=== PATIENT | male | born 1940 | race African-American/Black ===

== ENCOUNTER 2016-10-31 06:40 | Inpatient (IN) | payer BC, MEDICARE ==
[2016-10-31] VITALS (11 sets, daily range): BP systolic 106–141; BP diastolic 32–97
[~2016-10-31] VITALS: Ht 180.3 cm; Wt 78.9 kg
[~2016-10-31 06:40] MED LIST: ALEN70TA3 PO; ALEN70TA5 PO; ASPI81TA2 PO; BACL10TA PO; BACL20TA PO; BICA50TA4 PO; CEFE2PIG IV; CEFP200T PO; DICL100G7 TP; DOCU-27 PO; Enoxaparin Sodium SQ; FLUT16SP2 NS; GABA-586 PO; GABA600T2 PO; GLIM2TAB PO; GOSE10.8 SQ; GUAI600T38 PO; HYDR-2680 PO; LEVO1CAP3 PO; LEVO75TA5 PO; LISI10TA2 PO; LORA10TA68 PO; LUBI24CA5 PO; METF10002 PO; MOME17SP NS; MULT1TAB6 PO; NACL 0.225% NEB; OXYC1TAB9 PO; PANT40TA5 PO; POLY17PO5 PO; POTA10CA PO; POTA99TA PO; Polyethylene Glycol 3350 PO; SILD50TA PO; SILV20CR4 TP; TIZA4TAB PO; TIZA6CAP3 PO; TOBRAMYCIN NEB
--- NOTE | 2016-10-31 06:55 | PHYS DOC ---
Past Medical History Past Medical History: Cancer, Diabetes-Type II, Hypertension, Other Additional Past Medical Histor: SPINAL STENOSIS,MUSCLE SPASAMS,COLON OBST, PROSTATE CA, chronic hip pain Past Surgical History: Other Additional Past Surgical Histo: HERNIA, SPINE Alcohol Use: Rarely Drug Use: None Adult General Chief Complaint Chief Complaint: MECHANICAL FALL HPI HPI Patient is a 75 year old male brought from home by EMS with the complaint of left hip pain. Patient states yesterday morning he was walking out of his bedroom like he always does and just fell, he doesn't know what caused him to fall. He did bump his head with no loss of consciousness. He is not able to get up from the fall so family called 911, firemen came and helped him get up and put him in a chair. He is not able to get up out of the chair or bear any weight without assistance. Later in the day, his and another family member helped him get from the chair to the bed where he has been ever since. He has not been able to get out of bed due to pain. He cannot bear weight. He does have a history of a left fibula fracture in the past. Patient lives at home with his . He is usually ambulatory without difficulty. He has a life alert. PCP Dr. Tran Review of Systems Review of Systems Constitutional: Denies fever or chills [] Eyes: Denies change in visual acuity, redness, or eye pain [] HENT: Denies nasal congestion or sore throat [] Respiratory: Denies cough or shortness of breath [] Cardiovascular: Denies chest pain GI: Denies abdominal pain, nausea, vomiting, bloody stools or diarrhea [] : Denies dysuria or hematuria [] Musculoskeletal: As in history of present illness for left groin, hip, and leg pain Integument: Denies rash or skin lesions [] Neurologic: Denies headache, focal weakness or sensory changes [] Current Medications Current Medications Current Medications Medications (Trade) Dose Ordered Sig/Karina Start Time Stop Time Status Last Admin Dose Admin Fentanyl Citrate 25 mcg 25 mcg PRN Q15MIN PRN 10/31/16 07:00 11/01/16 06:59 10/31/16 08:26 25 MCG Sodium Chloride (Iv Sodium Chloride 0.9% 1000ml Bag) 1,000 ml @ 100 mls/hr 1X ONCE 10/31/16 08:30 10/31/16 18:29 10/31/16 08:26 100 MLS/HR Allergies Allergies Allergies Coded Allergies Type Severity Reaction Last Updated Verified piperacillin Allergy Severe Itching, unresponsive,hypotension 02/18/16 Yes tazobactam Allergy Severe Itching, unresponsive,hypotension 02/18/16 Yes levofloxacin Allergy Intermediate Itching 02/18/16 Yes Physical Exam Physical Exam Constitutional: Well developed, well nourished, no acute distress, non-toxic appearance. Alert, mentating normally. HENT: Normocephalic, atraumatic, no tenderness or hematoma palpable on the scalp , bilateral external ears normal, mouth and lips very dry, nose normal. [] Eyes: conjunctiva normal, no discharge. [] Neck: Normal range of motion, no tenderness, supple, no stridor. [] Cardiovascular:Heart rate regular rhythm, no murmur [] Lungs & Thorax: Bilateral breath sounds clear to auscultation [] Abdomen: Bowel sounds normal, soft, no tenderness, no masses, no pulsatile masses. Large ventral hernia noted which is soft. Skin: Warm, dry, no erythema, no rash. [] Back: No tenderness, no CVA tenderness. [] Extremities: Left hip tender to palpation. Left proximal femur tender to palpation. Left knee without swelling or tenderness. Left lower leg without swelling, tenderness, or deformity, foot is warm with good pulses. Other 3 extremities unremarkable without tenderness or deformity. Neurologic: Alert and oriented X 3, normal motor function, normal sensory function, no focal deficits noted. [] Current Patient Data Vital Signs Vital Signs Date Time Temp Pulse Resp B/P Pulse Ox O2 Delivery O2 Flow Rate FiO2 10/31/16 08:26 14 93 Room Air 10/31/16 07:55 79 106/69 10/31/16 06:45 98.8 98.8 Lab Values Laboratory Tests Test 10/31/16 07:05 White Blood Count 9.6x10^3/uL (4.0-11.0) Red Blood Count 3.11x10^6/uL (4.30-5.70) L Hemoglobin 9.6g/dL (13.0-17.5) L Hematocrit 29.2% (39.0-53.0) L Mean Corpuscular Volume 94fL (79-100) Mean Corpuscular Hemoglobin 31pg (25-35) Mean Corpuscular Hemoglobin Concent 33g/dL (31-37) Red Cell Distribution Width 12.1% (11.5-14.5) Platelet Count 194x10^3/uL (140-400) Neutrophils (%) (Auto) 77% (31-73) H Lymphocytes (%) (Auto) 11% (24-48) L Monocytes (%) (Auto) 4% (0-9) Eosinophils (%) (Auto) 8% (0-3) H Basophils (%) (Auto) 1% (0-3) Neutrophils # (Auto) 7.4x10^3uL (1.8-7.7) Lymphocytes # (Auto) 1.0x10^3/uL (1.0-4.8) Monocytes # (Auto) 0.4x10^3/uL (0.0-1.1) Eosinophils # (Auto) 0.8x10^3/uL (0.0-0.7) H Basophils # (Auto) 0.0x10^3/uL (0.0-0.2) Sodium Level 129mmol/L (136-145) L Potassium Level 4.8mmol/L (3.5-5.1) Chloride Level 95mmol/L (98-107) L Carbon Dioxide Level 25mmol/L (21-32) Anion Gap 9 (6-14) Blood Urea Nitrogen 14mg/dL (8-26) Creatinine 1.1mg/dL (0.7-1.3) Estimated GFR (Cockcroft-Gault) 79.0 BUN/Creatinine Ratio 13 (6-20) Glucose Level 141mg/dL (70-99) H Calcium Level 9.8mg/dL (8.5-10.1) Total Bilirubin 0.7mg/dL (0.2-1.0) Aspartate Amino Transferase (AST) 49U/L (15-37) H Alanine Aminotransferase (ALT) 58U/L (16-63) Alkaline Phosphatase 39U/L (46-116) L Total Protein 7.5g/dL (6.4-8.2) Albumin 3.2g/dL (3.4-5.0) L Albumin/Globulin Ratio 0.7 (1.0-1.7) L Laboratory Tests 10/31/16 07:05 Laboratory Tests 10/31/16 07:05 EKG EKG [] Radiology/Procedures Radiology/Procedures X-rays of the left hip read by me. Left femoral neck fracture. X-ray of the left femur read by me. No acute abnormality other than the femoral neck. One view portable chest x-ray read by me. Compared to previous chest x-ray from 2016. There may be a hiatal hernia in the left lower chest. No acute abnormality noted. [] Course & Med Decision Making Course & Med Decision Making Pertinent Labs and Imaging studies reviewed. (See chart for details) 75-year-old man who fell yesterday and has not been able to ambulate or even bear weight since the fall, complaining of pain in the left hip and going down the left thigh towards the knee but without knee pain.. I discussed with the patient that we will get some x-rays. He also looks extremely dry, his mouth and lips are dry, we will check some labs as well. He is agreeable to that. Patient was given some IV pain meds. X-rays reveal left hip fracture. I discussed with Dr. Tran who will admit the patient. I wrote bridge orders. I discussed with Dr. Hill, orthopedics, who will see the patient today. He asked that the patient continue to be nothing by mouth. [] Dragon Disclaimer Dragon Disclaimer This electronic medical record was generated, in whole or in part, using a voice recognition dictation system. Departure Departure Impression: Primary Impression: Hip fracture, left Disposition: ADMITTED INPATIENT Admitting Physician: Spring Tran Condition: STABLE Referrals: SPRING TRAN MD (PCP) MELLY SEGURA MD Oct 31, 2016 06:55
[2016-10-31] MEDS ORDERED: FENTANYL PF 100 MCG/2 ML VIAL. IV PRN ×3 (07:00→10:30)
[2016-10-31 07:20] LABS: BASO % 1 % (0-3); EOS % 8 % (0-3); HEMATOCRIT 29.2 % (39.0-53.0); HEMOGLOBIN 9.6 g/dL (13.0-17.5); LYMPH % 11 % (24-48); MEAN CORPUSCULAR HEMOGLOBIN 31 pg (25-35); MEAN CORPUSCULAR HGB CONC 33 g/dL (31-37); MEAN CORPUSCULAR VOLUME 94 fL (79-100); MONO % 4 % (0-9); NEUT % 77 % (31-73); PLATELET COUNT 194 x10^3/uL (140-400); RED BLOOD COUNT 3.11 x10^6/uL (4.30-5.70); RED CELL DISTRIBUTION WIDTH 12.1 % (11.5-14.5); WHITE BLOOD COUNT 9.6 x10^3/uL (4.0-11.0)
[2016-10-31 07:45] LABS: CALCIUM 9.8 mg/dL (8.5-10.1); CREATININE 1.1 mg/dL (0.7-1.3); POTASSIUM 4.8 mmol/L (3.5-5.1)
[2016-10-31 07:51] LABS: ALBUMIN 3.2 g/dL (3.4-5.0); ALBUMIN/GLOBULIN RATIO 0.7 (1.0-1.7); TOTAL BILIRUBIN 0.7 mg/dL (0.2-1.0); TOTAL PROTEIN 7.5 g/dL (6.4-8.2)
--- NOTE | 2016-10-31 07:56 | RAD ---
Pelvis with left hip, 3 views, 10/31/2016: History: Fall There is a subcapital fracture of the left femoral neck. There is impaction and mild anterior displacement of the distal fracture fragment at the fracture site. There is moderate spurring at the hip joint. No other fracture or dislocation is evident. IMPRESSION: Acute subcapital fracture of the left femoral neck. Left femur, 2 views, 10/31/2016: Views of the distal femur demonstrate no additional fracture. There is degenerative change at the knee. The upper end of a internal fixation device is noted in the proximal tibia. IMPRESSION: No additional fracture is delineated.
--- NOTE | 2016-10-31 07:59 | RAD ---
Portable chest, 10/31/2016: History: Preop evaluation, hip fracture Comparison is made to a study from 02/17/2016. The heart size and pulmonary vascularity are normal. There is mild chronic elevation of the left hemidiaphragm. Mild streaky left basilar opacities have been present on previous studies and are compatible with chronic atelectasis or scarring. No new pulmonary abnormality is seen. There is no evidence of pleural fluid or pneumothorax. A surgical plate and screws is evident in the lower cervical spine. IMPRESSION: 1. Mild chronic elevation of the left hemidiaphragm with underlying linear scarring and/or atelectasis. 2. No acute abnormality is detected.
[2016-10-31] MEDS ORDERED: IV NORMAL SALINE 1000ML BAG 1,000 ML IV ONE (08:30)
[2016-10-31] MEDS ORDERED: CLINDAMYCIN 900MG PREMIX 50 ML IV ONE (09:00)
[2016-10-31] MEDS ORDERED: DEXTROSE 50% 25 GM / 50ML DISP.SYRIN. IV PRN ×2 (09:30→13:15)
[2016-10-31] MEDS ORDERED: PROPOFOL 20 ML IV ONE (09:57)
[2016-10-31] MEDS ORDERED: ROCURONIUM 50 MG/5 ML VIAL. ONE (09:57)
[2016-10-31] MEDS ORDERED: FENTANYL PF 100 MCG/2 ML VIAL. ONE (09:57)
[2016-10-31] MEDS ORDERED: LIDOCAINE 2% 100 MG/5 ML SYRINGE. ONE (09:57)
[2016-10-31] MEDS ORDERED: SUCCINYLCHOLINE 200 MG/10 ML VIAL. ONE (09:57)
--- NOTE | 2016-10-31 10:22 | PDOC ---
Provider Note Provider Note Pt seen.H&P dictated. #[id number] SPRING BURGESS MD Oct 31, 2016 10:22
[2016-10-31 10:27] LABS: INR 1.1 (0.8-1.1); PROTHROMBIN TIME PATIENT 13.4 SEC (11.7-14.0)
[2016-10-31] MEDS ORDERED: IV RINGERS,LACTATED 1000ML 1,000 ML IV SCH (10:29)
[2016-10-31] MEDS ORDERED: NON FORMULARY ITEM (Alendronate Sodium (Fosamax) 70 MG) PO SCH (10:30)
[2016-10-31] MEDS ORDERED: LIDOCAINE 1% 1 ML SYRINGE. ID PRN (10:30)
[2016-10-31] MEDS ORDERED: MORPHINE SULFATE 2 MG/ML DISP.SYRIN. IV PRN (10:30)
[2016-10-31] MEDS ORDERED: HYDROmorphone 2 MG/ML VIAL IV PRN (10:30)
[2016-10-31] MEDS ORDERED: PROCHLORPERAZINE 10 MG/2 ML VIAL. IV PRN (10:30)
[2016-10-31] MEDS ORDERED: ONDANSETRON PF 4 MG/2 ML VIAL. IV PRN (10:30)
--- NOTE | 2016-10-31 10:37 | PDOC ---
BRIEF OPERATIVE NOTE Date: Oct 31, 2016 Pre-Op Diagnosis L femoral neck fracture, displaced Post-Op Diagnosis same Procedure Performed L hip fernando Surgeon Sergio Bead Forming Machine Set Up Operator Clarisa Anesthesiologist Woo Anesthesia Type: General Blood Loss 100mL Complications none LASHAE DOWNS II, MD Oct 31, 2016 10:37
[2016-10-31] MEDS ORDERED: SENNOSIDES/DOCUSATE 8.6/50MG TABLET. PO PRN (10:45)
[2016-10-31] MEDS ORDERED: MORPHINE SULFATE 5 MG, KETOROLAC TROMETHAMINE 30 MG, ROPIVacaine 0.5% PF 60 ML, EPINEPH... INT ART ONE ×5 (11:00)
[2016-10-31] MEDS ORDERED: MORPHINE SULFATE 10 MG/ML VIAL. ONE (11:00)
[2016-10-31] MEDS ORDERED: DEXAMETHASONE SOD PHOS 20 MG/5 ML VIAL. ONE (11:20)
[2016-10-31] MEDS ORDERED: DESFLURANE 31 TO 60 MINUTES IH ONE (11:20)
[2016-10-31] MEDS ORDERED: GLYCOPYRROLATE 1 MG/5 ML VIAL. ONE (11:33)
[2016-10-31] MEDS ORDERED: ONDANSETRON PF 4 MG/2 ML VIAL. ONE (11:33)
[2016-10-31] MEDS ORDERED: NEOSTIGMINE METHYLSULFATE 5 MG/5 ML SYRINGE. ONE (11:33)
[2016-10-31] MEDS ORDERED: PHENYLEPHRINE in 0.9% NACL PF 1 MG/10 ML DISP.SYRIN. IV ONE (11:56)
[2016-10-31] MEDS: METFORMIN 1,000 MG TABLET PO SCH ×2 (12:00→18:40)
[2016-10-31] MEDS: CETIRIZINE HCL 10 MG TABLET. PO SCH (12:00)
[2016-10-31] MEDS: POTASSIUM CHLORIDE 8 MEQ TABLET.ER. PO SCH (12:00)
[2016-10-31] MEDS: BACLOFEN 10 MG TABLET. PO SCH ×3 (12:00→21:06)
[2016-10-31] MEDS: ASPIRIN CHEWABLE 81 MG TABLET. PO SCH (12:00)
[2016-10-31] MEDS: PANTOPRAZOLE 40 MG TABLET.DR. PO SCH (12:00)
[2016-10-31] MEDS: POLYETHYLENE GLYCOL 3350 17 GM PACKET. PO SCH ×2 (12:00→21:12)
[2016-10-31] MEDS: LISINOPRIL 10 MG TABLET PO SCH (12:00)
[2016-10-31] MEDS: FENTANYL PF 100 MCG/2 ML VIAL. IV PRN ×2 (13:02→13:35)
--- NOTE | 2016-10-31 13:57 | RAD ---
AP pelvis, 10/31/2016: History: Postop evaluation The fractured left femoral head and neck have been surgically resected with a bipolar left hip prosthesis placed. It is in satisfactory position. Surgical skin clips overlie the operative site laterally. There is no evidence of a retained surgical instrument, needle or radiopaque sponge on this single view.
[2016-10-31] MEDS: GABAPENTIN 300 MG CAPSULE. PO SCH ×2 (14:00→21:06)
[2016-10-31] MEDS: DICLOFENAC SODIUM 1% TOPICAL GEL 100GM TUBE. TP SCH ×2 (14:00→21:06)
[2016-10-31] MEDS ORDERED: WARFARIN 5 MG TABLET. PO ONE (16:00)
[2016-10-31] MEDS: INSULIN ASPART 300 UNITS/3 ML INSULN.PEN SQ SCH (16:29)
--- NOTE | 2016-10-31 18:12 | OP ---
DATE OF SURGERY: 10/31/2016 SURGEON: Henry Downs M.D. PATROL CONDUCTOR: Ngoc Mckenna. PREOPERATIVE DIAGNOSIS: Displaced left femoral neck fracture. POSTOPERATIVE DIAGNOSIS: Displaced left femoral neck fracture. PROCEDURE PERFORMED: Left hip hemiarthroplasty. ESTIMATED BLOOD LOSS: 100 mL. COMPONENTS INSERTED: 1. Olivas and Nephew cemented, Synergy stem size 10. 2. Distal postcentralizer. 3. 52 mm cobalt chrome +0 head. COMPLICATIONS: None. REASON FOR PROCEDURE: Can is a very pleasant 75-year-old gentleman who had a fall yesterday and he was unable to bear weight. He presents to the Emergency Department. For details, please see my full consult note. We had a discussion of risks, benefits, alternatives of above surgery and he elected to proceed. DESCRIPTION OF PROCEDURE: The patient was greeted in the preoperative holding area where the correct extremity was marked and verified. He was taken back to the operative suite and antibiotics were started en route. Once in the OR, he was transferred gently supine to the OR table and had successful induction of general anesthesia. We laid him in lateral decubitus position with her left side up. Axillary roll was then placed. He was secured to the bed. Hip positioning devices were secured in place as well. Left lower extremity was prepped and draped in a usual sterile fashion. We then proceeded to conduct a standard preoperative timeout. I then palpated, marked surface anatomy and made my standard posterolateral skin incision, dissected subcutaneous tissue with electrocautery and cauterized bleeders as they were encountered. I identified the fascia and removed some of the adherent subcutaneous tissue with a Hernandez for later identification and repair of the fascia. I incised fascial and skin incision, bluntly split the gluteus mariana, and excised some bursal tissue. I identified his quadratus and took this down with electrocautery. The piriformis had been ruptured. I identified his capsule, which had been partially split and I incised this with electrocautery and a Z-plasty type incision. I then palpated for his lesser trochanter and then made my neck cut and delivered this bone remnant from the operative field. I then delivered the femoral head from the operative field with the assistance of a corkscrew device and hip skid. I inspected the acetabulum and there was some mild wear. No debris was encountered. I then irrigated out the operative field to make sure I removed all of the bony fragments after this. I then measured his femoral head and trialed the 52, which fit very well. I then removed this and directed my attention to the proximal femur, which was delivered in the operative field with manipulation of leg in assistance of proximal femoral retractor. I then began with my germanie cutting osteotome laterally followed by a canal finding reamer. I then began broaching starting at an 8-9 and 10, which gave a good fit and fill. I then trialed the head and neck sizes and one with the above combination. We then thoroughly irrigated out the canal and I placed a distal restrictor. The cement was then mixed on the back table and then injected in the canal. I then introduced the stem gently impacted into position. I removed excess cement and held in place cement polymerized. I then trialed again my above combination, which I felt gave good range of motion and leg length. I then washed and dried the [place] taper region, gently impacted into place, and reduced the hip after irrigating out the acetabulum again. After this, I closed capsule with simple interrupted #2 Ethibond. I then injected my periarticular mixture in the bere-incisional area. We then closed the fascia with running #2 Quill suture followed by inverted interrupted 2-0 in a multilayer fashion for subcutaneous tissue and gloria for skin. The patient tolerated surgery well. Prior to completion of wound closure, all counts were reported correct x 2. No complications. At the conclusion of surgery, he was awakened and transferred gently supine to the hospital bed and taken to PACU in stable and extubated condition. Postop plan is for him to weightbear as tolerated. Coumadin and antibiotic prophylaxis will be initiated. PT and OT will see the patient. HENRY DOWNS MD DR: SHRUTHI/julien JOB#: [id number] / [id number] EARLENE
[2016-10-31] MEDS: OXYCODONE/APAP 10/325 TABLET. PO PRN ×2 (18:40→22:47)
[2016-10-31] MEDS: CLINDAMYCIN 900MG PREMIX 50 ML IV SCH (18:41)
[2016-10-31] MEDS ORDERED: ALGAL OIL PO SCH (21:00)
[2016-10-31] MEDS ORDERED: B6 PO SCH (21:00)
[2016-10-31] MEDS ORDERED: B12 PO SCH (21:00)
[2016-10-31] MEDS ORDERED: ENOXAPARIN 30 MG/0.3 ML SYRINGE. SQ SCH (21:00)
[2016-10-31] MEDS ORDERED: LEVOMEFOLATE PO SCH (21:00)
[2016-10-31] MEDS: DOCUSATE SODIUM 100 MG CAPSULE. PO SCH (21:05)
--- NOTE | 2016-11-01 00:46 | CONS ---
DATE OF CONSULTATION: 10/31/2016 REFERRING PROVIDER: Dione Lau MD. CONSULTING PROVIDER: Henry Hill MD. REASON FOR CONSULTATION: Left hip fracture. CHIEF COMPLAINT: Left hip pain. HISTORY OF PRESENT ILLNESS: The patient is a very pleasant 75-year-old gentleman who lives at home with his and had a fall yesterday. Due to inability to bear weight on it, this morning he called EMS who brought him in. He was found to have a left femoral neck fracture. He tells me that his hip just gave out. He did not trip or fall on anything. No preceding symptoms. He did not hit his head. He tells me he feels the pain all around his hip. It does radiate down his thigh. It is worse with any attempted weightbearing or movement of his left hip. ALLERGIES: LEVOFLOXACIN, PIPERACILLIN, TAZOBACTAM. MEDICATIONS: Reviewed. Please see MRAD. REVIEW OF SYSTEMS: Twelve-point review of systems negative except as per HPI. PAST MEDICAL HISTORY: Significant for cancer, type 2 diabetes, hypertension, spinal stenosis, history of colon obstruction, prostate cancer, lumbar decompression and herniorrhaphy. SOCIAL HISTORY: Lives with his . He uses alcohol very infrequently. No tobacco. FAMILY HISTORY: Noncontributory. PHYSICAL EXAMINATION: GENERAL: The patient is alert and oriented. Speech is clear. Mood and affect are appropriate. He answers and asks questions appropriately. HEENT: Head normocephalic, atraumatic. Extraocular muscles are intact. CARDIOVASCULAR: Regular rate and rhythm. No edema in his lower extremities. Dorsalis pedis 1+ and symmetric bilaterally. LUNGS: Respirations are unlabored with symmetric chest rise. ABDOMEN: Soft, nondistended. EXTREMITIES: Examination of bilateral lower extremities reveals left lower extremity shortened and externally rotated. He is tender globally around his left hip. No tenderness around knee or ankle. He can wiggle his toes. Normal sensation bilaterally. IMAGING: X-rays are reviewed. Hip and pelvis x-rays were interpreted by myself. Report was also reviewed. Displaced left femoral neck fracture. Chest x-ray report was reviewed, mild left-sided atelectasis. LABORATORY DATA: Reviewed. CBC shows hemoglobin 9.6. Chemistry shows sodium 129. IMPRESSION: Closed left femoral neck fracture, displaced. PLAN: I discussed risks, benefits, alternatives of proceeding with left hip hemiarthroplasty with the patient and he elected to proceed. He has been n.p.o. since last night. We will plan on doing this later this afternoon. HENRY HILL MD DR: SHRUTHI/julien JOB#: [id number] / [id number] EARLENE
--- NOTE | 2016-11-01 01:40 | HP ---
ADMIT DATE: 10/31/2016 THE PATIENT'S LOCATION: 434. REASON FOR ADMISSION TO THE HOSPITAL: Mechanical fall, left hip fracture. HISTORY OF PRESENT ILLNESS: The patient is a 75-year-old male with history of arthritis; uses a walker and he fell yesterday;called ambulance was put him back in the chair. He was doing well, fine, but had more pain and was brought to the hospital. X-ray shows a left hip fracture. The patient was seen by orthopedic and scheduled to have a hip replacement today. PAST MEDICAL HISTORY: He has a history of diabetes, hypertension, prostate cancer, spinal stenosis, COPD, colon spasm and chronic pain. PAST SURGICAL HISTORY: He had a hernia repair. ALLERGIES: LEVOFLOXACIN, PIPERACILLIN AND TAZOBACTAM. MEDICATIONS AT HOME: Zoladex 10.8 mg every three months injection, multivitamin daily, Zanaflex 6 mg capsules at bedtime; 12 mg, Fosamax 70 mg once a week, aspirin 81 mg daily, baclofen 15 mg three times daily, baclofen 20 mg at bedtime, Voltaren gel daily, Colace 100 mg daily, gabapentin 300 mg capsule 600 mg three times daily, Metanx capsule twice a day, lisinopril 10 mg daily, loratadine 10 mg daily, metformin 1000 mg twice a day, oxycodone 1 q. 6, 10 mg, Protonix 40 mg daily, potassium 10 mEq daily, and MiraLax 17 grams daily. PERSONAL HISTORY: History of smoking in the past, has not smoked for a long time. He denies alcohol or drug abuse. SOCIAL HISTORY: Lives at home. The patient uses a walker and a wheelchair at home. FAMILY HISTORY: Positive for diabetes, hypertension, and heart disease. REVIEW OF SYSTEMS: Fourteen-system review: CARDIAC: No chest pain. LUNGS: No cough or sputum. GASTROINTESTINAL: No nausea or vomiting. NEUROLOGICAL: No focal deficits. Moving upper extremities. PHYSICAL EXAMINATION: GENERAL: The patient is seen in the preop holding. VITAL SIGNS: Temperature 98, pulse 89, respirations 18, blood pressure 106/65 and 98% room air. HEENT: Head is atraumatic. Pupils equal. Oral cavity: Dentures. NECK: Supple. Thyroid not enlarged. JVD not elevated. CHEST: Symmetrical. CARDIOVASCULAR: S1, S2. LUNGS: Clear to auscultation. ABDOMEN: Soft. No mass palpable. EXTERNAL GENITALIA: No Laureano. RECTAL: Deferred. EXTREMITIES: The patient has wasting of the muscles in the hands from spinal stenosis and also pain in the left hip did not examine the range of movement. No swelling and no calf tenderness. NEUROLOGIC: As mentioned above. On examination, no focal deficits. LABORATORY DATA: Shows a white count of 9, hemoglobin 9.6, and platelets 194. INR is 1.1. Electrolytes show sodium 129, potassium 4.8, chloride 95, bicarbonate 25, BUN 14, creatinine 1.1, glucose 141. LFTs were normal. DIAGNOSTIC DATA: Chest x-ray: Mild chronic elevation of the left hemidiaphragm. X-ray of the femur shows acute subcapital fracture of the left femoral neck. FINAL IMPRESSION: 1. Left hip fracture secondary to mechanical fall. 2. Diabetes. 3. Chronic obstructive pulmonary disease. 4. Prostate cancer. 5. Spinal stenosis. 6. Elevation of the diaphragm. 7. Chronic problems with the colon. 8. Mild hyponatremia. PLAN: At this time, was admitted to hospital, was seen by orthopedic, scheduled for surgery, seen in the ER. At this time, has add normal saline, IV fluids and monitor electrolytes and also check blood sugars four times daily sliding scale. DVT prophylaxis with Coumadin and Lovenox. SPRING BURGESS MD DR: CECE/julien JOB#: [id number] / [id number] EARLENE
[2016-11-01] MEDS: CLINDAMYCIN 900MG PREMIX 50 ML IV SCH ×2 (01:55→09:46)
[2016-11-01] MEDS: diphenhydrAMINE HCL 25 MG CAPSULE PO PRN ×3 (02:11→23:37)
[2016-11-01] MEDS: OXYCODONE/APAP 10/325 TABLET. PO PRN ×4 (02:11→23:34)
[2016-11-01 03:00] VITALS: BP 114/72
[2016-11-01 04:53] LABS: BASO % 0 % (0-3); EOS % 3 % (0-3); HEMATOCRIT 24.6 % (39.0-53.0); HEMOGLOBIN 8.2 g/dL (13.0-17.5); LYMPH # 1.1 x10^3/uL (1.0-4.8); LYMPH % 11 % (24-48); MEAN CORPUSCULAR HEMOGLOBIN 32 pg (25-35); MEAN CORPUSCULAR HGB CONC 33 g/dL (31-37); MEAN CORPUSCULAR VOLUME 95 fL (79-100); MONO % 5 % (0-9); NEUT % 81 % (31-73); PLATELET COUNT 148 x10^3/uL (140-400); RED CELL DISTRIBUTION WIDTH 12.6 % (11.5-14.5); WHITE BLOOD COUNT 10.5 x10^3/uL (4.0-11.0)
[2016-11-01 05:33] LABS: CALCIUM 9.1 mg/dL (8.5-10.1); CREATININE 1.1 mg/dL (0.7-1.3)
[2016-11-01 05:42] LABS: POTASSIUM 5.3 mmol/L (3.5-5.1)
[2016-11-01 07:00] VITALS: BP 136/72
[2016-11-01] MEDS: POTASSIUM CHLORIDE 8 MEQ TABLET.ER. PO SCH (08:00)
[2016-11-01] MEDS: INSULIN ASPART 300 UNITS/3 ML INSULN.PEN SQ SCH ×3 (08:00→17:00)
--- NOTE | 2016-11-01 08:10 | PDOC ---
ORTHO PROGRESS NOTES Subjective L hip feels much better today. No CP, abd complaints Vitals Vital Signs Date Time Temp Pulse Resp B/P Pulse Ox O2 Delivery O2 Flow Rate FiO2 11/01/16 03:15 20 97 Nasal Cannula 2.0 11/01/16 03:00 97.5 91 114/72 97.5 Labs Laboratory Tests Test 10/31/16 07:05 10/31/16 13:26 10/31/16 15:30 10/31/16 16:14 White Blood Count 9.6x10^3/uL (4.0-11.0) Red Blood Count 3.11x10^6/uL (4.30-5.70) Hemoglobin 9.6g/dL (13.0-17.5) Hematocrit 29.2% (39.0-53.0) Mean Corpuscular Volume 94fL (79-100) Mean Corpuscular Hemoglobin 31pg (25-35) Mean Corpuscular Hemoglobin Concent 33g/dL (31-37) Red Cell Distribution Width 12.1% (11.5-14.5) Platelet Count 194x10^3/uL (140-400) Neutrophils (%) (Auto) 77% (31-73) Lymphocytes (%) (Auto) 11% (24-48) Monocytes (%) (Auto) 4% (0-9) Eosinophils (%) (Auto) 8% (0-3) Basophils (%) (Auto) 1% (0-3) Neutrophils # (Auto) 7.4x10^3uL (1.8-7.7) Lymphocytes # (Auto) 1.0x10^3/uL (1.0-4.8) Monocytes # (Auto) 0.4x10^3/uL (0.0-1.1) Eosinophils # (Auto) 0.8x10^3/uL (0.0-0.7) Basophils # (Auto) 0.0x10^3/uL (0.0-0.2) Prothrombin Time 13.4SEC (11.7-14.0) Prothromb Time International Ratio 1.1 (0.8-1.1) Sodium Level 129mmol/L (136-145) Potassium Level 4.8mmol/L (3.5-5.1) Chloride Level 95mmol/L (98-107) Carbon Dioxide Level 25mmol/L (21-32) Anion Gap 9 (6-14) Blood Urea Nitrogen 14mg/dL (8-26) Creatinine 1.1mg/dL (0.7-1.3) Estimated GFR (Cockcroft-Gault) 79.0 BUN/Creatinine Ratio 13 (6-20) Glucose Level 141mg/dL (70-99) Calcium Level 9.8mg/dL (8.5-10.1) Total Bilirubin 0.7mg/dL (0.2-1.0) Aspartate Amino Transf (AST/SGOT) 49U/L (15-37) Alanine Aminotransferase (ALT/SGPT) 58U/L (16-63) Alkaline Phosphatase 39U/L (46-116) Total Protein 7.5g/dL (6.4-8.2) Albumin 3.2g/dL (3.4-5.0) Albumin/Globulin Ratio 0.7 (1.0-1.7) Glucose (Fingerstick) 163mg/dL (70-99) 137mg/dL (70-99) Nasal Screen MRSA (PCR) Negative (Negative) Test 10/31/16 20:40 11/01/16 04:28 11/01/16 07:42 Glucose (Fingerstick) 141mg/dL (70-99) 88mg/dL (70-99) White Blood Count 10.5x10^3/uL (4.0-11.0) Red Blood Count 2.60x10^6/uL (4.30-5.70) Hemoglobin 8.2g/dL (13.0-17.5) Hematocrit 24.6% (39.0-53.0) Mean Corpuscular Volume 95fL (79-100) Mean Corpuscular Hemoglobin 32pg (25-35) Mean Corpuscular Hemoglobin Concent 33g/dL (31-37) Red Cell Distribution Width 12.6% (11.5-14.5) Platelet Count 148x10^3/uL (140-400) Neutrophils (%) (Auto) 81% (31-73) Lymphocytes (%) (Auto) 11% (24-48) Monocytes (%) (Auto) 5% (0-9) Eosinophils (%) (Auto) 3% (0-3) Basophils (%) (Auto) 0% (0-3) Neutrophils # (Auto) 8.6x10^3uL (1.8-7.7) Lymphocytes # (Auto) 1.1x10^3/uL (1.0-4.8) Monocytes # (Auto) 0.5x10^3/uL (0.0-1.1) Eosinophils # (Auto) 0.3x10^3/uL (0.0-0.7) Basophils # (Auto) 0.0x10^3/uL (0.0-0.2) Sodium Level 130mmol/L (136-145) Potassium Level 5.3mmol/L (3.5-5.1) Chloride Level 98mmol/L (98-107) Carbon Dioxide Level 25mmol/L (21-32) Anion Gap 7 (6-14) Blood Urea Nitrogen 18mg/dL (8-26) Creatinine 1.1mg/dL (0.7-1.3) Estimated GFR (Cockcroft-Gault) 79.0 Glucose Level 89mg/dL (70-99) Calcium Level 9.1mg/dL (8.5-10.1) Laboratory Tests Test 10/31/16 13:26 10/31/16 15:30 10/31/16 16:14 10/31/16 20:40 Glucose (Fingerstick) 163mg/dL (70-99) 137mg/dL (70-99) 141mg/dL (70-99) Nasal Screen MRSA (PCR) Negative (Negative) Test 11/01/16 04:28 11/01/16 07:42 White Blood Count 10.5x10^3/uL (4.0-11.0) Red Blood Count 2.60x10^6/uL (4.30-5.70) Hemoglobin 8.2g/dL (13.0-17.5) Hematocrit 24.6% (39.0-53.0) Mean Corpuscular Volume 95fL (79-100) Mean Corpuscular Hemoglobin 32pg (25-35) Mean Corpuscular Hemoglobin Concent 33g/dL (31-37) Red Cell Distribution Width 12.6% (11.5-14.5) Platelet Count 148x10^3/uL (140-400) Neutrophils (%) (Auto) 81% (31-73) Lymphocytes (%) (Auto) 11% (24-48) Monocytes (%) (Auto) 5% (0-9) Eosinophils (%) (Auto) 3% (0-3) Basophils (%) (Auto) 0% (0-3) Neutrophils # (Auto) 8.6x10^3uL (1.8-7.7) Lymphocytes # (Auto) 1.1x10^3/uL (1.0-4.8) Monocytes # (Auto) 0.5x10^3/uL (0.0-1.1) Eosinophils # (Auto) 0.3x10^3/uL (0.0-0.7) Basophils # (Auto) 0.0x10^3/uL (0.0-0.2) Sodium Level 130mmol/L (136-145) Potassium Level 5.3mmol/L (3.5-5.1) Chloride Level 98mmol/L (98-107) Carbon Dioxide Level 25mmol/L (21-32) Anion Gap 7 (6-14) Blood Urea Nitrogen 18mg/dL (8-26) Creatinine 1.1mg/dL (0.7-1.3) Estimated GFR (Cockcroft-Gault) 79.0 Glucose Level 89mg/dL (70-99) Calcium Level 9.1mg/dL (8.5-10.1) Glucose (Fingerstick) 88mg/dL (70-99) Notes Sitting in bed, A and A dressing intact LLE: wiggles toes, no change in sensation compared to pre-op toes warm Assessment and Plan PT/OT LASHAE Rodriguez II, MD Nov 01, 2016 08:10
--- NOTE | 2016-11-01 09:31 | EKG ---
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
[2016-11-01] MEDS: METFORMIN 1,000 MG TABLET PO SCH ×2 (09:46→18:00)
[2016-11-01] MEDS: GABAPENTIN 300 MG CAPSULE. PO SCH ×3 (09:46→20:40)
[2016-11-01] MEDS: PANTOPRAZOLE 40 MG TABLET.DR. PO SCH (09:46)
[2016-11-01] MEDS: CETIRIZINE HCL 10 MG TABLET. PO SCH (09:46)
[2016-11-01] MEDS: ASPIRIN CHEWABLE 81 MG TABLET. PO SCH (09:46)
[2016-11-01] MEDS: POLYETHYLENE GLYCOL 3350 17 GM PACKET. PO SCH ×2 (09:47→20:40)
[2016-11-01] MEDS: BACLOFEN 10 MG TABLET. PO SCH ×4 (09:47→20:40)
[2016-11-01] MEDS: LISINOPRIL 10 MG TABLET PO SCH (09:51)
[2016-11-01] MEDS: DICLOFENAC SODIUM 1% TOPICAL GEL 100GM TUBE. TP SCH ×3 (09:51→20:42)
--- NOTE | 2016-11-01 10:03 | PDOC ---
PROGRESS NOTES Subjective Subjective less pain today Objective Objective Vital Signs Date Time Temp Pulse Resp B/P Pulse Ox O2 Delivery O2 Flow Rate FiO2 11/01/16 09:51 86 136/72 11/01/16 09:46 18 Nasal Cannula 2.0 11/01/16 07:00 98.1 96 98.1 Intake and Output 11/01/16 07:00 Intake Total 2683.2 ml Output Total 1650 ml Balance 1033.2 ml Intake Oral 565 ml IV Total 2118.2 ml Output Urine Total 1650 ml Physical Exam Abdomen: Normal bowel sounds, Soft Heart: Regular rate, Normal S1, Normal S2 Extremities: No clubbing General: Alert HEENT: Atraumatic Lungs: Clear to auscultation MUSCULOSKELETAL: No swelling, Osteoarthritic changes both hands Neck: Supple Neuro: Normal speech Psych/Mental Status: Mental status NL Skin: No breakdown Diagnosis Problem List Problems Medical Problems: (1) Hip fracture, left Status: Acute Assessment Assessment Problems Medical Problems: (1) Hip fracture, left Status: Acute FINAL IMPRESSION: 1. Left hip fracture secondary to mechanical fall. 2. Diabetes. 3. Chronic obstructive pulmonary disease. 4. Prostate cancer. 5. Spinal stenosis. 6. Elevation of the diaphragm. 7. Chronic problems with the colon. 8. Mild hyponatremia. PLAN: Total lt hip hemiarthroplasty . POD #1. rehab consult. Na 130 today. At this time, has add normal saline, IV fluids and monitor electrolytes and also check blood sugars four times daily sliding scale. DVT prophylaxis with Coumadin and Lovenox. Problems: Plan Plan of Care Problems Medical Problems: (1) Hip fracture, left Status: Acute Comment Review of Relevant I have reviewed the following items aleksandar (where applicable) has been applied. Labs Laboratory Tests Test 10/31/16 13:26 10/31/16 15:30 10/31/16 16:14 10/31/16 20:40 Glucose (Fingerstick) 163mg/dL (70-99) 137mg/dL (70-99) 141mg/dL (70-99) Nasal Screen MRSA (PCR) Negative (Negative) Test 11/01/16 04:28 11/01/16 07:42 White Blood Count 10.5x10^3/uL (4.0-11.0) Red Blood Count 2.60x10^6/uL (4.30-5.70) Hemoglobin 8.2g/dL (13.0-17.5) Hematocrit 24.6% (39.0-53.0) Mean Corpuscular Volume 95fL (79-100) Mean Corpuscular Hemoglobin 32pg (25-35) Mean Corpuscular Hemoglobin Concent 33g/dL (31-37) Red Cell Distribution Width 12.6% (11.5-14.5) Platelet Count 148x10^3/uL (140-400) Neutrophils (%) (Auto) 81% (31-73) Lymphocytes (%) (Auto) 11% (24-48) Monocytes (%) (Auto) 5% (0-9) Eosinophils (%) (Auto) 3% (0-3) Basophils (%) (Auto) 0% (0-3) Neutrophils # (Auto) 8.6x10^3uL (1.8-7.7) Lymphocytes # (Auto) 1.1x10^3/uL (1.0-4.8) Monocytes # (Auto) 0.5x10^3/uL (0.0-1.1) Eosinophils # (Auto) 0.3x10^3/uL (0.0-0.7) Basophils # (Auto) 0.0x10^3/uL (0.0-0.2) Sodium Level 130mmol/L (136-145) Potassium Level 5.3mmol/L (3.5-5.1) Chloride Level 98mmol/L (98-107) Carbon Dioxide Level 25mmol/L (21-32) Anion Gap 7 (6-14) Blood Urea Nitrogen 18mg/dL (8-26) Creatinine 1.1mg/dL (0.7-1.3) Estimated GFR (Cockcroft-Gault) 79.0 Glucose Level 89mg/dL (70-99) Calcium Level 9.1mg/dL (8.5-10.1) Glucose (Fingerstick) 88mg/dL (70-99) Medications Current Medications Aspirin (Children'S Aspirin) 81 mg DAILY PO Last administered on 11/01/16 09: 46; Start 10/31/16 at 12:00 Baclofen (Lioresal) 15 mg TIDWMEALS PO Last administered on 11/01/16 09:47; Start 10/31/16 at 12:00 Baclofen (Lioresal) 20 mg QHS PO Last administered on 10/31/16 21:06; Start at 21:00 Cetirizine HCl (Zyrtec) 10 mg DAILY PO Last administered on 11/01/16 09:46; Start 10/31/16 at 12:00 Clindamycin Phosphate 50 ml @ 100 mls/hr Q8H IV Last administered on 09:46; Start 10/31/16 at 18:00; Stop 11/01/16 at 10:29 Desflurane (Suprane) 30 ml STK-MED ONCE IH ; Start 10/31/16 at 11:20; Stop 10/31 at 11:21; Status DC Dexamethasone Sodium Phosphate (Decadron) 20 mg STK-MED ONCE .ROUTE ; Start at 11:20; Stop 10/31/16 at 11:21; Status DC Dextrose (Dextrose 50%-Water Syringe) 12.5 gm PRN Q15MIN PRN IV SEE COMMENTS; Start 10/31/16 at 13:15 Diclofenac Sodium (Voltaren) 1 kiet TID TP Last administered on 11/01/16 09:51 ; Start 10/31/16 at 14:00 Diphenhydramine HCl (Benadryl) 25 mg PRN Q6HRS PRN PO ITCHING Last administered on 11/01/16 02:11; Start 10/31/16 at 19:45 Docusate Sodium (Colace) 100 mg QHS PO Last administered on 10/31/16 21:05; Start 10/31/16 at 21:00 Enoxaparin Sodium (Lovenox 30mg Syringe) 30 mg Q12H SQ ; Start 10/31/16 at 21:00 ; Status Cancel Fentanyl Citrate (Fentanyl 2ml Vial) 25 mcg PRN Q5MIN PRN IV MILD PAIN; Start 10/31/16 at 10:30; Stop 10/31/16 at 23:00; Status DC Fentanyl Citrate (Fentanyl 2ml Vial) 50 mcg PRN Q5MIN PRN IV MODERATE PAIN Last administered on 10/31/16 13:35; Start 10/31/16 at 10:30; Stop 10/31/16 at 23:00; Status DC Gabapentin (Neurontin) 600 mg TID PO Last administered on 11/01/16 09:46; Start 10/31/16 at 14:00 Glycopyrrolate (Robinul) 1 mg STK-MED ONCE .ROUTE ; Start 10/31/16 at 11:33; Stop 10/31/16 at 11:34; Status DC Hydromorphone HCl (Dilaudid) 0.5 mg PRN Q10MIN PRN IV SEV PAIN, Second choice; Start 10/31/16 at 10:30; Stop 10/31/16 at 23:00; Status DC Insulin Aspart (Novolog) 0-7 UNITS TIDWMEALS SQ ; Start 10/31/16 at 17:00 Lactated Ringer's (Iv Lactated Ringers) 1,000 ml @ 0 mls/hr Q0M IV ; Start at 10:29; Stop 10/31/16 at 22:28; Status DC Lidocaine HCl 2 ml PRN 1X PRN ID PRIOR TO IV START; Start 10/31/16 at 10:30; Stop 10/31/16 at 23:00; Status DC Lisinopril (Prinivil) 10 mg DAILY PO Last administered on 11/01/16 09:51; Start 10/31/16 at 12:00 Metformin HCl (Glucophage) 1,000 mg BIDWMEALS PO Last administered on 09:46; Start 10/31/16 at 12:00 Morphine Sulfate 10 mg STK-MED ONCE .ROUTE ; Start 10/31/16 at 11:00; Stop 11/01 at 07:59; Status DC Morphine Sulfate 1 mg 1 mg PRN Q10MIN PRN IV SEVERE PAIN; Start 10/31/16 at 10: 30; Stop 10/31/16 at 23:00; Status DC Morphine Sulfate/ Ketorolac Tromethamine/ Ropivacaine/ Epinephrine HCl/ Sodium Chloride (Morphine 5mg Syringe/Toradol/ Naropin 0.5%/ Adrenalin/Iv Sodium Chloride 0.9% 100ml) 100.5 ml @ 100.5 mls/ hr 1X PERIOP ONCE INT ART Last administered on 10/31/16 11:30; Start 10/31/16 at 11:00; Stop 10/31/16 at 11:59 ; Status DC Neostigmine Methylsulfate 5 mg STK-MED ONCE .ROUTE ; Start 10/31/16 at 11:33; Stop 10/31/16 at 11:34; Status DC Non-Formulary Medication 1 each BID PO ; Start 10/31/16 at 21:00; Stop 10/31/16 at 21:00; Status DC Non-Formulary Medication 70 mg weekly on saturday PO ; Start 10/31/16 at 10:30; Stop 10/31/16 at 10:41; Status DC Ondansetron HCl (Zofran) 4 mg PRN Q6HRS PRN IV NAUSEA/VOMITING; Start 10/31/16 at 10:30; Stop 10/31/16 at 23:00; Status DC Ondansetron HCl (Zofran) 4 mg STK-MED ONCE .ROUTE ; Start 10/31/16 at 11:33; Stop 10/31/16 at 11:34; Status DC Oxycodone/ Acetaminophen (Percocet 10/325) 1 tab PRN Q4HRS PRN PO severe pain Last administered on 11/01/16 09:46; Start 10/31/16 at 10:30 Pantoprazole Sodium (Protonix) 40 mg DAILYAC PO Last administered on 11/01/16 09:46; Start 10/31/16 at 12:00 Phenylephrine HCl 1 mg STK-MED ONCE IV ; Start 10/31/16 at 11:56; Stop 10/31/16 at 11:57; Status DC Polyethylene Glycol (miraLAX PACKET) 17 gm BID PO Last administered on 09:47; Start 10/31/16 at 12:00 Potassium Chloride (Klor-Con 8) 8 meq DAILYWBKFT PO ; Start 10/31/16 at 12:00 Prochlorperazine Edisylate (Compazine) 5 mg PACU PRN PRN IV NAUSEA, MRX1; Start 10/31/16 at 10:30; Stop 10/31/16 at 23:00; Status DC Senna/Docusate Sodium 1 tab 1 tab PRN BID PRN PO CONSTIPATION; Start 10/31/16 at 10:45 Warfarin Sodium (Coumadin Per Pharmacy) 1 each PRN DAILY PRN MC SEE COMMENTS; Start 10/31/16 at 10:45 Warfarin Sodium (Coumadin) 5 mg 1X ONCE PO Last administered on 10/31/16t 18: 40; Start 10/31/16 at 16:00; Stop 10/31/16 at 16:01; Status DC Vitals/I & O Vital Sign - Last 24 Hours 10/31/16 10/31/16 10/31/16 10/31/16 10:34 12:43 12:58 13:02 Temp 97.6 99.3 97.6 99.3 Pulse 82 115 112 Resp 12 18 20 B/P 132/70 140/74 128/74 Pulse Ox 98 98 93 98 O2 Delivery Nasal Cannula Simple Mask Room Air Simple Mask O2 Flow Rate 2 10 10.0 10/31/16 10/31/16 10/31/16 10/31/16 13:11 13:13 13:28 13:35 Pulse 109 107 Resp 14 16 B/P 145/75 138/72 Pulse Ox 97 93 93 O2 Delivery Nasal Cannula Nasal Cannula Nasal Cannula Nasal Cannula O2 Flow Rate 2 2 4 3.0 10/31/16 10/31/16 10/31/16 10/31/16 13:43 13:58 14:13 14:40 Temp 98.1 98.1 Pulse 95 93 90 97 Resp 18 B/P 132/69 126/70 123/69 130/68 Pulse Ox 94 95 96 96 O2 Delivery Nasal Cannula Nasal Cannula Room Air Room Air O2 Flow Rate 4 2 10/31/16 10/31/16 10/31/16 10/31/16 15:00 15:15 15:30 15:45 Pulse 91 91 91 89 B/P 123/71 115/65 106/70 120/80 Pulse Ox 96 96 98 96 O2 Delivery Room Air Room Air Room Air Room Air 10/31/16 10/31/16 10/31/16 10/31/16 16:00 16:30 17:00 18:00 Pulse 86 88 85 102 B/P 128/75 136/78 129/74 133/84 Pulse Ox 98 96 100 98 O2 Delivery Room Air Room Air Room Air Room Air 10/31/16 10/31/16 10/31/16 10/31/16 18:40 19:20 22:17 22:47 Temp 98.4 98.4 Pulse 58 Resp 16 18 20 B/P 141/32 Pulse Ox 99 99 O2 Delivery Nasal Cannula Nasal Cannula Room Air Nasal Cannula O2 Flow Rate 2.0 2.0 2.0 10/31/16 11/01/16 11/01/16 11/01/16 23:09 02:11 03:00 03:15 Temp 97.5 97.5 97.5 97.5 Pulse 86 91 Resp 18 20 B/P 138/97 114/72 Pulse Ox 97 97 95 97 O2 Delivery Room Air Room Air Room Air Nasal Cannula O2 Flow Rate 2.0 11/01/16 11/01/16 11/01/16 11/01/16 07:00 07:40 09:46 09:51 Temp 98.1 98.1 Pulse 86 86 Resp 18 B/P 136/72 136/72 Pulse Ox 96 O2 Delivery Room Air Nasal Cannula Nasal Cannula O2 Flow Rate 2.0 2.0 Intake and Output 10/31/16 10/31/16 11/01/16 15:00 23:00 07:00 Intake Total 1200 ml 120 ml 1363.2 ml Output Total 1250 ml 0 ml 400 ml Balance -50 ml 120 ml 963.2 ml SPRING BURGESS MD Nov 01, 2016 10:03
[2016-11-01 11:00] VITALS: BP 118/68
[2016-11-01 12:27] LABS: INR 1.1 (0.8-1.1); PROTHROMBIN TIME PATIENT 13.5 SEC (11.7-14.0)
[2016-11-01 14:58] VITALS: BP 100/63
[2016-11-01] MEDS ORDERED: WARFARIN 5 MG TABLET. PO ONE (16:00)
[2016-11-01 19:05] VITALS: BP 132/77
--- NOTE | 2016-11-01 19:24 | ACF ---
Admission Forms Criteria MUSCULOSKELETAL DISEASE GRG Clinical Indications for Admission to Inpatient Care (Place 'X' for any and all applicable criteria): Hospital admission is needed for appropriate care of the patient because of 1 or more of the following: [X]I. Fracture, dislocation, or other musculoskeletal injury requiring inpatient care(medical) as indicated by 1 or more of the following(4)(5)(6)(7) [ ]a) Vertebral fracture requiring observation for instability or neurologic compromise (8) [ ]b) Compartment syndrome (proven or cannot be ruled out during observation level of care) (9) [ ]c) Limb-threatening injury [ ]d) Major injury requiring inpatient stabilization such as traction initiation or external fixation before internal fixation or closure of complex or open fracture [X]e) Major injury requiring inpatient treatment after emergency or observation level care (as appropriate) [ ]f) Severe pain requiring acute inpatient management [ ]g) Injury with suspicion of abuse or neglect (eg., child, dependent elderly) [ ]II. Newly diagnosed or suspected bone, joint, or orthopedic device infection (e.g., osteomyelitis, septic arthritis) needing 1 or more of the following(1)(2)(3) [ ]a) IV antibiotics that cannot be initiated in other than inpatient setting (e.g., patient too unstable or home infusion not available) [ ]b) Device removal or replacement [ ]c) Bone or soft tissue debridement [ ]d) Joint drainage (drain placement or repetitive aspirations) [ ]III. Severe rheumatologic disease (e.g., systemic lupus erythematosus, rheumatoid arthritis) with complications or comorbidities (Also use Optimal Recovery Care Criteria or General Recovery Criteria as appropriate on the basis of predominant condition), including 1 or more of the following( 10)(11)(12)(13) [ ]a) Severe infection (e.g., PRINTING PRESS MACHINIST infection, sepsis) (14) [ ]b) Respiratory complications, including 1 or more of the following : [ ]i) Pleural effusion with respiratory compromise [ ]ii) Pulmonary hypertension with congestive failure [ ]iii) Respiratory failure [ ]iv) Pulmonary hemorrhage (15) [ ]c) Hematologic disease, including 1 or more of the following: [ ]i) Coagulopathy with bleeding [ ]ii) Thrombosis with hypercoagulable state [ ]iii) Thrombotic thrombocytopenic purpura [ ]d) Cerebritis with seizures, psychosis, or other severe abnormalities [ ]e) Vertebral destruction with monitoring needed for cervical myelopathy& possible respiratory compromise [ ]f) Exacerbation that requires inpatient treatment (e.g., intravenous immunosuppression) (16) [ ]g) Acute renal failure [ ]h) Cerebritis with seizures, psychosis, Altered mental status, or other neurologic abnormalities [ ]i) Pericardial effusion with tamponade [ ]j) Vertebral destruction, with monitoring needed for cervical myelopathy and possible respiratory compromise [ ]IV. Severe vasculitis with complications or comorbidities (Also use Optimal Recovery Care Criteria General Recovery Criteria as appropriate on the basis of predominant condition), including 1 or more of the following(11)(12)(17)(18)(19)(20) [ ]a) Exacerbation that requires inpatient treatment (e.g., intravenous immunosuppression) (19)(21) [ ]b) Pulmonary hemorrhage (15) [ ]c) PRINTING PRESS MACHINIST vasculitis with seizures, psychosis, Altered mental status that is severe or persistent, or other severe abnormalities (22) [ ]d) Cerebral infarction [ ]e) Gastrointestinal ischemia [ ]f) Gangrene or threatened amputation [ ]g) Renal failure (16) [ ]h) Other significant complications of vasculitis ( eg., tissue or organ ischemia, organ dysfunction ) [ ]V. Severe myopathy as indicated by 1 or more of the following (28)(29) [ ]a) New onset of airway compromise or inability to swallow [ ]b) Respiratory deterioration with observation needed for impending respiratory failure [ ]c) Exacerbation that requires inpatient treatment (e.g., intravenous immunosuppression) [ ]. Severe crystal gout (arthropathy) indicated by 1 or more of the following (23)(24) [ ]a) Severe pain requiring acute inpatient management [ ]b) Exacerbation that requires inpatient treatment (e.g., intravenous treatment) [ ]VII.Rhabdomyolysis and 1 or more of the following (25)(26)(27) [ ]a) Acute renal failure [ ]b) Need for intravenous hydration after emergency or observation level care (as appropriate) [ ]c) Inability to maintain oral hydration [ ]d) Change in mental status [ ]e) Electrolyte abnormality that remains after emergency or observation level care (as appropriate) [ ]VIII Post amputation complication, as indicated by ANY ONE of the following [ ]a) Infection [ ]b) Dehiscence [ ]c) Myodesis failure [ ]IX. Severe pain requiring acute inpatient management due to musculoskeletal condition [ ]X. Musculoskeletal Disease and ALL of the following: [ ]a) Symptom or finding for which emergency and observation care have failed or are not considered appropriate (Use General Criteria: Observation Care as appropriate) [ ]b) Presence of ANY ONE of the following [ ]i) A General Admission Criteria [ ]ii) A Pediatric General Admission Criteria The original [facility] [employer] content created by [employer] [facility] has been revised. The portions of the content which have been revised are identified through the use of italic text or in bold, and [facility] has neither reviewed nor approved the modified material. All other unmodified content is copyright [facility]. Please see references footnoted in the original [facility] edition 2016 Admission Criteria Met?: Yes DARIEN MADRIGAL Nov 01, 2016 19:24
[2016-11-01] MEDS: DOCUSATE SODIUM 100 MG CAPSULE. PO SCH (20:40)
[2016-11-01 23:04] VITALS: BP 126/72
[2016-11-02 03:04] VITALS: BP 164/91
--- NOTE | 2016-11-02 03:31 | CONS ---
DATE OF CONSULTATION: 11/01/2016 ATTENDING PHYSICIAN: Dr. Tran. The patient was seen at the request of Dr. Tran for rehab evaluation. HISTORY OF PRESENT ILLNESS: This is a 75-year-old male with residual ataxia from cervical spinal stenosis, status post decompression laminectomy. The patient usually walks using a roller walker. He fell on 10/30/2016, during transfers. He was found with fracture neck left femur and he had a bipolar arthroplasty of left hip done on 10/31/2016. 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 ALLERGIES: KNOWN ALLERGIC TO LEVOFLOXACIN, PIPERACILLIN/TAZOBACTAM. SOCIAL HISTORY: The patient lives with his who works, no steps to manage. PHYSICAL EXAMINATION: Today revealed an elderly male. He is alert, oriented to time, place, person and circumstance and follows commands appropriately, moves all 4 extremities voluntarily where he had overall 4/5-4+/5 grade muscle strength with relatively increased weakness in left hip abductors secondary to pain and also over posterior shoulder girdle muscles. He has some stiffness of both shoulders. The patient had decreased deep tendon reflexes overall. He had equal perception of touch and pinprick sensation bilaterally. He requires help with bed mobility and transfers. I saw him trying to make a few steps at bedside with physical therapy and occupational therapy using a roller walker. He is having some discomfort weightbearing on his left foot. He had dressing to his left hip. Other than that, his skin is intact. 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 RECOMMENDATIONS: Agree with the plan for physical therapy and occupational therapy and transfer him to custodial care unit when medically stable. Dr. Tran, I appreciate asking me to participate in the care of this interesting patient. I will be glad to follow him with you as needed for his rehabilitation. DAVE VU MD DR: DAMION/julien JOB#: [id number] / [id number]
[2016-11-02] MEDS: OXYCODONE/APAP 10/325 TABLET. PO PRN ×3 (03:35→18:19)
[2016-11-02 05:19] LABS: INR 1.2 (0.8-1.1); PROTHROMBIN TIME PATIENT 14.1 SEC (11.7-14.0)
[2016-11-02 07:00] VITALS: BP 129/77
[2016-11-02] MEDS: INSULIN ASPART 300 UNITS/3 ML INSULN.PEN SQ SCH ×3 (08:00→17:00)
[2016-11-02] MEDS: POTASSIUM CHLORIDE 8 MEQ TABLET.ER. PO SCH (08:00)
[2016-11-02] MEDS: PANTOPRAZOLE 40 MG TABLET.DR. PO SCH (08:29)
[2016-11-02] MEDS: METFORMIN 1,000 MG TABLET PO SCH ×2 (08:29→17:11)
[2016-11-02] MEDS: BACLOFEN 10 MG TABLET. PO SCH ×4 (08:30→21:37)
[2016-11-02] MEDS: CETIRIZINE HCL 10 MG TABLET. PO SCH (08:30)
[2016-11-02] MEDS: GABAPENTIN 300 MG CAPSULE. PO SCH ×3 (08:30→21:38)
[2016-11-02] MEDS: LISINOPRIL 10 MG TABLET PO SCH (08:31)
[2016-11-02] MEDS: POLYETHYLENE GLYCOL 3350 17 GM PACKET. PO SCH ×2 (08:31→19:22)
[2016-11-02] MEDS: ASPIRIN CHEWABLE 81 MG TABLET. PO SCH (08:31)
[2016-11-02] MEDS: DICLOFENAC SODIUM 1% TOPICAL GEL 100GM TUBE. TP SCH ×3 (08:32→21:00)
--- NOTE | 2016-11-02 08:52 | PDOC ---
PROGRESS NOTES Subjective Subjective No new complaints. Objective Objective Vital Signs Date Time Temp Pulse Resp B/P Pulse Ox O2 Delivery O2 Flow Rate FiO2 11/02/16 08:31 94 129/77 11/02/16 07:10 Nasal Cannula 2.0 11/02/16 07:00 98.5 20 91 98.5 Intake and Output 11/02/16 07:00 Intake Total 1900 ml Output Total 4200 ml Balance -2300 ml Intake Oral 1900 ml Output Urine Total 4200 ml # Bowel Movements 1 Physical Exam Physical Exam He is alert and supine in bed and had indwelling Laureano catheter in place.He still requires physical assistance for transfers and having pain while weight bearing on left foot. Assessment Assessment Problems Medical Problems: (1) Hip fracture, left Status: Acute Plan Plan of Care To SNF when medically stable. Comment Review of Relevant I have reviewed the following items aleksandar (where applicable) has been applied. Labs Laboratory Tests Test 10/31/16 13:26 10/31/16 15:30 10/31/16 16:14 10/31/16 20:40 Glucose (Fingerstick) 163mg/dL (70-99) 137mg/dL (70-99) 141mg/dL (70-99) Nasal Screen MRSA (PCR) Negative (Negative) Test 11/01/16 04:28 11/01/16 07:42 11/01/16 12:05 11/01/16 20:46 White Blood Count 10.5x10^3/uL (4.0-11.0) Red Blood Count 2.60x10^6/uL (4.30-5.70) Hemoglobin 8.2g/dL (13.0-17.5) Hematocrit 24.6% (39.0-53.0) Mean Corpuscular Volume 95fL (79-100) Mean Corpuscular Hemoglobin 32pg (25-35) Mean Corpuscular Hemoglobin Concent 33g/dL (31-37) Red Cell Distribution Width 12.6% (11.5-14.5) Platelet Count 148x10^3/uL (140-400) Neutrophils (%) (Auto) 81% (31-73) Lymphocytes (%) (Auto) 11% (24-48) Monocytes (%) (Auto) 5% (0-9) Eosinophils (%) (Auto) 3% (0-3) Basophils (%) (Auto) 0% (0-3) Neutrophils # (Auto) 8.6x10^3uL (1.8-7.7) Lymphocytes # (Auto) 1.1x10^3/uL (1.0-4.8) Monocytes # (Auto) 0.5x10^3/uL (0.0-1.1) Eosinophils # (Auto) 0.3x10^3/uL (0.0-0.7) Basophils # (Auto) 0.0x10^3/uL (0.0-0.2) Sodium Level 130mmol/L (136-145) Potassium Level 5.3mmol/L (3.5-5.1) Chloride Level 98mmol/L (98-107) Carbon Dioxide Level 25mmol/L (21-32) Anion Gap 7 (6-14) Blood Urea Nitrogen 18mg/dL (8-26) Creatinine 1.1mg/dL (0.7-1.3) Estimated GFR (Cockcroft-Gault) 79.0 Glucose Level 89mg/dL (70-99) Calcium Level 9.1mg/dL (8.5-10.1) Glucose (Fingerstick) 88mg/dL (70-99) 109mg/dL (70-99) Prothrombin Time 13.5SEC (11.7-14.0) Prothromb Time International Ratio 1.1 (0.8-1.1) Test 11/02/16 04:25 11/02/16 07:42 Prothrombin Time 14.1SEC (11.7-14.0) Prothromb Time International Ratio 1.2 (0.8-1.1) Glucose (Fingerstick) 89mg/dL (70-99) Laboratory Tests Test 11/01/16 12:05 11/01/16 20:46 11/02/16 04:25 11/02/16 07:42 Prothrombin Time 13.5SEC (11.7-14.0) 14.1SEC (11.7-14.0) Prothromb Time International Ratio 1.1 (0.8-1.1) 1.2 (0.8-1.1) Glucose (Fingerstick) 109mg/dL (70-99) 89mg/dL (70-99) Medications Current Medications Fentanyl Citrate 25 mcg 25 mcg PRN Q15MIN PRN IV PAIN GREATER THAN 3/10 Last administered on 10/31/16 08:26; Start 10/31/16 at 07:00; Stop 11/01/16 at 06:59 ; Status DC Sodium Chloride (Iv Sodium Chloride 0.9% 1000ml Bag) 1,000 ml @ 100 mls/hr 1X ONCE IV Last administered on 10/31/16 08:26; Start 10/31/16 at 08:30; Stop at 18:29; Status DC Fentanyl Citrate 50 mcg 50 mcg PRN Q2HR PRN IV PAIN Last administered on 09:38; Start 10/31/16 at 08:30; Stop 11/01/16 at 08:29; Status DC Clindamycin Phosphate (Cleocin 900mg Premix) 50 ml @ 100 mls/hr 1X ONCE IV Last administered on 10/31/16 11:18; Start 10/31/16 at 09:00; Stop 10/31/16 at 09:29; Status DC Dextrose 12.5 gm 12.5 gm PRN Q15MIN PRN IV SEE COMMENTS; Start 10/31/16 at 09: 30; Stop 11/01/16 at 12:43; Status DC Propofol (Diprivan) 20 ml @ As Directed STK-MED ONCE IV ; Start 10/31/16 at 09: 57; Stop 10/31/16 at 09:58; Status DC Lidocaine HCl (Lidocaine HCl 2% Abboject) 100 mg STK-MED ONCE .ROUTE ; Start at 09:57; Stop 10/31/16 at 09:58; Status DC Fentanyl Citrate (Fentanyl 2ml Vial) 100 mcg STK-MED ONCE .ROUTE ; Start at 09:57; Stop 10/31/16 at 09:58; Status DC Rocuronium Manlius (Zemuron) 50 mg STK-MED ONCE .ROUTE ; Start 10/31/16 at 09:57 ; Stop 10/31/16 at 09:58; Status DC Succinylcholine Chloride (Anectine) 200 mg STK-MED ONCE .ROUTE ; Start 10/31/16 at 09:57; Stop 10/31/16 at 09:58; Status DC Aspirin (Children'S Aspirin) 81 mg DAILY PO Last administered on 11/02/16 08: 31; Start 10/31/16 at 12:00 Baclofen (Lioresal) 15 mg TIDWMEALS PO Last administered on 11/02/16 08:30; Start 10/31/16 at 12:00 Diclofenac Sodium (Voltaren) 1 kiet TID TP Last administered on 11/02/16 08:32 ; Start 10/31/16 at 14:00 Docusate Sodium (Colace) 100 mg QHS PO Last administered on 11/01/16 20:40; Start 10/31/16 at 21:00 Lisinopril (Prinivil) 10 mg DAILY PO Last administered on 11/02/16 08:31; Start 10/31/16 at 12:00 Metformin HCl (Glucophage) 1,000 mg BIDWMEALS PO Last administered on 08:29; Start 10/31/16 at 12:00 Oxycodone/ Acetaminophen (Percocet 10/325) 1 tab PRN Q4HRS PRN PO severe pain Last administered on 11/02/16 03:35; Start 10/31/16 at 10:30 Pantoprazole Sodium (Protonix) 40 mg DAILYAC PO Last administered on 11/02/16 08:29; Start 10/31/16 at 12:00 Non-Formulary Medication 70 mg weekly on saturday PO ; Start 10/31/16 at 10:30; Stop 10/31/16 at 10:41; Status DC Baclofen (Lioresal) 20 mg QHS PO Last administered on 11/01/16 20:40; Start at 21:00 Gabapentin (Neurontin) 600 mg TID PO Last administered on 11/02/16 08:30; Start 10/31/16 at 14:00 Non-Formulary Medication 1 each BID PO ; Start 10/31/16 at 21:00; Stop 10/31/16 at 21:00; Status DC Cetirizine HCl (Zyrtec) 10 mg DAILY PO Last administered on 11/02/16 08:30; Start 10/31/16 at 12:00 Potassium Chloride (Klor-Con 8) 8 meq DAILYWBKFT PO ; Start 10/31/16 at 12:00 Polyethylene Glycol (miraLAX PACKET) 17 gm BID PO Last administered on 20:40; Start 10/31/16 at 12:00 Ondansetron HCl (Zofran) 4 mg PRN Q6HRS PRN IV NAUSEA/VOMITING; Start 10/31/16 at 10:30; Stop 10/31/16 at 23:00; Status DC Fentanyl Citrate (Fentanyl 2ml Vial) 25 mcg PRN Q5MIN PRN IV MILD PAIN; Start 10/31/16 at 10:30; Stop 10/31/16 at 23:00; Status DC Fentanyl Citrate (Fentanyl 2ml Vial) 50 mcg PRN Q5MIN PRN IV MODERATE PAIN Last administered on 10/31/16 13:35; Start 10/31/16 at 10:30; Stop 10/31/16 at 23:00; Status DC Morphine Sulfate 1 mg 1 mg PRN Q10MIN PRN IV SEVERE PAIN; Start 10/31/16 at 10: 30; Stop 10/31/16 at 23:00; Status DC Lactated Ringer's (Iv Lactated Ringers) 1,000 ml @ 0 mls/hr Q0M IV ; Start at 10:29; Stop 10/31/16 at 22:28; Status DC Lidocaine HCl 2 ml PRN 1X PRN ID PRIOR TO IV START; Start 10/31/16 at 10:30; Stop 10/31/16 at 23:00; Status DC Hydromorphone HCl (Dilaudid) 0.5 mg PRN Q10MIN PRN IV SEV PAIN, Second choice; Start 10/31/16 at 10:30; Stop 10/31/16 at 23:00; Status DC Prochlorperazine Edisylate (Compazine) 5 mg PACU PRN PRN IV NAUSEA, MRX1; Start 10/31/16 at 10:30; Stop 10/31/16 at 23:00; Status DC Warfarin Sodium (Coumadin) 5 mg 1X ONCE PO Last administered on 10/31/16 18: 40; Start 10/31/16 at 16:00; Stop 10/31/16 at 16:01; Status DC Warfarin Sodium (Coumadin Per Pharmacy) 1 each PRN DAILY PRN MC SEE COMMENTS; Start 10/31/16 at 10:45 Senna/Docusate Sodium 1 tab 1 tab PRN BID PRN PO CONSTIPATION; Start 10/31/16 at 10:45 Clindamycin Phosphate 50 ml @ 100 mls/hr Q8H IV Last administered on 09:46; Start 10/31/16 at 18:00; Stop 11/01/16 at 10:29; Status DC Morphine Sulfate/ Ketorolac Tromethamine/ Ropivacaine/ Epinephrine HCl/ Sodium Chloride (Morphine 5mg Syringe/Toradol/ Naropin 0.5%/ Adrenalin/Iv Sodium Chloride 0.9% 100ml) 100.5 ml @ 100.5 mls/ hr 1X PERIOP ONCE INT ART Last administered on 10/31/16 11:30; Start 10/31/16 at 11:00; Stop 10/31/16 at 11:59 ; Status DC Dexamethasone Sodium Phosphate (Decadron) 20 mg STK-MED ONCE .ROUTE ; Start at 11:20; Stop 10/31/16 at 11:21; Status DC Desflurane (Suprane) 30 ml STK-MED ONCE IH ; Start 10/31/16 at 11:20; Stop 10/31 at 11:21; Status DC Ondansetron HCl (Zofran) 4 mg STK-MED ONCE .ROUTE ; Start 10/31/16 at 11:33; Stop 10/31/16 at 11:34; Status DC Glycopyrrolate (Robinul) 1 mg STK-MED ONCE .ROUTE ; Start 10/31/16 at 11:33; Stop 10/31/16 at 11:34; Status DC Neostigmine Methylsulfate 5 mg STK-MED ONCE .ROUTE ; Start 10/31/16 at 11:33; Stop 10/31/16 at 11:34; Status DC Phenylephrine HCl 1 mg STK-MED ONCE IV ; Start 10/31/16 at 11:56; Stop 10/31/16 at 11:57; Status DC Insulin Aspart (Novolog) 0-7 UNITS TIDWMEALS SQ ; Start 10/31/16 at 17:00 Dextrose (Dextrose 50%-Water Syringe) 12.5 gm PRN Q15MIN PRN IV SEE COMMENTS; Start 10/31/16 at 13:15 Enoxaparin Sodium (Lovenox 30mg Syringe) 30 mg Q12H SQ ; Start 10/31/16 at 21:00 ; Status Cancel Diphenhydramine HCl (Benadryl) 25 mg PRN Q6HRS PRN PO ITCHING Last administered on 11/01/16 23:37; Start 10/31/16 at 19:45 Morphine Sulfate 10 mg STK-MED ONCE .ROUTE ; Start 10/31/16 at 11:00; Stop 11/01 at 07:59; Status DC Warfarin Sodium (Coumadin) 5 mg 1X WARF ONCE PO Last administered on 18:01; Start 11/01/16 at 16:00; Stop 11/01/16 at 16:01; Status DC Active Scripts Active Colace (Docusate Sodium) 100 Mg Capsule 100 Mg PO QHS [Polyethylene Glycol 3350] 17 GM Packet 17 Gm PO BID Neurontin (Gabapentin) 300 Mg Capsule 600 Mg PO TID Aspirin 81 Mg Tab.chew 81 Mg PO DAILY Reported Centrum Complete Multivit Tab (Multivitamin/Iron/Folic Acid) 1 Each Tablet 1 Each PO Metanx Capsule (Levomefolate/B6/B12/Algal Oil) 1 Each Capsule 1 Each PO BID Zoladex (Goserelin Acetate) 10.8 Mg Implant 10.8 Mg SQ Q 3 MONTHS Potassium Chloride 10 Meq Capsule.er 8 Meq PO DAILY Pantoprazole Sodium 40 Mg Tablet.dr 1 Tab PO DAILY Voltaren (Diclofenac Sodium) 100 Gm Gel..gram. 1 Gm TP TID Baclofen 10 Mg Tablet 15 Mg PO TID Zanaflex (Tizanidine Hcl) 6 Mg Capsule 12 Mg PO HS PRN Fosamax (Alendronate Sodium) 70 Mg Tablet 70 Mg PO WEEKLY ON SATURDAY Oxycodone-Acetaminophen 10-325 (Oxycodone Hcl/Acetaminophen) 1 Each Tablet 1 Each PO PRN Q4HRS PRN Claritin (Loratadine) 10 Mg Tablet 10 Mg PO DAILY Baclofen 20 Mg Tablet 20 Mg PO HS Lisinopril 10 Mg Tablet 10 Mg PO DAILY Metformin Hcl 1,000 Mg Tablet 1,000 Mg PO BID Vitals/I & O Vital Sign - Last 24 Hours 11/01/16 11/01/16 11/01/16 11/01/16 09:46 09:51 11:00 14:58 Temp 97.9 98.8 97.9 98.8 Pulse 86 93 98 Resp B/P 136/72 118/68 100/63 Pulse Ox 95 94 O2 Delivery Nasal Cannula Room Air Room Air O2 Flow Rate 2.0 11/01/16 11/01/16 11/01/16 11/01/16 19:05 20:00 23:04 23:34 Temp 98.1 99.1 98.1 99.1 Pulse 96 87 Resp B/P 132/77 126/72 Pulse Ox 97 95 O2 Delivery Nasal Cannula Nasal Cannula Nasal Cannula Nasal Cannula O2 Flow Rate 2.0 2.0 2.0 2.0 11/02/16 11/02/16 11/02/16 11/02/16 00:51 03:04 03:35 07:00 Temp 98.5 98.5 98.5 98.5 Pulse 94 94 Resp B/P 164/91 129/77 Pulse Ox 96 91 O2 Delivery Nasal Cannula Nasal Cannula Nasal Cannula Nasal Cannula O2 Flow Rate 2.0 2.0 2.0 2.0 11/02/16 11/02/16 07:10 08:31 Pulse 94 B/P 129/77 O2 Delivery Nasal Cannula O2 Flow Rate 2.0 Intake and Output 11/01/16 11/01/16 11/02/16 15:00 23:00 07:00 Intake Total 300 ml 1600 ml Output Total 4200 ml Balance 300 ml -2600 ml DAVE VU MD Nov 02, 2016 08:52
--- NOTE | 2016-11-02 09:07 | PDOC ---
ORTHO PROGRESS NOTES Subjective Can tells me that he had some left hip pain that did radiate down his knee with therapy yesterday. He is doing better at rest. No new complaints Vitals Vital Signs Date Time Temp Pulse Resp B/P Pulse Ox O2 Delivery O2 Flow Rate FiO2 11/02/16 08:31 94 129/77 11/02/16 07:10 Nasal Cannula 2.0 11/02/16 07:00 98.5 20 91 98.5 Labs Laboratory Tests Test 10/31/16 13:26 10/31/16 15:30 10/31/16 16:14 10/31/16 20:40 Glucose (Fingerstick) 163mg/dL (70-99) 137mg/dL (70-99) 141mg/dL (70-99) Nasal Screen MRSA (PCR) Negative (Negative) Test 11/01/16 04:28 11/01/16 07:42 11/01/16 12:05 11/01/16 20:46 White Blood Count 10.5x10^3/uL (4.0-11.0) Red Blood Count 2.60x10^6/uL (4.30-5.70) Hemoglobin 8.2g/dL (13.0-17.5) Hematocrit 24.6% (39.0-53.0) Mean Corpuscular Volume 95fL (79-100) Mean Corpuscular Hemoglobin 32pg (25-35) Mean Corpuscular Hemoglobin Concent 33g/dL (31-37) Red Cell Distribution Width 12.6% (11.5-14.5) Platelet Count 148x10^3/uL (140-400) Neutrophils (%) (Auto) 81% (31-73) Lymphocytes (%) (Auto) 11% (24-48) Monocytes (%) (Auto) 5% (0-9) Eosinophils (%) (Auto) 3% (0-3) Basophils (%) (Auto) 0% (0-3) Neutrophils # (Auto) 8.6x10^3uL (1.8-7.7) Lymphocytes # (Auto) 1.1x10^3/uL (1.0-4.8) Monocytes # (Auto) 0.5x10^3/uL (0.0-1.1) Eosinophils # (Auto) 0.3x10^3/uL (0.0-0.7) Basophils # (Auto) 0.0x10^3/uL (0.0-0.2) Sodium Level 130mmol/L (136-145) Potassium Level 5.3mmol/L (3.5-5.1) Chloride Level 98mmol/L (98-107) Carbon Dioxide Level 25mmol/L (21-32) Anion Gap 7 (6-14) Blood Urea Nitrogen 18mg/dL (8-26) Creatinine 1.1mg/dL (0.7-1.3) Estimated GFR (Cockcroft-Gault) 79.0 Glucose Level 89mg/dL (70-99) Calcium Level 9.1mg/dL (8.5-10.1) Glucose (Fingerstick) 88mg/dL (70-99) 109mg/dL (70-99) Prothrombin Time 13.5SEC (11.7-14.0) Prothromb Time International Ratio 1.1 (0.8-1.1) Test 11/02/16 04:25 11/02/16 07:42 Prothrombin Time 14.1SEC (11.7-14.0) Prothromb Time International Ratio 1.2 (0.8-1.1) Glucose (Fingerstick) 89mg/dL (70-99) Laboratory Tests Test 11/01/16 12:05 11/01/16 20:46 11/02/16 04:25 11/02/16 07:42 Prothrombin Time 13.5SEC (11.7-14.0) 14.1SEC (11.7-14.0) Prothromb Time International Ratio 1.1 (0.8-1.1) 1.2 (0.8-1.1) Glucose (Fingerstick) 109mg/dL (70-99) 89mg/dL (70-99) Notes He is awake and alert and sitting in bed eating breakfast. Speech is clear. Dressings are intact. Motor and sensation are unchanged. Assessment and Plan PT and OT as tolerated. Okay to weight-bear as tolerated. Coumadin for coagulation. From my standpoint he can be discharged are transferred whenever medically stable LASHAE DOWNS II, MD Nov 02, 2016 09:07
[2016-11-02] MEDS: IRON POLYSACCHARIDE COMPLEX 150 MG CAPSULE PO SCH (09:18)
--- NOTE | 2016-11-02 10:09 | PDOC ---
PROGRESS NOTES Subjective Subjective feels ok, no pain Objective Objective Vital Signs Date Time Temp Pulse Resp B/P Pulse Ox O2 Delivery O2 Flow Rate FiO2 11/02/16 08:31 94 129/77 11/02/16 07:10 Nasal Cannula 2.0 11/02/16 07:00 98.5 20 91 98.5 Intake and Output 11/02/16 06:59 Intake Total 1900 ml Output Total 4200 ml Balance -2300 ml Intake Oral 1900 ml Output Urine Total 4200 ml # Bowel Movements 1 Physical Exam Abdomen: Normal bowel sounds, Soft Heart: Regular rate, Normal S1, Normal S2 Extremities: No clubbing General: Alert HEENT: Atraumatic Lungs: Clear to auscultation MUSCULOSKELETAL: No swelling, Osteoarthritic changes both hands Neck: Supple Neuro: Normal speech Psych/Mental Status: Mental status NL Skin: No breakdown Diagnosis Problem List Problems Medical Problems: (1) Hip fracture, left Status: Acute Assessment Assessment Problems Medical Problems: (1) Hip fracture, left Status: Acute FINAL IMPRESSION: 1. Left hip fracture secondary to mechanical fall. 2. Diabetes. 3. Chronic obstructive pulmonary disease. 4. Prostate cancer. 5. Spinal stenosis. 6. Elevation of the diaphragm. 7. Chronic problems with the colon. 8. Mild hyponatremia. PLAN: d/c dyre. snu screen Total lt hip hemiarthroplasty . POD #2. rehab consult. spoke with social service. Problems: Plan Plan of Care Problems Medical Problems: (1) Hip fracture, left Status: Acute Comment Review of Relevant I have reviewed the following items aleksandar (where applicable) has been applied. Labs Laboratory Tests Test 11/01/16 12:05 11/01/16 20:46 11/02/16 04:25 11/02/16 07:42 Prothrombin Time 13.5SEC (11.7-14.0) 14.1SEC (11.7-14.0) Prothromb Time International Ratio 1.1 (0.8-1.1) 1.2 (0.8-1.1) Glucose (Fingerstick) 109mg/dL (70-99) 89mg/dL (70-99) Medications Current Medications Polysaccharide Iron Complex (Niferex 150) 150 mg DAILY PO Last administered on 11/02/16t 09:18; Start 11/02/16 at 09:00 Warfarin Sodium (Coumadin) 5 mg 1X WARF ONCE PO Last administered on t 18:01; Start 11/01/16 at 16:00; Stop 11/01/16 at 16:01; Status DC Vitals/I & O Vital Sign - Last 24 Hours 11/01/16 11/01/16 11/01/16 11/01/16 11:00 14:58 19:05 20:00 Temp 97.9 98.8 98.1 97.9 98.8 98.1 Pulse 93 98 96 Resp B/P 118/68 100/63 132/77 Pulse Ox 95 94 97 O2 Delivery Room Air Room Air Nasal Cannula Nasal Cannula O2 Flow Rate 2.0 2.0 11/01/16 11/01/16 11/02/16 11/02/16 23:04 23:34 00:51 03:04 Temp 99.1 98.5 99.1 98.5 Pulse 87 94 Resp B/P 126/72 164/91 Pulse Ox 95 96 O2 Delivery Nasal Cannula Nasal Cannula Nasal Cannula Nasal Cannula O2 Flow Rate 2.0 2.0 2.0 2.0 11/02/16 11/02/16 11/02/16 11/02/16 03:35 07:00 07:10 08:31 Temp 98.5 98.5 Pulse 94 94 Resp B/P 129/77 129/77 Pulse Ox 91 O2 Delivery Nasal Cannula Nasal Cannula Nasal Cannula O2 Flow Rate 2.0 2.0 2.0 Intake and Output 11/01/16 11/01/16 11/02/16 14:59 22:59 06:59 Intake Total 300 ml 1600 ml Output Total 4200 ml Balance 300 ml -2600 ml SPRING BURGESS MD Nov 02, 2016 10:09
[2016-11-02 11:00] VITALS: BP 117/66
[2016-11-02 15:00] VITALS: BP 124/71
--- NOTE | 2016-11-02 15:12 | PDOC ---
Provider Note Provider Note Discharge summary dictated. #[id number] SPRING BURGESS MD Nov 02, 2016 15:12
[2016-11-02] MEDS ORDERED: WARFARIN 7.5 MG TABLET. PO ONE (16:00)
--- NOTE | 2016-11-02 17:56 | PATHOLOGY ---
PATHOLOGY REPORT * * * * * * * * FINAL DIAGNOSIS: Femoral head and separate segments of bone, left hip hemiarthroplasty: - Focal fragmentation of bony trabeculae and recent intertrabecular hemorrhage, consistent with a fracture. COMMENT: There is no evidence of malignancy. (JPM:; d/t: 11/02/16) REPORT ELECTRONICALLY SIGNED BY: Casey Carvalho M.D. DATE/TIME: 11/02/2016 17:55 * * * * * * * * GROSS PATHOLOGY: Received in formalin labeled "Can Ortiz, left hip bone and tissue," is a femoral head measuring 5.1 x 5.1 x 3.9 cm in greatest dimensions and separately submitted fractured segments of femoral neck measuring 4.8 x 3.5 x 2.3 cm in aggregate dimensions. The articular surface is light christianson and smooth in appearance. Sectioning reveals a yellow-christianson marrow space, with the distal most aspect hemorrhagic in appearance, consistent with a fracture site. Carpenters tissue from the fracture site is submitted in cassette A1, following decalcification. (CAA; 11/01/2016) INITIAL CPT CODE(S): A; 49475, 43528 Professional services performed by [facility] at [address] [address] Technical services performed by [facility] at [address] [place] [address], [facility] [address] [address]. SPECIMEN(S) RECEIVED: A.Left hip bone and tissue CLINICAL HISTORY: Left hip fracture PATIENT: CAN ORTIZ /AGE: 5 1940 (Age: 75) PATIENT #: [id number] ALT CASE #: SPECIMEN COLLECTION DATE: 10/31/2016 SPECIMEN RECEIVED DATE: 10/31/2016 [facility] - [address] [place] [address] - PHONE: [phone] * * * END OF REPORT * * *
[2016-11-02] MEDS: diphenhydrAMINE HCL 25 MG CAPSULE PO PRN (18:19)
[2016-11-02 19:00] VITALS: BP 141/64
[2016-11-02] MEDS: DOCUSATE SODIUM 100 MG CAPSULE. PO SCH (19:21)
[2016-11-02] MEDS: TAMSULOSIN 0.4 MG CAP.ER.24H. PO SCH (21:00)
[2016-11-02] MEDS: tiZANidine 4 MG TABLET. PO PRN (21:40)
[2016-11-02 23:00] VITALS: BP 126/71
--- NOTE | 2016-11-02 23:05 | DS ---
DATE OF DISCHARGE: 11/05/2016 PATIENT LOCATION: [id number] REASON FOR ADMISSION TO THE HOSPITAL: Mechanical fall, left hip fracture. CONSULTATIONS: Dr. Hill, Dr. Dumont. PROCEDURES DONE: Left hip hemiarthroplasty. COMPLICATIONS NOTED: None. HOSPITAL COURSE: The patient is a 75-year-old male with history of COPD, spinal stenosis, he walks with a walker as well as wheelchair he uses at home. He was going to the restroom, fell and paramedics was called, initially they put him back in the wheelchair, did not have any pain, but over the next 24 hours, he has more pain and was brought to the hospital and this time, x-ray shows fracture of the left hip. The patient was taken to surgery by orthopedic, underwent a left hip hemiarthroplasty for displaced left humeral neck fracture. The patient did well and the patient was [facility]. The patient is on Coumadin for anticoagulation for DVT prevention, seen by physical therapy, Dr. Dumont. FINAL DIAGNOSES: 1. Displaced left femoral neck fracture. The patient underwent left hemiarthroplasty. 2. History of prostate cancer. 3. Hypertension. 4. Chronic obstructive pulmonary disease. 5. Diabetes. 6. Spinal stenosis with weakness in all extremities. DISPOSITION: To rehab. DISCHARGE MEDICATIONS: See MRAD for discharge medications. Coumadin for anticoagulation. SPRING BURGESS MD DR: CECE/julien JOB#: [id number] / [id number] EARLENE
[2016-11-03 03:00] VITALS: BP 104/56
[2016-11-03] MEDS: OXYCODONE/APAP 10/325 TABLET. PO PRN ×4 (05:44→20:52)
[2016-11-03 06:23] LABS: CALCIUM 9.2 mg/dL (8.5-10.1); GFR 88.1
[2016-11-03 06:29] LABS: INR 1.2 (0.8-1.1); PROTHROMBIN TIME PATIENT 14.7 SEC (11.7-14.0)
[2016-11-03 07:00] VITALS: BP 102/59
[2016-11-03] MEDS: INSULIN ASPART 300 UNITS/3 ML INSULN.PEN SQ SCH ×3 (08:00→17:00)
[2016-11-03] MEDS: POTASSIUM CHLORIDE 8 MEQ TABLET.ER. PO SCH ×2 (08:00→09:15)
--- NOTE | 2016-11-03 08:04 | PDOC ---
ORTHO PROGRESS NOTES Subjective working with therapy, some pain with PT, otherwise doing ok Vitals Vital Signs Date Time Temp Pulse Resp B/P Pulse Ox O2 Delivery O2 Flow Rate FiO2 11/03/16 07:19 18 11/03/16 03:00 97.4 67 104/56 98 Room Air 97.4 11/02/16 20:00 2.0 Labs Laboratory Tests Test 11/01/16 12:05 11/01/16 16:22 11/01/16 20:46 11/02/16 04:25 Prothrombin Time 13.5SEC (11.7-14.0) 14.1SEC (11.7-14.0) Prothromb Time International Ratio 1.1 (0.8-1.1) 1.2 (0.8-1.1) Glucose (Fingerstick) 99mg/dL (70-99) 82mg/dL (70-99) 109mg/dL (70-99) Test 11/02/16 07:42 11/02/16 12:01 11/02/16 16:55 11/02/16 20:55 Glucose (Fingerstick) 89mg/dL (70-99) 77mg/dL (70-99) 66mg/dL (70-99) 93mg/dL (70-99) Test 11/03/16 05:35 Prothrombin Time 14.7SEC (11.7-14.0) Prothromb Time International Ratio 1.2 (0.8-1.1) Sodium Level 134mmol/L (136-145) Potassium Level 5.0mmol/L (3.5-5.1) Chloride Level 99mmol/L (98-107) Carbon Dioxide Level 28mmol/L (21-32) Anion Gap 7 (6-14) Blood Urea Nitrogen 16mg/dL (8-26) Creatinine 1.0mg/dL (0.7-1.3) Estimated GFR (Cockcroft-Gault) 88.1 Glucose Level 125mg/dL (70-99) Calcium Level 9.2mg/dL (8.5-10.1) Laboratory Tests Test 11/02/16 12:01 11/02/16 16:55 11/02/16 20:55 11/03/16 05:35 Glucose (Fingerstick) 77mg/dL (70-99) 66mg/dL (70-99) 93mg/dL (70-99) Prothrombin Time 14.7SEC (11.7-14.0) Prothromb Time International Ratio 1.2 (0.8-1.1) Sodium Level 134mmol/L (136-145) Potassium Level 5.0mmol/L (3.5-5.1) Chloride Level 99mmol/L (98-107) Carbon Dioxide Level 28mmol/L (21-32) Anion Gap 7 (6-14) Blood Urea Nitrogen 16mg/dL (8-26) Creatinine 1.0mg/dL (0.7-1.3) Estimated GFR (Cockcroft-Gault) 88.1 Glucose Level 125mg/dL (70-99) Calcium Level 9.2mg/dL (8.5-10.1) Notes A and A sitting in bed LLE: dressings intact NV status unchanged Assessment and Plan L hip fernando cont PT/OT ok to transfer once medically stable LASHAE DOWNS II, MD Nov 03, 2016 08:04
[2016-11-03] MEDS: CETIRIZINE HCL 10 MG TABLET. PO SCH (09:00)
[2016-11-03] MEDS: POLYETHYLENE GLYCOL 3350 17 GM PACKET. PO SCH ×2 (09:00→20:48)
[2016-11-03] MEDS: GABAPENTIN 300 MG CAPSULE. PO SCH ×3 (09:12→20:51)
[2016-11-03] MEDS: LISINOPRIL 10 MG TABLET PO SCH (09:13)
[2016-11-03] MEDS: IRON POLYSACCHARIDE COMPLEX 150 MG CAPSULE PO SCH (09:13)
[2016-11-03] MEDS: ASPIRIN CHEWABLE 81 MG TABLET. PO SCH (09:13)
[2016-11-03] MEDS: BACLOFEN 10 MG TABLET. PO SCH ×4 (09:14→20:52)
[2016-11-03] MEDS: METFORMIN 1,000 MG TABLET PO SCH ×2 (09:14→16:35)
[2016-11-03] MEDS: PANTOPRAZOLE 40 MG TABLET.DR. PO SCH (09:14)
[2016-11-03] MEDS: tiZANidine 4 MG TABLET. PO PRN ×2 (09:15→21:59)
[2016-11-03] MEDS: DICLOFENAC SODIUM 1% TOPICAL GEL 100GM TUBE. TP SCH ×3 (09:16→20:50)
--- NOTE | 2016-11-03 09:53 | PDOC ---
PROGRESS NOTES Subjective Subjective No new complaints. Objective Objective Vital Signs Date Time Temp Pulse Resp B/P Pulse Ox O2 Delivery O2 Flow Rate FiO2 11/03/16 09:13 64 102/59 11/03/16 07:19 18 11/03/16 07:00 97.8 100 Room Air 97.8 11/02/16 20:00 2.0 Intake and Output 11/03/16 07:00 Intake Total 570 ml Output Total 4475 ml Balance -3905 ml Intake Oral 570 ml Output Urine Total 4475 ml # Voids 1 # Bowel Movements 1 Physical Exam Physical Exam He is sitting in bed and dressing in place to left hip and he continues to require 2 person assistance for transfers.He did walk for 15' with [employer] walker yesterday with physical therapy. Assessment Assessment Problems Medical Problems: (1) Hip fracture, left Status: Acute Plan Plan of Care To SNF when medically stable. Comment Review of Relevant I have reviewed the following items aleksandar (where applicable) has been applied. Labs Laboratory Tests Test 11/01/16 12:05 11/01/16 16:22 11/01/16 20:46 11/02/16 04:25 Prothrombin Time 13.5SEC (11.7-14.0) 14.1SEC (11.7-14.0) Prothromb Time International Ratio 1.1 (0.8-1.1) 1.2 (0.8-1.1) Glucose (Fingerstick) 99mg/dL (70-99) 82mg/dL (70-99) 109mg/dL (70-99) Test 11/02/16 07:42 11/02/16 12:01 11/02/16 16:55 11/02/16 20:55 Glucose (Fingerstick) 89mg/dL (70-99) 77mg/dL (70-99) 66mg/dL (70-99) 93mg/dL (70-99) Test 11/03/16 05:35 11/03/16 08:05 Prothrombin Time 14.7SEC (11.7-14.0) Prothromb Time International Ratio 1.2 (0.8-1.1) Sodium Level 134mmol/L (136-145) Potassium Level 5.0mmol/L (3.5-5.1) Chloride Level 99mmol/L (98-107) Carbon Dioxide Level 28mmol/L (21-32) Anion Gap 7 (6-14) Blood Urea Nitrogen 16mg/dL (8-26) Creatinine 1.0mg/dL (0.7-1.3) Estimated GFR (Cockcroft-Gault) 88.1 Glucose Level 125mg/dL (70-99) Calcium Level 9.2mg/dL (8.5-10.1) Glucose (Fingerstick) 106mg/dL (70-99) Laboratory Tests Test 11/02/16 12:01 11/02/16 16:55 11/02/16 20:55 11/03/16 05:35 Glucose (Fingerstick) 77mg/dL (70-99) 66mg/dL (70-99) 93mg/dL (70-99) Prothrombin Time 14.7SEC (11.7-14.0) Prothromb Time International Ratio 1.2 (0.8-1.1) Sodium Level 134mmol/L (136-145) Potassium Level 5.0mmol/L (3.5-5.1) Chloride Level 99mmol/L (98-107) Carbon Dioxide Level 28mmol/L (21-32) Anion Gap 7 (6-14) Blood Urea Nitrogen 16mg/dL (8-26) Creatinine 1.0mg/dL (0.7-1.3) Estimated GFR (Cockcroft-Gault) 88.1 Glucose Level 125mg/dL (70-99) Calcium Level 9.2mg/dL (8.5-10.1) Test 11/03/16 08:05 Glucose (Fingerstick) 106mg/dL (70-99) Medications Current Medications Fentanyl Citrate 25 mcg 25 mcg PRN Q15MIN PRN IV PAIN GREATER THAN 3/10 Last administered on 10/31/16 08:26; Start 10/31/16 at 07:00; Stop 11/01/16 at 06:59 ; Status DC Sodium Chloride (Iv Sodium Chloride 0.9% 1000ml Bag) 1,000 ml @ 100 mls/hr 1X ONCE IV Last administered on 10/31/16 08:26; Start 10/31/16 at 08:30; Stop at 18:29; Status DC Fentanyl Citrate 50 mcg 50 mcg PRN Q2HR PRN IV PAIN Last administered on 09:38; Start 10/31/16 at 08:30; Stop 11/01/16 at 08:29; Status DC Clindamycin Phosphate (Cleocin 900mg Premix) 50 ml @ 100 mls/hr 1X ONCE IV Last administered on 10/31/16 11:18; Start 10/31/16 at 09:00; Stop 10/31/16 at 09:29; Status DC Dextrose 12.5 gm 12.5 gm PRN Q15MIN PRN IV SEE COMMENTS; Start 10/31/16 at 09: 30; Stop 11/01/16 at 12:43; Status DC Propofol (Diprivan) 20 ml @ As Directed STK-MED ONCE IV ; Start 10/31/16 at 09: 57; Stop 10/31/16 at 09:58; Status DC Lidocaine HCl (Lidocaine HCl 2% Abboject) 100 mg STK-MED ONCE .ROUTE ; Start at 09:57; Stop 10/31/16 at 09:58; Status DC Fentanyl Citrate (Fentanyl 2ml Vial) 100 mcg STK-MED ONCE .ROUTE ; Start at 09:57; Stop 10/31/16 at 09:58; Status DC Rocuronium Eucha (Zemuron) 50 mg STK-MED ONCE .ROUTE ; Start 10/31/16 at 09:57 ; Stop 10/31/16 at 09:58; Status DC Succinylcholine Chloride (Anectine) 200 mg STK-MED ONCE .ROUTE ; Start 10/31/16 at 09:57; Stop 10/31/16 at 09:58; Status DC Aspirin (Children'S Aspirin) 81 mg DAILY PO Last administered on 11/03/16 09: 13; Start 10/31/16 at 12:00 Baclofen (Lioresal) 15 mg TIDWMEALS PO Last administered on 11/03/16 09:14; Start 10/31/16 at 12:00 Diclofenac Sodium (Voltaren) 1 kiet TID TP Last administered on 11/03/16 09:16 ; Start 10/31/16 at 14:00 Docusate Sodium (Colace) 100 mg QHS PO Last administered on 11/01/16 20:40; Start 10/31/16 at 21:00 Lisinopril (Prinivil) 10 mg DAILY PO Last administered on 11/03/16 09:13; Start 10/31/16 at 12:00 Metformin HCl (Glucophage) 1,000 mg BIDWMEALS PO Last administered on 09:14; Start 10/31/16 at 12:00 Oxycodone/ Acetaminophen (Percocet 10/325) 1 tab PRN Q4HRS PRN PO severe pain Last administered on 11/03/16 05:44; Start 10/31/16 at 10:30 Pantoprazole Sodium (Protonix) 40 mg DAILYAC PO Last administered on 11/03/16 09:14; Start 10/31/16 at 12:00 Non-Formulary Medication 70 mg weekly on saturday PO ; Start 10/31/16 at 10:30; Stop 10/31/16 at 10:41; Status DC Baclofen (Lioresal) 20 mg QHS PO Last administered on 11/02/16 21:37; Start at 21:00 Gabapentin (Neurontin) 600 mg TID PO Last administered on 11/03/16 09:12; Start 10/31/16 at 14:00 Non-Formulary Medication 1 each BID PO ; Start 10/31/16 at 21:00; Stop 10/31/16 at 21:00; Status DC Cetirizine HCl (Zyrtec) 10 mg DAILY PO Last administered on 11/02/16 08:30; Start 10/31/16 at 12:00 Potassium Chloride (Klor-Con 8) 8 meq DAILYWBKFT PO ; Start 10/31/16 at 12:00 Polyethylene Glycol (miraLAX PACKET) 17 gm BID PO Last administered on 20:40; Start 10/31/16 at 12:00 Ondansetron HCl (Zofran) 4 mg PRN Q6HRS PRN IV NAUSEA/VOMITING; Start 10/31/16 at 10:30; Stop 10/31/16 at 23:00; Status DC Fentanyl Citrate (Fentanyl 2ml Vial) 25 mcg PRN Q5MIN PRN IV MILD PAIN; Start 10/31/16 at 10:30; Stop 10/31/16 at 23:00; Status DC Fentanyl Citrate (Fentanyl 2ml Vial) 50 mcg PRN Q5MIN PRN IV MODERATE PAIN Last administered on 10/31/16 13:35; Start 10/31/16 at 10:30; Stop 10/31/16 at 23:00; Status DC Morphine Sulfate 1 mg 1 mg PRN Q10MIN PRN IV SEVERE PAIN; Start 10/31/16 at 10: 30; Stop 10/31/16 at 23:00; Status DC Lactated Ringer's (Iv Lactated Ringers) 1,000 ml @ 0 mls/hr Q0M IV ; Start at 10:29; Stop 10/31/16 at 22:28; Status DC Lidocaine HCl 2 ml PRN 1X PRN ID PRIOR TO IV START; Start 10/31/16 at 10:30; Stop 10/31/16 at 23:00; Status DC Hydromorphone HCl (Dilaudid) 0.5 mg PRN Q10MIN PRN IV SEV PAIN, Second choice; Start 10/31/16 at 10:30; Stop 10/31/16 at 23:00; Status DC Prochlorperazine Edisylate (Compazine) 5 mg PACU PRN PRN IV NAUSEA, MRX1; Start 10/31/16 at 10:30; Stop 10/31/16 at 23:00; Status DC Warfarin Sodium (Coumadin) 5 mg 1X ONCE PO Last administered on 10/31/16 18: 40; Start 10/31/16 at 16:00; Stop 10/31/16 at 16:01; Status DC Warfarin Sodium (Coumadin Per Pharmacy) 1 each PRN DAILY PRN MC SEE COMMENTS Last administered on 11/02/16 11:06; Start 10/31/16 at 10:45 Senna/Docusate Sodium 1 tab 1 tab PRN BID PRN PO CONSTIPATION; Start 10/31/16 at 10:45 Clindamycin Phosphate 50 ml @ 100 mls/hr Q8H IV Last administered on 09:46; Start 10/31/16 at 18:00; Stop 11/01/16 at 10:29; Status DC Morphine Sulfate/ Ketorolac Tromethamine/ Ropivacaine/ Epinephrine HCl/ Sodium Chloride (Morphine 5mg Syringe/Toradol/ Naropin 0.5%/ Adrenalin/Iv Sodium Chloride 0.9% 100ml) 100.5 ml @ 100.5 mls/ hr 1X PERIOP ONCE INT ART Last administered on 10/31/16t 11:30; Start 10/31/16 at 11:00; Stop 10/31/16 at 11:59 ; Status DC Dexamethasone Sodium Phosphate (Decadron) 20 mg STK-MED ONCE .ROUTE ; Start at 11:20; Stop 10/31/16 at 11:21; Status DC Desflurane (Suprane) 30 ml STK-MED ONCE IH ; Start 10/31/16 at 11:20; Stop 10/31 at 11:21; Status DC Ondansetron HCl (Zofran) 4 mg STK-MED ONCE .ROUTE ; Start 10/31/16 at 11:33; Stop 10/31/16 at 11:34; Status DC Glycopyrrolate (Robinul) 1 mg STK-MED ONCE .ROUTE ; Start 10/31/16 at 11:33; Stop 10/31/16 at 11:34; Status DC Neostigmine Methylsulfate 5 mg STK-MED ONCE .ROUTE ; Start 10/31/16 at 11:33; Stop 10/31/16 at 11:34; Status DC Phenylephrine HCl 1 mg STK-MED ONCE IV ; Start 10/31/16 at 11:56; Stop 10/31/16 at 11:57; Status DC Insulin Aspart (Novolog) 0-7 UNITS TIDWMEALS SQ ; Start 10/31/16 at 17:00 Dextrose (Dextrose 50%-Water Syringe) 12.5 gm PRN Q15MIN PRN IV SEE COMMENTS; Start 10/31/16 at 13:15 Enoxaparin Sodium (Lovenox 30mg Syringe) 30 mg Q12H SQ ; Start 10/31/16 at 21:00 ; Status Cancel Diphenhydramine HCl (Benadryl) 25 mg PRN Q6HRS PRN PO ITCHING Last administered on 11/02/16t 18:19; Start 10/31/16 at 19:45 Morphine Sulfate 10 mg STK-MED ONCE .ROUTE ; Start 10/31/16 at 11:00; Stop 11/01 at 07:59; Status DC Warfarin Sodium (Coumadin) 5 mg 1X WARF ONCE PO Last administered on 18:01; Start 11/01/16 at 16:00; Stop 11/01/16 at 16:01; Status DC Polysaccharide Iron Complex (Niferex 150) 150 mg DAILY PO Last administered on 11/03/16 09:13; Start 11/02/16 at 09:00 Tizanidine HCl (Zanaflex) 12 mg PRN QHS PRN PO MUSCLE SPASMS Last administered on 11/02/16 21:40; Start 11/02/16 at 10:15 Tamsulosin HCl (Flomax) 0.4 mg QHS PO ; Start 11/02/16 at 21:00 Warfarin Sodium (Coumadin) 7.5 mg 1X WARF ONCE PO Last administered on 17:11; Start 11/02/16 at 16:00; Stop 11/02/16 at 16:01; Status DC Active Scripts Active Colace (Docusate Sodium) 100 Mg Capsule 100 Mg PO QHS [Polyethylene Glycol 3350] 17 GM Packet 17 Gm PO BID Neurontin (Gabapentin) 300 Mg Capsule 600 Mg PO TID Aspirin 81 Mg Tab.chew 81 Mg PO DAILY Reported Centrum Complete Multivit Tab (Multivitamin/Iron/Folic Acid) 1 Each Tablet 1 Each PO Metanx Capsule (Levomefolate/B6/B12/Algal Oil) 1 Each Capsule 1 Each PO BID Zoladex (Goserelin Acetate) 10.8 Mg Implant 10.8 Mg SQ Q 3 MONTHS Potassium Chloride 10 Meq Capsule.er 8 Meq PO DAILY Pantoprazole Sodium 40 Mg Tablet.dr 1 Tab PO DAILY Voltaren (Diclofenac Sodium) 100 Gm Gel..gram. 1 Gm TP TID Baclofen 10 Mg Tablet 15 Mg PO TID Zanaflex (Tizanidine Hcl) 6 Mg Capsule 12 Mg PO HS PRN Fosamax (Alendronate Sodium) 70 Mg Tablet 70 Mg PO WEEKLY ON SATURDAY Oxycodone-Acetaminophen 10-325 (Oxycodone Hcl/Acetaminophen) 1 Each Tablet 1 Each PO PRN Q4HRS PRN Claritin (Loratadine) 10 Mg Tablet 10 Mg PO DAILY Baclofen 20 Mg Tablet 20 Mg PO HS Lisinopril 10 Mg Tablet 10 Mg PO DAILY Metformin Hcl 1,000 Mg Tablet 1,000 Mg PO BID Vitals/I & O Vital Sign - Last 24 Hours 11/02/16 11/02/16 11/02/16 11/02/16 11:00 11:09 12:54 15:00 Temp 98.9 99.0 98.9 99.0 Pulse 88 90 Resp 20 20 B/P 117/66 124/71 Pulse Ox 96 94 O2 Delivery Nasal Cannula Room Air Room Air Nasal Cannula O2 Flow Rate 2.0 2.0 11/02/16 11/02/16 11/02/16 11/02/16 18:19 19:00 20:00 23:00 Temp 99.8 98.6 99.8 98.6 Pulse 91 84 Resp 18 B/P 141/64 126/71 Pulse Ox 93 97 O2 Delivery Room Air Room Air Nasal Cannula Room Air O2 Flow Rate 2.0 11/03/16 11/03/16 11/03/16 11/03/16 03:00 05:44 07:00 07:19 Temp 97.4 97.8 97.4 97.8 Pulse 67 64 Resp 18 18 B/P 104/56 102/59 Pulse Ox 98 100 O2 Delivery Room Air Room Air 11/03/16 09:13 Pulse 64 B/P 102/59 Intake and Output 11/02/16 11/02/16 11/03/16 15:00 23:00 07:00 Intake Total 570 ml 0 ml Output Total 3175 ml 1300 ml Balance -3175 ml -730 ml 0 ml DAVE VU MD Nov 03, 2016 09:53
[2016-11-03 11:00] VITALS: BP 95/87
[2016-11-03 15:00] VITALS: BP 135/55
--- NOTE | 2016-11-03 15:15 | PDOC ---
PROGRESS NOTES Subjective Subjective feeling better today Objective Objective Vital Signs Date Time Temp Pulse Resp B/P Pulse Ox O2 Delivery O2 Flow Rate FiO2 11/03/16 13:05 Room Air 11/03/16 11:00 97.8 65 20 95/87 99 97.8 11/02/16 20:00 2.0 Intake and Output 11/03/16 07:00 Intake Total 570 ml Output Total 4475 ml Balance -3905 ml Intake Oral 570 ml Output Urine Total 4475 ml # Voids 1 # Bowel Movements 1 Physical Exam Abdomen: Normal bowel sounds, Soft Heart: Regular rate, Normal S1, Normal S2 Extremities: No clubbing General: Alert HEENT: Atraumatic Lungs: Clear to auscultation MUSCULOSKELETAL: No swelling, Osteoarthritic changes both hands Neck: Supple Neuro: Normal speech Psych/Mental Status: Mental status NL Skin: No breakdown Diagnosis Problem List Problems Medical Problems: (1) Hip fracture, left Status: Acute Assessment Assessment Problems Medical Problems: (1) Hip fracture, left Status: Acute FINAL IMPRESSION: 1. Left hip fracture secondary to mechanical fall. 2. Diabetes. 3. Chronic obstructive pulmonary disease. 4. Prostate cancer. 5. Spinal stenosis. 6. Elevation of the diaphragm. 7. Chronic problems with the colon. 8. Mild hyponatremia. PLAN: d/cd dyer yesterday,urinating well. snu screen transfer saturday Total lt hip hemiarthroplasty . POD #3.Na 134 improved rehab consult appreciated. spoke with social service. Problems: Plan Plan of Care Problems Medical Problems: (1) Hip fracture, left Status: Acute Comment Review of Relevant I have reviewed the following items aleksandar (where applicable) has been applied. Labs Laboratory Tests Test 11/02/16 16:55 11/02/16 20:55 11/03/16 05:35 11/03/16 08:05 Glucose (Fingerstick) 66mg/dL (70-99) 93mg/dL (70-99) 106mg/dL (70-99) Prothrombin Time 14.7SEC (11.7-14.0) Prothromb Time International Ratio 1.2 (0.8-1.1) Sodium Level 134mmol/L (136-145) Potassium Level 5.0mmol/L (3.5-5.1) Chloride Level 99mmol/L (98-107) Carbon Dioxide Level 28mmol/L (21-32) Anion Gap 7 (6-14) Blood Urea Nitrogen 16mg/dL (8-26) Creatinine 1.0mg/dL (0.7-1.3) Estimated GFR (Cockcroft-Gault) 88.1 Glucose Level 125mg/dL (70-99) Calcium Level 9.2mg/dL (8.5-10.1) Test 11/03/16 12:03 Glucose (Fingerstick) 63mg/dL (70-99) Medications Current Medications Tamsulosin HCl (Flomax) 0.4 mg QHS PO ; Start 11/02/16 at 21:00 Warfarin Sodium (Coumadin) 7.5 mg 1X WARF ONCE PO Last administered on t 17:11; Start 11/02/16 at 16:00; Stop 11/02/16 at 16:01; Status DC Warfarin Sodium (Coumadin) 7.5 mg 1X WARF ONCE PO ; Start 11/03/16 at 16:00; Stop 11/03/16 at 16:01 Vitals/I & O Vital Sign - Last 24 Hours 11/02/16 11/02/16 11/02/16 11/02/16 18:19 19:00 20:00 23:00 Temp 99.8 98.6 99.8 98.6 Pulse 91 84 Resp 18 18 B/P 141/64 126/71 Pulse Ox 93 97 O2 Delivery Room Air Room Air Nasal Cannula Room Air O2 Flow Rate 2.0 11/03/16 11/03/16 11/03/16 11/03/16 03:00 05:44 07:00 07:19 Temp 97.4 97.8 97.4 97.8 Pulse 67 64 Resp 18 18 20 18 B/P 104/56 102/59 Pulse Ox 98 100 O2 Delivery Room Air Room Air 11/03/16 11/03/16 11/03/16 11/03/16 07:50 09:13 11:00 11:57 Temp 97.8 97.8 Pulse 64 65 Resp 20 B/P 102/59 95/87 Pulse Ox 99 O2 Delivery Room Air Room Air Room Air 11/03/16 13:05 O2 Delivery Room Air Intake and Output 11/02/16 11/02/16 11/03/16 15:00 23:00 07:00 Intake Total 570 ml 0 ml Output Total 3175 ml 1300 ml Balance -3175 ml -730 ml 0 ml SPRING BURGESS MD Nov 03, 2016 15:15
[2016-11-03] MEDS ORDERED: WARFARIN 7.5 MG TABLET. PO ONE (16:00)
[2016-11-03] MEDS: OXYBUTYNIN CHLORIDE 5 MG TABLET PO SCH ×2 (16:37→20:52)
[2016-11-03] MEDS: diphenhydrAMINE HCL 25 MG CAPSULE PO PRN (18:33)
[2016-11-03 19:15] VITALS: BP 137/78
[2016-11-03] MEDS: DOCUSATE SODIUM 100 MG CAPSULE. PO SCH (20:48)
[2016-11-03] MEDS: TAMSULOSIN 0.4 MG CAP.ER.24H. PO SCH (20:51)
[2016-11-03 23:06] VITALS: BP 112/64
[2016-11-04 03:12] VITALS: BP 96/55
[2016-11-04] MEDS: diphenhydrAMINE HCL 25 MG CAPSULE PO PRN ×4 (03:26→21:41)
[2016-11-04 05:33] LABS: INR 1.4 (0.8-1.1); PROTHROMBIN TIME PATIENT 16.7 SEC (11.7-14.0)
[2016-11-04 07:00] VITALS: BP 123/73
[2016-11-04] MEDS: INSULIN ASPART 300 UNITS/3 ML INSULN.PEN SQ SCH ×3 (08:00→17:00)
[2016-11-04] MEDS: POTASSIUM CHLORIDE 8 MEQ TABLET.ER. PO SCH (08:00)
[2016-11-04] MEDS: IRON POLYSACCHARIDE COMPLEX 150 MG CAPSULE PO SCH (08:43)
[2016-11-04] MEDS: OXYCODONE/APAP 10/325 TABLET. PO PRN ×4 (08:43→21:42)
[2016-11-04] MEDS: GABAPENTIN 300 MG CAPSULE. PO SCH ×3 (08:43→21:42)
[2016-11-04] MEDS: ASPIRIN CHEWABLE 81 MG TABLET. PO SCH (08:43)
[2016-11-04] MEDS: DICLOFENAC SODIUM 1% TOPICAL GEL 100GM TUBE. TP SCH ×3 (08:44→21:00)
[2016-11-04] MEDS: CETIRIZINE HCL 10 MG TABLET. PO SCH (08:44)
[2016-11-04] MEDS: LISINOPRIL 10 MG TABLET PO SCH (08:44)
[2016-11-04] MEDS: BACLOFEN 10 MG TABLET. PO SCH ×4 (08:44→21:41)
[2016-11-04] MEDS: METFORMIN 1,000 MG TABLET PO SCH ×2 (08:44→17:14)
[2016-11-04] MEDS: OXYBUTYNIN CHLORIDE 5 MG TABLET PO SCH ×3 (08:44→21:42)
[2016-11-04] MEDS: PANTOPRAZOLE 40 MG TABLET.DR. PO SCH (08:44)
[2016-11-04] MEDS: POLYETHYLENE GLYCOL 3350 17 GM PACKET. PO SCH ×2 (08:47→21:00)
[2016-11-04 11:00] VITALS: BP 106/56
--- NOTE | 2016-11-04 11:18 | PDOC ---
PROGRESS NOTES Subjective Subjective feels ok, no new problems Objective Objective Vital Signs Date Time Temp Pulse Resp B/P Pulse Ox O2 Delivery O2 Flow Rate FiO2 11/04/16 11:00 98.4 63 20 106/56 95 Room Air 98.4 11/03/16 17:55 2.0 Intake and Output 11/04/16 07:00 Intake Total 2400 ml Output Total 1350 ml Balance 1050 ml Intake Oral 2400 ml Output Urine Total 1350 ml # Voids 43 Physical Exam Abdomen: Normal bowel sounds, Soft Heart: Regular rate, Normal S1, Normal S2 Extremities: No clubbing General: Alert HEENT: Atraumatic Lungs: Clear to auscultation MUSCULOSKELETAL: No swelling, Osteoarthritic changes both hands Neck: Supple Neuro: Normal speech Psych/Mental Status: Mental status NL Skin: No breakdown Diagnosis Problem List Problems Medical Problems: (1) Hip fracture, left Status: Acute Assessment Assessment Problems Medical Problems: (1) Hip fracture, left Status: Acute FINAL IMPRESSION: 1. Left hip fracture secondary to mechanical fall. 2. Diabetes. 3. Chronic obstructive pulmonary disease. 4. Prostate cancer. 5. Spinal stenosis. 6. Elevation of the diaphragm. 7. Chronic problems with the colon. 8. Mild hyponatremia. PLAN:continue pain meds d/mario alberto dyer ,urinating well.bladder scan q shift snu screen transfer saturday Total lt hip hemiarthroplasty . POD #4.Na 134 improved rehab consult appreciated. spoke with social service. Problems: Plan Plan of Care Problems Medical Problems: (1) Hip fracture, left Status: Acute Comment Review of Relevant I have reviewed the following items aleksandar (where applicable) has been applied. Labs Laboratory Tests Test 11/03/16 12:03 11/03/16 17:12 11/03/16 20:53 11/04/16 04:45 Glucose (Fingerstick) 63mg/dL (70-99) 93mg/dL (70-99) 84mg/dL (70-99) Prothrombin Time 16.7SEC (11.7-14.0) Prothromb Time International Ratio 1.4 (0.8-1.1) Test 11/04/16 07:21 Glucose (Fingerstick) 86mg/dL (70-99) Medications Current Medications Oxybutynin Chloride (Ditropan) 5 mg [id number] PO Last administered on 11/04/16 08 :44; Start 11/03/16 at 17:00 Warfarin Sodium (Coumadin) 7.5 mg 1X WARF ONCE PO Last administered on 16:35; Start 11/03/16 at 16:00; Stop 11/03/16 at 16:01; Status DC Vitals/I & O Vital Sign - Last 24 Hours 11/03/16 11/03/16 11/03/16 11/03/16 11:57 15:00 16:50 17:55 Temp 97.8 97.8 Pulse 69 Resp 20 B/P 135/55 Pulse Ox 94 94 O2 Delivery Room Air Room Air Room Air O2 Flow Rate 2.0 11/03/16 11/03/16 11/03/16 11/03/16 19:15 20:10 20:52 23:06 Temp 97.7 98.3 97.7 98.3 Pulse 72 63 Resp 18 18 B/P 137/78 112/64 Pulse Ox 98 95 O2 Delivery Room Air Room Air Room Air Room Air 11/04/16 11/04/16 11/04/16 11/04/16 03:12 07:00 08:43 08:44 Temp 97.5 98.0 97.5 98.0 Pulse 63 67 67 Resp 18 20 B/P 96/55 123/73 123/73 Pulse Ox 98 99 O2 Delivery Room Air Room Air Room Air 11/04/16 11/04/16 09:50 11:00 Temp 98.4 98.4 Pulse 63 Resp 20 B/P 106/56 Pulse Ox 95 O2 Delivery Room Air Room Air Intake and Output 11/03/16 11/03/16 11/04/16 15:00 23:00 07:00 Intake Total 2400 ml Output Total 250 ml 1100 ml Balance -250 ml 1300 ml SPRING BURGESS MD Nov 04, 2016 11:18
[2016-11-04 15:00] VITALS: BP 134/72
--- NOTE | 2016-11-04 15:11 | PDOC ---
ORTHO PROGRESS NOTES Subjective Pain doing ok, no new complaints Vitals Vital Signs Date Time Temp Pulse Resp B/P Pulse Ox O2 Delivery O2 Flow Rate FiO2 11/04/16 15:00 97.4 63 20 134/72 95 Room Air 97.4 11/03/16 17:55 2.0 Labs Laboratory Tests Test 11/02/16 16:55 11/02/16 20:55 11/03/16 05:35 11/03/16 08:05 Glucose (Fingerstick) 66mg/dL (70-99) 93mg/dL (70-99) 106mg/dL (70-99) Prothrombin Time 14.7SEC (11.7-14.0) Prothromb Time International Ratio 1.2 (0.8-1.1) Sodium Level 134mmol/L (136-145) Potassium Level 5.0mmol/L (3.5-5.1) Chloride Level 99mmol/L (98-107) Carbon Dioxide Level 28mmol/L (21-32) Anion Gap 7 (6-14) Blood Urea Nitrogen 16mg/dL (8-26) Creatinine 1.0mg/dL (0.7-1.3) Estimated GFR (Cockcroft-Gault) 88.1 Glucose Level 125mg/dL (70-99) Calcium Level 9.2mg/dL (8.5-10.1) Test 11/03/16 12:03 11/03/16 17:12 11/03/16 20:53 11/04/16 04:45 Glucose (Fingerstick) 63mg/dL (70-99) 93mg/dL (70-99) 84mg/dL (70-99) Prothrombin Time 16.7SEC (11.7-14.0) Prothromb Time International Ratio 1.4 (0.8-1.1) Test 11/04/16 07:21 11/04/16 12:07 Glucose (Fingerstick) 86mg/dL (70-99) 86mg/dL (70-99) Laboratory Tests Test 11/03/16 17:12 11/03/16 20:53 11/04/16 04:45 11/04/16 07:21 Glucose (Fingerstick) 93mg/dL (70-99) 84mg/dL (70-99) 86mg/dL (70-99) Prothrombin Time 16.7SEC (11.7-14.0) Prothromb Time International Ratio 1.4 (0.8-1.1) Test 11/04/16 12:07 Glucose (Fingerstick) 86mg/dL (70-99) Notes A and A in bed dressing intact remains NVI LLE Assessment and Plan cont anticoag x 4 wks PT/OT as LASHAE Freeman II, MD Nov 04, 2016 15:11
[2016-11-04] MEDS ORDERED: WARFARIN 7.5 MG TABLET. PO ONE (16:00)
[2016-11-04 19:30] VITALS: BP 117/69
[2016-11-04] MEDS: DOCUSATE SODIUM 100 MG CAPSULE. PO SCH (21:41)
[2016-11-04] MEDS: TAMSULOSIN 0.4 MG CAP.ER.24H. PO SCH (21:42)
[2016-11-04] MEDS: tiZANidine 4 MG TABLET. PO PRN (21:49)
[2016-11-04 23:10] VITALS: BP 119/64
[2016-11-05 02:45] VITALS: BP 118/65
[2016-11-05 06:53] LABS: INR 1.8 (0.8-1.1); PROTHROMBIN TIME PATIENT 19.4 SEC (11.7-14.0)
[2016-11-05 07:00] VITALS: BP 120/66
[2016-11-05] MEDS: POTASSIUM CHLORIDE 8 MEQ TABLET.ER. PO SCH (08:00)
[2016-11-05] MEDS: INSULIN ASPART 300 UNITS/3 ML INSULN.PEN SQ SCH ×2 (08:00→12:00)
[2016-11-05] MEDS: DICLOFENAC SODIUM 1% TOPICAL GEL 100GM TUBE. TP SCH ×2 (08:19→14:57)
[2016-11-05] MEDS: IRON POLYSACCHARIDE COMPLEX 150 MG CAPSULE PO SCH (08:21)
[2016-11-05] MEDS: BACLOFEN 10 MG TABLET. PO SCH ×2 (08:21→12:59)
[2016-11-05] MEDS: OXYBUTYNIN CHLORIDE 5 MG TABLET PO SCH ×2 (08:21→14:56)
[2016-11-05] MEDS: OXYCODONE/APAP 10/325 TABLET. PO PRN ×2 (08:21→12:59)
[2016-11-05] MEDS: ASPIRIN CHEWABLE 81 MG TABLET. PO SCH (08:22)
[2016-11-05] MEDS: LISINOPRIL 10 MG TABLET PO SCH (08:22)
[2016-11-05] MEDS: GABAPENTIN 300 MG CAPSULE. PO SCH ×2 (08:22→14:56)
[2016-11-05] MEDS: METFORMIN 1,000 MG TABLET PO SCH (08:22)
[2016-11-05] MEDS: PANTOPRAZOLE 40 MG TABLET.DR. PO SCH (08:22)
[2016-11-05] MEDS: POLYETHYLENE GLYCOL 3350 17 GM PACKET. PO SCH (08:23)
[2016-11-05] MEDS: CETIRIZINE HCL 10 MG TABLET. PO SCH (08:23)
--- NOTE | 2016-11-05 09:26 | PDOC ---
PROGRESS NOTES Subjective Subjective No new complaints. Objective Objective Vital Signs Date Time Temp Pulse Resp B/P Pulse Ox O2 Delivery O2 Flow Rate FiO2 11/05/16 08:22 67 120/66 11/05/16 08:21 Room Air 11/05/16 07:00 98.0 14 96 98.0 11/03/16 17:55 2.0 Intake and Output 11/05/16 06:59 Intake Total 2250 ml Output Total 3125 ml Balance -875 ml Intake Oral 2250 ml Output Urine Total 3125 ml # Voids 5 # Bowel Movements 1 Physical Exam Physical Exam She is comfortable supine in bed and is alert but still requires help with mobility and self care. Assessment Assessment Problems Medical Problems: (1) Hip fracture, left Status: Acute Plan Plan of Care To SNF when medically stable. Comment Review of Relevant I have reviewed the following items aleksandar (where applicable) has been applied. Labs Laboratory Tests Test 11/03/16 12:03 11/03/16 17:12 11/03/16 20:53 11/04/16 04:45 Glucose (Fingerstick) 63mg/dL (70-99) 93mg/dL (70-99) 84mg/dL (70-99) Prothrombin Time 16.7SEC (11.7-14.0) Prothromb Time International Ratio 1.4 (0.8-1.1) Test 11/04/16 07:21 11/04/16 12:07 11/04/16 16:58 11/04/16 21:01 Glucose (Fingerstick) 86mg/dL (70-99) 86mg/dL (70-99) 82mg/dL (70-99) 101mg/dL (70-99) Test 11/05/16 06:25 11/05/16 07:42 Prothrombin Time 19.4SEC (11.7-14.0) Prothromb Time International Ratio 1.8 (0.8-1.1) Glucose (Fingerstick) 88mg/dL (70-99) Laboratory Tests Test 11/04/16 12:07 11/04/16 16:58 11/04/16 21:01 11/05/16 06:25 Glucose (Fingerstick) 86mg/dL (70-99) 82mg/dL (70-99) 101mg/dL (70-99) Prothrombin Time 19.4SEC (11.7-14.0) Prothromb Time International Ratio 1.8 (0.8-1.1) Test 11/05/16 07:42 Glucose (Fingerstick) 88mg/dL (70-99) Medications Current Medications Fentanyl Citrate 25 mcg 25 mcg PRN Q15MIN PRN IV PAIN GREATER THAN 3/10 Last administered on 10/31/16 08:26; Start 10/31/16 at 07:00; Stop 11/01/16 at 06:59 ; Status DC Sodium Chloride (Iv Sodium Chloride 0.9% 1000ml Bag) 1,000 ml @ 100 mls/hr 1X ONCE IV Last administered on 10/31/16 08:26; Start 10/31/16 at 08:30; Stop at 18:29; Status DC Fentanyl Citrate 50 mcg 50 mcg PRN Q2HR PRN IV PAIN Last administered on 09:38; Start 10/31/16 at 08:30; Stop 11/01/16 at 08:29; Status DC Clindamycin Phosphate (Cleocin 900mg Premix) 50 ml @ 100 mls/hr 1X ONCE IV Last administered on 10/31/16 11:18; Start 10/31/16 at 09:00; Stop 10/31/16 at 09:29; Status DC Dextrose 12.5 gm 12.5 gm PRN Q15MIN PRN IV SEE COMMENTS; Start 10/31/16 at 09: 30; Stop 11/01/16 at 12:43; Status DC Propofol (Diprivan) 20 ml @ As Directed STK-MED ONCE IV ; Start 10/31/16 at 09: 57; Stop 10/31/16 at 09:58; Status DC Lidocaine HCl (Lidocaine HCl 2% Abboject) 100 mg STK-MED ONCE .ROUTE ; Start at 09:57; Stop 10/31/16 at 09:58; Status DC Fentanyl Citrate (Fentanyl 2ml Vial) 100 mcg STK-MED ONCE .ROUTE ; Start at 09:57; Stop 10/31/16 at 09:58; Status DC Rocuronium Glynn (Zemuron) 50 mg STK-MED ONCE .ROUTE ; Start 10/31/16 at 09:57 ; Stop 10/31/16 at 09:58; Status DC Succinylcholine Chloride (Anectine) 200 mg STK-MED ONCE .ROUTE ; Start 10/31/16 at 09:57; Stop 10/31/16 at 09:58; Status DC Aspirin (Children'S Aspirin) 81 mg DAILY PO Last administered on 11/05/16 08: 22; Start 10/31/16 at 12:00 Baclofen (Lioresal) 15 mg TIDWMEALS PO Last administered on 11/05/16 08:21; Start 10/31/16 at 12:00 Diclofenac Sodium (Voltaren) 1 kiet TID TP Last administered on 11/05/16 08:19 ; Start 10/31/16 at 14:00 Docusate Sodium (Colace) 100 mg QHS PO Last administered on 11/04/16 21:41; Start 10/31/16 at 21:00 Lisinopril (Prinivil) 10 mg DAILY PO Last administered on 11/05/16 08:22; Start 10/31/16 at 12:00 Metformin HCl (Glucophage) 1,000 mg BIDWMEALS PO Last administered on 08:22; Start 10/31/16 at 12:00 Oxycodone/ Acetaminophen (Percocet 10/325) 1 tab PRN Q4HRS PRN PO severe pain Last administered on 11/05/16 08:21; Start 10/31/16 at 10:30 Pantoprazole Sodium (Protonix) 40 mg DAILYAC PO Last administered on 11/05/16 08:22; Start 10/31/16 at 12:00 Non-Formulary Medication 70 mg weekly on saturday PO ; Start 10/31/16 at 10:30; Stop 10/31/16 at 10:41; Status DC Baclofen (Lioresal) 20 mg QHS PO Last administered on 11/04/16 21:41; Start at 21:00 Gabapentin (Neurontin) 600 mg TID PO Last administered on 11/05/16 08:22; Start 10/31/16 at 14:00 Non-Formulary Medication 1 each BID PO ; Start 10/31/16 at 21:00; Stop 10/31/16 at 21:00; Status DC Cetirizine HCl (Zyrtec) 10 mg DAILY PO Last administered on 11/02/16 08:30; Start 10/31/16 at 12:00 Potassium Chloride (Klor-Con 8) 8 meq DAILYWBKFT PO ; Start 10/31/16 at 12:00 Polyethylene Glycol (miraLAX PACKET) 17 gm BID PO Last administered on 08:47; Start 10/31/16 at 12:00 Ondansetron HCl (Zofran) 4 mg PRN Q6HRS PRN IV NAUSEA/VOMITING; Start 10/31/16 at 10:30; Stop 10/31/16 at 23:00; Status DC Fentanyl Citrate (Fentanyl 2ml Vial) 25 mcg PRN Q5MIN PRN IV MILD PAIN; Start 10/31/16 at 10:30; Stop 10/31/16 at 23:00; Status DC Fentanyl Citrate (Fentanyl 2ml Vial) 50 mcg PRN Q5MIN PRN IV MODERATE PAIN Last administered on 10/31/16 13:35; Start 10/31/16 at 10:30; Stop 10/31/16 at 23:00; Status DC Morphine Sulfate 1 mg 1 mg PRN Q10MIN PRN IV SEVERE PAIN; Start 10/31/16 at 10: 30; Stop 10/31/16 at 23:00; Status DC Lactated Ringer's (Iv Lactated Ringers) 1,000 ml @ 0 mls/hr Q0M IV ; Start at 10:29; Stop 10/31/16 at 22:28; Status DC Lidocaine HCl 2 ml PRN 1X PRN ID PRIOR TO IV START; Start 10/31/16 at 10:30; Stop 10/31/16 at 23:00; Status DC Hydromorphone HCl (Dilaudid) 0.5 mg PRN Q10MIN PRN IV SEV PAIN, Second choice; Start 10/31/16 at 10:30; Stop 10/31/16 at 23:00; Status DC Prochlorperazine Edisylate (Compazine) 5 mg PACU PRN PRN IV NAUSEA, MRX1; Start 10/31/16 at 10:30; Stop 10/31/16 at 23:00; Status DC Warfarin Sodium (Coumadin) 5 mg 1X ONCE PO Last administered on 10/31/16 18: 40; Start 10/31/16 at 16:00; Stop 10/31/16 at 16:01; Status DC Warfarin Sodium (Coumadin Per Pharmacy) 1 each PRN DAILY PRN MC SEE COMMENTS Last administered on 11/04/16 13:20; Start 10/31/16 at 10:45 Senna/Docusate Sodium 1 tab 1 tab PRN BID PRN PO CONSTIPATION; Start 10/31/16 at 10:45 Clindamycin Phosphate 50 ml @ 100 mls/hr Q8H IV Last administered on 09:46; Start 10/31/16 at 18:00; Stop 11/01/16 at 10:29; Status DC Morphine Sulfate/ Ketorolac Tromethamine/ Ropivacaine/ Epinephrine HCl/ Sodium Chloride (Morphine 5mg Syringe/Toradol/ Naropin 0.5%/ Adrenalin/Iv Sodium Chloride 0.9% 100ml) 100.5 ml @ 100.5 mls/ hr 1X PERIOP ONCE INT ART Last administered on 10/31/16 11:30; Start 10/31/16 at 11:00; Stop 10/31/16 at 11:59 ; Status DC Dexamethasone Sodium Phosphate (Decadron) 20 mg STK-MED ONCE .ROUTE ; Start at 11:20; Stop 10/31/16 at 11:21; Status DC Desflurane (Suprane) 30 ml STK-MED ONCE IH ; Start 10/31/16 at 11:20; Stop 10/31 at 11:21; Status DC Ondansetron HCl (Zofran) 4 mg STK-MED ONCE .ROUTE ; Start 10/31/16 at 11:33; Stop 10/31/16 at 11:34; Status DC Glycopyrrolate (Robinul) 1 mg STK-MED ONCE .ROUTE ; Start 10/31/16 at 11:33; Stop 10/31/16 at 11:34; Status DC Neostigmine Methylsulfate 5 mg STK-MED ONCE .ROUTE ; Start 10/31/16 at 11:33; Stop 10/31/16 at 11:34; Status DC Phenylephrine HCl 1 mg STK-MED ONCE IV ; Start 10/31/16 at 11:56; Stop 10/31/16 at 11:57; Status DC Insulin Aspart (Novolog) 0-7 UNITS TIDWMEALS SQ ; Start 10/31/16 at 17:00 Dextrose (Dextrose 50%-Water Syringe) 12.5 gm PRN Q15MIN PRN IV SEE COMMENTS; Start 10/31/16 at 13:15 Enoxaparin Sodium (Lovenox 30mg Syringe) 30 mg Q12H SQ ; Start 10/31/16 at 21:00 ; Status Cancel Diphenhydramine HCl (Benadryl) 25 mg PRN Q6HRS PRN PO ITCHING Last administered on 11/04/16 21:41; Start 10/31/16 at 19:45 Morphine Sulfate 10 mg STK-MED ONCE .ROUTE ; Start 10/31/16 at 11:00; Stop 11/01 at 07:59; Status DC Warfarin Sodium (Coumadin) 5 mg 1X WARF ONCE PO Last administered on 18:01; Start 11/01/16 at 16:00; Stop 11/01/16 at 16:01; Status DC Polysaccharide Iron Complex (Niferex 150) 150 mg DAILY PO Last administered on 11/05/16 08:21; Start 11/02/16 at 09:00 Tizanidine HCl (Zanaflex) 12 mg PRN QHS PRN PO MUSCLE SPASMS Last administered on 11/04/16 21:49; Start 11/02/16 at 10:15 Tamsulosin HCl (Flomax) 0.4 mg QHS PO Last administered on 11/04/16 21:42; Start 11/02/16 at 21:00 Warfarin Sodium (Coumadin) 7.5 mg 1X WARF ONCE PO Last administered on 17:11; Start 11/02/16 at 16:00; Stop 11/02/16 at 16:01; Status DC Warfarin Sodium (Coumadin) 7.5 mg 1X WARF ONCE PO Last administered on 16:35; Start 11/03/16 at 16:00; Stop 11/03/16 at 16:01; Status DC Oxybutynin Chloride (Ditropan) 5 mg [id number] PO Last administered on 11/05/16 08 :21; Start 11/03/16 at 17:00 Warfarin Sodium (Coumadin) 7.5 mg 1X WARF ONCE PO Last administered on t 16:35; Start 11/04/16 at 16:00; Stop 11/04/16 at 16:01; Status DC Active Scripts Active Colace (Docusate Sodium) 100 Mg Capsule 100 Mg PO QHS [Polyethylene Glycol 3350] 17 GM Packet 17 Gm PO BID Neurontin (Gabapentin) 300 Mg Capsule 600 Mg PO TID Aspirin 81 Mg Tab.chew 81 Mg PO DAILY Reported Centrum Complete Multivit Tab (Multivitamin/Iron/Folic Acid) 1 Each Tablet 1 Each PO Metanx Capsule (Levomefolate/B6/B12/Algal Oil) 1 Each Capsule 1 Each PO BID Zoladex (Goserelin Acetate) 10.8 Mg Implant 10.8 Mg SQ Q 3 MONTHS Potassium Chloride 10 Meq Capsule.er 8 Meq PO DAILY Pantoprazole Sodium 40 Mg Tablet.dr 1 Tab PO DAILY Voltaren (Diclofenac Sodium) 100 Gm Gel..gram. 1 Gm TP TID Baclofen 10 Mg Tablet 15 Mg PO TID Zanaflex (Tizanidine Hcl) 6 Mg Capsule 12 Mg PO HS PRN Fosamax (Alendronate Sodium) 70 Mg Tablet 70 Mg PO WEEKLY ON SATURDAY Oxycodone-Acetaminophen 10-325 (Oxycodone Hcl/Acetaminophen) 1 Each Tablet 1 Each PO PRN Q4HRS PRN Claritin (Loratadine) 10 Mg Tablet 10 Mg PO DAILY Baclofen 20 Mg Tablet 20 Mg PO HS Lisinopril 10 Mg Tablet 10 Mg PO DAILY Metformin Hcl 1,000 Mg Tablet 1,000 Mg PO BID Vitals/I & O Vital Sign - Last 24 Hours 11/04/16 11/04/16 11/04/16 11/04/16 11:00 13:05 15:00 17:14 Temp 98.4 97.4 98.4 97.4 Pulse 63 63 Resp 20 20 B/P 106/56 134/72 Pulse Ox 95 95 O2 Delivery Room Air Room Air Room Air Room Air 11/04/16 11/04/16 11/04/16 11/04/16 19:30 20:00 21:42 22:42 Temp 98.3 98.3 Pulse 71 Resp 16 20 20 B/P 117/69 Pulse Ox 98 98 O2 Delivery Room Air Room Air Room Air Room Air 11/04/16 11/05/16 11/05/16 11/05/16 23:10 02:45 07:00 08:21 Temp 98.0 97.7 98.0 98.0 97.7 98.0 Pulse 66 63 67 Resp 16 16 14 B/P 119/64 118/65 120/66 Pulse Ox 98 96 96 O2 Delivery Room Air Room Air Room Air Room Air 11/05/16 08:22 Pulse 67 B/P 120/66 Intake and Output 11/04/16 11/04/16 11/05/16 14:59 22:59 06:59 Intake Total 1750 ml 500 ml Output Total 950 ml 2175 ml Balance 800 ml -1675 ml DAVE VU MD Nov 05, 2016 09:26
--- NOTE | 2016-11-05 10:09 | PDOC ---
PROGRESS NOTES Subjective Subjective feels better today Objective Objective Vital Signs Date Time Temp Pulse Resp B/P Pulse Ox O2 Delivery O2 Flow Rate FiO2 11/05/16 09:47 Room Air 11/05/16 08:22 67 120/66 11/05/16 07:00 98.0 14 96 98.0 Intake and Output 11/05/16 07:00 Intake Total 2250 ml Output Total 3125 ml Balance -875 ml Intake Oral 2250 ml Output Urine Total 3125 ml # Voids 5 # Bowel Movements 1 Physical Exam Abdomen: Normal bowel sounds, Soft Heart: Regular rate, Normal S1, Normal S2 Extremities: No clubbing General: Alert HEENT: Atraumatic Lungs: Clear to auscultation MUSCULOSKELETAL: No swelling, Osteoarthritic changes both hands Neck: Supple Neuro: Normal speech Psych/Mental Status: Mental status NL Skin: No breakdown Diagnosis Problem List Problems Medical Problems: (1) Hip fracture, left Status: Acute Assessment Assessment Problems Medical Problems: (1) Hip fracture, left Status: Acute FINAL IMPRESSION: 1. Left hip fracture secondary to mechanical fall. 2. Diabetes. 3. Chronic obstructive pulmonary disease. 4. Prostate cancer. 5. Spinal stenosis. 6. Elevation of the diaphragm. 7. Chronic problems with the colon. 8. Mild hyponatremia. PLAN: SNU today. continue pain meds d/mario alberto dyer ,urinating well.bladder scan q shift snu screen transfer saturday Total lt hip hemiarthroplasty . POD #5.Inr 1.8 on coumadin rehab consult appreciated. spoke with social service. Problems: Plan Plan of Care Problems Medical Problems: (1) Hip fracture, left Status: Acute Comment Review of Relevant I have reviewed the following items aleksandar (where applicable) has been applied. Labs Laboratory Tests Test 11/04/16 12:07 11/04/16 16:58 11/04/16 21:01 11/05/16 06:25 Glucose (Fingerstick) 86mg/dL (70-99) 82mg/dL (70-99) 101mg/dL (70-99) Prothrombin Time 19.4SEC (11.7-14.0) Prothromb Time International Ratio 1.8 (0.8-1.1) Test 11/05/16 07:42 Glucose (Fingerstick) 88mg/dL (70-99) Medications Current Medications Warfarin Sodium (Coumadin) 7.5 mg 1X WARF ONCE PO Last administered on t 16:35; Start 11/04/16 at 16:00; Stop 11/04/16 at 16:01; Status DC Vitals/I & O Vital Sign - Last 24 Hours 11/04/16 11/04/16 11/04/16 11/04/16 11:00 13:05 15:00 17:14 Temp 98.4 97.4 98.4 97.4 Pulse 63 63 Resp 20 20 B/P 106/56 134/72 Pulse Ox 95 95 O2 Delivery Room Air Room Air Room Air Room Air 11/04/16 11/04/16 11/04/16 11/04/16 19:30 20:00 21:42 22:42 Temp 98.3 98.3 Pulse 71 Resp 16 20 20 B/P 117/69 Pulse Ox 98 98 O2 Delivery Room Air Room Air Room Air 11/04/16 11/05/16 11/05/16 11/05/16 23:10 02:45 07:00 08:21 Temp 98.0 97.7 98.0 98.0 97.7 98.0 Pulse 66 63 67 Resp 16 16 14 B/P 119/64 118/65 120/66 Pulse Ox 98 96 96 O2 Delivery Room Air Room Air Room Air Room Air 11/05/16 11/05/16 08:22 09:47 Pulse 67 B/P 120/66 O2 Delivery Room Air Intake and Output 11/04/16 11/04/16 11/05/16 15:00 23:00 07:00 Intake Total 1750 ml 500 ml Output Total 950 ml 2175 ml Balance 800 ml -1675 ml SPRING BURGESS MD Nov 05, 2016 10:08
[2016-11-05] MEDS: diphenhydrAMINE HCL 25 MG CAPSULE PO PRN (10:28)
--- NOTE | 2016-11-05 10:38 | PDOC ---
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 Pain controlled. Anticipates going to rehabilitation before going home. Post-op Day: 5 (Left hip fernando) Vitals Vital Signs Date Time Temp Pulse Resp B/P Pulse Ox O2 Delivery O2 Flow Rate FiO2 11/05/16 09:47 Room Air 11/05/16 08:22 67 120/66 11/05/16 07:00 98.0 14 96 98.0 Labs Laboratory Tests Test 11/03/16 12:03 11/03/16 17:12 11/03/16 20:53 11/04/16 04:45 Glucose (Fingerstick) 63mg/dL (70-99) 93mg/dL (70-99) 84mg/dL (70-99) Prothrombin Time 16.7SEC (11.7-14.0) Prothromb Time International Ratio 1.4 (0.8-1.1) Test 11/04/16 07:21 11/04/16 12:07 11/04/16 16:58 11/04/16 21:01 Glucose (Fingerstick) 86mg/dL (70-99) 86mg/dL (70-99) 82mg/dL (70-99) 101mg/dL (70-99) Test 11/05/16 06:25 11/05/16 07:42 Prothrombin Time 19.4SEC (11.7-14.0) Prothromb Time International Ratio 1.8 (0.8-1.1) Glucose (Fingerstick) 88mg/dL (70-99) Laboratory Tests Test 11/04/16 12:07 11/04/16 16:58 11/04/16 21:01 11/05/16 06:25 Glucose (Fingerstick) 86mg/dL (70-99) 82mg/dL (70-99) 101mg/dL (70-99) Prothrombin Time 19.4SEC (11.7-14.0) Prothromb Time International Ratio 1.8 (0.8-1.1) Test 11/05/16 07:42 Glucose (Fingerstick) 88mg/dL (70-99) Notes Patient is awake and alert sitting up in bed. Breathing unlabored, no acute distress. Falls commands and moves all extremities. Incision covered with dressing, mild shadow drainage noted. No tenderness or erythema. Mild edema left hip. Neurovascular intact left lower extremity. Problems: (1) Hip fracture, left Assessment and Plan Okay to be weightbearing as tolerated Okay to discharge from orthopedic standpoint when medically stable Follow-up with Dr. Downs or myself 2 weeks post surgery in [phone] LASHAE DOWNS II, MD 11/05/16 1247: Problem Qualifiers (1) Hip fracture, left: Encounter type: subsequent encounter Fracture type: closed Fracture healing : with routine healing Qualified Code: S72.002D - Fracture of unspecified part of neck of left femur, subsequent encounter for closed fracture with routine healing AMADA ARTIS APRN Nov 05, 2016 10:38 LASHAE DOWNS II, MD Nov 05, 2016 12:47
[2016-11-05 11:00] VITALS: BP 123/63
[2016-11-05 15:00] VITALS: BP 144/72
[2016-11-05] MEDS ORDERED: WARFARIN 7.5 MG TABLET. PO ONE (16:00)
== END 2016-11-05 16:40 | DRG 470 ==
LOC: ER 06:40 → 4 NORTH 08:30
PROVIDERS: ADMIT Internal Medicine; ATTEND Internal Medicine
PROC: 0SRS0J9 Replacement of Left Hip Joint, Femoral Surface with Synthetic Substitute, Cemented, Open Approach (ICD-10-PCS; principal; 2016-10-31 10:45)
DX: S72.002A Fracture of unspecified part of neck of left femur, initial encounter for closed fracture (principal); E87.1 Hypo-osmolality and hyponatremia; E11.42 Type 2 diabetes mellitus with diabetic polyneuropathy; I10 Essential (primary) hypertension; J44.9 Chronic obstructive pulmonary disease, unspecified; K58.9 Irritable bowel syndrome, unspecified; M48.02 Spinal stenosis, cervical region; C61 Malignant neoplasm of prostate; W19.XXXA Unspecified fall, initial encounter; G89.29 Other chronic pain; M19.90 Unspecified osteoarthritis, unspecified site; M47.816 Spondylosis without myelopathy or radiculopathy, lumbar region; M70.60 Trochanteric bursitis, unspecified hip; M54.5 Low back pain; R27.0 Ataxia, unspecified; S16.1XXA Strain of muscle, fascia and tendon at neck level, initial encounter; M51.36 Other intervertebral disc degeneration, lumbar region; Z83.3 Family history of diabetes mellitus; Z85.46 Personal history of malignant neoplasm of prostate; Z82.49 Family history of ischemic heart disease and other diseases of the circulatory system; Y93.89 Activity, other specified; Y92.89 Other specified places as the place of occurrence of the external cause; Y99.8 Other external cause status; Z79.01 Long term (current) use of anticoagulants; Z79.82 Long term (current) use of aspirin; Z79.2 Long term (current) use of antibiotics; Z88.1 Allergy status to other antibiotic agents; Z88.8 Allergy status to other drugs, medicaments and biological substances
CPT/HCPCS: 36415; 51702; 71010; 72170; 73502; 73552; 80048; 80053; 82947; 85027; 85610; 87086; 87186; 87641; 88305; 88311; 93005; 96361; 96374; 96376; J0171; J0330; J1100; J1815; J1885; J2270; J2370; J2405; J2704; J2710; J2795; J3010; J3490; J7030; Q0163; 97110; 97116; 97530; 97535; 99285-25

== ENCOUNTER 2017-03-25 10:15 | Inpatient (IN) | payer BC ==
[~2017-03-25] VITALS: Ht 177.8 cm; Wt 86.2 kg
[~2017-03-25 10:15] MED LIST changes: +AMOX1TAB58 PO; +ASPI-630 PO; -ASPI81TA2 PO; +DICL100G18 TP; -DICL100G7 TP; +DOCU-109 PO; -DOCU-27 PO; -GUAI600T38 PO; +GUAI600T47 PO; -LUBI24CA5 PO; +LUBI24CA7 PO; +METF-620 PO; -METF10002 PO; +POLY17PO29 PO; -POLY17PO5 PO; -POTA10CA PO; +POTASSIUM CHLO10 MEQ PO; +SILV20CR14 TP; -SILV20CR4 TP; +TAMS0.4C97 PO
--- NOTE | 2017-03-25 10:41 | PHYS DOC ---
Past Medical History Past Medical History: Cancer, Diabetes-Type II, Hypertension, Other Additional Past Medical Histor: SPINAL STENOSIS,MUSCLE SPASAMS,COLON OBST, PROSTATE CA, chronic hip pain Past Surgical History: Hip Replacement, Other Additional Past Surgical Histo: HERNIA, SPINE Alcohol Use: Rarely Drug Use: None Adult General Chief Complaint Chief Complaint: foot blisters HPI HPI Patient is a 76 year old male who presents with bilateral foot blisters/ breakdown of skin for 1 week. Denies known fevers or known injury. Pt has h/o DMII and taking medications. Denies h/o PVD. Seen by homehealth nurse today and Dr. Tran directed pt to come to ED. Denies that symptoms are painful. Review of Systems Review of Systems Constitutional: Denies fever or chills [] Eyes: Denies change in visual acuity, redness, or eye pain [] HENT: Denies nasal congestion or sore throat [] Respiratory: Denies cough or shortness of breath [] Cardiovascular: Denies chest pain GI: Denies abdominal pain, nausea, vomiting, bloody stools or diarrhea [] : Denies dysuria or hematuria [] Musculoskeletal: Denies back pain or joint pain [] Integument: Denies rash Neurologic: Denies headache, focal weakness or sensory changes [] Allergies Allergies Allergies Coded Allergies Type Severity Reaction Last Updated Verified piperacillin Allergy Severe Itching, unresponsive,hypotension 01/10/17 Yes tazobactam Allergy Severe Itching, unresponsive,hypotension 01/10/17 Yes levofloxacin Allergy Intermediate Itching 01/10/17 Yes Physical Exam Physical Exam Constitutional: Well developed, well nourished, no acute distress, non-toxic appearance. [] HENT: Normocephalic, atraumatic, bilateral external ears normal, oropharynx moist, no oral exudates, nose normal. [] Eyes: PERRLA, EOMI, conjunctiva normal, no discharge. [] Neck: Normal range of motion, no tenderness, supple, no stridor. [] Cardiovascular:Heart rate regular rhythm, no murmur [] Lungs & Thorax: Bilateral breath sounds clear to auscultation [] Abdomen: Bowel sounds normal, soft, no tenderness, no masses, no pulsatile masses. [] Skin: Warm, dry, no erythema, no rash. [] Extremities: bilateral feet trace edema with fluid filled blisters and some that have opened, foul odor, no focal tenderness, weaping of the feet. no focal ulcerations appreciated, bilateral dp pulses intact 2+. No calf ttp, wiggles toes, reports normal sensory Neurologic: Alert and oriented X 3, normal motor function, normal sensory function, no focal deficits noted. [] Psychologic: Affect normal, judgement normal, mood normal. [] Current Patient Data Vital Signs Vital Signs Date Time Temp Pulse Resp B/P (MAP) Pulse Ox O2 Delivery O2 Flow Rate FiO2 03/25/17 12:32 72 18 156/78 (104) 97 Room Air 03/25/17 10:20 97.9 97.9 Lab Values Laboratory Tests Test 03/25/17 11:00 03/25/17 11:40 White Blood Count 10.4 x10^3/uL (4.0-11.0) Red Blood Count 3.60 x10^6/uL (4.30-5.70) L Hemoglobin 11.5 g/dL (13.0-17.5) L Hematocrit 33.6 % (39.0-53.0) L Mean Corpuscular Volume 93 fL (79-100) Mean Corpuscular Hemoglobin 32 pg (25-35) Mean Corpuscular Hemoglobin Concent 34 g/dL (31-37) Red Cell Distribution Width 12.5 % (11.5-14.5) Platelet Count 267 x10^3/uL (140-400) Neutrophils (%) (Auto) 52 % (31-73) Lymphocytes (%) (Auto) 8 % (24-48) L Monocytes (%) (Auto) 5 % (0-9) Eosinophils (%) (Auto) 35 % (0-3) H Basophils (%) (Auto) 0 % (0-3) Neutrophils # (Auto) 5.5 x10^3uL (1.8-7.7) Lymphocytes # (Auto) 0.8 x10^3/uL (1.0-4.8) L Monocytes # (Auto) 0.5 x10^3/uL (0.0-1.1) Eosinophils # (Auto) 3.6 x10^3/uL (0.0-0.7) H Basophils # (Auto) 0.0 x10^3/uL (0.0-0.2) Segmented Neutrophils % 56 % (35-66) Lymphocytes % 11 % (24-48) L Monocytes % 4 % (0-10) Eosinophils % 29 % (0-5) H Platelet Estimate Adequate (ADEQUATE) Sodium Level 131 mmol/L (136-145) L Potassium Level 4.4 mmol/L (3.5-5.1) Chloride Level 93 mmol/L (98-107) L Carbon Dioxide Level 28 mmol/L (21-32) Anion Gap 10 (6-14) Blood Urea Nitrogen 14 mg/dL (8-26) Creatinine 1.0 mg/dL (0.7-1.3) Estimated GFR (Cockcroft-Gault) 87.9 BUN/Creatinine Ratio 14 (6-20) Glucose Level 129 mg/dL (70-99) H Calcium Level 11.0 mg/dL (8.5-10.1) H Total Bilirubin 0.3 mg/dL (0.2-1.0) Aspartate Amino Transferase (AST) 49 U/L (15-37) H Alanine Aminotransferase (ALT) 58 U/L (16-63) Alkaline Phosphatase 65 U/L (46-116) C-Reactive Protein, Quantitative 2.3 mg/L (0-3.3) Total Protein 9.5 g/dL (6.4-8.2) H Albumin 4.1 g/dL (3.4-5.0) Albumin/Globulin Ratio 0.8 (1.0-1.7) L Urine Collection Type Unknown Urine Color Yellow Urine Clarity Clear Urine pH 7.0 Urine Specific [place] 1.010 Urine Protein 30 mg/dL (NEG-TRACE) Urine Glucose (UA) Negative mg/dL (NEG) Urine Ketones (Stick) Negative mg/dL (NEG) Urine Blood Trace (NEG) Urine Nitrite Positive (NEG) Urine Bilirubin Negative (NEG) Urine Urobilinogen Dipstick 0.2 mg/dL (0.2 mg/dL) Urine Leukocyte Esterase Trace (NEG) Urine RBC 0 /HPF (0-2) Urine WBC 0 /HPF (0-4) Urine Bacteria Many /HPF (0-FEW) Laboratory Tests 03/25/17 11:00 Laboratory Tests 03/25/17 11:00 EKG EKG [] Radiology/Procedures Radiology/Procedures bilateral foot XRay:IMPRESSION: 1. Demineralization. 2. Degenerative change. 3. No acute bony abnormality is detected. Course & Med Decision Making Course & Med Decision Making Pertinent Labs and Imaging studies reviewed. (See chart for details) Discussed with Dr. Tran and he explained pt difficulty with f/u with vascular and signs of vascular disease. With worsening symptoms, recommends admission and vascular surgery consult. Dragon Disclaimer Dragon Disclaimer This electronic medical record was generated, in whole or in part, using a voice recognition dictation system. Departure Departure Impression: Primary Impression: Vascular disease Disposition: ADMITTED INPATIENT Admitting Physician: Spring Tran Condition: STABLE Referrals: SPRING TRAN MD (PCP) ZHEN GONCALVES MD Mar 25, 2017 10:41
[2017-03-25 11:21] LABS: BASO % 0 % (0-3); EOS % 35 % (0-3); HEMATOCRIT 33.6 % (39.0-53.0); HEMOGLOBIN 11.5 g/dL (13.0-17.5); LYMPH # 0.8 x10^3/uL (1.0-4.8); LYMPH % 8 % (24-48); MEAN CORPUSCULAR HEMOGLOBIN 32 pg (25-35); MEAN CORPUSCULAR HGB CONC 34 g/dL (31-37); MEAN CORPUSCULAR VOLUME 93 fL (79-100); MONO % 5 % (0-9); NEUT % 52 % (31-73); PLATELET COUNT 267 x10^3/uL (140-400); RED CELL DISTRIBUTION WIDTH 12.5 % (11.5-14.5); WHITE BLOOD COUNT 10.4 x10^3/uL (4.0-11.0)
[2017-03-25 11:32] LABS: GFR 87.9; POTASSIUM 4.4 mmol/L (3.5-5.1)
[2017-03-25 11:37] LABS: ALBUMIN 4.1 g/dL (3.4-5.0); ALBUMIN/GLOBULIN RATIO 0.8 (1.0-1.7); C-REACTIVE PROTEIN 2.3 mg/L (0-3.3); TOTAL BILIRUBIN 0.3 mg/dL (0.2-1.0); TOTAL PROTEIN 9.5 g/dL (6.4-8.2)
[2017-03-25 12:00] LABS: BILIRUBIN,URINE NEGATIVE (NEG); GLUCOSE,URINE NEGATIVE (NEG); NITRITE,URINE POSITIVE (NEG); PROTEIN,URINE 30 mg/dL (NEG-TRACE); UROBILINOGEN,URINE 0.2 mg/dL (0.2 mg/dL)
[2017-03-25 12:07] LABS: BACTERIA,URINE MANY /HPF (0-FEW); RBC,URINE 0 /HPF (0-2); WBC,URINE 0 /HPF (0-4)
--- NOTE | 2017-03-25 12:23 | RAD ---
Left foot, 3 views, 03/25/2017: History: Diabetes, foot infection There is severe bilateral bony demineralization. There are moderate scattered degenerative change. A small defect in the cortex at the base of the left fifth metatarsal has sclerotic margins and appears old. No acute fracture or destructive bone lesion is seen. The inferior aspects of internal fixation devices are evident related to the distal tibia and fibula. There is bilateral subcutaneous edema. IMPRESSION: 1. Demineralization. 2. Degenerative change. 3. No acute bony abnormality is detected.
[2017-03-25 12:49] LABS: % EOS 29 % (0-5); PLT ESTIMATE ADEQUATE (ADEQUATE)
[2017-03-25 15:44] VITALS: BP 150/80
--- NOTE | 2017-03-25 16:15 | PDOC2 ---
CONSULT Date of Consult Date of Consult DATE: 03/25/17 TIME: 16:04 Reason for Consult Reason for Consult: Right foot blistering History of Present Illness Reason for Visit: This is a pleasant 76-year-old diabetic male who states that over the last week he is developed some blisters on his right foot. He was advised to come to the emergency room to be evaluated and now subsequently has been admitted. He denies any lower extremity claudication symptoms, but really does not ambulate far enough to claudicate. He typically ambulates with the assistance of a walker. He denies any lower extremity blood vessel surgery or procedures in the past. He states that his diabetes has been under relatively good control with oral diabetic medication and he follows regularly with his doctors. He denies any history of stroke, TIA, or amaurosis. Past Medical History Cardiovascular: HTN Pulmonary: Pneumonia CENTRAL NERVOUS SYSTEM: Periperal neuropathy GI: GERD Psych: No pertinent hx Musculoskeletal: low back pain, Osteoarthritis Infectious disease: Other Renal/: Benign prostatic enlarg., Prostate Ca., Other Endocrine: Diabetes, Hypothyroidism Past Surgical History Past Surgical History: Total hip replacement, Other (several abdominal surgeries related to his bowel that he does not know the details of) Family History Family History: Diabetes, Hypertension Current Medications Current Medications Active Scripts Active Flomax (Tamsulosin Hcl) 0.4 Mg Cap.er.24h 1 Cap PO BID Augmentin 500-125 Tablet (Amoxicillin/Potassium Clav) 1 Each Tablet 1 Tab PO BID Colace (Docusate Sodium) 100 Mg Capsule 100 Mg PO QHS [Polyethylene Glycol 3350] 17 GM Packet 17 Gm PO BID Neurontin (Gabapentin) 300 Mg Capsule 600 Mg PO TID Aspirin 81 Mg Tab.chew 81 Mg PO DAILY Reported Metanx Capsule (Levomefolate/B6/B12/Algal Oil) 1 Each Capsule 1 Each PO BID Pantoprazole Sodium 40 Mg Tablet.dr 1 Tab PO DAILY Voltaren (Diclofenac Sodium) 100 Gm Gel..gram. 1 Gm TP TID Baclofen 10 Mg Tablet 15 Mg PO TID Zanaflex (Tizanidine Hcl) 6 Mg Capsule 12 Mg PO HS PRN Fosamax (Alendronate Sodium) 70 Mg Tablet 70 Mg PO WEEKLY ON SATURDAY Oxycodone-Acetaminophen 10-325 (Oxycodone Hcl/Acetaminophen) 1 Each Tablet 1 Each PO PRN Q4HRS PRN Baclofen 20 Mg Tablet 20 Mg PO HS Lisinopril 10 Mg Tablet 10 Mg PO DAILY Metformin Hcl 1,000 Mg Tablet 1,000 Mg PO BID Allergies Allergies: Coded Allergies: piperacillin (Verified Allergy, Severe, Itching, unresponsive,hypotension , 01/10/17) pt with rapid response 0345 for becoming unresponsive and hypotension. tazobactam (Verified Allergy, Severe, Itching, unresponsive,hypotension, ) pt with rapid response 0345 for becoming unresponsive and hypotension. levofloxacin (Verified Allergy, Intermediate, Itching, 01/10/17) ROS Skin: Yes Dry Skin, Yes Eczema, Yes Hair Changes, Yes Lumps, Yes Mole Changes, Yes Mottling, Yes Nail Changes, Yes Pruritus, Yes Rash, Yes Skin Lesion Changes , Yes Other (blistering of the right foot), Yes Acne Physical Exam General: Alert, Oriented X3, Cooperative, No acute distress, Other ( present at the bedside) HEENT: Atraumatic, PERRLA, EOMI Lungs: Clear to auscultation, Normal air movement Heart: Regular rate, Normal S1, Normal S2, No murmurs, Rubs Abdomen: Normal bowel sounds, Soft, No tenderness, No masses, Other (well- healed midline, paramedian, and right subcostal incisions) Extremities: No clubbing, No cyanosis, Normal pulses Skin: Other (blistering noted at medial malleolus, anterior surface of first toe, and lateral surface of fifth metatarsal, no evidence of purulent drainage, no evidence of tracking cellulitis, no open ulceration, no malodor) Neuro: Normal speech, Strength at 5/5 X4 ext, Sensation intact Psych/Mental Status: Mental status NL MUSCULOSKELETAL: No deformity, No swelling Vitals VITALS Vital Signs Date Time Temp Pulse Resp B/P (MAP) Pulse Ox O2 Delivery O2 Flow Rate FiO2 03/25/17 15:44 97.8 75 20 150/80 (103) 96 Room Air 97.8 Labs Labs Laboratory Tests Test 03/25/17 11:00 03/25/17 11:40 White Blood Count 10.4 x10^3/uL (4.0-11.0) Red Blood Count 3.60 x10^6/uL (4.30-5.70) Hemoglobin 11.5 g/dL (13.0-17.5) Hematocrit 33.6 % (39.0-53.0) Mean Corpuscular Volume 93 fL (79-100) Mean Corpuscular Hemoglobin 32 pg (25-35) Mean Corpuscular Hemoglobin Concent 34 g/dL (31-37) Red Cell Distribution Width 12.5 % (11.5-14.5) Platelet Count 267 x10^3/uL (140-400) Neutrophils (%) (Auto) 52 % (31-73) Lymphocytes (%) (Auto) 8 % (24-48) Monocytes (%) (Auto) 5 % (0-9) Eosinophils (%) (Auto) 35 % (0-3) Basophils (%) (Auto) 0 % (0-3) Neutrophils # (Auto) 5.5 x10^3uL (1.8-7.7) Lymphocytes # (Auto) 0.8 x10^3/uL (1.0-4.8) Monocytes # (Auto) 0.5 x10^3/uL (0.0-1.1) Eosinophils # (Auto) 3.6 x10^3/uL (0.0-0.7) Basophils # (Auto) 0.0 x10^3/uL (0.0-0.2) Segmented Neutrophils % 56 % (35-66) Lymphocytes % 11 % (24-48) Monocytes % 4 % (0-10) Eosinophils % 29 % (0-5) Platelet Estimate Adequate (ADEQUATE) Sodium Level 131 mmol/L (136-145) Potassium Level 4.4 mmol/L (3.5-5.1) Chloride Level 93 mmol/L (98-107) Carbon Dioxide Level 28 mmol/L (21-32) Anion Gap 10 (6-14) Blood Urea Nitrogen 14 mg/dL (8-26) Creatinine 1.0 mg/dL (0.7-1.3) Estimated GFR (Cockcroft-Gault) 87.9 BUN/Creatinine Ratio 14 (6-20) Glucose Level 129 mg/dL (70-99) Calcium Level 11.0 mg/dL (8.5-10.1) Total Bilirubin 0.3 mg/dL (0.2-1.0) Aspartate Amino Transf (AST/SGOT) 49 U/L (15-37) Alanine Aminotransferase (ALT/SGPT) 58 U/L (16-63) Alkaline Phosphatase 65 U/L (46-116) C-Reactive Protein, Quantitative 2.3 mg/L (0-3.3) Total Protein 9.5 g/dL (6.4-8.2) Albumin 4.1 g/dL (3.4-5.0) Albumin/Globulin Ratio 0.8 (1.0-1.7) Urine Collection Type Unknown Urine Color Yellow Urine Clarity Clear Urine pH 7.0 Urine Specific Calvert 1.010 Urine Protein 30 mg/dL (NEG-TRACE) Urine Glucose (UA) Negative mg/dL (NEG) Urine Ketones (Stick) Negative mg/dL (NEG) Urine Blood Trace (NEG) Urine Nitrite Positive (NEG) Urine Bilirubin Negative (NEG) Urine Urobilinogen Dipstick 0.2 mg/dL (0.2 mg/dL) Urine Leukocyte Esterase Trace (NEG) Urine RBC 0 /HPF (0-2) Urine WBC 0 /HPF (0-4) Urine Bacteria Many /HPF (0-FEW) Laboratory Tests Test 03/25/17 11:00 03/25/17 11:40 White Blood Count 10.4 x10^3/uL (4.0-11.0) Red Blood Count 3.60 x10^6/uL (4.30-5.70) Hemoglobin 11.5 g/dL (13.0-17.5) Hematocrit 33.6 % (39.0-53.0) Mean Corpuscular Volume 93 fL (79-100) Mean Corpuscular Hemoglobin 32 pg (25-35) Mean Corpuscular Hemoglobin Concent 34 g/dL (31-37) Red Cell Distribution Width 12.5 % (11.5-14.5) Platelet Count 267 x10^3/uL (140-400) Neutrophils (%) (Auto) 52 % (31-73) Lymphocytes (%) (Auto) 8 % (24-48) Monocytes (%) (Auto) 5 % (0-9) Eosinophils (%) (Auto) 35 % (0-3) Basophils (%) (Auto) 0 % (0-3) Neutrophils # (Auto) 5.5 x10^3uL (1.8-7.7) Lymphocytes # (Auto) 0.8 x10^3/uL (1.0-4.8) Monocytes # (Auto) 0.5 x10^3/uL (0.0-1.1) Eosinophils # (Auto) 3.6 x10^3/uL (0.0-0.7) Basophils # (Auto) 0.0 x10^3/uL (0.0-0.2) Segmented Neutrophils % 56 % (35-66) Lymphocytes % 11 % (24-48) Monocytes % 4 % (0-10) Eosinophils % 29 % (0-5) Platelet Estimate Adequate (ADEQUATE) Sodium Level 131 mmol/L (136-145) Potassium Level 4.4 mmol/L (3.5-5.1) Chloride Level 93 mmol/L (98-107) Carbon Dioxide Level 28 mmol/L (21-32) Anion Gap 10 (6-14) Blood Urea Nitrogen 14 mg/dL (8-26) Creatinine 1.0 mg/dL (0.7-1.3) Estimated GFR (Cockcroft-Gault) 87.9 BUN/Creatinine Ratio 14 (6-20) Glucose Level 129 mg/dL (70-99) Calcium Level 11.0 mg/dL (8.5-10.1) Total Bilirubin 0.3 mg/dL (0.2-1.0) Aspartate Amino Transf (AST/SGOT) 49 U/L (15-37) Alanine Aminotransferase (ALT/SGPT) 58 U/L (16-63) Alkaline Phosphatase 65 U/L (46-116) C-Reactive Protein, Quantitative 2.3 mg/L (0-3.3) Total Protein 9.5 g/dL (6.4-8.2) Albumin 4.1 g/dL (3.4-5.0) Albumin/Globulin Ratio 0.8 (1.0-1.7) Urine Collection Type Unknown Urine Color Yellow Urine Clarity Clear Urine pH 7.0 Urine Specific Calvert 1.010 Urine Protein 30 mg/dL (NEG-TRACE) Urine Glucose (UA) Negative mg/dL (NEG) Urine Ketones (Stick) Negative mg/dL (NEG) Urine Blood Trace (NEG) Urine Nitrite Positive (NEG) Urine Bilirubin Negative (NEG) Urine Urobilinogen Dipstick 0.2 mg/dL (0.2 mg/dL) Urine Leukocyte Esterase Trace (NEG) Urine RBC 0 /HPF (0-2) Urine WBC 0 /HPF (0-4) Urine Bacteria Many /HPF (0-FEW) Assessment/Plan Assessment/Plan Right foot blistering--the patient appears to have a low level infection of the right foot with bullae formation. This does not seem to be associated with a marked cellulitis and there is no evidence of a ascending infection. The patient 's arterial blood flow is intact with normal palpable pulses bilaterally including the pedal pulses. I agree with broad-spectrum antibiotics to cover MRSA since the patient has a history of this in the past. I recommended dry dressing changes with 4 x 4's between the toes, ABDs to protect the area of blistering, and Kerlix rolls to be changed daily. No further vascular intervention or testing is recommended given the intact blood supply. Vascular surgery will otherwise sign off. If there are any questions or concerns regarding the patient's management, is not hesitate to contact our service. Julian Szymanski DO, FACS, RPVI Profile Shaper Operator of Vascular Surgery [facility] JULIAN SZYMANSKI Mar 25, 2017 16:15
[2017-03-25] MEDS ORDERED: DIPH25CA58 PO (17:29)
[2017-03-25] MEDS ORDERED: NON FORMULARY ITEM (Alendronate Sodium (Fosamax) 70 MG) PO SCH (17:45)
[2017-03-25] MEDS: BACLOFEN 10 MG TABLET. PO SCH ×2 (17:59→21:28)
[2017-03-25 19:00] VITALS: BP 159/82
[2017-03-25] MEDS: POLYETHYLENE GLYCOL 3350 17 GM PACKET. PO SCH (20:17)
[2017-03-25] MEDS: tiZANidine 4 MG TABLET. PO PRN (21:28)
[2017-03-25] MEDS: DICLOFENAC SODIUM 1% TOPICAL GEL 100GM TUBE. TP SCH (21:28)
[2017-03-25] MEDS: VITAMIN B12,B9,B6 COMPLEX 1 TABLET. PO SCH (21:29)
[2017-03-25] MEDS: GABAPENTIN 300 MG CAPSULE. PO SCH (21:29)
[2017-03-25] MEDS: TAMSULOSIN 0.4 MG CAP.ER.24H. PO SCH (21:29)
[2017-03-25 23:00] VITALS: BP 134/76
[2017-03-26 03:00] VITALS: BP 120/69
[2017-03-26] MEDS: diphenhydrAMINE HCL 25 MG CAPSULE PO PRN ×2 (05:45→09:33)
[2017-03-26] MEDS: oxyCODONE/APAP 10/325 1 TAB TABLET PO PRN ×3 (05:45→20:09)
[2017-03-26 07:00] VITALS: BP_SYST 118; BP_SYST 149; BP_DIAS 58; BP_DIAS 70
[2017-03-26] MEDS: POLYETHYLENE GLYCOL 3350 17 GM PACKET. PO SCH ×2 (09:00→20:09)
[2017-03-26] MEDS: VITAMIN B12,B9,B6 COMPLEX 1 TABLET. PO SCH ×2 (09:55→20:09)
[2017-03-26] MEDS: TAMSULOSIN 0.4 MG CAP.ER.24H. PO SCH ×2 (09:56→20:09)
[2017-03-26] MEDS: BACLOFEN 10 MG TABLET. PO SCH ×4 (09:57→20:09)
[2017-03-26] MEDS: ASPIRIN CHEWABLE 81 MG TABLET. PO SCH (09:58)
[2017-03-26] MEDS: LISINOPRIL 10 MG TABLET PO SCH (10:00)
[2017-03-26] MEDS: PANTOPRAZOLE 40 MG TABLET.DR. PO SCH (10:00)
[2017-03-26] MEDS: GABAPENTIN 300 MG CAPSULE. PO SCH ×3 (10:01→20:09)
[2017-03-26] MEDS: DICLOFENAC SODIUM 1% TOPICAL GEL 100GM TUBE. TP SCH ×3 (10:05→20:10)
[2017-03-26] MEDS ORDERED: DEXTROSE 50% 25 GM / 50ML DISP.SYRIN. IV PRN (10:30)
--- NOTE | 2017-03-26 10:31 | PDOC ---
Provider Note Provider Note Pt seen.H&P dictated. #[id number] SPRING BURGESS MD Mar 26, 2017 10:31
[2017-03-26 11:02] VITALS: BP 151/77
--- NOTE | 2017-03-26 11:25 | HP ---
ADMIT DATE: 03/25/2017 PATIENT LOCATION: 526. REASON FOR ADMISSION TO THE HOSPITAL: Blisters, bilateral foot, with fluid-filled blisters within the last one week. HISTORY OF PRESENT ILLNESS: The patient is a 76-year-old male who had seen me in the office a week ago. He had some few skin ulcers on the tip of the toes and the patient was put on Neosporin, recommended to see a vascular consult. In the meantime, the patient developed new lesions on the ankle and foot blisters which are bullous, which are close to 1-2 cm, fluid filled, developed in one week and came to the Emergency Room. Has a vascular consult and does not think there is a vascular problem, has good pulsations. Dermatology was consulted. ID was consulted. PAST MEDICAL HISTORY: He has history of diabetes, hypertension, COPD, spinal stenosis, prostate cancer, colon obstruction, chronic pain, has spasms in the upper extremities, lower extremities with secondary spinal stenosis and has history of MRSA and abscess in the upper arm in the past. PAST SURGICAL HISTORY: As mentioned above, had a hip replacement, had a hardware for the tibial fracture, hernia surgery, spine surgery and abdominal surgeries. ALLERGIES: ALLERGY TO LEVOFLOXACIN, PIPERACILLIN AND TAZOBACTAM. PERSONAL HISTORY: He used to smoke in the past, has not smoked for a long time. Denies alcohol or drug abuse. SOCIAL HISTORY: Lives at home with his , uses a walker and wheelchair for mobility. FAMILY HISTORY: Positive for diabetes, hypertension. MEDICATIONS AT HOME: The patient is on Augmentin recently, Colace 100 mg daily, Fosamax 70 mg once a week, aspirin 81 mg daily, baclofen 15 mg 3 times daily, baclofen 20 mg at bedtime, Voltaren gel daily, Benadryl 25 mg daily, gabapentin 600 mg 3 times daily, Minadex capsule twice a day, lisinopril 10 mg daily, metformin 1000 mg twice a day, oxycodone 10 mg q.6h., Protonix 40 mg daily, Flomax 0.4 daily, Zanaflex 6 mg capsules, takes 12 mg at bedtime and MiraLax 17 grams daily. REVIEW OF SYMPTOMS: CARDIAC MARTINEZ: No chest pain. GASTROINTESTINAL: No nausea or vomiting. NEUROLOGICAL: No weakness. CONSTITUTIONAL: No fever. Rest of the 14 systems was reviewed and negative. PHYSICAL EXAMINATION: GENERAL: The patient is chronically ill. VITAL SIGNS: Temperature 97, pulse 65, respirations 18, blood pressure 120/69 and 98% on room air. HEENT: Head is atraumatic. Pupils equal. Oral cavity, dentures. NECK: Supple. Thyroid not enlarged. JVD not elevated. CHEST: Symmetrical, COPD pattern. CARDIOVASCULAR: S1, S2. LUNGS: Clear to auscultation. ABDOMEN: Soft. Scars of previous abdominal surgeries. GENITOURINARY: External genitalia, no Laureano. Some slight incontinence. RECTAL EXAMINATION: Deferred. EXTREMITIES: The patient has upper arm contractures with wasting of the muscles secondary to spinal stenosis. The patient has a previous surgery on the tibia, left. The patient has small ulcers at the tip of the big toe, but has blisters, 2 cm on the back of the heel, medial aspect of the ankle and lateral aspect of the foot on both sides. Has good dorsal and posterior pulsations and no edema. Some skin excoriation between the toenails. FINAL IMPRESSION: 1. Blisters on both feet, rule out bullous pemphigoid as a working diagnosis. 2. Diabetes. 3. History of spinal stenosis. 4. History of prostate cancer. 5. Chronic muscle spasms. 6. General debility and decline. PLAN: At this time, he was admitted to the hospital, seen by Vascular, who does not think it is a vascular problem. We will have Dermatology consult and also we will have Infectious Disease and wound care consult. Rooke boot to keep the foot warm and see how the patient's condition improves. SPRING BURGESS MD DR: CECE/julien JOB#: [id number] / [id number] EARLENE
[2017-03-26] MEDS: INSULIN ASPART 300 UNITS/3 ML INSULN.PEN SQ SCH ×2 (12:00→17:00)
--- NOTE | 2017-03-26 13:27 | PDOC ---
Infectious Disease Note ROS ROS Vital Sign Vital Signs Vital Signs Date Time Temp Pulse Resp B/P (MAP) Pulse Ox O2 Delivery O2 Flow Rate FiO2 03/26/17 11:02 97.6 96 14 151/77 (101) 91 Room Air 97.6 Objective Assessment Blisters feet bilat, recent new shoes Tinea Diabetes with neuropathy Allergy to Levaquin causing itching and Zosyn w/ questionable anaphylactic type reaction h/o MRSA & PSA Hypercalcemia Plan Plan of Care Dose fluconazole Monitor response Await derm eval F?u Hypercalcemia D/w Thank you [id number] Attending Co-Sign Attending Co-Sign The patient was seen and interviewed as well as examined at the bedside. The chart was reviewed. The case was discussed. Agree with the plan of care. CAROL NOLASCO APRN Mar 26, 2017 13:27 AMANDA SHARP MD Mar 26, 2017 13:30
[2017-03-26] MEDS: FLUCONAZOLE 100 MG TABLET. PO SCH (13:52)
[2017-03-26 14:42] VITALS: BP 134/65
[2017-03-26] MEDS: ENOXAPARIN 40 MG/0.4 ML SYRINGE. SQ SCH (17:13)
[2017-03-26 19:00] VITALS: BP 136/78
--- NOTE | 2017-03-26 21:39 | CONS ---
DATE OF CONSULTATION: 03/26/2017 REFERRING PHYSICIAN: Dr. Tran. REASON FOR CONSULTATION: Infected blisters on feet. HISTORY OF PRESENT ILLNESS: This patient is a pleasant 76-year-old male with past medical history of diabetes mellitus with peripheral neuropathy who developed blisters on his feet about a week ago. He has been applying lotion and a topical antibiotic without improvement. He got a new pair of shoes about a month ago. He denies a prior history of similar occurrence. Denies trauma/injury. He has not been on any recent antibiotics. 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 MRSA. Diabetes mellitus. Peripheral neuropathy. Hypertension, chronic obstructive pulmonary disease, spinal stenosis, prostate cancer, colon obstruction, chronic pain, spasms in upper extremities, left upper extremity abscess, status post I and D with negative cultures. PAST SURGICAL HISTORY: Left hip ____ on 10/31/2016. Hernia surgery. Spinal surgery. Abdominal surgery. SOCIAL HISTORY: The patient is . He lives at home. ALLERGIES: LEVOFLOXACIN CAUSING ITCHING AND ZOSYN CAUSING A QUESTIONABLE ANAPHYLACTIC TYPE REACTION. MEDICATIONS: Reviewed on SEP. Currently, not on any antibiotics. REVIEW OF SYSTEMS: The patient denies pain. He has chronic pruritus for which he wears gloves to prevent skin breakdown. Denies fevers, chills, sweats or bodyaches. Denies headache, nasal/sinus congestion, sore throat. Denies cough, shortness of air or wheezing. Denies chest pain, palpitations or swelling. He was constipated earlier, but has since had a bowel movement. Denies nausea or vomiting. Denies dysuria, frequency or urgency. PHYSICAL EXAMINATION: GENERAL: An male, propped up in bed, in no apparent distress. VITAL SIGNS: Temperature is 97.6, blood pressure 151/77, heart rate 96, respiratory rate 14, pulse oximetry is 91% on room air. Weight is 190 pounds. BMI 27.3. HEENT: Pupils are equally round. Normal conjunctivae. Oral mucosa is pink and moist. NECK: Supple, no adenopathy present. LUNGS: Clear. HEART: Normal S1, S2. ABDOMEN: Round, bowel sounds present, soft, nontender. EXTREMITIES: No gross edema or cyanosis. SKIN: Without rash. He has clear fluid-filled blisters on the left heel and along the medial and lateral aspects of the right foot. Distal pulses palpable. He has maceration and yeast between toes. NEUROLOGIC: Alert and oriented x 3. Moves all extremities. LABORATORY DATA: Recent WBC 10.4; hemoglobin 11.5; platelet count 267,000. Sodium 131, potassium 4.4, creatinine 1.0, BUN 14, glucose 129, calcium 11.0. Total bilirubin 0.3, AST 49, ALT 58, albumin 4.1. Urinalysis unremarkable for infection. Foot x-ray shows demineralization, degenerative change without acute bony abnormality detected. IMPRESSION: 1. Blisters on feet bilaterally. 2. Tinea pedis. 3. Diabetes with neuropathy. 4. ALLERGY TO LEVOFLOXACIN CAUSING ITCHING AND ZOSYN WITH QUESTIONABLE ANAPHYLACTIC TYPE REACTION. 5. History of methicillin-resistant Staphylococcus aureus and Pseudomonas. 6. Hypercalcemia. PLAN: Dose fluconazole and monitor response. Await Dermatology evaluation. Discussed with the patient's . Thank you, Dr. Tran, for asking us to participate in this patient's care. Should you have further questions or concerns, please call. The patient is seen and examined and plan of care implemented by Dr. Jeremias Chaudhary. JEREMIAS CHAUDHARY MD DR: DEVONTE/julien JOB#: [id number] / [id number]
[2017-03-26 23:10] VITALS: BP 140/66
[2017-03-27 03:00] VITALS: BP 146/79
[2017-03-27] MEDS: diphenhydrAMINE HCL 25 MG CAPSULE PO PRN ×2 (06:04→22:48)
[2017-03-27 06:10] LABS: CALCIUM 10.1 mg/dL (8.5-10.1); CREATININE 0.8 mg/dL (0.7-1.3); GFR 113.7; MAGNESIUM 1.4 mg/dL (1.8-2.4); PHOSPHORUS 3.9 mg/dL (2.6-4.7); POTASSIUM 4.1 mmol/L (3.5-5.1)
[2017-03-27 07:00] VITALS: BP 177/78
[2017-03-27] MEDS: PANTOPRAZOLE 40 MG TABLET.DR. PO SCH (07:29)
[2017-03-27] MEDS: VITAMIN B12,B9,B6 COMPLEX 1 TABLET. PO SCH ×2 (07:30→20:10)
[2017-03-27] MEDS: GABAPENTIN 300 MG CAPSULE. PO SCH ×3 (07:30→20:11)
[2017-03-27] MEDS: BACLOFEN 10 MG TABLET. PO SCH ×4 (07:30→20:11)
[2017-03-27] MEDS: LISINOPRIL 10 MG TABLET PO SCH (07:30)
[2017-03-27] MEDS: FLUCONAZOLE 100 MG TABLET. PO SCH (07:30)
[2017-03-27] MEDS: POLYETHYLENE GLYCOL 3350 17 GM PACKET. PO SCH ×2 (07:31→20:11)
[2017-03-27] MEDS: DICLOFENAC SODIUM 1% TOPICAL GEL 100GM TUBE. TP SCH ×3 (07:31→20:11)
[2017-03-27] MEDS: oxyCODONE/APAP 10/325 1 TAB TABLET PO PRN ×2 (07:31→20:11)
[2017-03-27] MEDS: TAMSULOSIN 0.4 MG CAP.ER.24H. PO SCH ×2 (07:31→20:11)
[2017-03-27] MEDS: ASPIRIN CHEWABLE 81 MG TABLET. PO SCH (07:31)
[2017-03-27] MEDS: INSULIN ASPART 300 UNITS/3 ML INSULN.PEN SQ SCH ×3 (07:32→16:03)
[2017-03-27 09:33] LABS: BASO % 0 % (0-3); EOS % 51 % (0-3); HEMATOCRIT 30.2 % (39.0-53.0); HEMOGLOBIN 10.2 g/dL (13.0-17.5); LYMPH # 1.9 x10^3/uL (1.0-4.8); LYMPH % 21 % (24-48); MEAN CORPUSCULAR HEMOGLOBIN 32 pg (25-35); MEAN CORPUSCULAR HGB CONC 34 g/dL (31-37); MEAN CORPUSCULAR VOLUME 94 fL (79-100); MONO % 5 % (0-9); NEUT % 23 % (31-73); PLATELET COUNT 221 x10^3/uL (140-400); RED BLOOD COUNT 3.23 x10^6/uL (4.30-5.70); RED CELL DISTRIBUTION WIDTH 12.4 % (11.5-14.5)
--- NOTE | 2017-03-27 09:58 | PDOC ---
Infectious Disease Note Subjective Subjective Doing ok. Feet ok. has a little chronic hip pain Eating well ROS ROS GEN: Denies fevers, chills, sweats HEENT: Denies blurred vision, sore throat CV: Denies chest pain RESP: Denies shortness of air, cough GI: Denies n/v/d NEURO: Denies confusion, dizziness MSK: Denies weakness, joint pain/swelling Vital Sign Vital Signs Vital Signs Date Time Temp Pulse Resp B/P (MAP) Pulse Ox O2 Delivery O2 Flow Rate FiO2 03/27/17 08:34 96 Room Air 03/27/17 07:30 61 146/79 03/27/17 07:00 97.9 14 97.9 Physical Exam PHYSICAL EXAM GENERAL: NAD, Alert HEENT: PERRL, OC/OP -clear NECK: Supple, no JVD, no LN LUNGS: Clear HEART: S1S2, no gallop, no murmur ABD: Soft, NT, no organomegaly, no rebound EXT: Gloves on hands. Feet stable with dry skin/tinea. Wounds are clean. Bullae intact and clean. Good pulses. no cyanosis ELECTRO PLATER: Alert, oriented x 3, no focal neurologic deficit SKIN: No rash IV: ok Labs Lab Laboratory Tests Test 03/26/17 17:12 03/26/17 20:48 03/27/17 05:20 Glucose (Fingerstick) 86 mg/dL (70-99) 117 mg/dL (70-99) White Blood Count 9.0 x10^3/uL (4.0-11.0) Red Blood Count 3.23 x10^6/uL (4.30-5.70) Hemoglobin 10.2 g/dL (13.0-17.5) Hematocrit 30.2 % (39.0-53.0) Mean Corpuscular Volume 94 fL (79-100) Mean Corpuscular Hemoglobin 32 pg (25-35) Mean Corpuscular Hemoglobin Concent 34 g/dL (31-37) Red Cell Distribution Width 12.4 % (11.5-14.5) Platelet Count 221 x10^3/uL (140-400) Neutrophils (%) (Auto) 23 % (31-73) Lymphocytes (%) (Auto) 21 % (24-48) Monocytes (%) (Auto) 5 % (0-9) Eosinophils (%) (Auto) 51 % (0-3) Basophils (%) (Auto) 0 % (0-3) Neutrophils # (Auto) 2.1 x10^3uL (1.8-7.7) Lymphocytes # (Auto) 1.9 x10^3/uL (1.0-4.8) Monocytes # (Auto) 0.5 x10^3/uL (0.0-1.1) Eosinophils # (Auto) 4.5 x10^3/uL (0.0-0.7) Basophils # (Auto) 0.0 x10^3/uL (0.0-0.2) Sodium Level 130 mmol/L (136-145) Potassium Level 4.1 mmol/L (3.5-5.1) Chloride Level 95 mmol/L (98-107) Carbon Dioxide Level 28 mmol/L (21-32) Anion Gap 7 (6-14) Blood Urea Nitrogen 11 mg/dL (8-26) Creatinine 0.8 mg/dL (0.7-1.3) Estimated GFR (Cockcroft-Gault) 113.7 Glucose Level 90 mg/dL (70-99) Calcium Level 10.1 mg/dL (8.5-10.1) Phosphorus Level 3.9 mg/dL (2.6-4.7) Magnesium Level 1.4 mg/dL (1.8-2.4) Micro 03/25 Urine Pseudomonas aeruginosa Greater than 100,000 colony forming units per mL URINE CULTURE RES 2 Preliminary Comment Pseudomonas aeruginosa Greater than 100,000 colony forming units per mL ANTIMICROBIAL SUSCEPTIBILITY Preliminary Comment S = Susceptible; I = Intermediate; R = Resistant P = Positive; N = Negative MICS are expressed in micrograms per mL Antibiotic RSLT#1 RSLT#2 RSLT#3 RSLT#4 Amikacin S Cefepime S Ceftazidime S Ciprofloxacin S Gentamicin S Imipenem S Levofloxacin I Meropenem S Piperacillin S Ticarcillin S Tobramycin S Objective Assessment Eosinophilia - ? allergic reaction vs heme Blisters feet bilat, recent new shoes. Clean without signs of infection. ? manifestation of eosinophilia Tinea Asymptomatic bacteruria - PSA Diabetes with neuropathy Allergy to Levaquin causing itching and Zosyn w/ questionable anaphylactic type reaction h/o MRSA & PSA Hypercalcemia - better Plan Plan of Care Check IgE level Consult Dr. Taylor May need biopsy - Gen surgery as derm not available unless bone marrow indicated Evaluate ? new meds prior to admit as cause of Increased Eos Hold treatment for PSA in urine as clinically he is well and UA essentially neg Cont fluconazole Monitor response labs in am F/u Hypercalcemia better but mag - low AMANDA SHARP MD Mar 27, 2017 09:58
--- NOTE | 2017-03-27 10:16 | PDOC ---
PROGRESS NOTES Subjective Subjective blisters both feet Objective Objective Vital Signs Date Time Temp Pulse Resp B/P (MAP) Pulse Ox O2 Delivery O2 Flow Rate FiO2 03/27/17 08:34 96 Room Air 03/27/17 07:30 61 146/79 03/27/17 07:00 97.9 14 97.9 Intake and Output 03/28/17 07:00 Intake Total 280 ml Balance 280 ml Intake Oral 280 ml Physical Exam Abdomen: Normal bowel sounds, Soft, No tenderness, No masses, Other (well- healed midline, paramedian, and right subcostal incisions) Heart: Regular rate, Normal S1, Normal S2, No murmurs, Rubs Extremities: No clubbing, No cyanosis, Normal pulses General: Alert, Oriented X3, Cooperative, No acute distress, Other ( present at the bedside) HEENT: Atraumatic, PERRLA, EOMI Lungs: Clear to auscultation, Normal air movement MUSCULOSKELETAL: No deformity, No swelling Neuro: Normal speech, Strength at 5/5 X4 ext, Sensation intact Psych/Mental Status: Mental status NL Skin: Other (blistering noted at medial malleolus, anterior surface of first toe, and lateral surface of fifth metatarsal, no evidence of purulent drainage, no evidence of tracking cellulitis, no open ulceration, no malodor) COMMENT blisters both feet Assessment Assessment FINAL IMPRESSION: 1. Blisters on both feet, rule out bullous pemphigoid as a working diagnosis. 2. Diabetes. 3. History of spinal stenosis. 4. History of prostate cancer. 5. Chronic muscle spasms. 6. General debility and decline. PLAN: derm consult pending. ID consult appreciated. pseudomonas uti started on vantin. pt want to see ortho for f/u hip surgery At this time, he was admitted to the hospital, seen by Vascular, who does not think it is a vascular problem. We will have Dermatology consult and also we will have Infectious Disease and wound care consult. Rooke boot to keep the foot warm and see how the patient's condition improves. Problems: Comment Review of Relevant I have reviewed the following items aleksandar (where applicable) has been applied. Labs Laboratory Tests Test 03/26/17 17:12 03/26/17 20:48 03/27/17 05:20 Glucose (Fingerstick) 86 mg/dL (70-99) 117 mg/dL (70-99) White Blood Count 9.0 x10^3/uL (4.0-11.0) Red Blood Count 3.23 x10^6/uL (4.30-5.70) Hemoglobin 10.2 g/dL (13.0-17.5) Hematocrit 30.2 % (39.0-53.0) Mean Corpuscular Volume 94 fL (79-100) Mean Corpuscular Hemoglobin 32 pg (25-35) Mean Corpuscular Hemoglobin Concent 34 g/dL (31-37) Red Cell Distribution Width 12.4 % (11.5-14.5) Platelet Count 221 x10^3/uL (140-400) Neutrophils (%) (Auto) 23 % (31-73) Lymphocytes (%) (Auto) 21 % (24-48) Monocytes (%) (Auto) 5 % (0-9) Eosinophils (%) (Auto) 51 % (0-3) Basophils (%) (Auto) 0 % (0-3) Neutrophils # (Auto) 2.1 x10^3uL (1.8-7.7) Lymphocytes # (Auto) 1.9 x10^3/uL (1.0-4.8) Monocytes # (Auto) 0.5 x10^3/uL (0.0-1.1) Eosinophils # (Auto) 4.5 x10^3/uL (0.0-0.7) Basophils # (Auto) 0.0 x10^3/uL (0.0-0.2) Sodium Level 130 mmol/L (136-145) Potassium Level 4.1 mmol/L (3.5-5.1) Chloride Level 95 mmol/L (98-107) Carbon Dioxide Level 28 mmol/L (21-32) Anion Gap 7 (6-14) Blood Urea Nitrogen 11 mg/dL (8-26) Creatinine 0.8 mg/dL (0.7-1.3) Estimated GFR (Cockcroft-Gault) 113.7 Glucose Level 90 mg/dL (70-99) Calcium Level 10.1 mg/dL (8.5-10.1) Phosphorus Level 3.9 mg/dL (2.6-4.7) Magnesium Level 1.4 mg/dL (1.8-2.4) Microbiology 03/25/17 Urine Culture - Preliminary, Resulted 03/25/17 Urine Culture Result 1 (FLAVIO) - Preliminary, Resulted 03/25/17 Urine Culture Result 2 (FLAVIO) - Preliminary, Resulted 03/25/17 Antimicrobic Susceptibility - Preliminary, Resulted Medications Current Medications Dextrose (Dextrose 50%-Water Syringe) 12.5 gm PRN Q15MIN PRN IV SEE COMMENTS; Start 03/26/17 at 10:30 Enoxaparin Sodium (Lovenox 40mg Syringe) 40 mg DAILY16 SQ Last administered on 03/26/17 17:13; Start 03/26/17 at 16:00 Fluconazole (Diflucan) 100 mg DAILY PO Last administered on 03/27/17 07:30; Start 03/26/17 at 13:30 Insulin Aspart (NovoLOG) 0-7 UNITS TIDWMEALS SQ ; Start 03/26/17 at 12:00 Vitals/I & O Vital Sign - Last 24 Hours 03/26/17 03/26/17 03/26/17 03/26/17 10:38 11:02 14:42 19:00 Temp 97.6 97.9 98.6 97.6 97.9 98.6 Pulse 96 60 76 Resp 14 14 17 B/P (MAP) 151/77 (101) 134/65 (88) 136/78 (97) Pulse Ox 91 100 98 O2 Delivery Room Air Room Air Room Air Room Air 03/26/17 03/26/17 03/26/17 03/27/17 19:18 20:09 23:10 03:00 Temp 97.5 97.9 97.5 97.9 Pulse 57 61 Resp 17 18 B/P (MAP) 140/66 (90) 146/79 (101) Pulse Ox 98 98 96 O2 Delivery Room Air Room Air Room Air Room Air 03/27/17 03/27/17 03/27/17 03/27/17 07:00 07:30 07:31 08:00 Temp 97.9 97.9 Pulse 62 61 Resp 14 B/P (MAP) 177/78 (111) 146/79 Pulse Ox 99 96 O2 Delivery Room Air Room Air Room Air 03/27/17 08:34 Pulse Ox 96 O2 Delivery Room Air Intake and Output 03/27/17 03/27/17 03/28/17 15:00 23:00 07:00 Intake Total 280 ml Balance 280 ml SPRING BURGESS MD Mar 27, 2017 10:16
[2017-03-27 11:01] VITALS: BP 114/75
[2017-03-27] MEDS: CEFPODOXIME PROXETIL 100 MG TABLET. PO SCH ×2 (11:35→20:10)
--- NOTE | 2017-03-27 12:29 | CONS ---
DATE OF CONSULTATION: 03/27/2017 REFERRING PROVIDER: Dr. Cuellar and Dr. Tran. CONSULTING PROVIDER: Henry Hill MD REASON FOR CONSULTATION: Left hip fracture followup. CHIEF COMPLAINT: Wounds at right foot, left hip pain. HISTORY OF PRESENT ILLNESS: The patient is a very pleasant 76-year-old gentleman who I had performed hip fracture IM nail several months ago. He has been back in this facility. He was admitted for blisters that developed insidiously over his right foot. He has been seen and evaluated by infectious disease and vascular surgery with no need for further interventions from vascular surgery's anticipation. He tells me that his left hip does hurt, more laterally and only when he is turning to the left. The pain does radiate into his groin. It is better with rest. He does ambulate with a walker. No new trauma. Denies any other complaints or concerns. PAST MEDICAL HISTORY: Prostate cancer, type 2 diabetes, hypertension, spinal stenosis. PAST SURGICAL HISTORY: As per HPI, herniorrhaphy and lumbar surgery. SOCIAL HISTORY: Rare alcohol, no tobacco. FAMILY HISTORY: Noncontributory. REVIEW OF SYSTEMS: A 12-point review of systems negative except as per HPI. MEDICATIONS: Reviewed, please see MRAD. PHYSICAL EXAMINATION: GENERAL: The patient is alert and oriented, no acute distress. Mood and affect appropriate. He is sitting in a chair. HEENT: Head normocephalic, atraumatic. Extraocular muscles are intact. CARDIOVASCULAR: Regular rate and rhythm. Dorsalis pedis 2+ and symmetric. LUNGS: Respirations are unlabored with symmetric chest rise. ABDOMEN: Soft, nondistended. EXTREMITIES: Examination of left hip reveals incisions consistent with my prior surgery. These have healed well. He is tender over his greater trochanter and just proximal and distal to this. No pain with log rolling. He can wiggle his toes. He does have some decreased sensation in his forefoot. He is able to flex at his hip, but does have some pain laterally. IMPRESSION: History of left hip fracture. PLAN: We will obtain x-rays and I will follow up on these and discussed the findings with the patient tomorrow. HENRY HILL MD DR: SHRUTHI/julien JOB#: [id number] / [id number] AERLENE
--- NOTE | 2017-03-27 12:44 | CONS ---
DATE OF CONSULTATION: 03/27/2017 HEMATOLOGY-ONCOLOGY CONSULTATION DATE OF SERVICE: 03/27/2017 REQUESTING PHYSICIAN: Dr. Jeremias Chaudhary. REASON FOR CONSULTATION: Eosinophilia. HISTORY OF PRESENT ILLNESS: The patient is a 76-year-old -[place] gentleman with a history of diabetes mellitus and peripheral neuropathy who developed blisters on his feet in early 03/2017. He reports that he also has had blisters in the left leg in the upper aspect for several months. He also mentions that he has chronic itching and he applies lotion and topical antibiotics. He wears gloves to prevent complications from scratching constantly. He has history of pseudomonas infection and hence ID was consulted. His laboratory data from 03/27/2017 revealed a WBC of 9, hemoglobin 10.2, platelet count 221, but his absolute eosinophil count was up to 4.5 and hence I was consulted for further evaluation. Review of the old records indicates that he has had normal eosinophil count up until 03/2016. Labs from 10/31/2016 revealed eosinophilia with an absolute eosinophil count of 0.8. On 01/11/2017 it was up to 1.2. On 03/27/2017, it was even higher at 4.5. He denies any loss of weight or loss of appetite. No hematemesis, melena, hematochezia, no hemoptysis or hematuria. 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 PAST SURGICAL HISTORY: Hernia surgery, spinal surgery, abdominal surgery. SOCIAL HISTORY: He has . He lives at home. No smoking or alcohol abuse. REVIEW OF SYSTEMS: A 12-point review of system was performed. Pertinent positives are mentioned in the history of present illness. Rest of the system review is negative. PHYSICAL EXAMINATION: GENERAL APPEARANCE: The patient is a 76-year-old -[place] gentleman who is in no acute cardiorespiratory distress. VITAL SIGNS: Blood pressure 114/75, temperature 98.1. HEENT: Head atraumatic, normocephalic. Eyes: No icterus. NECK: Supple. CHEST: Bilaterally symmetrical. HEART: S1, S2 normal. ABDOMEN: Soft and nontender. CENTRAL NERVOUS SYSTEM: No focal deficits. LYMPHATICS: No lymphadenopathy. SKIN: He has evidence of blisters in the medial aspect of the upper part of his left leg and he also has blisters in the right foot region in the medial and lateral aspect. He has maceration and yeast between the toes. LABORATORY DATA: WBC 9, hemoglobin 10.2, platelet count 221, absolutely eosinophil count is 4.5. IMPRESSION AND PLAN: 1. Eosinophilia. 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 Review of the prior records indicates that he his eosinophilia was first noted on 10/31/2016 when it was 0.8. His eosinophil count prior to that have all been normal. I reviewed his records since 2013. Hence, this is suggestive of a reactive process other than a primary bone marrow disorder. In addition, his WBC count and platelet counts are normal. He has anemia, which is thought to be due to chronic disease. I discussed with Dr. Tran and Dr. Jeremias Chaudhary. I recommended Dermatology consultation for further evaluation. 2. Anemia due to chronic disease. Continue to monitor hemoglobin. His iron studies, B12 and folate that were checked last year did not reveal any deficiencies. 3. Skin lesions. I agree to consult Dermatology. CARY RHODES MD DR: SUSANNE/julien JOB#: [id number] / [id number] EARLENE
[2017-03-27 15:00] VITALS: BP 116/66
[2017-03-27] MEDS: ENOXAPARIN 40 MG/0.4 ML SYRINGE. SQ SCH (16:02)
[2017-03-27 19:00] VITALS: BP 159/75
[2017-03-27 23:00] VITALS: BP 150/72
[2017-03-28 02:36] VITALS: BP 151/72
[2017-03-28 07:00] VITALS: BP 117/64
[2017-03-28] MEDS: INSULIN ASPART 300 UNITS/3 ML INSULN.PEN SQ SCH ×3 (08:00→17:00)
[2017-03-28] MEDS: VITAMIN B12,B9,B6 COMPLEX 1 TABLET. PO SCH ×2 (08:26→20:38)
[2017-03-28] MEDS: PANTOPRAZOLE 40 MG TABLET.DR. PO SCH (08:26)
[2017-03-28] MEDS: POLYETHYLENE GLYCOL 3350 17 GM PACKET. PO SCH ×2 (08:27→20:39)
[2017-03-28] MEDS: GABAPENTIN 300 MG CAPSULE. PO SCH ×3 (08:27→20:38)
[2017-03-28] MEDS: TAMSULOSIN 0.4 MG CAP.ER.24H. PO SCH ×2 (08:27→20:38)
[2017-03-28] MEDS: FLUCONAZOLE 100 MG TABLET. PO SCH (08:27)
[2017-03-28] MEDS: BACLOFEN 10 MG TABLET. PO SCH ×4 (08:28→20:39)
--- NOTE | 2017-03-28 08:28 | PDOC ---
ORTHO PROGRESS NOTES Subjective lateral hip pain, no change Vitals Vital Signs Date Time Temp Pulse Resp B/P (MAP) Pulse Ox O2 Delivery O2 Flow Rate FiO2 03/28/17 02:36 97.9 77 18 151/72 (98) 95 Room Air 97.9 Labs Laboratory Tests Test 03/26/17 17:12 03/26/17 20:48 03/27/17 05:20 03/27/17 11:15 Glucose (Fingerstick) 86 mg/dL (70-99) 117 mg/dL (70-99) 129 mg/dL (70-99) White Blood Count 9.0 x10^3/uL (4.0-11.0) Red Blood Count 3.23 x10^6/uL (4.30-5.70) Hemoglobin 10.2 g/dL (13.0-17.5) Hematocrit 30.2 % (39.0-53.0) Mean Corpuscular Volume 94 fL (79-100) Mean Corpuscular Hemoglobin 32 pg (25-35) Mean Corpuscular Hemoglobin Concent 34 g/dL (31-37) Red Cell Distribution Width 12.4 % (11.5-14.5) Platelet Count 221 x10^3/uL (140-400) Neutrophils (%) (Auto) 23 % (31-73) Lymphocytes (%) (Auto) 21 % (24-48) Monocytes (%) (Auto) 5 % (0-9) Eosinophils (%) (Auto) 51 % (0-3) Basophils (%) (Auto) 0 % (0-3) Neutrophils # (Auto) 2.1 x10^3uL (1.8-7.7) Lymphocytes # (Auto) 1.9 x10^3/uL (1.0-4.8) Monocytes # (Auto) 0.5 x10^3/uL (0.0-1.1) Eosinophils # (Auto) 4.5 x10^3/uL (0.0-0.7) Basophils # (Auto) 0.0 x10^3/uL (0.0-0.2) Sodium Level 130 mmol/L (136-145) Potassium Level 4.1 mmol/L (3.5-5.1) Chloride Level 95 mmol/L (98-107) Carbon Dioxide Level 28 mmol/L (21-32) Anion Gap 7 (6-14) Blood Urea Nitrogen 11 mg/dL (8-26) Creatinine 0.8 mg/dL (0.7-1.3) Estimated GFR (Cockcroft-Gault) 113.7 Glucose Level 90 mg/dL (70-99) Calcium Level 10.1 mg/dL (8.5-10.1) Phosphorus Level 3.9 mg/dL (2.6-4.7) Magnesium Level 1.4 mg/dL (1.8-2.4) Immunoglobulin E 2258 IU/mL (0-100) Test 03/27/17 15:59 03/27/17 20:37 03/28/17 07:49 Glucose (Fingerstick) 112 mg/dL (70-99) 92 mg/dL (70-99) 101 mg/dL (70-99) Laboratory Tests Test 03/27/17 11:15 03/27/17 15:59 03/27/17 20:37 03/28/17 07:49 Glucose (Fingerstick) 129 mg/dL (70-99) 112 mg/dL (70-99) 92 mg/dL (70-99) 101 mg/dL (70-99) Notes A and A in bed TTP at lateral hip Assessment and Plan s/p hip fernando rec PT/OT call with questions LASHAE DOWNS II, MD Mar 28, 2017 08:28
[2017-03-28] MEDS: CEFPODOXIME PROXETIL 100 MG TABLET. PO SCH ×2 (08:29→20:38)
[2017-03-28] MEDS: DICLOFENAC SODIUM 1% TOPICAL GEL 100GM TUBE. TP SCH ×3 (08:30→20:39)
[2017-03-28] MEDS: ASPIRIN CHEWABLE 81 MG TABLET. PO SCH (08:31)
[2017-03-28 08:44] LABS: BASO # 0.1 x10^3/uL (0.0-0.2); BASO % 1 % (0-3); EOS % 46 % (0-3); HEMATOCRIT 30.3 % (39.0-53.0); HEMOGLOBIN 10.4 g/dL (13.0-17.5); LYMPH # 1.2 x10^3/uL (1.0-4.8); LYMPH % 13 % (24-48); MEAN CORPUSCULAR HEMOGLOBIN 32 pg (25-35); MEAN CORPUSCULAR HGB CONC 34 g/dL (31-37); MEAN CORPUSCULAR VOLUME 93 fL (79-100); MONO % 5 % (0-9); NEUT % 36 % (31-73); PLATELET COUNT 262 x10^3/uL (140-400); RED BLOOD COUNT 3.27 x10^6/uL (4.30-5.70); RED CELL DISTRIBUTION WIDTH 12.4 % (11.5-14.5); WHITE BLOOD COUNT 9.7 x10^3/uL (4.0-11.0)
[2017-03-28] MEDS: LISINOPRIL 10 MG TABLET PO SCH (09:00)
[2017-03-28 09:01] LABS: CREATININE 0.9 mg/dL (0.7-1.3)
[2017-03-28 09:02] LABS: GFR 99.3; POTASSIUM 4.2 mmol/L (3.5-5.1)
--- NOTE | 2017-03-28 09:14 | PDOC ---
PROGRESS NOTES Subjective Subjective c/c - f/u of Eosinophilia ROS - no fever Objective Objective Vital Signs Date Time Temp Pulse Resp B/P (MAP) Pulse Ox O2 Delivery O2 Flow Rate FiO2 03/28/17 07:00 97.9 80 18 117/64 (81) 98 Room Air 97.9 Physical Exam Heart: Normal S1, Normal S2 General: Alert, Oriented X3 Lungs: Clear to auscultation Neuro: Normal speech Psych/Mental Status: Mental status NL Assessment Assessment IMPRESSION AND PLAN: 1. Eosinophilia. 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 Review of the prior records indicates that he his eosinophilia was first noted on 10/31/2016 when it was 0.8. His eosinophil count prior to that have all been normal. I reviewed his records since 2013. Hence, this is suggestive of a reactive process other than a primary bone marrow disorder. In addition, his WBC count and platelet counts are normal. He has anemia, which is thought to be due to chronic disease. I discussed with Dr. Tran and Dr. Jeremias Chaudhary. I recommended Dermatology consultation for further evaluation.Monitor cbc. 2. Anemia due to chronic disease. Continue to monitor hemoglobin. His iron studies, B12 and folate that were checked last year did not reveal any deficiencies. I will recheck. 3. Skin lesions. I agree to consult Dermatology. I d/w Dr Tran and RN Comment Review of Relevant I have reviewed the following items aleksandar (where applicable) has been applied. Labs Laboratory Tests Test 03/26/17 17:12 03/26/17 20:48 03/27/17 05:20 03/27/17 11:15 Glucose (Fingerstick) 86 mg/dL (70-99) 117 mg/dL (70-99) 129 mg/dL (70-99) White Blood Count 9.0 x10^3/uL (4.0-11.0) Red Blood Count 3.23 x10^6/uL (4.30-5.70) Hemoglobin 10.2 g/dL (13.0-17.5) Hematocrit 30.2 % (39.0-53.0) Mean Corpuscular Volume 94 fL (79-100) Mean Corpuscular Hemoglobin 32 pg (25-35) Mean Corpuscular Hemoglobin Concent 34 g/dL (31-37) Red Cell Distribution Width 12.4 % (11.5-14.5) Platelet Count 221 x10^3/uL (140-400) Neutrophils (%) (Auto) 23 % (31-73) Lymphocytes (%) (Auto) 21 % (24-48) Monocytes (%) (Auto) 5 % (0-9) Eosinophils (%) (Auto) 51 % (0-3) Basophils (%) (Auto) 0 % (0-3) Neutrophils # (Auto) 2.1 x10^3uL (1.8-7.7) Lymphocytes # (Auto) 1.9 x10^3/uL (1.0-4.8) Monocytes # (Auto) 0.5 x10^3/uL (0.0-1.1) Eosinophils # (Auto) 4.5 x10^3/uL (0.0-0.7) Basophils # (Auto) 0.0 x10^3/uL (0.0-0.2) Sodium Level 130 mmol/L (136-145) Potassium Level 4.1 mmol/L (3.5-5.1) Chloride Level 95 mmol/L (98-107) Carbon Dioxide Level 28 mmol/L (21-32) Anion Gap 7 (6-14) Blood Urea Nitrogen 11 mg/dL (8-26) Creatinine 0.8 mg/dL (0.7-1.3) Estimated GFR (Cockcroft-Gault) 113.7 Glucose Level 90 mg/dL (70-99) Calcium Level 10.1 mg/dL (8.5-10.1) Phosphorus Level 3.9 mg/dL (2.6-4.7) Magnesium Level 1.4 mg/dL (1.8-2.4) Immunoglobulin E 2258 IU/mL (0-100) Test 03/27/17 15:59 03/27/17 20:37 03/28/17 07:49 03/28/17 08:19 Glucose (Fingerstick) 112 mg/dL (70-99) 92 mg/dL (70-99) 101 mg/dL (70-99) White Blood Count 9.7 x10^3/uL (4.0-11.0) Red Blood Count 3.27 x10^6/uL (4.30-5.70) Hemoglobin 10.4 g/dL (13.0-17.5) Hematocrit 30.3 % (39.0-53.0) Mean Corpuscular Volume 93 fL (79-100) Mean Corpuscular Hemoglobin 32 pg (25-35) Mean Corpuscular Hemoglobin Concent 34 g/dL (31-37) Red Cell Distribution Width 12.4 % (11.5-14.5) Platelet Count 262 x10^3/uL (140-400) Neutrophils (%) (Auto) 36 % (31-73) Lymphocytes (%) (Auto) 13 % (24-48) Monocytes (%) (Auto) 5 % (0-9) Eosinophils (%) (Auto) 46 % (0-3) Basophils (%) (Auto) 1 % (0-3) Neutrophils # (Auto) 3.5 x10^3uL (1.8-7.7) Lymphocytes # (Auto) 1.2 x10^3/uL (1.0-4.8) Monocytes # (Auto) 0.4 x10^3/uL (0.0-1.1) Eosinophils # (Auto) 4.5 x10^3/uL (0.0-0.7) Basophils # (Auto) 0.1 x10^3/uL (0.0-0.2) Sodium Level 133 mmol/L (136-145) Potassium Level 4.2 mmol/L (3.5-5.1) Chloride Level 98 mmol/L (98-107) Carbon Dioxide Level 29 mmol/L (21-32) Anion Gap 6 (6-14) Blood Urea Nitrogen 12 mg/dL (8-26) Creatinine 0.9 mg/dL (0.7-1.3) Estimated GFR (Cockcroft-Gault) 99.3 Glucose Level 95 mg/dL (70-99) Calcium Level 10.0 mg/dL (8.5-10.1) Laboratory Tests Test 03/27/17 11:15 03/27/17 15:59 03/27/17 20:37 03/28/17 07:49 Glucose (Fingerstick) 129 mg/dL (70-99) 112 mg/dL (70-99) 92 mg/dL (70-99) 101 mg/dL (70-99) Test 03/28/17 08:19 White Blood Count 9.7 x10^3/uL (4.0-11.0) Red Blood Count 3.27 x10^6/uL (4.30-5.70) Hemoglobin 10.4 g/dL (13.0-17.5) Hematocrit 30.3 % (39.0-53.0) Mean Corpuscular Volume 93 fL (79-100) Mean Corpuscular Hemoglobin 32 pg (25-35) Mean Corpuscular Hemoglobin Concent 34 g/dL (31-37) Red Cell Distribution Width 12.4 % (11.5-14.5) Platelet Count 262 x10^3/uL (140-400) Neutrophils (%) (Auto) 36 % (31-73) Lymphocytes (%) (Auto) 13 % (24-48) Monocytes (%) (Auto) 5 % (0-9) Eosinophils (%) (Auto) 46 % (0-3) Basophils (%) (Auto) 1 % (0-3) Neutrophils # (Auto) 3.5 x10^3uL (1.8-7.7) Lymphocytes # (Auto) 1.2 x10^3/uL (1.0-4.8) Monocytes # (Auto) 0.4 x10^3/uL (0.0-1.1) Eosinophils # (Auto) 4.5 x10^3/uL (0.0-0.7) Basophils # (Auto) 0.1 x10^3/uL (0.0-0.2) Sodium Level 133 mmol/L (136-145) Potassium Level 4.2 mmol/L (3.5-5.1) Chloride Level 98 mmol/L (98-107) Carbon Dioxide Level 29 mmol/L (21-32) Anion Gap 6 (6-14) Blood Urea Nitrogen 12 mg/dL (8-26) Creatinine 0.9 mg/dL (0.7-1.3) Estimated GFR (Cockcroft-Gault) 99.3 Glucose Level 95 mg/dL (70-99) Calcium Level 10.0 mg/dL (8.5-10.1) Microbiology 03/25/17 Urine Culture - Preliminary, Resulted 03/25/17 Urine Culture Result 1 (FLAVIO) - Preliminary, Resulted 03/25/17 Urine Culture Result 2 (FLAVIO) - Preliminary, Resulted 03/25/17 Antimicrobic Susceptibility - Preliminary, Resulted Medications Current Medications Aspirin (Children'S Aspirin) 81 mg DAILY PO Last administered on 03/28/17 08: 31; Start 03/26/17 at 09:00 Baclofen (Lioresal) 15 mg TID@0800,1200,1700 PO Last administered on 03/28/17 08:28; Start 03/25/17 at 18:00 Diclofenac Sodium (Voltaren) 1 kiet TID TP Last administered on 03/28/17 08:30 ; Start 03/25/17 at 21:00 Diphenhydramine HCl (Benadryl) 25 mg PRN TID PRN PO ITCHING Last administered on 03/27/17 22:48; Start 03/25/17 at 17:45 Lisinopril (Prinivil) 10 mg DAILY PO Last administered on 03/27/17 07:30; Start 03/26/17 at 09:00 Metformin HCl (Glucophage) 1,000 mg BIDWMEALS PO Last administered on 08:26; Start 03/25/17 at 18:00 Oxycodone/ Acetaminophen (Percocet 10/325) 1 tab PRN Q4HRS PRN PO severe pain Last administered on 03/27/17 20:11; Start 03/25/17 at 17:45 Pantoprazole Sodium (Protonix) 40 mg DAILYAC PO Last administered on 03/28/17 08:26; Start 03/26/17 at 07:30 Tamsulosin HCl (Flomax) 0.4 mg BID PO Last administered on 03/28/17 08:27; Start 03/25/17 at 21:00 Non-Formulary Medication 70 mg weekly on saturday PO ; Start 03/25/17 at 17:45; Stop 03/25/17 at 17:47; Status DC Baclofen (Lioresal) 20 mg QHS PO Last administered on 03/27/17 20:11; Start at 21:00 Gabapentin (Neurontin) 600 mg TID PO Last administered on 03/28/17 08:27; Start 03/25/17 at 21:00 Vitamin B Complex (Folbic Tablet) 1 tab BID PO Last administered on 03/28/17 08:26; Start 03/25/17 at 21:00 Tizanidine HCl (Zanaflex) 12 mg PRN QHS PRN PO MUSCLE SPASMS Last administered on 03/25/17 21:28; Start 03/25/17 at 18:00 Polyethylene Glycol (miraLAX PACKET) 17 gm BID PO Last administered on 08:27; Start 03/25/17 at 21:00 Insulin Aspart (NovoLOG) 0-7 UNITS TIDWMEALS SQ ; Start 03/26/17 at 12:00 Dextrose (Dextrose 50%-Water Syringe) 12.5 gm PRN Q15MIN PRN IV SEE COMMENTS; Start 03/26/17 at 10:30 Enoxaparin Sodium (Lovenox 40mg Syringe) 40 mg DAILY16 SQ Last administered on 03/27/17 16:02; Start 03/26/17 at 16:00 Fluconazole (Diflucan) 100 mg DAILY PO Last administered on 03/28/17 08:27; Start 03/26/17 at 13:30 Cefpodoxime Proxetil (Vantin) 200 mg BID PO Last administered on 03/28/17 08: 29; Start 03/27/17 at 11:00 Active Scripts Active Flomax (Tamsulosin Hcl) 0.4 Mg Cap.er.24h 1 Cap PO BID Augmentin 500-125 Tablet (Amoxicillin/Potassium Clav) 1 Each Tablet 1 Tab PO BID Colace (Docusate Sodium) 100 Mg Capsule 100 Mg PO QHS [Polyethylene Glycol 3350] 17 GM Packet 17 Gm PO BID Neurontin (Gabapentin) 300 Mg Capsule 600 Mg PO TID Aspirin 81 Mg Tab.chew 81 Mg PO DAILY Reported Benadryl (Diphenhydramine Hcl) 25 Mg Capsule 1 Cap PO PRN PRN Metanx Capsule (Levomefolate/B6/B12/Algal Oil) 1 Each Capsule 1 Each PO BID Pantoprazole Sodium 40 Mg Tablet.dr 1 Tab PO DAILY Voltaren (Diclofenac Sodium) 100 Gm Gel..gram. 1 Gm TP TID Baclofen 10 Mg Tablet 15 Mg PO TID Zanaflex (Tizanidine Hcl) 6 Mg Capsule 12 Mg PO HS PRN Fosamax (Alendronate Sodium) 70 Mg Tablet 70 Mg PO WEEKLY ON SATURDAY Oxycodone-Acetaminophen 10-325 (Oxycodone Hcl/Acetaminophen) 1 Each Tablet 1 Each PO PRN Q4HRS PRN Baclofen 20 Mg Tablet 20 Mg PO HS Lisinopril 10 Mg Tablet 10 Mg PO DAILY Metformin Hcl 1,000 Mg Tablet 1,000 Mg PO BID Vitals/I & O Vital Sign - Last 24 Hours 03/27/17 03/27/17 03/27/17 03/27/17 11:01 15:00 19:00 20:00 Temp 98.1 98.1 98.1 98.1 98.1 98.1 Pulse 87 69 57 Resp 16 16 18 B/P (MAP) 114/75 (88) 116/66 (83) 159/75 (103) Pulse Ox 96 97 98 O2 Delivery Room Air Room Air Room Air Room Air 03/27/17 03/27/17 03/27/17 03/28/17 20:11 21:11 23:00 02:36 Temp 97.9 97.9 97.9 97.9 Pulse 69 77 Resp 18 18 B/P (MAP) 150/72 (98) 151/72 (98) Pulse Ox 97 97 95 95 O2 Delivery Room Air Room Air Room Air Room Air 03/28/17 07:00 Temp 97.9 97.9 Pulse 80 Resp 18 B/P (MAP) 117/64 (81) Pulse Ox 98 O2 Delivery Room Air CARY RHODES MD Mar 28, 2017 09:14
--- NOTE | 2017-03-28 10:10 | PDOC ---
Infectious Disease Note Subjective Subjective Doing ok. Feet ok. has a little chronic hip pain Eating well ROS ROS GEN: Denies fevers, chills, sweats HEENT: Denies blurred vision, sore throat CV: Denies chest pain RESP: Denies shortness of air, cough GI: Denies n/v/d NEURO: Denies confusion, dizziness MSK: Denies weakness, joint pain/swelling Vital Sign Vital Signs Vital Signs Date Time Temp Pulse Resp B/P (MAP) Pulse Ox O2 Delivery O2 Flow Rate FiO2 03/28/17 07:00 97.9 80 18 117/64 (81) 98 Room Air 97.9 Physical Exam PHYSICAL EXAM GENERAL: NAD, Alert HEENT: PERRL, OC/OP -clear NECK: Supple, no JVD, no LN LUNGS: Clear HEART: S1S2, no gallop, no murmur ABD: Soft, NT, no organomegaly, no rebound EXT: min peel of hands. Feet stable with dry skin/tinea. Wounds are clean. Bullae intact and clean. Good pulses. 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 SKIN: No rash IV: ok Labs Lab Laboratory Tests Test 03/27/17 11:15 03/27/17 15:59 03/27/17 20:37 03/28/17 07:49 Glucose (Fingerstick) 129 mg/dL (70-99) 112 mg/dL (70-99) 92 mg/dL (70-99) 101 mg/dL (70-99) Test 03/28/17 08:19 White Blood Count 9.7 x10^3/uL (4.0-11.0) Red Blood Count 3.27 x10^6/uL (4.30-5.70) Hemoglobin 10.4 g/dL (13.0-17.5) Hematocrit 30.3 % (39.0-53.0) Mean Corpuscular Volume 93 fL (79-100) Mean Corpuscular Hemoglobin 32 pg (25-35) Mean Corpuscular Hemoglobin Concent 34 g/dL (31-37) Red Cell Distribution Width 12.4 % (11.5-14.5) Platelet Count 262 x10^3/uL (140-400) Neutrophils (%) (Auto) 36 % (31-73) Lymphocytes (%) (Auto) 13 % (24-48) Monocytes (%) (Auto) 5 % (0-9) Eosinophils (%) (Auto) 46 % (0-3) Basophils (%) (Auto) 1 % (0-3) Neutrophils # (Auto) 3.5 x10^3uL (1.8-7.7) Lymphocytes # (Auto) 1.2 x10^3/uL (1.0-4.8) Monocytes # (Auto) 0.4 x10^3/uL (0.0-1.1) Eosinophils # (Auto) 4.5 x10^3/uL (0.0-0.7) Basophils # (Auto) 0.1 x10^3/uL (0.0-0.2) Sodium Level 133 mmol/L (136-145) Potassium Level 4.2 mmol/L (3.5-5.1) Chloride Level 98 mmol/L (98-107) Carbon Dioxide Level 29 mmol/L (21-32) Anion Gap 6 (6-14) Blood Urea Nitrogen 12 mg/dL (8-26) Creatinine 0.9 mg/dL (0.7-1.3) Estimated GFR (Cockcroft-Gault) 99.3 Glucose Level 95 mg/dL (70-99) Calcium Level 10.0 mg/dL (8.5-10.1) Micro 03/25 Urine Pseudomonas aeruginosa Greater than 100,000 colony forming units per mL URINE CULTURE RES 2 Preliminary Comment Pseudomonas aeruginosa Greater than 100,000 colony forming units per mL ANTIMICROBIAL SUSCEPTIBILITY Preliminary Comment S = Susceptible; I = Intermediate; R = Resistant P = Positive; N = Negative MICS are expressed in micrograms per mL Antibiotic RSLT#1 RSLT#2 RSLT#3 RSLT#4 Amikacin S Cefepime S Ceftazidime S Ciprofloxacin S Gentamicin S Imipenem S Levofloxacin I Meropenem S Piperacillin S Ticarcillin S Tobramycin S Objective Assessment Eosinophilia - with elevated IgE ? bullous pemphigoid vs others Blisters feet bilat, recent new shoes. Clean without signs of infection. ? manifestation of eosinophilia Tinea Asymptomatic bacteruria - PSA Diabetes with neuropathy Allergy to Levaquin causing itching and Zosyn w/ questionable anaphylactic type reaction h/o MRSA & PSA Hypercalcemia - better Plan Plan of Care Appreciate Dr. Taylor input Consult Dr. Barksdale for biopsy [place] steroids after biopsy Evaluate ? new meds prior to admit as cause of Increased Eos Hold treatment for PSA in urine as clinically he is well and UA essentially neg Cont fluconazole Monitor response labs in am D/w AMANDA Little MD Mar 28, 2017 10:10
--- NOTE | 2017-03-28 10:14 | RAD ---
AP pelvis, single view left hip 03/28/2017 Indication: Postoperative Comparison study: Pelvic radiograph October 31, 2016. Discussion: Grossly similar postsurgical changes following left hip hemiarthroplasty. Hardware is unchanged in appearance. Surgical gloria are no longer visualized. No fracture or dislocation is seen. Mild degenerative changes right hip noted. No acute soft tissue abnormalities are appreciated. Impression: Stable post changes following left hip hemiarthroplasty.
--- NOTE | 2017-03-28 10:24 | PDOC ---
PROGRESS NOTES Subjective Subjective hand numbness Objective Objective Vital Signs Date Time Temp Pulse Resp B/P (MAP) Pulse Ox O2 Delivery O2 Flow Rate FiO2 03/28/17 07:00 97.9 80 18 117/64 (81) 98 Room Air 97.9 Physical Exam Abdomen: Normal bowel sounds, Soft, No tenderness, No masses, Other (well- healed midline, paramedian, and right subcostal incisions) Heart: Normal S1, Normal S2 Extremities: No clubbing, No cyanosis, Normal pulses General: Alert, Oriented X3 HEENT: Atraumatic, PERRLA, EOMI Lungs: Clear to auscultation MUSCULOSKELETAL: No deformity, No swelling Neuro: Normal speech Psych/Mental Status: Mental status NL Skin: Other (blistering noted at medial malleolus, anterior surface of first toe, and lateral surface of fifth metatarsal, no evidence of purulent drainage, no evidence of tracking cellulitis, no open ulceration, no malodor) COMMENT blisters both feet Assessment Assessment FINAL IMPRESSION: 1. Blisters on both feet, rule out bullous pemphigoid as a working diagnosis. 2. Diabetes. 3. History of spinal stenosis. 4. History of prostate cancer. 5. Chronic muscle spasms. 6. General debility and decline. PLAN:surgical consult to get skin biopsy. spoke with ID. derm consult not able to see x ray hip prosthesis in place pseudomonas uti started on vantin. pt want to see ortho for f/u hip surgery. snu screen, social service consult At this time, he was admitted to the hospital, seen by Vascular, who does not think it is a vascular problem. We will have Dermatology consult and also we will have Infectious Disease and wound care consult. Rooke boot to keep the foot warm and see how the patient's condition improves. Problems: Comment Review of Relevant I have reviewed the following items aleksandar (where applicable) has been applied. Labs Laboratory Tests Test 03/27/17 11:15 03/27/17 15:59 03/27/17 20:37 03/28/17 07:49 Glucose (Fingerstick) 129 mg/dL (70-99) 112 mg/dL (70-99) 92 mg/dL (70-99) 101 mg/dL (70-99) Test 03/28/17 08:19 White Blood Count 9.7 x10^3/uL (4.0-11.0) Red Blood Count 3.27 x10^6/uL (4.30-5.70) Hemoglobin 10.4 g/dL (13.0-17.5) Hematocrit 30.3 % (39.0-53.0) Mean Corpuscular Volume 93 fL (79-100) Mean Corpuscular Hemoglobin 32 pg (25-35) Mean Corpuscular Hemoglobin Concent 34 g/dL (31-37) Red Cell Distribution Width 12.4 % (11.5-14.5) Platelet Count 262 x10^3/uL (140-400) Neutrophils (%) (Auto) 36 % (31-73) Lymphocytes (%) (Auto) 13 % (24-48) Monocytes (%) (Auto) 5 % (0-9) Eosinophils (%) (Auto) 46 % (0-3) Basophils (%) (Auto) 1 % (0-3) Neutrophils # (Auto) 3.5 x10^3uL (1.8-7.7) Lymphocytes # (Auto) 1.2 x10^3/uL (1.0-4.8) Monocytes # (Auto) 0.4 x10^3/uL (0.0-1.1) Eosinophils # (Auto) 4.5 x10^3/uL (0.0-0.7) Basophils # (Auto) 0.1 x10^3/uL (0.0-0.2) Sodium Level 133 mmol/L (136-145) Potassium Level 4.2 mmol/L (3.5-5.1) Chloride Level 98 mmol/L (98-107) Carbon Dioxide Level 29 mmol/L (21-32) Anion Gap 6 (6-14) Blood Urea Nitrogen 12 mg/dL (8-26) Creatinine 0.9 mg/dL (0.7-1.3) Estimated GFR (Cockcroft-Gault) 99.3 Glucose Level 95 mg/dL (70-99) Calcium Level 10.0 mg/dL (8.5-10.1) Microbiology 03/25/17 Urine Culture - Preliminary, Resulted 03/25/17 Urine Culture Result 1 (FLAVIO) - Preliminary, Resulted 03/25/17 Urine Culture Result 2 (FLAVIO) - Preliminary, Resulted 03/25/17 Antimicrobic Susceptibility - Preliminary, Resulted Medications Current Medications Cefpodoxime Proxetil (Vantin) 200 mg BID PO Last administered on 03/28/17t 08: 29; Start 03/27/17 at 11:00 Vitals/I & O Vital Sign - Last 24 Hours 03/27/17 03/27/17 03/27/17 03/27/17 11:01 15:00 19:00 20:00 Temp 98.1 98.1 98.1 98.1 98.1 98.1 Pulse 87 69 57 Resp 16 16 18 B/P (MAP) 114/75 (88) 116/66 (83) 159/75 (103) Pulse Ox 96 97 98 O2 Delivery Room Air Room Air Room Air Room Air 03/27/17 03/27/17 03/27/17 03/28/17 20:11 21:11 23:00 02:36 Temp 97.9 97.9 97.9 97.9 Pulse 69 77 Resp 18 18 B/P (MAP) 150/72 (98) 151/72 (98) Pulse Ox 97 97 95 95 O2 Delivery Room Air Room Air Room Air Room Air 03/28/17 07:00 Temp 97.9 97.9 Pulse 80 Resp 18 B/P (MAP) 117/64 (81) Pulse Ox 98 O2 Delivery Room Air SPRING BURGESS MD Mar 28, 2017 10:24
[2017-03-28] MEDS ORDERED: LIDOCAINE 2% TOPICAL JELLY 30GM TUBE. TP ONE (10:30)
[2017-03-28 10:41] LABS: % SAT IRON 33 % (15-34); IRON,SERUM 73 ug/dL (65-175)
[2017-03-28 10:44] LABS: FOLATE > 24.00 ng/ml (3.2-20.0); VITAMIN-B12 > 2000 pg/mL (247-911)
[2017-03-28] MEDS ORDERED: LIDOCAINE 2% TOPICAL JELLY 5GM TUBE. TP ONE (10:45)
[2017-03-28 11:00] VITALS: BP 120/65
--- NOTE | 2017-03-28 11:06 | PDOC2 ---
KARLA IZAGUIRRE API PRODUCT MANAGER 03/28/17 1106: CONSULT Date of Consult Date of Consult DATE: 03/28/17 TIME: 10:55 Reason for Consult Reason for Consult: skin biopsy Referring Physician Referring Physician: Dr Tran Identification/Chief Complaint Chief Complaint feet blisters Problems: Source Source: Chart review, Patient History of Present Illness Reason for Visit: Blisters to feet for last week or so. Was not improved with wound care at home , had drainage. Denies any previous similar episodes. Admitted, followed by infectious disease. They would like skin biopy Past Medical History Cardiovascular: HTN Pulmonary: Pneumonia CENTRAL NERVOUS SYSTEM: Periperal neuropathy GI: GERD Psych: No pertinent hx Musculoskeletal: low back pain, Osteoarthritis Infectious disease: Other Renal/: Benign prostatic enlarg., Prostate Ca., Other Endocrine: Diabetes, Hypothyroidism Past Surgical History Past Surgical History: Total hip replacement, Other (several abdominal surgeries related to his bowel that he does not know the details of) Family History Family History: Diabetes, Hypertension Social History No ALCOHOL: rare Drugs: None Lives: Alone Current Medications Current Medications Current Medications Aspirin (Children'S Aspirin) 81 mg DAILY PO Last administered on 03/28/17 08: 31; Start 03/26/17 at 09:00 Baclofen (Lioresal) 15 mg TID@0800,1200,1700 PO Last administered on 03/28/17 08:28; Start 03/25/17 at 18:00 Diclofenac Sodium (Voltaren) 1 kiet TID TP Last administered on 03/28/17 08:30 ; Start 03/25/17 at 21:00 Diphenhydramine HCl (Benadryl) 25 mg PRN TID PRN PO ITCHING Last administered on 03/27/17 22:48; Start 03/25/17 at 17:45 Lisinopril (Prinivil) 10 mg DAILY PO Last administered on 03/27/17 07:30; Start 03/26/17 at 09:00 Metformin HCl (Glucophage) 1,000 mg BIDWMEALS PO Last administered on 08:26; Start 03/25/17 at 18:00 Oxycodone/ Acetaminophen (Percocet 10/325) 1 tab PRN Q4HRS PRN PO severe pain Last administered on 03/27/17 20:11; Start 03/25/17 at 17:45 Pantoprazole Sodium (Protonix) 40 mg DAILYAC PO Last administered on 03/28/17 08:26; Start 03/26/17 at 07:30 Tamsulosin HCl (Flomax) 0.4 mg BID PO Last administered on 03/28/17 08:27; Start 03/25/17 at 21:00 Non-Formulary Medication 70 mg weekly on saturday PO ; Start 03/25/17 at 17:45; Stop 03/25/17 at 17:47; Status DC Baclofen (Lioresal) 20 mg QHS PO Last administered on 03/27/17 20:11; Start at 21:00 Gabapentin (Neurontin) 600 mg TID PO Last administered on 03/28/17 08:27; Start 03/25/17 at 21:00 Vitamin B Complex (Folbic Tablet) 1 tab BID PO Last administered on 03/28/17 08:26; Start 03/25/17 at 21:00 Tizanidine HCl (Zanaflex) 12 mg PRN QHS PRN PO MUSCLE SPASMS Last administered on 03/25/17 21:28; Start 03/25/17 at 18:00 Polyethylene Glycol (miraLAX PACKET) 17 gm BID PO Last administered on 08:27; Start 03/25/17 at 21:00 Insulin Aspart (NovoLOG) 0-7 UNITS TIDWMEALS SQ ; Start 03/26/17 at 12:00 Dextrose (Dextrose 50%-Water Syringe) 12.5 gm PRN Q15MIN PRN IV SEE COMMENTS; Start 03/26/17 at 10:30 Enoxaparin Sodium (Lovenox 40mg Syringe) 40 mg DAILY16 SQ Last administered on 03/27/17 16:02; Start 03/26/17 at 16:00 Fluconazole (Diflucan) 100 mg DAILY PO Last administered on 03/28/17 08:27; Start 03/26/17 at 13:30 Cefpodoxime Proxetil (Vantin) 200 mg BID PO Last administered on 03/28/17 08: 29; Start 03/27/17 at 11:00 Lidocaine HCl (Xylocaine 2% Topical 30gm Tube) 1 kiet 1X ONCE TP ; Start 9/14/ 17 at 10:30; Stop 03/28/17 at 10:31; Status DC Lidocaine HCl (Xylocaine 2% Topical 5gm Tube) 1 kiet 1X ONCE TP ; Start at 10:45; Stop 03/28/17 at 10:46; Status DC Active Scripts Active Flomax (Tamsulosin Hcl) 0.4 Mg Cap.er.24h 1 Cap PO BID Augmentin 500-125 Tablet (Amoxicillin/Potassium Clav) 1 Each Tablet 1 Tab PO BID Colace (Docusate Sodium) 100 Mg Capsule 100 Mg PO QHS [Polyethylene Glycol 3350] 17 GM Packet 17 Gm PO BID Neurontin (Gabapentin) 300 Mg Capsule 600 Mg PO TID Aspirin 81 Mg Tab.chew 81 Mg PO DAILY Reported Benadryl (Diphenhydramine Hcl) 25 Mg Capsule 1 Cap PO PRN PRN Metanx Capsule (Levomefolate/B6/B12/Algal Oil) 1 Each Capsule 1 Each PO BID Pantoprazole Sodium 40 Mg Tablet.dr 1 Tab PO DAILY Voltaren (Diclofenac Sodium) 100 Gm Gel..gram. 1 Gm TP TID Baclofen 10 Mg Tablet 15 Mg PO TID Zanaflex (Tizanidine Hcl) 6 Mg Capsule 12 Mg PO HS PRN Fosamax (Alendronate Sodium) 70 Mg Tablet 70 Mg PO WEEKLY ON SATURDAY Oxycodone-Acetaminophen 10-325 (Oxycodone Hcl/Acetaminophen) 1 Each Tablet 1 Each PO PRN Q4HRS PRN Baclofen 20 Mg Tablet 20 Mg PO HS Lisinopril 10 Mg Tablet 10 Mg PO DAILY Metformin Hcl 1,000 Mg Tablet 1,000 Mg PO BID Allergies Allergies: Coded Allergies: piperacillin (Verified Allergy, Severe, Itching, unresponsive,hypotension , 01/10/17) pt with rapid response 0345 for becoming unresponsive and hypotension. tazobactam (Verified Allergy, Severe, Itching, unresponsive,hypotension, ) pt with rapid response 0345 for becoming unresponsive and hypotension. levofloxacin (Verified Allergy, Intermediate, Itching, 01/10/17) ROS General: No: Chills, Other (fevers) PSYCHOLOGICAL ROS: No: Anxiety, Depression Eyes: No Blurry vision, No Double vision HEENT: No: Heacaches, Sore Throat Hematological and Lymphatic: No: Bleeding Problems, Blood Clots Respiratory: YES: SOB with excertion, No: Cough Cardiovascular: No Chest Pain, No Palpitations Gastrointestinal: No Nausea, No Vomiting Genitourinary: No Dysuria, No Hematuria Musculoskeletal: Yes Other (see hpi) Neurological: Yes Numbness/Tingling, No Headaches Skin: Yes Pruritus Physical Exam General: Alert, Oriented X3, Cooperative, No acute distress HEENT: PERRLA, Mucous membr. moist/pink Lungs: Clear to auscultation, Normal air movement Heart: Regular rate, Normal S1, Normal S2, No murmurs Abdomen: Soft, No tenderness Extremities: No clubbing, Other (large fluid blisters to right foot, some dried drainage) Neuro: Normal speech, Sensation intact Psych/Mental Status: Mental status NL, Mood NL MUSCULOSKELETAL: No deformity, No swelling Vitals VITALS Vital Signs Date Time Temp Pulse Resp B/P (MAP) Pulse Ox O2 Delivery O2 Flow Rate FiO2 03/28/17 07:00 97.9 80 18 117/64 (81) 98 Room Air 97.9 Labs Labs Laboratory Tests Test 03/26/17 17:12 03/26/17 20:48 03/27/17 05:20 03/27/17 11:15 Glucose (Fingerstick) 86 mg/dL (70-99) 117 mg/dL (70-99) 129 mg/dL (70-99) White Blood Count 9.0 x10^3/uL (4.0-11.0) Red Blood Count 3.23 x10^6/uL (4.30-5.70) Hemoglobin 10.2 g/dL (13.0-17.5) Hematocrit 30.2 % (39.0-53.0) Mean Corpuscular Volume 94 fL (79-100) Mean Corpuscular Hemoglobin 32 pg (25-35) Mean Corpuscular Hemoglobin Concent 34 g/dL (31-37) Red Cell Distribution Width 12.4 % (11.5-14.5) Platelet Count 221 x10^3/uL (140-400) Neutrophils (%) (Auto) 23 % (31-73) Lymphocytes (%) (Auto) 21 % (24-48) Monocytes (%) (Auto) 5 % (0-9) Eosinophils (%) (Auto) 51 % (0-3) Basophils (%) (Auto) 0 % (0-3) Neutrophils # (Auto) 2.1 x10^3uL (1.8-7.7) Lymphocytes # (Auto) 1.9 x10^3/uL (1.0-4.8) Monocytes # (Auto) 0.5 x10^3/uL (0.0-1.1) Eosinophils # (Auto) 4.5 x10^3/uL (0.0-0.7) Basophils # (Auto) 0.0 x10^3/uL (0.0-0.2) Sodium Level 130 mmol/L (136-145) Potassium Level 4.1 mmol/L (3.5-5.1) Chloride Level 95 mmol/L (98-107) Carbon Dioxide Level 28 mmol/L (21-32) Anion Gap 7 (6-14) Blood Urea Nitrogen 11 mg/dL (8-26) Creatinine 0.8 mg/dL (0.7-1.3) Estimated GFR (Cockcroft-Gault) 113.7 Glucose Level 90 mg/dL (70-99) Calcium Level 10.1 mg/dL (8.5-10.1) Phosphorus Level 3.9 mg/dL (2.6-4.7) Magnesium Level 1.4 mg/dL (1.8-2.4) Immunoglobulin E 2258 IU/mL (0-100) Test 03/27/17 15:59 03/27/17 20:37 03/28/17 07:49 03/28/17 08:19 Glucose (Fingerstick) 112 mg/dL (70-99) 92 mg/dL (70-99) 101 mg/dL (70-99) White Blood Count 9.7 x10^3/uL (4.0-11.0) Red Blood Count 3.27 x10^6/uL (4.30-5.70) Hemoglobin 10.4 g/dL (13.0-17.5) Hematocrit 30.3 % (39.0-53.0) Mean Corpuscular Volume 93 fL (79-100) Mean Corpuscular Hemoglobin 32 pg (25-35) Mean Corpuscular Hemoglobin Concent 34 g/dL (31-37) Red Cell Distribution Width 12.4 % (11.5-14.5) Platelet Count 262 x10^3/uL (140-400) Neutrophils (%) (Auto) 36 % (31-73) Lymphocytes (%) (Auto) 13 % (24-48) Monocytes (%) (Auto) 5 % (0-9) Eosinophils (%) (Auto) 46 % (0-3) Basophils (%) (Auto) 1 % (0-3) Neutrophils # (Auto) 3.5 x10^3uL (1.8-7.7) Lymphocytes # (Auto) 1.2 x10^3/uL (1.0-4.8) Monocytes # (Auto) 0.4 x10^3/uL (0.0-1.1) Eosinophils # (Auto) 4.5 x10^3/uL (0.0-0.7) Basophils # (Auto) 0.1 x10^3/uL (0.0-0.2) Sodium Level 133 mmol/L (136-145) Potassium Level 4.2 mmol/L (3.5-5.1) Chloride Level 98 mmol/L (98-107) Carbon Dioxide Level 29 mmol/L (21-32) Anion Gap 6 (6-14) Blood Urea Nitrogen 12 mg/dL (8-26) Creatinine 0.9 mg/dL (0.7-1.3) Estimated GFR (Cockcroft-Gault) 99.3 Glucose Level 95 mg/dL (70-99) Calcium Level 10.0 mg/dL (8.5-10.1) Iron Level 73 ug/dL (65-175) Total Iron Binding Capacity 222 ug/dL (250-450) Iron Saturation 33 % (15-34) Vitamin B12 Level > 2000 pg/mL (247-911) Serum Folate > 24.00 ng/ml (3.2-20.0) Laboratory Tests Test 03/27/17 11:15 03/27/17 15:59 03/27/17 20:37 03/28/17 07:49 Glucose (Fingerstick) 129 mg/dL (70-99) 112 mg/dL (70-99) 92 mg/dL (70-99) 101 mg/dL (70-99) Test 03/28/17 08:19 White Blood Count 9.7 x10^3/uL (4.0-11.0) Red Blood Count 3.27 x10^6/uL (4.30-5.70) Hemoglobin 10.4 g/dL (13.0-17.5) Hematocrit 30.3 % (39.0-53.0) Mean Corpuscular Volume 93 fL (79-100) Mean Corpuscular Hemoglobin 32 pg (25-35) Mean Corpuscular Hemoglobin Concent 34 g/dL (31-37) Red Cell Distribution Width 12.4 % (11.5-14.5) Platelet Count 262 x10^3/uL (140-400) Neutrophils (%) (Auto) 36 % (31-73) Lymphocytes (%) (Auto) 13 % (24-48) Monocytes (%) (Auto) 5 % (0-9) Eosinophils (%) (Auto) 46 % (0-3) Basophils (%) (Auto) 1 % (0-3) Neutrophils # (Auto) 3.5 x10^3uL (1.8-7.7) Lymphocytes # (Auto) 1.2 x10^3/uL (1.0-4.8) Monocytes # (Auto) 0.4 x10^3/uL (0.0-1.1) Eosinophils # (Auto) 4.5 x10^3/uL (0.0-0.7) Basophils # (Auto) 0.1 x10^3/uL (0.0-0.2) Sodium Level 133 mmol/L (136-145) Potassium Level 4.2 mmol/L (3.5-5.1) Chloride Level 98 mmol/L (98-107) Carbon Dioxide Level 29 mmol/L (21-32) Anion Gap 6 (6-14) Blood Urea Nitrogen 12 mg/dL (8-26) Creatinine 0.9 mg/dL (0.7-1.3) Estimated GFR (Cockcroft-Gault) 99.3 Glucose Level 95 mg/dL (70-99) Calcium Level 10.0 mg/dL (8.5-10.1) Iron Level 73 ug/dL (65-175) Total Iron Binding Capacity 222 ug/dL (250-450) Iron Saturation 33 % (15-34) Vitamin B12 Level > 2000 pg/mL (247-911) Serum Folate > 24.00 ng/ml (3.2-20.0) Assessment/Plan Assessment/Plan fluid blisters needing skin biopsy, will review with CARMELLA Alcala MD 03/28/17 1423: CONSULT Allergies Allergies: Coded Allergies: piperacillin (Verified Allergy, Severe, Itching, unresponsive,hypotension , 01/10/17) pt with rapid response 0345 for becoming unresponsive and hypotension. tazobactam (Verified Allergy, Severe, Itching, unresponsive,hypotension, ) pt with rapid response 0345 for becoming unresponsive and hypotension. levofloxacin (Verified Allergy, Intermediate, Itching, 01/10/17) Assessment/Plan Assessment/Plan Pt seen and examined. Agree with Ms. Izaguirre's note Pt with c/o bilateral feet blisters right worse then left will plan bx in the OR tomorrow R/B/A d/w pt Thanks for consult! KARLA IZAGUIRRE APRN Mar 28, 2017 11:06 CARMELLA PAREDES MD Mar 28, 2017 14:23
[2017-03-28 15:00] VITALS: BP 129/71
[2017-03-28] MEDS: ENOXAPARIN 40 MG/0.4 ML SYRINGE. SQ SCH (16:00)
[2017-03-28 19:00] VITALS: BP 129/63
[2017-03-28] MEDS: oxyCODONE/APAP 10/325 1 TAB TABLET PO PRN (20:39)
[2017-03-28 22:59] VITALS: BP 118/62
[2017-03-29] VITALS (8 sets, daily range): BP systolic 135–158; BP diastolic 60–115
[2017-03-29 04:46] LABS: BASO # 0.1 x10^3/uL (0.0-0.2); BASO % 1 % (0-3); EOS % 47 % (0-3); HEMATOCRIT 28.9 % (39.0-53.0); HEMOGLOBIN 9.6 g/dL (13.0-17.5); LYMPH # 1.7 x10^3/uL (1.0-4.8); LYMPH % 15 % (24-48); MEAN CORPUSCULAR HEMOGLOBIN 32 pg (25-35); MEAN CORPUSCULAR HGB CONC 33 g/dL (31-37); MEAN CORPUSCULAR VOLUME 95 fL (79-100); MONO % 5 % (0-9); NEUT % 32 % (31-73); PLATELET COUNT 238 x10^3/uL (140-400); RED BLOOD COUNT 3.04 x10^6/uL (4.30-5.70); RED CELL DISTRIBUTION WIDTH 12.5 % (11.5-14.5); WHITE BLOOD COUNT 11.5 x10^3/uL (4.0-11.0)
[2017-03-29] MEDS ORDERED: HYDROmorphone 2 MG/ML VIAL IV PRN (07:00)
[2017-03-29] MEDS ORDERED: PROCHLORPERAZINE 10 MG/2 ML VIAL. IV PRN (07:00)
[2017-03-29] MEDS ORDERED: LIDOCAINE 1% 1 ML SYRINGE. ID PRN (07:00)
[2017-03-29] MEDS ORDERED: IV RINGERS,LACTATED 1000ML 1,000 ML IV SCH (07:00)
[2017-03-29] MEDS ORDERED: MORPHINE SULFATE 2 MG/ML DISP.SYRIN. IV PRN (07:00)
[2017-03-29] MEDS: BACLOFEN 10 MG TABLET. PO SCH ×4 (08:00→21:00)
[2017-03-29] MEDS: INSULIN ASPART 300 UNITS/3 ML INSULN.PEN SQ SCH ×3 (08:00→17:00)
[2017-03-29] MEDS: DICLOFENAC SODIUM 1% TOPICAL GEL 100GM TUBE. TP SCH ×3 (09:00→21:10)
[2017-03-29] MEDS: GABAPENTIN 300 MG CAPSULE. PO SCH ×3 (09:00→21:00)
--- NOTE | 2017-03-29 10:42 | PDOC ---
Infectious Disease Note Subjective Subjective Doing ok. Feet ok. has a little chronic hip pain Constipated Eating well ROS ROS GEN: Denies fevers, chills, sweats HEENT: Denies blurred vision, sore throat CV: Denies chest pain RESP: Denies shortness of air, cough GI: Denies n/v/d NEURO: Denies confusion, dizziness MSK: Denies weakness, joint pain/swelling Vital Sign Vital Signs Vital Signs Date Time Temp Pulse Resp B/P (MAP) Pulse Ox O2 Delivery O2 Flow Rate FiO2 03/29/17 08:00 Room Air 03/29/17 07:00 99.7 71 16 139/60 (86) 96 99.7 Physical Exam PHYSICAL EXAM GENERAL: NAD, Alert HEENT: PERRL, OC/OP -clear NECK: Supple, no JVD, no LN LUNGS: Clear HEART: S1S2, no gallop, no murmur ABD: Soft, NT, no organomegaly, no rebound EXT: Gloves on hands. Feet stable with dry skin/tinea. Wounds are clean. Bullae intact and clean. Good pulses. no cyanosis. Rooke boots in place CHHA: Alert, oriented x 3, no focal neurologic deficit SKIN: No rash IV: ok Labs Lab Laboratory Tests Test 03/28/17 11:42 03/28/17 16:37 03/28/17 20:59 03/29/17 04:18 Glucose (Fingerstick) 116 mg/dL (70-99) 97 mg/dL (70-99) 96 mg/dL (70-99) White Blood Count 11.5 x10^3/uL (4.0-11.0) Red Blood Count 3.04 x10^6/uL (4.30-5.70) Hemoglobin 9.6 g/dL (13.0-17.5) Hematocrit 28.9 % (39.0-53.0) Mean Corpuscular Volume 95 fL (79-100) Mean Corpuscular Hemoglobin 32 pg (25-35) Mean Corpuscular Hemoglobin Concent 33 g/dL (31-37) Red Cell Distribution Width 12.5 % (11.5-14.5) Platelet Count 238 x10^3/uL (140-400) Neutrophils (%) (Auto) 32 % (31-73) Lymphocytes (%) (Auto) 15 % (24-48) Monocytes (%) (Auto) 5 % (0-9) Eosinophils (%) (Auto) 47 % (0-3) Basophils (%) (Auto) 1 % (0-3) Neutrophils # (Auto) 3.7 x10^3uL (1.8-7.7) Lymphocytes # (Auto) 1.7 x10^3/uL (1.0-4.8) Monocytes # (Auto) 0.6 x10^3/uL (0.0-1.1) Eosinophils # (Auto) 5.4 x10^3/uL (0.0-0.7) Basophils # (Auto) 0.1 x10^3/uL (0.0-0.2) Test 03/29/17 07:34 Glucose (Fingerstick) 93 mg/dL (70-99) Micro 03/25 Urine Pseudomonas aeruginosa Greater than 100,000 colony forming units per mL URINE CULTURE RES 2 Preliminary Comment Pseudomonas aeruginosa Greater than 100,000 colony forming units per mL ANTIMICROBIAL SUSCEPTIBILITY Preliminary Comment S = Susceptible; I = Intermediate; R = Resistant P = Positive; N = Negative MICS are expressed in micrograms per mL Antibiotic RSLT#1 RSLT#2 RSLT#3 RSLT#4 Amikacin S Cefepime S Ceftazidime S Ciprofloxacin S Gentamicin S Imipenem S Levofloxacin I Meropenem S Piperacillin S Ticarcillin S Tobramycin S Objective Assessment Eosinophilia - with elevated IgE ? bullous pemphigoid vs others Blisters feet bilat, recent new shoes. Clean without signs of infection. ? manifestation of eosinophilia Tinea Asymptomatic bacteruria - PSA Diabetes with neuropathy Allergy to Levaquin causing itching and Zosyn w/ questionable anaphylactic type reaction h/o MRSA & PSA Hypercalcemia - better Plan Plan of Care D/w Dr. Barksdale. Today for biopsy [place] steroids after biopsy Evaluate ? new meds prior to admit as cause of Increased Eos Hold treatment for PSA in urine as clinically he is well and UA essentially neg Cont fluconazole Ceftin per Dr. Tran Monitor response labs in am D/w Dr. Tran Attending Co-Sign Attending Co-Sign The patient was seen and interviewed as well as examined at the bedside. The chart was reviewed. The case was discussed. Agree with the plan of care. AMANDA SHARP MD Mar 29, 2017 10:42
--- NOTE | 2017-03-29 10:53 | PDOC ---
PROGRESS NOTES Subjective Subjective going f or surgical excision and biopsy of skin lesions Objective Objective Vital Signs Date Time Temp Pulse Resp B/P (MAP) Pulse Ox O2 Delivery O2 Flow Rate FiO2 03/29/17 08:00 Room Air 03/29/17 07:00 99.7 71 16 139/60 (86) 96 99.7 Physical Exam Abdomen: Soft, No tenderness Heart: Regular rate, Normal S1, Normal S2, No murmurs Extremities: No clubbing, Other (large fluid blisters to right foot, some dried drainage) General: Alert, Oriented X3, Cooperative, No acute distress HEENT: PERRLA, Mucous membr. moist/pink Lungs: Clear to auscultation, Normal air movement MUSCULOSKELETAL: No deformity, No swelling Neuro: Normal speech, Sensation intact Psych/Mental Status: Mental status NL, Mood NL Skin: Other (blistering noted at medial malleolus, anterior surface of first toe, and lateral surface of fifth metatarsal, no evidence of purulent drainage, no evidence of tracking cellulitis, no open ulceration, no malodor) COMMENT blisters both feet Assessment Assessment FINAL IMPRESSION: 1. Blisters on both feet, rule out bullous pemphigoid as a working diagnosis. 2. Diabetes. 3. History of spinal stenosis. 4. History of prostate cancer. 5. Chronic muscle spasms. 6. General debility and decline. PLAN:surgical consult to get skin biopsy today. spoke with ID. star on steroids after biopsy, suspect pemphigoid derm consult , but not able to see due to insurance ,not a provider x ray hip prosthesis in place pseudomonas uti started on vantin. pt want to see ortho for f/u hip surgery. snu screen, social service consult At this time, he was admitted to the hospital, seen by Vascular, who does not think it is a vascular problem. We will have Dermatology consult and also we will have Infectious Disease and wound care consult. Rooke boot to keep the foot warm and see how the patient's condition improves. Problems: Comment Review of Relevant I have reviewed the following items aleksandar (where applicable) has been applied. Labs Laboratory Tests Test 03/28/17 11:42 03/28/17 16:37 03/28/17 20:59 03/29/17 04:18 Glucose (Fingerstick) 116 mg/dL (70-99) 97 mg/dL (70-99) 96 mg/dL (70-99) White Blood Count 11.5 x10^3/uL (4.0-11.0) Red Blood Count 3.04 x10^6/uL (4.30-5.70) Hemoglobin 9.6 g/dL (13.0-17.5) Hematocrit 28.9 % (39.0-53.0) Mean Corpuscular Volume 95 fL (79-100) Mean Corpuscular Hemoglobin 32 pg (25-35) Mean Corpuscular Hemoglobin Concent 33 g/dL (31-37) Red Cell Distribution Width 12.5 % (11.5-14.5) Platelet Count 238 x10^3/uL (140-400) Neutrophils (%) (Auto) 32 % (31-73) Lymphocytes (%) (Auto) 15 % (24-48) Monocytes (%) (Auto) 5 % (0-9) Eosinophils (%) (Auto) 47 % (0-3) Basophils (%) (Auto) 1 % (0-3) Neutrophils # (Auto) 3.7 x10^3uL (1.8-7.7) Lymphocytes # (Auto) 1.7 x10^3/uL (1.0-4.8) Monocytes # (Auto) 0.6 x10^3/uL (0.0-1.1) Eosinophils # (Auto) 5.4 x10^3/uL (0.0-0.7) Basophils # (Auto) 0.1 x10^3/uL (0.0-0.2) Test 03/29/17 07:34 Glucose (Fingerstick) 93 mg/dL (70-99) Microbiology 03/25/17 Urine Culture - Final, Complete 03/25/17 Urine Culture Result 1 (FLAVIO) - Final, Complete 03/25/17 Urine Culture Result 2 (FLAVIO) - Final, Complete 03/25/17 Antimicrobic Susceptibility - Final, Complete Medications Current Medications Hydromorphone HCl (Dilaudid) 0.5 mg PRN Q10MIN PRN IV SEV PAIN, Second choice; Start 03/29/17 at 07:00; Stop 03/30/17 at 06:59 Lidocaine HCl 2 ml PRN 1X PRN ID PRIOR TO IV START; Start 03/29/17 at 07:00; Stop 03/30/17 at 06:59 Morphine Sulfate 1 mg PRN Q10MIN PRN IV SEVERE PAIN; Start 03/29/17 at 07:00; Stop 03/30/17 at 06:59 Prochlorperazine Edisylate (Compazine) 5 mg PACU PRN PRN IV NAUSEA, MRX1; Start 03/29/17 at 07:00; Stop 03/30/17 at 06:59 Ringer's Solution 1,000 ml @ 30 mls/hr Q24H IV ; Start 03/29/17 at 07:00; Stop 03/29/17 at 18:59 Vitals/I & O Vital Sign - Last 24 Hours 03/28/17 03/28/17 03/28/17 03/28/17 11:00 15:00 19:00 19:53 Temp 97.5 97.5 98.1 97.5 97.5 98.1 Pulse 79 77 72 Resp 18 18 18 B/P (MAP) 120/65 (83) 129/71 (90) 129/63 (85) Pulse Ox 97 98 98 O2 Delivery Room Air Room Air Room Air Room Air 03/28/17 03/28/17 03/28/17 03/29/17 20:39 21:39 22:59 03:00 Temp 96.6 98.2 96.6 98.2 Pulse 80 78 Resp 18 18 B/P (MAP) 118/62 (80) 137/63 (87) Pulse Ox 98 98 95 93 O2 Delivery Room Air Room Air Room Air Room Air 03/29/17 03/29/17 07:00 08:00 Temp 99.7 99.7 Pulse 71 Resp 16 B/P (MAP) 139/60 (86) Pulse Ox 96 O2 Delivery Room Air Room Air SPRING BURGESS MD Mar 29, 2017 10:53
--- NOTE | 2017-03-29 11:08 | PDOC ---
PROGRESS NOTES Subjective Subjective c/c -f/u of Eosinophilia ROS - no fever Objective Objective Vital Signs Date Time Temp Pulse Resp B/P (MAP) Pulse Ox O2 Delivery O2 Flow Rate FiO2 03/29/17 08:00 Room Air 03/29/17 07:00 99.7 71 16 139/60 (86) 96 99.7 Physical Exam Heart: Normal S1, Normal S2 General: Alert, Oriented X3 Lungs: Clear to auscultation Neuro: Normal speech Psych/Mental Status: Mental status NL Assessment Assessment IMPRESSION AND PLAN: 1. Eosinophilia. 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 Review of the prior records indicates that he his eosinophilia was first noted on 10/31/2016 when it was 0.8. His eosinophil count prior to that have all been normal. I reviewed his records since 2013. Hence, this is suggestive of a reactive process other than a primary bone marrow disorder. In addition, his WBC count and platelet counts are normal. He has anemia, which is thought to be due to chronic disease. I discussed with Dr. Tran and Dr. Jeremias Chaudhary. I recommended Dermatology consultation for further evaluation.Monitor cbc. Agree with skin bx 03.29.17. If non-diagnostic, then may need bone marrow bx. Eosinophila worse at 5.4 on 03/29/17, monitor. 2. Anemia due to chronic disease. Continue to monitor hemoglobin. His iron studies are suggestive of anemia of chronic disease. B12 and folate are elevated. 3. Skin lesions. Comment Review of Relevant I have reviewed the following items aleksandar (where applicable) has been applied. Labs Laboratory Tests Test 03/27/17 11:15 03/27/17 15:59 03/27/17 20:37 03/28/17 07:49 Glucose (Fingerstick) 129 mg/dL (70-99) 112 mg/dL (70-99) 92 mg/dL (70-99) 101 mg/dL (70-99) Test 03/28/17 08:19 03/28/17 11:42 03/28/17 16:37 03/28/17 20:59 White Blood Count 9.7 x10^3/uL (4.0-11.0) Red Blood Count 3.27 x10^6/uL (4.30-5.70) Hemoglobin 10.4 g/dL (13.0-17.5) Hematocrit 30.3 % (39.0-53.0) Mean Corpuscular Volume 93 fL (79-100) Mean Corpuscular Hemoglobin 32 pg (25-35) Mean Corpuscular Hemoglobin Concent 34 g/dL (31-37) Red Cell Distribution Width 12.4 % (11.5-14.5) Platelet Count 262 x10^3/uL (140-400) Neutrophils (%) (Auto) 36 % (31-73) Lymphocytes (%) (Auto) 13 % (24-48) Monocytes (%) (Auto) 5 % (0-9) Eosinophils (%) (Auto) 46 % (0-3) Basophils (%) (Auto) 1 % (0-3) Neutrophils # (Auto) 3.5 x10^3uL (1.8-7.7) Lymphocytes # (Auto) 1.2 x10^3/uL (1.0-4.8) Monocytes # (Auto) 0.4 x10^3/uL (0.0-1.1) Eosinophils # (Auto) 4.5 x10^3/uL (0.0-0.7) Basophils # (Auto) 0.1 x10^3/uL (0.0-0.2) Sodium Level 133 mmol/L (136-145) Potassium Level 4.2 mmol/L (3.5-5.1) Chloride Level 98 mmol/L (98-107) Carbon Dioxide Level 29 mmol/L (21-32) Anion Gap 6 (6-14) Blood Urea Nitrogen 12 mg/dL (8-26) Creatinine 0.9 mg/dL (0.7-1.3) Estimated GFR (Cockcroft-Gault) 99.3 Glucose Level 95 mg/dL (70-99) Calcium Level 10.0 mg/dL (8.5-10.1) Iron Level 73 ug/dL (65-175) Total Iron Binding Capacity 222 ug/dL (250-450) Iron Saturation 33 % (15-34) Ferritin 134 ng/mL (26-388) Vitamin B12 Level > 2000 pg/mL (247-911) Serum Folate > 24.00 ng/ml (3.2-20.0) Glucose (Fingerstick) 116 mg/dL (70-99) 97 mg/dL (70-99) 96 mg/dL (70-99) Test 03/29/17 04:18 03/29/17 07:34 White Blood Count 11.5 x10^3/uL (4.0-11.0) Red Blood Count 3.04 x10^6/uL (4.30-5.70) Hemoglobin 9.6 g/dL (13.0-17.5) Hematocrit 28.9 % (39.0-53.0) Mean Corpuscular Volume 95 fL (79-100) Mean Corpuscular Hemoglobin 32 pg (25-35) Mean Corpuscular Hemoglobin Concent 33 g/dL (31-37) Red Cell Distribution Width 12.5 % (11.5-14.5) Platelet Count 238 x10^3/uL (140-400) Neutrophils (%) (Auto) 32 % (31-73) Lymphocytes (%) (Auto) 15 % (24-48) Monocytes (%) (Auto) 5 % (0-9) Eosinophils (%) (Auto) 47 % (0-3) Basophils (%) (Auto) 1 % (0-3) Neutrophils # (Auto) 3.7 x10^3uL (1.8-7.7) Lymphocytes # (Auto) 1.7 x10^3/uL (1.0-4.8) Monocytes # (Auto) 0.6 x10^3/uL (0.0-1.1) Eosinophils # (Auto) 5.4 x10^3/uL (0.0-0.7) Basophils # (Auto) 0.1 x10^3/uL (0.0-0.2) Glucose (Fingerstick) 93 mg/dL (70-99) Laboratory Tests Test 03/28/17 11:42 03/28/17 16:37 03/28/17 20:59 03/29/17 04:18 Glucose (Fingerstick) 116 mg/dL (70-99) 97 mg/dL (70-99) 96 mg/dL (70-99) White Blood Count 11.5 x10^3/uL (4.0-11.0) Red Blood Count 3.04 x10^6/uL (4.30-5.70) Hemoglobin 9.6 g/dL (13.0-17.5) Hematocrit 28.9 % (39.0-53.0) Mean Corpuscular Volume 95 fL (79-100) Mean Corpuscular Hemoglobin 32 pg (25-35) Mean Corpuscular Hemoglobin Concent 33 g/dL (31-37) Red Cell Distribution Width 12.5 % (11.5-14.5) Platelet Count 238 x10^3/uL (140-400) Neutrophils (%) (Auto) 32 % (31-73) Lymphocytes (%) (Auto) 15 % (24-48) Monocytes (%) (Auto) 5 % (0-9) Eosinophils (%) (Auto) 47 % (0-3) Basophils (%) (Auto) 1 % (0-3) Neutrophils # (Auto) 3.7 x10^3uL (1.8-7.7) Lymphocytes # (Auto) 1.7 x10^3/uL (1.0-4.8) Monocytes # (Auto) 0.6 x10^3/uL (0.0-1.1) Eosinophils # (Auto) 5.4 x10^3/uL (0.0-0.7) Basophils # (Auto) 0.1 x10^3/uL (0.0-0.2) Test 03/29/17 07:34 Glucose (Fingerstick) 93 mg/dL (70-99) Microbiology 03/25/17 Urine Culture - Final, Complete 03/25/17 Urine Culture Result 1 (FLAVIO) - Final, Complete 03/25/17 Urine Culture Result 2 (FLAVIO) - Final, Complete 03/25/17 Antimicrobic Susceptibility - Final, Complete Medications Current Medications Aspirin (Children'S Aspirin) 81 mg DAILY PO Last administered on 03/28/17 08: 31; Start 03/26/17 at 09:00 Baclofen (Lioresal) 15 mg TID@0800,1200,1700 PO Last administered on 03/28/17 18:17; Start 03/25/17 at 18:00 Diclofenac Sodium (Voltaren) 1 kiet TID TP Last administered on 03/28/17 20:39 ; Start 03/25/17 at 21:00 Diphenhydramine HCl (Benadryl) 25 mg PRN TID PRN PO ITCHING Last administered on 03/27/17 22:48; Start 03/25/17 at 17:45 Lisinopril (Prinivil) 10 mg DAILY PO Last administered on 03/27/17 07:30; Start 03/26/17 at 09:00 Metformin HCl (Glucophage) 1,000 mg BIDWMEALS PO Last administered on 18:12; Start 03/25/17 at 18:00 Oxycodone/ Acetaminophen (Percocet 10/325) 1 tab PRN Q4HRS PRN PO severe pain Last administered on 03/28/17 20:39; Start 03/25/17 at 17:45 Pantoprazole Sodium (Protonix) 40 mg DAILYAC PO Last administered on 03/28/17 08:26; Start 03/26/17 at 07:30 Tamsulosin HCl (Flomax) 0.4 mg BID PO Last administered on 03/28/17 20:38; Start 03/25/17 at 21:00 Non-Formulary Medication 70 mg weekly on saturday PO ; Start 03/25/17 at 17:45; Stop 03/25/17 at 17:47; Status DC Baclofen (Lioresal) 20 mg QHS PO Last administered on 03/28/17 20:39; Start at 21:00 Gabapentin (Neurontin) 600 mg TID PO Last administered on 03/28/17 20:38; Start 03/25/17 at 21:00 Vitamin B Complex (Folbic Tablet) 1 tab BID PO Last administered on 03/28/17 20:38; Start 03/25/17 at 21:00 Tizanidine HCl (Zanaflex) 12 mg PRN QHS PRN PO MUSCLE SPASMS Last administered on 03/25/17 21:28; Start 03/25/17 at 18:00 Polyethylene Glycol (miraLAX PACKET) 17 gm BID PO Last administered on 20:39; Start 03/25/17 at 21:00 Insulin Aspart (NovoLOG) 0-7 UNITS TIDWMEALS SQ ; Start 03/26/17 at 12:00 Dextrose (Dextrose 50%-Water Syringe) 12.5 gm PRN Q15MIN PRN IV SEE COMMENTS; Start 03/26/17 at 10:30 Enoxaparin Sodium (Lovenox 40mg Syringe) 40 mg DAILY16 SQ Last administered on 03/27/17 16:02; Start 03/26/17 at 16:00 Fluconazole (Diflucan) 100 mg DAILY PO Last administered on 03/28/17 08:27; Start 03/26/17 at 13:30 Cefpodoxime Proxetil (Vantin) 200 mg BID PO Last administered on 03/28/17 20: 38; Start 03/27/17 at 11:00 Lidocaine HCl (Xylocaine 2% Topical 30gm Tube) 1 kiet 1X ONCE TP ; Start at 10:30; Stop 03/28/17 at 10:31; Status DC Lidocaine HCl (Xylocaine 2% Topical 5gm Tube) 1 kiet 1X ONCE TP Last administered on 03/28/17 14:13; Start 03/28/17 at 10:45; Stop 03/28/17 at 10:46 ; Status DC Morphine Sulfate 1 mg PRN Q10MIN PRN IV SEVERE PAIN; Start 03/29/17 at 07:00; Stop 03/30/17 at 06:59 Ringer's Solution 1,000 ml @ 30 mls/hr Q24H IV ; Start 03/29/17 at 07:00; Stop 03/29/17 at 18:59 Lidocaine HCl 2 ml PRN 1X PRN ID PRIOR TO IV START; Start 03/29/17 at 07:00; Stop 03/30/17 at 06:59 Hydromorphone HCl (Dilaudid) 0.5 mg PRN Q10MIN PRN IV SEV PAIN, Second choice; Start 03/29/17 at 07:00; Stop 03/30/17 at 06:59 Prochlorperazine Edisylate (Compazine) 5 mg PACU PRN PRN IV NAUSEA, MRX1; Start 03/29/17 at 07:00; Stop 03/30/17 at 06:59 Methylprednisolone Sodium Succinate (SOLU-Medrol 125MG VIAL) 60 mg Q8HRS IV ; Start 03/29/17 at 14:00; Status UNV Active Scripts Active Flomax (Tamsulosin Hcl) 0.4 Mg Cap.er.24h 1 Cap PO BID Augmentin 500-125 Tablet (Amoxicillin/Potassium Clav) 1 Each Tablet 1 Tab PO BID Colace (Docusate Sodium) 100 Mg Capsule 100 Mg PO QHS [Polyethylene Glycol 3350] 17 GM Packet 17 Gm PO BID Neurontin (Gabapentin) 300 Mg Capsule 600 Mg PO TID Aspirin 81 Mg Tab.chew 81 Mg PO DAILY Reported Benadryl (Diphenhydramine Hcl) 25 Mg Capsule 1 Cap PO PRN PRN Metanx Capsule (Levomefolate/B6/B12/Algal Oil) 1 Each Capsule 1 Each PO BID Pantoprazole Sodium 40 Mg Tablet.dr 1 Tab PO DAILY Voltaren (Diclofenac Sodium) 100 Gm Gel..gram. 1 Gm TP TID Baclofen 10 Mg Tablet 15 Mg PO TID Zanaflex (Tizanidine Hcl) 6 Mg Capsule 12 Mg PO HS PRN Fosamax (Alendronate Sodium) 70 Mg Tablet 70 Mg PO WEEKLY ON SATURDAY Oxycodone-Acetaminophen 10-325 (Oxycodone Hcl/Acetaminophen) 1 Each Tablet 1 Each PO PRN Q4HRS PRN Baclofen 20 Mg Tablet 20 Mg PO HS Lisinopril 10 Mg Tablet 10 Mg PO DAILY Metformin Hcl 1,000 Mg Tablet 1,000 Mg PO BID Vitals/I & O Vital Sign - Last 24 Hours 03/28/17 03/28/17 03/28/17 03/28/17 15:00 19:00 19:53 20:39 Temp 97.5 98.1 97.5 98.1 Pulse 77 72 Resp 18 18 B/P (MAP) 129/71 (90) 129/63 (85) Pulse Ox 98 98 98 O2 Delivery Room Air Room Air Room Air Room Air 03/28/17 03/28/17 03/29/17 03/29/17 21:39 22:59 03:00 07:00 Temp 96.6 98.2 99.7 96.6 98.2 99.7 Pulse 80 78 71 Resp 18 18 16 B/P (MAP) 118/62 (80) 137/63 (87) 139/60 (86) Pulse Ox 98 95 93 96 O2 Delivery Room Air Room Air Room Air Room Air 03/29/17 08:00 O2 Delivery Room Air CARY RHODES MD Mar 29, 2017 11:08
[2017-03-29] MEDS ORDERED: BUPIVAC MPF-EPI 0.5%-1:200000 10 ML VIAL. ONE (12:15)
[2017-03-29] MEDS ORDERED: PROPOFOL 20 ML IV ONE (13:26)
[2017-03-29] MEDS ORDERED: SEVOFLURANE 16 TO 30 MINUTES. IH ONE (13:26)
[2017-03-29] MEDS ORDERED: LIDOCAINE 2% PF Vial for OR 5 ML VIAL. ONE (13:26)
--- NOTE | 2017-03-29 13:33 | PDOC ---
SURGICAL PROGRESS NOTE Subjective Pre-Op Note 76 yo M with bilateral foot blisters TO OR for skin biopsy for diagnosis R/B/A d/w pt Vital Signs Vital Signs Date Time Temp Pulse Resp B/P (MAP) Pulse Ox O2 Delivery O2 Flow Rate FiO2 03/29/17 11:00 98.8 70 16 142/71 (94) 97 Room Air 98.8 I&O Intake and Output 03/30/17 07:00 Output Total 600 ml Balance -600 ml Output Urine Total 600 ml Labs Laboratory Tests Test 03/27/17 15:59 03/27/17 20:37 03/28/17 07:49 03/28/17 08:19 Glucose (Fingerstick) 112 mg/dL (70-99) 92 mg/dL (70-99) 101 mg/dL (70-99) White Blood Count 9.7 x10^3/uL (4.0-11.0) Red Blood Count 3.27 x10^6/uL (4.30-5.70) Hemoglobin 10.4 g/dL (13.0-17.5) Hematocrit 30.3 % (39.0-53.0) Mean Corpuscular Volume 93 fL (79-100) Mean Corpuscular Hemoglobin 32 pg (25-35) Mean Corpuscular Hemoglobin Concent 34 g/dL (31-37) Red Cell Distribution Width 12.4 % (11.5-14.5) Platelet Count 262 x10^3/uL (140-400) Neutrophils (%) (Auto) 36 % (31-73) Lymphocytes (%) (Auto) 13 % (24-48) Monocytes (%) (Auto) 5 % (0-9) Eosinophils (%) (Auto) 46 % (0-3) Basophils (%) (Auto) 1 % (0-3) Neutrophils # (Auto) 3.5 x10^3uL (1.8-7.7) Lymphocytes # (Auto) 1.2 x10^3/uL (1.0-4.8) Monocytes # (Auto) 0.4 x10^3/uL (0.0-1.1) Eosinophils # (Auto) 4.5 x10^3/uL (0.0-0.7) Basophils # (Auto) 0.1 x10^3/uL (0.0-0.2) Sodium Level 133 mmol/L (136-145) Potassium Level 4.2 mmol/L (3.5-5.1) Chloride Level 98 mmol/L (98-107) Carbon Dioxide Level 29 mmol/L (21-32) Anion Gap 6 (6-14) Blood Urea Nitrogen 12 mg/dL (8-26) Creatinine 0.9 mg/dL (0.7-1.3) Estimated GFR (Cockcroft-Gault) 99.3 Glucose Level 95 mg/dL (70-99) Calcium Level 10.0 mg/dL (8.5-10.1) Iron Level 73 ug/dL (65-175) Total Iron Binding Capacity 222 ug/dL (250-450) Iron Saturation 33 % (15-34) Ferritin 134 ng/mL (26-388) Vitamin B12 Level > 2000 pg/mL (247-911) Serum Folate > 24.00 ng/ml (3.2-20.0) Test 03/28/17 11:42 03/28/17 16:37 03/28/17 20:59 03/29/17 04:18 Glucose (Fingerstick) 116 mg/dL (70-99) 97 mg/dL (70-99) 96 mg/dL (70-99) White Blood Count 11.5 x10^3/uL (4.0-11.0) Red Blood Count 3.04 x10^6/uL (4.30-5.70) Hemoglobin 9.6 g/dL (13.0-17.5) Hematocrit 28.9 % (39.0-53.0) Mean Corpuscular Volume 95 fL (79-100) Mean Corpuscular Hemoglobin 32 pg (25-35) Mean Corpuscular Hemoglobin Concent 33 g/dL (31-37) Red Cell Distribution Width 12.5 % (11.5-14.5) Platelet Count 238 x10^3/uL (140-400) Neutrophils (%) (Auto) 32 % (31-73) Lymphocytes (%) (Auto) 15 % (24-48) Monocytes (%) (Auto) 5 % (0-9) Eosinophils (%) (Auto) 47 % (0-3) Basophils (%) (Auto) 1 % (0-3) Neutrophils # (Auto) 3.7 x10^3uL (1.8-7.7) Lymphocytes # (Auto) 1.7 x10^3/uL (1.0-4.8) Monocytes # (Auto) 0.6 x10^3/uL (0.0-1.1) Eosinophils # (Auto) 5.4 x10^3/uL (0.0-0.7) Basophils # (Auto) 0.1 x10^3/uL (0.0-0.2) Test 03/29/17 07:34 03/29/17 11:23 Glucose (Fingerstick) 93 mg/dL (70-99) 93 mg/dL (70-99) Laboratory Tests Test 03/28/17 16:37 03/28/17 20:59 03/29/17 04:18 03/29/17 07:34 Glucose (Fingerstick) 97 mg/dL (70-99) 96 mg/dL (70-99) 93 mg/dL (70-99) White Blood Count 11.5 x10^3/uL (4.0-11.0) Red Blood Count 3.04 x10^6/uL (4.30-5.70) Hemoglobin 9.6 g/dL (13.0-17.5) Hematocrit 28.9 % (39.0-53.0) Mean Corpuscular Volume 95 fL (79-100) Mean Corpuscular Hemoglobin 32 pg (25-35) Mean Corpuscular Hemoglobin Concent 33 g/dL (31-37) Red Cell Distribution Width 12.5 % (11.5-14.5) Platelet Count 238 x10^3/uL (140-400) Neutrophils (%) (Auto) 32 % (31-73) Lymphocytes (%) (Auto) 15 % (24-48) Monocytes (%) (Auto) 5 % (0-9) Eosinophils (%) (Auto) 47 % (0-3) Basophils (%) (Auto) 1 % (0-3) Neutrophils # (Auto) 3.7 x10^3uL (1.8-7.7) Lymphocytes # (Auto) 1.7 x10^3/uL (1.0-4.8) Monocytes # (Auto) 0.6 x10^3/uL (0.0-1.1) Eosinophils # (Auto) 5.4 x10^3/uL (0.0-0.7) Basophils # (Auto) 0.1 x10^3/uL (0.0-0.2) Test 03/29/17 11:23 Glucose (Fingerstick) 93 mg/dL (70-99) CARMELLA PAREDES MD Mar 29, 2017 13:33
[2017-03-29] MEDS ORDERED: ONDANSETRON PF 4 MG/2 ML VIAL. ONE (13:39)
[2017-03-29] MEDS ORDERED: 0.9 % SODIUM CHLORIDE 10 ML DISP.SYRIN. IV PRN (15:00)
--- NOTE | 2017-03-29 15:02 | PDOC4 ---
OPERATIVE NOTE Date: Date: Mar 29, 2017 Pre-Op Diagnosis: bilateral foot blisters Post-Op Diagnosis: same Procedure Performed: Excisional debridement of bilateral foot blisters of full thickness skin. Incisional biopsy of right medial foot Surgeon: Alfonso Paredes Anesthesia Type: GETA plus 0.5% marcaine Blood Loss: minimal Specimans Obtained: Foot blister debridement Findings: easy skin sloughing of multiple areas of right foot and left heel Complications: none Operative Note: After obtaining informed consent, patient was taken to the OR and induced under GETA. Patient was prepped in the usual fashion over bilateral feet. Multiple blisters noted on right foot and left heel. These were excised in excisional debridement of all blisters. In addition, a biopys was performed of left medial underlying skin using scapel, taken superficial dermis. Hemostasis was obtained using cautery. Clean dressings were placed over all wounds. Patient tolerated procedure well and sent to pathology in a stable condition. All counts were correct, there were no immediate complications. ALFONSO PAREDES MD Mar 29, 2017 15:02
[2017-03-29] MEDS: POLYETHYLENE GLYCOL 3350 17 GM PACKET. PO SCH ×2 (16:04→21:00)
[2017-03-29] MEDS: LISINOPRIL 10 MG TABLET PO SCH (16:05)
[2017-03-29] MEDS: CEFPODOXIME PROXETIL 100 MG TABLET. PO SCH ×2 (16:05→21:00)
[2017-03-29] MEDS: VITAMIN B12,B9,B6 COMPLEX 1 TABLET. PO SCH ×2 (16:05→21:00)
[2017-03-29] MEDS: TAMSULOSIN 0.4 MG CAP.ER.24H. PO SCH ×2 (16:06→21:00)
[2017-03-29] MEDS: FLUCONAZOLE 100 MG TABLET. PO SCH (16:06)
[2017-03-29] MEDS: ASPIRIN CHEWABLE 81 MG TABLET. PO SCH (16:06)
[2017-03-29] MEDS: PANTOPRAZOLE 40 MG TABLET.DR. PO SCH (16:06)
[2017-03-29] MEDS: methylPREDNISolone SOD SUCC PF 125 MG/2 ML VIAL. IV SCH ×2 (16:12→21:01)
[2017-03-29] MEDS: ENOXAPARIN 40 MG/0.4 ML SYRINGE. SQ SCH (17:38)
[2017-03-29] MEDS: tiZANidine 4 MG TABLET. PO PRN (21:04)
[2017-03-29] MEDS: oxyCODONE/APAP 10/325 1 TAB TABLET PO PRN (21:08)
[2017-03-29] MEDS: diphenhydrAMINE HCL 25 MG CAPSULE PO PRN (21:53)
[2017-03-30 03:00] VITALS: BP 113/64
[2017-03-30] MEDS: methylPREDNISolone SOD SUCC PF 125 MG/2 ML VIAL. IV SCH ×3 (05:55→20:38)
[2017-03-30 07:00] VITALS: BP 137/74
[2017-03-30] MEDS: INSULIN ASPART 300 UNITS/3 ML INSULN.PEN SQ SCH ×3 (07:59→17:00)
[2017-03-30] MEDS: diphenhydrAMINE HCL 25 MG CAPSULE PO PRN ×2 (08:05→17:17)
[2017-03-30] MEDS: GABAPENTIN 300 MG CAPSULE. PO SCH ×3 (08:06→20:39)
[2017-03-30] MEDS: CEFPODOXIME PROXETIL 100 MG TABLET. PO SCH ×2 (08:06→20:38)
[2017-03-30] MEDS: POLYETHYLENE GLYCOL 3350 17 GM PACKET. PO SCH ×2 (08:06→20:39)
[2017-03-30] MEDS: oxyCODONE/APAP 10/325 1 TAB TABLET PO PRN ×3 (08:06→20:39)
[2017-03-30] MEDS: ASPIRIN CHEWABLE 81 MG TABLET. PO SCH (08:07)
[2017-03-30] MEDS: PANTOPRAZOLE 40 MG TABLET.DR. PO SCH (08:07)
[2017-03-30] MEDS: FLUCONAZOLE 100 MG TABLET. PO SCH (08:07)
[2017-03-30] MEDS: LISINOPRIL 10 MG TABLET PO SCH (08:07)
[2017-03-30] MEDS: VITAMIN B12,B9,B6 COMPLEX 1 TABLET. PO SCH ×2 (08:07→20:38)
[2017-03-30] MEDS: BACLOFEN 10 MG TABLET. PO SCH ×4 (08:08→20:38)
[2017-03-30] MEDS: TAMSULOSIN 0.4 MG CAP.ER.24H. PO SCH ×2 (08:08→20:38)
[2017-03-30] MEDS: DICLOFENAC SODIUM 1% TOPICAL GEL 100GM TUBE. TP SCH ×3 (09:31→20:38)
[2017-03-30 11:00] VITALS: BP 119/64
--- NOTE | 2017-03-30 11:41 | PDOC ---
SURGICAL PROGRESS NOTE Subjective Pt without new c/o Vital Signs Vital Signs Date Time Temp Pulse Resp B/P (MAP) Pulse Ox O2 Delivery O2 Flow Rate FiO2 03/30/17 11:00 97.9 71 18 119/64 (82) 95 Room Air 97.9 03/30/17 09:30 10.0 General: Alert, Oriented X3, Cooperative, No acute distress Skin: Other (rook boots on) Labs Laboratory Tests Test 03/28/17 11:42 03/28/17 16:37 03/28/17 20:59 03/29/17 04:18 Glucose (Fingerstick) 116 mg/dL (70-99) 97 mg/dL (70-99) 96 mg/dL (70-99) White Blood Count 11.5 x10^3/uL (4.0-11.0) Red Blood Count 3.04 x10^6/uL (4.30-5.70) Hemoglobin 9.6 g/dL (13.0-17.5) Hematocrit 28.9 % (39.0-53.0) Mean Corpuscular Volume 95 fL (79-100) Mean Corpuscular Hemoglobin 32 pg (25-35) Mean Corpuscular Hemoglobin Concent 33 g/dL (31-37) Red Cell Distribution Width 12.5 % (11.5-14.5) Platelet Count 238 x10^3/uL (140-400) Neutrophils (%) (Auto) 32 % (31-73) Lymphocytes (%) (Auto) 15 % (24-48) Monocytes (%) (Auto) 5 % (0-9) Eosinophils (%) (Auto) 47 % (0-3) Basophils (%) (Auto) 1 % (0-3) Neutrophils # (Auto) 3.7 x10^3uL (1.8-7.7) Lymphocytes # (Auto) 1.7 x10^3/uL (1.0-4.8) Monocytes # (Auto) 0.6 x10^3/uL (0.0-1.1) Eosinophils # (Auto) 5.4 x10^3/uL (0.0-0.7) Basophils # (Auto) 0.1 x10^3/uL (0.0-0.2) Test 03/29/17 07:34 03/29/17 11:23 03/29/17 13:57 03/29/17 16:38 Glucose (Fingerstick) 93 mg/dL (70-99) 93 mg/dL (70-99) 98 mg/dL (70-99) 111 mg/dL (70-99) Test 03/29/17 20:43 03/30/17 07:37 03/30/17 11:33 Glucose (Fingerstick) 122 mg/dL (70-99) 150 mg/dL (70-99) 131 mg/dL (70-99) Laboratory Tests Test 03/29/17 13:57 03/29/17 16:38 03/29/17 20:43 03/30/17 07:37 Glucose (Fingerstick) 98 mg/dL (70-99) 111 mg/dL (70-99) 122 mg/dL (70-99) 150 mg/dL (70-99) Test 03/30/17 11:33 Glucose (Fingerstick) 131 mg/dL (70-99) Problem List s/p debridement await path results cont wound care Problems: CARMELLA PAREDES MD Mar 30, 2017 11:41
--- NOTE | 2017-03-30 12:17 | PDOC ---
Infectious Disease Note Subjective Subjective Still constipated, requesting warm prune juice. Eating well ROS ROS GEN: Denies fevers, chills, sweats CV: Denies chest pain RESP: Denies shortness of air, cough GI: Denies n/v Vital Sign Vital Signs Vital Signs Date Time Temp Pulse Resp B/P (MAP) Pulse Ox O2 Delivery O2 Flow Rate FiO2 03/30/17 11:00 97.9 71 18 119/64 (82) 95 Room Air 97.9 03/30/17 09:30 10.0 Physical Exam PHYSICAL EXAM GENERAL: in chiar, NAD LUNGS: Clear HEART: S1 and S2 ABD: Soft, NT EXT: No edema, no cyanosis. 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 bullous pemphigoid vs others Blisters feet bilat, recent new shoes. Clean without signs of infection. ? manifestation of eosinophilia. s/p excisional debridement of bilateral foot blisters of full thickness skin. Incisional biopsy of right medial foot biopsy, 03/29 Tinea Asymptomatic bacteruria - PSA Diabetes with neuropathy Allergy to Levaquin causing itching and Zosyn w/ questionable anaphylactic type reaction h/o MRSA & PSA Hypercalcemia - better Plan Plan of Care [place] steroids Evaluate ? new meds prior to admit as cause of Increased Eos Hold treatment for PSA in urine as clinically he is well and UA essentially neg Cont fluconazole Ceftin per Dr. Tran Monitor response l Attending Co-Sign The patient was seen and interviewed as well as examined at the bedside. The chart was reviewed. The case was discussed. Agree with the plan of care. CAROL NOLASCO APRN Mar 30, 2017 12:17 KAREN CHINO MD Mar 30, 2017 14:46
--- NOTE | 2017-03-30 13:40 | PDOC ---
PROGRESS NOTES Subjective Subjective feels better today Objective Objective Vital Signs Date Time Temp Pulse Resp B/P (MAP) Pulse Ox O2 Delivery O2 Flow Rate FiO2 03/30/17 11:00 97.9 71 18 119/64 (82) 95 Room Air 97.9 03/30/17 09:30 10.0 Physical Exam Abdomen: Soft, No tenderness Heart: Normal S1, Normal S2 Extremities: No clubbing, Other (large fluid blisters to right foot, some dried drainage) General: Alert, Oriented X3, Cooperative, No acute distress HEENT: PERRLA, Mucous membr. moist/pink Lungs: Clear to auscultation MUSCULOSKELETAL: No deformity, No swelling Neuro: Normal speech Psych/Mental Status: Mental status NL Skin: Other (rook boots on) COMMENT blisters both feet Assessment Assessment FINAL IMPRESSION: 1. Blisters on both feet, rule out bullous pemphigoid as a working diagnosis. 2. Diabetes. 3. History of spinal stenosis. 4. History of prostate cancer. 5. Chronic muscle spasms. 6. General debility and decline. PLAN:surgical consult to get skin biopsy 03/29/17 sadaf for pseudomonas uti. started on steroids after biopsy, suspect pemphigoid derm consult , but not able to see due to insurance ,not a provider x ray hip prosthesis in place pt want to see ortho for f/u hip surgery. snu screen, social service consult Problems: Comment Review of Relevant I have reviewed the following items aleksandar (where applicable) has been applied. Labs Laboratory Tests Test 03/29/17 13:57 03/29/17 16:38 03/29/17 20:43 03/30/17 07:37 Glucose (Fingerstick) 98 mg/dL (70-99) 111 mg/dL (70-99) 122 mg/dL (70-99) 150 mg/dL (70-99) Test 03/30/17 11:33 Glucose (Fingerstick) 131 mg/dL (70-99) Microbiology 03/25/17 Urine Culture - Final, Complete 03/25/17 Urine Culture Result 1 (FLAVIO) - Final, Complete 03/25/17 Urine Culture Result 2 (FLAVIO) - Final, Complete 03/25/17 Antimicrobic Susceptibility - Final, Complete Medications Current Medications Ondansetron HCl (Zofran) 4 mg STK-MED ONCE .ROUTE ; Start 03/29/17 at 13:39; Stop 03/29/17 at 13:40; Status DC Sodium Chloride (Normal Saline Flush) 3 ml QSHIFT PRN IV AFTER MEDS AND BLOOD DRAWS; Start 03/29/17 at 15:00 Vitals/I & O Vital Sign - Last 24 Hours 03/29/17 03/29/17 03/29/17 03/29/17 13:53 13:53 14:08 14:16 Temp 98.0 98.0 Pulse 61 64 67 Resp 18 18 B/P (MAP) 128/63 153/78 135/66 (89) Pulse Ox 100 100 98 O2 Delivery Simple Mask Mask Simple Mask Room Air O2 Flow Rate 10 10 10 03/29/17 03/29/17 03/29/17 03/29/17 14:23 14:26 14:31 14:38 Pulse 60 65 64 Resp 18 16 B/P (MAP) 149/65 145/65 (91) 150/76 Pulse Ox 96 98 96 O2 Delivery Room Air Room Air Room Air Room Air 03/29/17 03/29/17 03/29/17 03/29/17 14:46 16:05 19:00 20:21 Temp 98.2 98.2 Pulse 73 66 68 B/P (MAP) 158/115 (129) 149/84 142/79 (100) Pulse Ox 96 97 O2 Delivery Room Air Room Air Room Air 03/29/17 03/29/17 03/29/17 03/30/17 21:08 22:13 23:00 03:00 Temp 98.1 96.4 98.1 96.4 Pulse 61 67 Resp 16 18 B/P (MAP) 136/67 (90) 113/64 (80) Pulse Ox 98 99 O2 Delivery Room Air Room Air Room Air 03/30/17 03/30/17 03/30/17 03/30/17 07:00 07:30 08:06 08:07 Temp 96.4 96.4 Pulse 59 59 Resp 18 B/P (MAP) 137/74 (95) 137/74 Pulse Ox 98 O2 Delivery Room Air Room Air Room Air 03/30/17 03/30/17 09:30 11:00 Temp 97.9 97.9 Pulse 71 Resp 18 B/P (MAP) 119/64 (82) Pulse Ox 98 95 O2 Delivery Room Air Room Air O2 Flow Rate 10.0 SPRING BURGESS MD Mar 30, 2017 13:40
[2017-03-30 15:00] VITALS: BP 124/70
[2017-03-30] MEDS: ENOXAPARIN 40 MG/0.4 ML SYRINGE. SQ SCH (17:19)
--- NOTE | 2017-03-30 17:58 | PDOC ---
PROGRESS NOTES Subjective Subjective c/c - f/u of Eosinophilia. ROS - no fever Objective Objective Vital Signs Date Time Temp Pulse Resp B/P (MAP) Pulse Ox O2 Delivery O2 Flow Rate FiO2 03/30/17 16:07 Room Air 03/30/17 15:00 97.8 65 18 124/70 (88) 100 97.8 03/30/17 09:30 10.0 Intake and Output 03/31/17 07:00 Intake Total 350 ml Balance 350 ml Intake Oral 350 ml Physical Exam Heart: Normal S1, Normal S2 General: Alert, Oriented X3 Lungs: Clear to auscultation Assessment Assessment IMPRESSION AND PLAN: 1. Eosinophilia. 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 Review of the prior records indicates that he his eosinophilia was first noted on 10/31/2016 when it was 0.8. His eosinophil count prior to that have all been normal. I reviewed his records since 2013. Hence, this is suggestive of a reactive process other than a primary bone marrow disorder. In addition, his WBC count and platelet counts are normal. He has anemia, which is thought to be due to chronic disease. I discussed with Dr. Tran and Dr. Jeremias Chaudhary. I recommended Dermatology consultation for further evaluation.Monitor cbc. s/p skin bx 03.29.17. (Excisional debridement of bilateral foot blisters of full thickness skin. Incisional biopsy of right medial foot) If non-diagnostic, then may need bone marrow bx. Eosinophila worse at 5.4 on 03/29/17, monitor. 2. Anemia due to chronic disease. Continue to monitor hemoglobin. His iron studies are suggestive of anemia of chronic disease. B12 and folate are elevated. 3. Skin lesions. Comment Review of Relevant I have reviewed the following items aleksandar (where applicable) has been applied. Labs Laboratory Tests Test 03/28/17 20:59 03/29/17 04:18 03/29/17 07:34 03/29/17 11:23 Glucose (Fingerstick) 96 mg/dL (70-99) 93 mg/dL (70-99) 93 mg/dL (70-99) White Blood Count 11.5 x10^3/uL (4.0-11.0) Red Blood Count 3.04 x10^6/uL (4.30-5.70) Hemoglobin 9.6 g/dL (13.0-17.5) Hematocrit 28.9 % (39.0-53.0) Mean Corpuscular Volume 95 fL (79-100) Mean Corpuscular Hemoglobin 32 pg (25-35) Mean Corpuscular Hemoglobin Concent 33 g/dL (31-37) Red Cell Distribution Width 12.5 % (11.5-14.5) Platelet Count 238 x10^3/uL (140-400) Neutrophils (%) (Auto) 32 % (31-73) Lymphocytes (%) (Auto) 15 % (24-48) Monocytes (%) (Auto) 5 % (0-9) Eosinophils (%) (Auto) 47 % (0-3) Basophils (%) (Auto) 1 % (0-3) Neutrophils # (Auto) 3.7 x10^3uL (1.8-7.7) Lymphocytes # (Auto) 1.7 x10^3/uL (1.0-4.8) Monocytes # (Auto) 0.6 x10^3/uL (0.0-1.1) Eosinophils # (Auto) 5.4 x10^3/uL (0.0-0.7) Basophils # (Auto) 0.1 x10^3/uL (0.0-0.2) Test 03/29/17 13:57 03/29/17 16:38 03/29/17 20:43 03/30/17 07:37 Glucose (Fingerstick) 98 mg/dL (70-99) 111 mg/dL (70-99) 122 mg/dL (70-99) 150 mg/dL (70-99) Test 03/30/17 11:33 03/30/17 16:58 Glucose (Fingerstick) 131 mg/dL (70-99) 127 mg/dL (70-99) Laboratory Tests Test 03/29/17 20:43 03/30/17 07:37 03/30/17 11:33 03/30/17 16:58 Glucose (Fingerstick) 122 mg/dL (70-99) 150 mg/dL (70-99) 131 mg/dL (70-99) 127 mg/dL (70-99) Microbiology 03/25/17 Urine Culture - Final, Complete 03/25/17 Urine Culture Result 1 (FLAVIO) - Final, Complete 03/25/17 Urine Culture Result 2 (FLAVIO) - Final, Complete 03/25/17 Antimicrobic Susceptibility - Final, Complete Medications Current Medications Aspirin (Children'S Aspirin) 81 mg DAILY PO Last administered on 03/30/17 08: 07; Start 03/26/17 at 09:00 Baclofen (Lioresal) 15 mg TID@0800,1200,1700 PO Last administered on 03/30/17 17:14; Start 03/25/17 at 18:00 Diclofenac Sodium (Voltaren) 1 kiet TID TP Last administered on 03/30/17 13:54 ; Start 03/25/17 at 21:00 Diphenhydramine HCl (Benadryl) 25 mg PRN TID PRN PO ITCHING Last administered on 03/30/17 17:17; Start 03/25/17 at 17:45 Lisinopril (Prinivil) 10 mg DAILY PO Last administered on 03/30/17 08:07; Start 03/26/17 at 09:00 Metformin HCl (Glucophage) 1,000 mg BIDWMEALS PO Last administered on 17:15; Start 03/25/17 at 18:00 Oxycodone/ Acetaminophen (Percocet 10/325) 1 tab PRN Q4HRS PRN PO severe pain Last administered on 03/30/17 13:58; Start 03/25/17 at 17:45 Pantoprazole Sodium (Protonix) 40 mg DAILYAC PO Last administered on 03/30/17 08:07; Start 03/26/17 at 07:30 Tamsulosin HCl (Flomax) 0.4 mg BID PO Last administered on 03/30/17 08:08; Start 03/25/17 at 21:00 Non-Formulary Medication 70 mg weekly on saturday PO ; Start 03/25/17 at 17:45; Stop 03/25/17 at 17:47; Status DC Baclofen (Lioresal) 20 mg QHS PO Last administered on 03/29/17 21:00; Start at 21:00 Gabapentin (Neurontin) 600 mg TID PO Last administered on 03/30/17 13:54; Start 03/25/17 at 21:00 Vitamin B Complex (Folbic Tablet) 1 tab BID PO Last administered on 03/30/17 08:07; Start 03/25/17 at 21:00 Tizanidine HCl (Zanaflex) 12 mg PRN QHS PRN PO MUSCLE SPASMS Last administered on 03/29/17 21:04; Start 03/25/17 at 18:00 Polyethylene Glycol (miraLAX PACKET) 17 gm BID PO Last administered on 08:06; Start 03/25/17 at 21:00 Insulin Aspart (NovoLOG) 0-7 UNITS TIDWMEALS SQ ; Start 03/26/17 at 12:00 Dextrose (Dextrose 50%-Water Syringe) 12.5 gm PRN Q15MIN PRN IV SEE COMMENTS; Start 03/26/17 at 10:30 Enoxaparin Sodium (Lovenox 40mg Syringe) 40 mg DAILY16 SQ Last administered on 03/30/17 17:19; Start 03/26/17 at 16:00 Fluconazole (Diflucan) 100 mg DAILY PO Last administered on 03/30/17 08:07; Start 03/26/17 at 13:30 Cefpodoxime Proxetil (Vantin) 200 mg BID PO Last administered on 03/30/17 08: 06; Start 03/27/17 at 11:00 Lidocaine HCl (Xylocaine 2% Topical 30gm Tube) 1 kiet 1X ONCE TP ; Start at 10:30; Stop 03/28/17 at 10:31; Status DC Lidocaine HCl (Xylocaine 2% Topical 5gm Tube) 1 kiet 1X ONCE TP Last administered on 03/28/17 14:13; Start 03/28/17 at 10:45; Stop 03/28/17 at 10:46 ; Status DC Morphine Sulfate 1 mg PRN Q10MIN PRN IV SEVERE PAIN; Start 03/29/17 at 07:00; Stop 03/30/17 at 06:59; Status DC Ringer's Solution 1,000 ml @ 30 mls/hr Q24H IV Last administered on 03/29/17 12:35; Start 03/29/17 at 07:00; Stop 03/29/17 at 18:59; Status DC Lidocaine HCl 2 ml PRN 1X PRN ID PRIOR TO IV START; Start 03/29/17 at 07:00; Stop 03/30/17 at 06:59; Status DC Hydromorphone HCl (Dilaudid) 0.5 mg PRN Q10MIN PRN IV SEV PAIN, Second choice; Start 03/29/17 at 07:00; Stop 03/30/17 at 06:59; Status DC Prochlorperazine Edisylate (Compazine) 5 mg PACU PRN PRN IV NAUSEA, MRX1; Start 03/29/17 at 07:00; Stop 03/30/17 at 06:59; Status DC Methylprednisolone Sodium Succinate (SOLU-Medrol 125MG VIAL) 60 mg Q8HRS IV Last administered on 03/30/17t 13:53; Start 03/29/17 at 12:00 Bupivacaine HCl/ Epinephrine Bitart (Sensorcain-Mpf Epi 0.5%-1:827550) 10 ml STK -MED ONCE .ROUTE Last administered on 03/29/17 13:37; Start 03/29/17 at 12:15 ; Stop 03/29/17 at 12:16; Status DC Propofol 20 ml @ As Directed STK-MED ONCE IV ; Start 03/29/17 at 13:26; Stop at 13:27; Status DC Lidocaine HCl (Lidocaine Pf 2% Vial) 5 ml STK-MED ONCE .ROUTE ; Start 03/29/17 at 13:26; Stop 03/29/17 at 13:27; Status DC Sevoflurane (Ultane) 15 ml STK-MED ONCE IH ; Start 03/29/17 at 13:26; Stop 03/29 at 13:27; Status DC Ondansetron HCl (Zofran) 4 mg STK-MED ONCE .ROUTE ; Start 03/29/17 at 13:39; Stop 03/29/17 at 13:40; Status DC Sodium Chloride (Normal Saline Flush) 3 ml QSHIFT PRN IV AFTER MEDS AND BLOOD DRAWS; Start 03/29/17 at 15:00 Active Scripts Active Flomax (Tamsulosin Hcl) 0.4 Mg Cap.er.24h 1 Cap PO BID Augmentin 500-125 Tablet (Amoxicillin/Potassium Clav) 1 Each Tablet 1 Tab PO BID Colace (Docusate Sodium) 100 Mg Capsule 100 Mg PO QHS [Polyethylene Glycol 3350] 17 GM Packet 17 Gm PO BID Neurontin (Gabapentin) 300 Mg Capsule 600 Mg PO TID Aspirin 81 Mg Tab.chew 81 Mg PO DAILY Reported Benadryl (Diphenhydramine Hcl) 25 Mg Capsule 1 Cap PO PRN PRN Metanx Capsule (Levomefolate/B6/B12/Algal Oil) 1 Each Capsule 1 Each PO BID Pantoprazole Sodium 40 Mg Tablet.dr 1 Tab PO DAILY Voltaren (Diclofenac Sodium) 100 Gm Gel..gram. 1 Gm TP TID Baclofen 10 Mg Tablet 15 Mg PO TID Zanaflex (Tizanidine Hcl) 6 Mg Capsule 12 Mg PO HS PRN Fosamax (Alendronate Sodium) 70 Mg Tablet 70 Mg PO WEEKLY ON SATURDAY Oxycodone-Acetaminophen 10-325 (Oxycodone Hcl/Acetaminophen) 1 Each Tablet 1 Each PO PRN Q4HRS PRN Baclofen 20 Mg Tablet 20 Mg PO HS Lisinopril 10 Mg Tablet 10 Mg PO DAILY Metformin Hcl 1,000 Mg Tablet 1,000 Mg PO BID Vitals/I & O Vital Sign - Last 24 Hours 03/29/17 03/29/17 03/29/17 03/29/17 19:00 20:21 21:08 22:13 Temp 98.2 98.2 Pulse 68 Resp 16 18 B/P (MAP) 142/79 (100) Pulse Ox 97 O2 Delivery Room Air Room Air Room Air 03/29/17 03/30/17 03/30/17 03/30/17 23:00 03:00 07:00 07:30 Temp 98.1 96.4 96.4 98.1 96.4 96.4 Pulse 61 67 59 Resp 18 B/P (MAP) 136/67 (90) 113/64 (80) 137/74 (95) Pulse Ox 98 99 98 O2 Delivery Room Air Room Air Room Air Room Air 03/30/17 03/30/17 03/30/17 03/30/17 08:06 08:07 09:30 11:00 Temp 97.9 97.9 Pulse 59 71 Resp 18 B/P (MAP) 137/74 119/64 (82) Pulse Ox 98 95 O2 Delivery Room Air Room Air O2 Flow Rate 10.0 03/30/17 03/30/17 03/30/17 13:58 15:00 16:07 Temp 97.8 97.8 Pulse 65 Resp 18 B/P (MAP) 124/70 (88) Pulse Ox 100 O2 Delivery Room Air Room Air Room Air Intake and Output 03/30/17 03/30/17 03/31/17 15:00 23:00 07:00 Intake Total 350 ml Balance 350 ml CARY RHODES MD Mar 30, 2017 17:58
[2017-03-30 19:00] VITALS: BP 144/66
[2017-03-30] MEDS: tiZANidine 4 MG TABLET. PO PRN (20:38)
[2017-03-30 23:00] VITALS: BP 137/75
[2017-03-31 03:00] VITALS: BP 132/68
[2017-03-31] MEDS: methylPREDNISolone SOD SUCC PF 125 MG/2 ML VIAL. IV SCH ×3 (05:02→20:57)
[2017-03-31 07:00] VITALS: BP 147/70
[2017-03-31] MEDS: INSULIN ASPART 300 UNITS/3 ML INSULN.PEN SQ SCH ×3 (08:00→16:49)
[2017-03-31] MEDS: POLYETHYLENE GLYCOL 3350 17 GM PACKET. PO SCH ×2 (09:18→20:57)
[2017-03-31] MEDS: DICLOFENAC SODIUM 1% TOPICAL GEL 100GM TUBE. TP SCH ×3 (09:18→20:57)
[2017-03-31] MEDS: PANTOPRAZOLE 40 MG TABLET.DR. PO SCH (09:18)
[2017-03-31] MEDS: BACLOFEN 10 MG TABLET. PO SCH ×4 (09:19→20:58)
[2017-03-31] MEDS: CEFPODOXIME PROXETIL 100 MG TABLET. PO SCH ×2 (09:19→20:57)
[2017-03-31] MEDS: TAMSULOSIN 0.4 MG CAP.ER.24H. PO SCH ×2 (09:19→20:57)
[2017-03-31] MEDS: GABAPENTIN 300 MG CAPSULE. PO SCH ×3 (09:19→20:58)
[2017-03-31] MEDS: FLUCONAZOLE 100 MG TABLET. PO SCH (09:19)
[2017-03-31] MEDS: oxyCODONE/APAP 10/325 1 TAB TABLET PO PRN ×3 (09:19→20:58)
[2017-03-31] MEDS: ASPIRIN CHEWABLE 81 MG TABLET. PO SCH (09:19)
[2017-03-31] MEDS: VITAMIN B12,B9,B6 COMPLEX 1 TABLET. PO SCH ×2 (09:19→20:58)
[2017-03-31] MEDS: LISINOPRIL 10 MG TABLET PO SCH (09:20)
[2017-03-31 11:00] VITALS: BP 121/62
[2017-03-31] MEDS: diphenhydrAMINE HCL 25 MG CAPSULE PO PRN (11:34)
--- NOTE | 2017-03-31 11:57 | PDOC ---
SURGICAL PROGRESS NOTE Subjective Pt resting comfortably cont wound care Vital Signs Vital Signs Date Time Temp Pulse Resp B/P (MAP) Pulse Ox O2 Delivery O2 Flow Rate FiO2 03/31/17 11:15 96 Room Air 10.0 03/31/17 09:20 60 147/70 03/31/17 07:00 97.9 18 97.9 Labs Laboratory Tests Test 03/29/17 13:57 03/29/17 16:38 03/29/17 20:43 03/30/17 07:37 Glucose (Fingerstick) 98 mg/dL (70-99) 111 mg/dL (70-99) 122 mg/dL (70-99) 150 mg/dL (70-99) Test 03/30/17 11:33 03/30/17 16:58 03/30/17 20:46 03/31/17 07:24 Glucose (Fingerstick) 131 mg/dL (70-99) 127 mg/dL (70-99) 144 mg/dL (70-99) 149 mg/dL (70-99) Laboratory Tests Test 03/30/17 16:58 03/30/17 20:46 03/31/17 07:24 Glucose (Fingerstick) 127 mg/dL (70-99) 144 mg/dL (70-99) 149 mg/dL (70-99) CARMELLA PAREDES MD Mar 31, 2017 11:57
--- NOTE | 2017-03-31 12:45 | PDOC ---
PROGRESS NOTES Subjective Subjective c/c - f/u of Eosinophilia Objective Objective Vital Signs Date Time Temp Pulse Resp B/P (MAP) Pulse Ox O2 Delivery O2 Flow Rate FiO2 03/31/17 11:15 96 Room Air 10.0 03/31/17 11:00 97.5 64 18 121/62 (81) 97.5 Physical Exam Heart: Normal S1, Normal S2 General: Alert, Oriented X3 Lungs: Clear to auscultation Assessment Assessment IMPRESSION AND PLAN: 1. Eosinophilia. 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 Review of the prior records indicates that he his eosinophilia was first noted on 10/31/2016 when it was 0.8. His eosinophil count prior to that have all been normal. I reviewed his records since 2013. Hence, this is suggestive of a reactive process rather than a primary bone marrow disorder. s/p skin bx 03.29.17. (Excisional debridement of bilateral foot blisters of full thickness skin. Incisional biopsy of right medial foot) If non-diagnostic, then may need bone marrow bx. Eosinophilia worse at 5.4 on 03/29/17, monitor. 2. Anemia due to chronic disease. Continue to monitor hemoglobin. His iron studies are suggestive of anemia of chronic disease. B12 and folate are elevated. 3. Skin lesions. Await bx results. Comment Review of Relevant I have reviewed the following items aleksandar (where applicable) has been applied. Labs Laboratory Tests Test 03/29/17 13:57 03/29/17 16:38 03/29/17 20:43 03/30/17 07:37 Glucose (Fingerstick) 98 mg/dL (70-99) 111 mg/dL (70-99) 122 mg/dL (70-99) 150 mg/dL (70-99) Test 03/30/17 11:33 03/30/17 16:58 03/30/17 20:46 03/31/17 07:24 Glucose (Fingerstick) 131 mg/dL (70-99) 127 mg/dL (70-99) 144 mg/dL (70-99) 149 mg/dL (70-99) Test 03/31/17 12:12 Glucose (Fingerstick) 173 mg/dL (70-99) Laboratory Tests Test 03/30/17 16:58 03/30/17 20:46 03/31/17 07:24 03/31/17 12:12 Glucose (Fingerstick) 127 mg/dL (70-99) 144 mg/dL (70-99) 149 mg/dL (70-99) 173 mg/dL (70-99) Microbiology 03/25/17 Urine Culture - Final, Complete 03/25/17 Urine Culture Result 1 (FLAVIO) - Final, Complete 03/25/17 Urine Culture Result 2 (FLAVIO) - Final, Complete 03/25/17 Antimicrobic Susceptibility - Final, Complete Medications Current Medications Aspirin (Children'S Aspirin) 81 mg DAILY PO Last administered on 03/31/17 09: 19; Start 03/26/17 at 09:00 Baclofen (Lioresal) 15 mg TID@0800,1200,1700 PO Last administered on 03/31/17 11:34; Start 03/25/17 at 18:00 Diclofenac Sodium (Voltaren) 1 kiet TID TP Last administered on 03/31/17 09:18 ; Start 03/25/17 at 21:00 Diphenhydramine HCl (Benadryl) 25 mg PRN TID PRN PO ITCHING Last administered on 03/31/17 11:34; Start 03/25/17 at 17:45 Lisinopril (Prinivil) 10 mg DAILY PO Last administered on 03/31/17 09:20; Start 03/26/17 at 09:00 Metformin HCl (Glucophage) 1,000 mg BIDWMEALS PO Last administered on 09:20; Start 03/25/17 at 18:00 Oxycodone/ Acetaminophen (Percocet 10/325) 1 tab PRN Q4HRS PRN PO severe pain Last administered on 03/31/17 09:19; Start 03/25/17 at 17:45 Pantoprazole Sodium (Protonix) 40 mg DAILYAC PO Last administered on 03/31/17 09:18; Start 03/26/17 at 07:30 Tamsulosin HCl (Flomax) 0.4 mg BID PO Last administered on 03/31/17 09:19; Start 03/25/17 at 21:00 Non-Formulary Medication 70 mg weekly on saturday PO ; Start 03/25/17 at 17:45; Stop 03/25/17 at 17:47; Status DC Baclofen (Lioresal) 20 mg QHS PO Last administered on 03/30/17 20:38; Start at 21:00 Gabapentin (Neurontin) 600 mg TID PO Last administered on 03/31/17 09:19; Start 03/25/17 at 21:00 Vitamin B Complex (Folbic Tablet) 1 tab BID PO Last administered on 03/31/17 09:19; Start 03/25/17 at 21:00 Tizanidine HCl (Zanaflex) 12 mg PRN QHS PRN PO MUSCLE SPASMS Last administered on 03/30/17 20:38; Start 03/25/17 at 18:00 Polyethylene Glycol (miraLAX PACKET) 17 gm BID PO Last administered on 09:18; Start 03/25/17 at 21:00 Insulin Aspart (NovoLOG) 0-7 UNITS TIDWMEALS SQ Last administered on 03/31/17 12:28; Start 03/26/17 at 12:00 Dextrose (Dextrose 50%-Water Syringe) 12.5 gm PRN Q15MIN PRN IV SEE COMMENTS; Start 03/26/17 at 10:30 Enoxaparin Sodium (Lovenox 40mg Syringe) 40 mg DAILY16 SQ Last administered on 03/30/17 17:19; Start 03/26/17 at 16:00 Fluconazole (Diflucan) 100 mg DAILY PO Last administered on 03/31/17 09:19; Start 03/26/17 at 13:30 Cefpodoxime Proxetil (Vantin) 200 mg BID PO Last administered on 03/31/17 09: 19; Start 03/27/17 at 11:00 Lidocaine HCl (Xylocaine 2% Topical 30gm Tube) 1 kiet 1X ONCE TP ; Start at 10:30; Stop 03/28/17 at 10:31; Status DC Lidocaine HCl (Xylocaine 2% Topical 5gm Tube) 1 kiet 1X ONCE TP Last administered on 03/28/17 14:13; Start 03/28/17 at 10:45; Stop 03/28/17 at 10:46 ; Status DC Morphine Sulfate 1 mg PRN Q10MIN PRN IV SEVERE PAIN; Start 03/29/17 at 07:00; Stop 03/30/17 at 06:59; Status DC Ringer's Solution 1,000 ml @ 30 mls/hr Q24H IV Last administered on 03/29/17 12:35; Start 03/29/17 at 07:00; Stop 03/29/17 at 18:59; Status DC Lidocaine HCl 2 ml PRN 1X PRN ID PRIOR TO IV START; Start 03/29/17 at 07:00; Stop 03/30/17 at 06:59; Status DC Hydromorphone HCl (Dilaudid) 0.5 mg PRN Q10MIN PRN IV SEV PAIN, Second choice; Start 03/29/17 at 07:00; Stop 03/30/17 at 06:59; Status DC Prochlorperazine Edisylate (Compazine) 5 mg PACU PRN PRN IV NAUSEA, MRX1; Start 03/29/17 at 07:00; Stop 03/30/17 at 06:59; Status DC Methylprednisolone Sodium Succinate (SOLU-Medrol 125MG VIAL) 60 mg Q8HRS IV Last administered on 03/31/17 05:02; Start 03/29/17 at 12:00 Bupivacaine HCl/ Epinephrine Bitart (Sensorcain-Mpf Epi 0.5%-1:701878) 10 ml STK -MED ONCE .ROUTE Last administered on 03/29/17 13:37; Start 03/29/17 at 12:15 ; Stop 03/29/17 at 12:16; Status DC Propofol 20 ml @ As Directed STK-MED ONCE IV ; Start 03/29/17 at 13:26; Stop at 13:27; Status DC Lidocaine HCl (Lidocaine Pf 2% Vial) 5 ml STK-MED ONCE .ROUTE ; Start 03/29/17 at 13:26; Stop 03/29/17 at 13:27; Status DC Sevoflurane (Ultane) 15 ml STK-MED ONCE IH ; Start 03/29/17 at 13:26; Stop 03/29 at 13:27; Status DC Ondansetron HCl (Zofran) 4 mg STK-MED ONCE .ROUTE ; Start 03/29/17 at 13:39; Stop 03/29/17 at 13:40; Status DC Sodium Chloride (Normal Saline Flush) 3 ml QSHIFT PRN IV AFTER MEDS AND BLOOD DRAWS; Start 03/29/17 at 15:00 Active Scripts Active Flomax (Tamsulosin Hcl) 0.4 Mg Cap.er.24h 1 Cap PO BID Augmentin 500-125 Tablet (Amoxicillin/Potassium Clav) 1 Each Tablet 1 Tab PO BID Colace (Docusate Sodium) 100 Mg Capsule 100 Mg PO QHS [Polyethylene Glycol 3350] 17 GM Packet 17 Gm PO BID Neurontin (Gabapentin) 300 Mg Capsule 600 Mg PO TID Aspirin 81 Mg Tab.chew 81 Mg PO DAILY Reported Benadryl (Diphenhydramine Hcl) 25 Mg Capsule 1 Cap PO PRN PRN Metanx Capsule (Levomefolate/B6/B12/Algal Oil) 1 Each Capsule 1 Each PO BID Pantoprazole Sodium 40 Mg Tablet.dr 1 Tab PO DAILY Voltaren (Diclofenac Sodium) 100 Gm Gel..gram. 1 Gm TP TID Baclofen 10 Mg Tablet 15 Mg PO TID Zanaflex (Tizanidine Hcl) 6 Mg Capsule 12 Mg PO HS PRN Fosamax (Alendronate Sodium) 70 Mg Tablet 70 Mg PO WEEKLY ON SATURDAY Oxycodone-Acetaminophen 10-325 (Oxycodone Hcl/Acetaminophen) 1 Each Tablet 1 Each PO PRN Q4HRS PRN Baclofen 20 Mg Tablet 20 Mg PO HS Lisinopril 10 Mg Tablet 10 Mg PO DAILY Metformin Hcl 1,000 Mg Tablet 1,000 Mg PO BID Vitals/I & O Vital Sign - Last 24 Hours 03/30/17 03/30/17 03/30/17 03/30/17 13:58 15:00 19:00 19:00 Temp 97.8 99.3 97.8 99.3 Pulse 65 74 Resp 18 18 B/P (MAP) 124/70 (88) 144/66 (92) Pulse Ox 100 97 O2 Delivery Room Air Room Air Room Air Room Air 03/30/17 03/30/17 03/31/17 03/31/17 20:39 23:00 03:00 07:00 Temp 96.8 97.7 97.9 96.8 97.7 97.9 Pulse 65 71 60 Resp 20 18 18 18 B/P (MAP) 137/75 (95) 132/68 (89) 147/70 (95) Pulse Ox 97 96 97 96 O2 Delivery Room Air Room Air Room Air Room Air 03/31/17 03/31/17 03/31/17 03/31/17 08:00 09:19 09:20 11:00 Temp 97.5 97.5 Pulse 60 64 Resp 18 B/P (MAP) 147/70 121/62 (81) Pulse Ox 96 98 O2 Delivery Room Air Room Air Room Air O2 Flow Rate 10.0 10.0 03/31/17 11:15 Pulse Ox 96 O2 Delivery Room Air O2 Flow Rate 10.0 CARY RHODES MD Mar 31, 2017 12:45
--- NOTE | 2017-03-31 13:57 | PDOC ---
PROGRESS NOTES Subjective Subjective c/o itching and anxiety Objective Objective Vital Signs Date Time Temp Pulse Resp B/P (MAP) Pulse Ox O2 Delivery O2 Flow Rate FiO2 03/31/17 13:35 96 Room Air 10.0 03/31/17 11:00 97.5 64 18 121/62 (81) 97.5 Physical Exam Abdomen: Soft, No tenderness Heart: Normal S1, Normal S2 Extremities: No clubbing, Other (large fluid blisters to right foot, some dried drainage) General: Alert, Oriented X3 HEENT: PERRLA, Mucous membr. moist/pink Lungs: Clear to auscultation MUSCULOSKELETAL: No deformity, No swelling Neuro: Normal speech Psych/Mental Status: Mental status NL Skin: Other (rook boots on) COMMENT blisters both feet Assessment Assessment FINAL IMPRESSION: 1. Blisters on both feet, rule out bullous pemphigoid as a working diagnosis, skin biopsy done. 2. Diabetes. 3. History of spinal stenosis. 4. History of prostate cancer. 5. Chronic muscle spasms. 6. General debility and decline. 7. Eosinophilia 8. UTI PLAN:discharge plans for tomorrow. surgical consult to get skin biopsy 03/29/17 sadaf for pseudomonas uti. started on steroids after biopsy, suspect pemphigoid derm consult , but not able to see due to insurance ,not a provider x ray hip prosthesis in place pt want to see ortho for f/u hip surgery. ?snu screen, social service consult Problems: Comment Review of Relevant I have reviewed the following items aleksandar (where applicable) has been applied. Labs Laboratory Tests Test 03/30/17 16:58 03/30/17 20:46 03/31/17 07:24 03/31/17 12:12 Glucose (Fingerstick) 127 mg/dL (70-99) 144 mg/dL (70-99) 149 mg/dL (70-99) 173 mg/dL (70-99) Microbiology 03/25/17 Urine Culture - Final, Complete 03/25/17 Urine Culture Result 1 (FLAVIO) - Final, Complete 03/25/17 Urine Culture Result 2 (FLAVIO) - Final, Complete 03/25/17 Antimicrobic Susceptibility - Final, Complete Vitals/I & O Vital Sign - Last 24 Hours 03/30/17 03/30/17 03/30/17 03/30/17 13:58 15:00 19:00 19:00 Temp 97.8 99.3 97.8 99.3 Pulse 65 74 Resp 18 18 B/P (MAP) 124/70 (88) 144/66 (92) Pulse Ox 100 97 O2 Delivery Room Air Room Air Room Air Room Air 03/30/17 03/30/17 03/31/17 03/31/17 20:39 23:00 03:00 07:00 Temp 96.8 97.7 97.9 96.8 97.7 97.9 Pulse 65 71 60 Resp 20 18 18 18 B/P (MAP) 137/75 (95) 132/68 (89) 147/70 (95) Pulse Ox 97 96 97 96 O2 Delivery Room Air Room Air Room Air Room Air 03/31/17 03/31/17 03/31/17 03/31/17 08:00 09:19 09:20 11:00 Temp 97.5 97.5 Pulse 60 64 Resp 18 B/P (MAP) 147/70 121/62 (81) Pulse Ox 96 98 O2 Delivery Room Air Room Air Room Air O2 Flow Rate 10.0 10.0 03/31/17 03/31/17 11:15 13:35 Pulse Ox 96 96 O2 Delivery Room Air Room Air O2 Flow Rate 10.0 10.0 SPRING BURGESS MD Mar 31, 2017 13:57
[2017-03-31] MEDS ORDERED: TRIAMCINOLONE ACETONIDE 0.1% TOPICAL CREAM 15GM TUBE. TP SCH (14:00)
[2017-03-31 15:00] VITALS: BP 137/68
[2017-03-31] MEDS: TRIAMCINOLONE ACETONIDE 0.1% TOPICAL OINTMENT 15GM TUBE. TP SCH ×2 (15:12→20:57)
[2017-03-31] MEDS: ENOXAPARIN 40 MG/0.4 ML SYRINGE. SQ SCH (16:49)
[2017-03-31 19:00] VITALS: BP 164/77
[2017-03-31] MEDS: tiZANidine 4 MG TABLET. PO PRN (20:57)
[2017-03-31] MEDS: hydrOXYzine 10 MG TABLET PO PRN (20:57)
[2017-03-31 23:00] VITALS: BP 164/96
[2017-04-01 03:00] VITALS: BP 144/76
[2017-04-01 07:00] VITALS: BP 156/78
[2017-04-01] MEDS: INSULIN ASPART 300 UNITS/3 ML INSULN.PEN SQ SCH (08:00)
[2017-04-01] MEDS: TAMSULOSIN 0.4 MG CAP.ER.24H. PO SCH (08:40)
[2017-04-01] MEDS: CEFPODOXIME PROXETIL 100 MG TABLET. PO SCH (08:40)
[2017-04-01] MEDS: FLUCONAZOLE 100 MG TABLET. PO SCH (08:41)
[2017-04-01] MEDS: BACLOFEN 10 MG TABLET. PO SCH (08:41)
[2017-04-01] MEDS: GABAPENTIN 300 MG CAPSULE. PO SCH (08:41)
[2017-04-01] MEDS: PANTOPRAZOLE 40 MG TABLET.DR. PO SCH (08:43)
[2017-04-01] MEDS: oxyCODONE/APAP 10/325 1 TAB TABLET PO PRN (08:43)
[2017-04-01] MEDS: VITAMIN B12,B9,B6 COMPLEX 1 TABLET. PO SCH (08:43)
[2017-04-01] MEDS: ASPIRIN CHEWABLE 81 MG TABLET. PO SCH (08:43)
[2017-04-01 08:44] VITALS: BP 156/78
[2017-04-01] MEDS: LISINOPRIL 10 MG TABLET PO SCH (08:44)
[2017-04-01] MEDS: POLYETHYLENE GLYCOL 3350 17 GM PACKET. PO SCH (08:47)
[2017-04-01] MEDS: hydrOXYzine 10 MG TABLET PO PRN (08:48)
[2017-04-01] MEDS: TRIAMCINOLONE ACETONIDE 0.1% TOPICAL OINTMENT 15GM TUBE. TP SCH (08:49)
[2017-04-01] MEDS: DICLOFENAC SODIUM 1% TOPICAL GEL 100GM TUBE. TP SCH (08:50)
[2017-04-01] MEDS: methylPREDNISolone SOD SUCC PF 125 MG/2 ML VIAL. IV SCH (08:57)
--- NOTE | 2017-04-01 09:03 | PDOC ---
Infectious Disease Note Subjective Subjective feeling good, ready to go home says ROS ROS GEN: Denies fevers, chills, sweats HEENT: Denies blurred vision, sore throat CV: Denies chest pain RESP: Denies shortness of air, cough GI: Denies n/v/d NEURO: Denies confusion, dizziness MSK: Denies weakness, joint pain/swelling Vital Sign Vital Signs Vital Signs Date Time Temp Pulse Resp B/P (MAP) Pulse Ox O2 Delivery O2 Flow Rate FiO2 04/01/17 08:44 65 156/78 04/01/17 08:43 98 Room Air 04/01/17 07:00 97.4 18 97.4 03/31/17 15:12 10.0 Physical Exam PHYSICAL EXAM GENERAL: NAD, Alert HEENT: PERRL, OC/OP NECK: Supple, no JVD, no LN LUNGS: Clear HEART: S1S2, no gallop, no murmur ABD: Soft, NT, no organomegaly, no rebound EXT: No edema, no cyanosis 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 bullous pemphigoid vs others Blisters feet bilat, recent new shoes. Clean without signs of infection. ? manifestation of eosinophilia. s/p excisional debridement of bilateral foot blisters of full thickness skin. Incisional biopsy of right medial foot biopsy, 03/29 Tinea Asymptomatic bacteruria - PSA Diabetes with neuropathy Allergy to Levaquin causing itching and Zosyn w/ questionable anaphylactic type reaction h/o MRSA & PSA Hypercalcemia - better Plan Plan of Care [place] steroids Evaluate ? new meds prior to admit as cause of Increased Eos Hold treatment for PSA in urine as clinically he is well and UA essentially neg Cont fluconazole Ceftin per Dr. Tarn Monitor response d/c KAREN Clements MD Apr 01, 2017 09:03
--- NOTE | 2017-04-01 09:19 | PDOC ---
PROGRESS NOTES Subjective Subjective c/c -f/u of Eosinophilia ROS - no fever Objective Objective Vital Signs Date Time Temp Pulse Resp B/P (MAP) Pulse Ox O2 Delivery O2 Flow Rate FiO2 04/01/17 08:44 65 156/78 04/01/17 08:43 98 Room Air 04/01/17 07:00 97.4 18 97.4 03/31/17 15:12 10.0 Intake and Output 04/02/17 07:00 Intake Total 500 ml Output Total 500 ml Balance 0 ml Intake Oral 500 ml Output Urine Total 500 ml Physical Exam Heart: Normal S1, Normal S2 General: Alert, Oriented X3 Lungs: Clear to auscultation Assessment Assessment IMPRESSION AND PLAN: 1. Eosinophilia. 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 Review of the prior records indicates that he his eosinophilia was first noted on 10/31/2016 when it was 0.8. His eosinophil count prior to that have all been normal. I reviewed his records since 2013. Hence, this is suggestive of a reactive process rather than a primary bone marrow disorder. s/p skin bx .. (Excisional debridement of bilateral foot blisters of full thickness skin. Incisional biopsy of right medial foot) If non-diagnostic, then may need bone marrow bx. Eosinophilia worse at 5.4 on 03/29/17, monitor. 2. Anemia due to chronic disease. Continue to monitor hemoglobin. His iron studies are suggestive of anemia of chronic disease. B12 and folate are elevated. Hb 9.6 3. Skin lesions. Await bx results. I d/w RN Comment Review of Relevant I have reviewed the following items aleksandar (where applicable) has been applied. Labs Laboratory Tests Test 03/30/17 11:33 03/30/17 16:58 03/30/17 20:46 03/31/17 07:24 Glucose (Fingerstick) 131 mg/dL (70-99) 127 mg/dL (70-99) 144 mg/dL (70-99) 149 mg/dL (70-99) Test 03/31/17 12:12 03/31/17 16:16 03/31/17 20:35 04/01/17 08:01 Glucose (Fingerstick) 173 mg/dL (70-99) 82 mg/dL (70-99) 139 mg/dL (70-99) 123 mg/dL (70-99) Laboratory Tests Test 03/31/17 12:12 03/31/17 16:16 03/31/17 20:35 04/01/17 08:01 Glucose (Fingerstick) 173 mg/dL (70-99) 82 mg/dL (70-99) 139 mg/dL (70-99) 123 mg/dL (70-99) Microbiology 03/25/17 Urine Culture - Final, Complete 03/25/17 Urine Culture Result 1 (FLAVIO) - Final, Complete 03/25/17 Urine Culture Result 2 (FLAVIO) - Final, Complete 03/25/17 Antimicrobic Susceptibility - Final, Complete Medications Current Medications Aspirin (Children'S Aspirin) 81 mg DAILY PO Last administered on 04/01/17 08: 43; Start 03/26/17 at 09:00 Baclofen (Lioresal) 15 mg TID@0800,1200,1700 PO Last administered on 04/01/17 08:41; Start 03/25/17 at 18:00 Diclofenac Sodium (Voltaren) 1 kiet TID TP Last administered on 04/01/17 08:50 ; Start 03/25/17 at 21:00 Diphenhydramine HCl (Benadryl) 25 mg PRN TID PRN PO ITCHING Last administered on 03/31/17 11:34; Start 03/25/17 at 17:45 Lisinopril (Prinivil) 10 mg DAILY PO Last administered on 04/01/17 08:44; Start 03/26/17 at 09:00 Metformin HCl (Glucophage) 1,000 mg BIDWMEALS PO Last administered on 08:42; Start 03/25/17 at 18:00 Oxycodone/ Acetaminophen (Percocet 10/325) 1 tab PRN Q4HRS PRN PO severe pain Last administered on 04/01/17 08:43; Start 03/25/17 at 17:45 Pantoprazole Sodium (Protonix) 40 mg DAILYAC PO Last administered on 04/01/17 08:43; Start 03/26/17 at 07:30 Tamsulosin HCl (Flomax) 0.4 mg BID PO Last administered on 04/01/17 08:40; Start 03/25/17 at 21:00 Non-Formulary Medication 70 mg weekly on saturday PO ; Start 03/25/17 at 17:45; Stop 03/25/17 at 17:47; Status DC Baclofen (Lioresal) 20 mg QHS PO Last administered on 03/31/17 20:58; Start at 21:00 Gabapentin (Neurontin) 600 mg TID PO Last administered on 04/01/17 08:41; Start 03/25/17 at 21:00 Vitamin B Complex (Folbic Tablet) 1 tab BID PO Last administered on 04/01/17 08:43; Start 03/25/17 at 21:00 Tizanidine HCl (Zanaflex) 12 mg PRN QHS PRN PO MUSCLE SPASMS Last administered on 03/31/17 20:57; Start 03/25/17 at 18:00 Polyethylene Glycol (miraLAX PACKET) 17 gm BID PO Last administered on 08:47; Start 03/25/17 at 21:00 Insulin Aspart (NovoLOG) 0-7 UNITS TIDWMEALS SQ Last administered on 03/31/17 12:28; Start 03/26/17 at 12:00 Dextrose (Dextrose 50%-Water Syringe) 12.5 gm PRN Q15MIN PRN IV SEE COMMENTS; Start 03/26/17 at 10:30 Enoxaparin Sodium (Lovenox 40mg Syringe) 40 mg DAILY16 SQ Last administered on 03/31/17 16:49; Start 03/26/17 at 16:00 Fluconazole (Diflucan) 100 mg DAILY PO Last administered on 04/01/17 08:41; Start 03/26/17 at 13:30 Cefpodoxime Proxetil (Vantin) 200 mg BID PO Last administered on 04/01/17 08: 40; Start 03/27/17 at 11:00 Lidocaine HCl (Xylocaine 2% Topical 30gm Tube) 1 kiet 1X ONCE TP ; Start at 10:30; Stop 03/28/17 at 10:31; Status DC Lidocaine HCl (Xylocaine 2% Topical 5gm Tube) 1 kiet 1X ONCE TP Last administered on 03/28/17 14:13; Start 03/28/17 at 10:45; Stop 03/28/17 at 10:46 ; Status DC Morphine Sulfate 1 mg PRN Q10MIN PRN IV SEVERE PAIN; Start 03/29/17 at 07:00; Stop 03/30/17 at 06:59; Status DC Ringer's Solution 1,000 ml @ 30 mls/hr Q24H IV Last administered on 03/29/17 12:35; Start 03/29/17 at 07:00; Stop 03/29/17 at 18:59; Status DC Lidocaine HCl 2 ml PRN 1X PRN ID PRIOR TO IV START; Start 03/29/17 at 07:00; Stop 03/30/17 at 06:59; Status DC Hydromorphone HCl (Dilaudid) 0.5 mg PRN Q10MIN PRN IV SEV PAIN, Second choice; Start 03/29/17 at 07:00; Stop 03/30/17 at 06:59; Status DC Prochlorperazine Edisylate (Compazine) 5 mg PACU PRN PRN IV NAUSEA, MRX1; Start 03/29/17 at 07:00; Stop 03/30/17 at 06:59; Status DC Methylprednisolone Sodium Succinate (SOLU-Medrol 125MG VIAL) 60 mg Q8HRS IV Last administered on 03/31/17 13:36; Start 03/29/17 at 12:00; Stop 03/31/17 at 13:54; Status DC Bupivacaine HCl/ Epinephrine Bitart (Sensorcain-Mpf Epi 0.5%-1:306887) 10 ml STK -MED ONCE .ROUTE Last administered on 03/29/17 13:37; Start 03/29/17 at 12:15 ; Stop 03/29/17 at 12:16; Status DC Propofol 20 ml @ As Directed STK-MED ONCE IV ; Start 03/29/17 at 13:26; Stop at 13:27; Status DC Lidocaine HCl (Lidocaine Pf 2% Vial) 5 ml STK-MED ONCE .ROUTE ; Start 03/29/17 at 13:26; Stop 03/29/17 at 13:27; Status DC Sevoflurane (Ultane) 15 ml STK-MED ONCE IH ; Start 03/29/17 at 13:26; Stop 03/29 at 13:27; Status DC Ondansetron HCl (Zofran) 4 mg STK-MED ONCE .ROUTE ; Start 03/29/17 at 13:39; Stop 03/29/17 at 13:40; Status DC Sodium Chloride (Normal Saline Flush) 3 ml QSHIFT PRN IV AFTER MEDS AND BLOOD DRAWS; Start 03/29/17 at 15:00 Methylprednisolone Sodium Succinate (SOLU-Medrol 125MG VIAL) 60 mg BID IV Last administered on 04/01/17 08:57; Start 03/31/17 at 21:00 Hydroxyzine HCl (Atarax) 10 mg PRN Q6HRS PRN PO ITCHING Last administered on 08:48; Start 03/31/17 at 14:00 Triamcinolone Acetonide (Kenalog) 1 kiet BID TP ; Start 03/31/17 at 14:00; Status Cancel Triamcinolone Acetonide (Kenalog) 1 kiet BID TP Last administered on 04/01/17 08:49; Start 03/31/17 at 14:30 Active Scripts Active Flomax (Tamsulosin Hcl) 0.4 Mg Cap.er.24h 1 Cap PO BID Augmentin 500-125 Tablet (Amoxicillin/Potassium Clav) 1 Each Tablet 1 Tab PO BID Colace (Docusate Sodium) 100 Mg Capsule 100 Mg PO QHS [Polyethylene Glycol 3350] 17 GM Packet 17 Gm PO BID Neurontin (Gabapentin) 300 Mg Capsule 600 Mg PO TID Aspirin 81 Mg Tab.chew 81 Mg PO DAILY Reported Benadryl (Diphenhydramine Hcl) 25 Mg Capsule 1 Cap PO PRN PRN Metanx Capsule (Levomefolate/B6/B12/Algal Oil) 1 Each Capsule 1 Each PO BID Pantoprazole Sodium 40 Mg Tablet.dr 1 Tab PO DAILY Voltaren (Diclofenac Sodium) 100 Gm Gel..gram. 1 Gm TP TID Baclofen 10 Mg Tablet 15 Mg PO TID Zanaflex (Tizanidine Hcl) 6 Mg Capsule 12 Mg PO HS PRN Fosamax (Alendronate Sodium) 70 Mg Tablet 70 Mg PO WEEKLY ON SATURDAY Oxycodone-Acetaminophen 10-325 (Oxycodone Hcl/Acetaminophen) 1 Each Tablet 1 Each PO PRN Q4HRS PRN Baclofen 20 Mg Tablet 20 Mg PO HS Lisinopril 10 Mg Tablet 10 Mg PO DAILY Metformin Hcl 1,000 Mg Tablet 1,000 Mg PO BID Vitals/I & O Vital Sign - Last 24 Hours 03/31/17 03/31/17 03/31/17 03/31/17 09:19 09:20 11:00 13:35 Temp 97.5 97.5 Pulse 60 64 Resp 18 B/P (MAP) 147/70 121/62 (81) Pulse Ox 96 98 96 O2 Delivery Room Air Room Air Room Air O2 Flow Rate 10.0 10.0 03/31/17 03/31/17 03/31/17 03/31/17 15:00 15:12 19:00 19:05 Temp 97.5 97.7 97.5 97.7 Pulse 58 79 Resp 18 18 B/P (MAP) 137/68 (91) 164/77 (106) Pulse Ox 98 96 O2 Delivery Room Air Room Air Room Air O2 Flow Rate 10.0 03/31/17 03/31/17 03/31/17 04/01/17 20:58 21:55 23:00 03:00 Temp 96.8 98.0 96.8 98.0 Pulse 65 60 Resp 18 17 18 B/P (MAP) 164/96 (118) 144/76 (98) Pulse Ox 96 96 95 98 O2 Delivery Room Air Room Air Room Air Room Air 04/01/17 04/01/17 04/01/17 07:00 08:43 08:44 Temp 97.4 97.4 Pulse 55 65 Resp 18 B/P (MAP) 156/78 (104) 156/78 Pulse Ox 97 98 O2 Delivery Room Air Room Air Intake and Output 04/01/17 04/01/17 04/02/17 15:00 23:00 07:00 Intake Total 500 ml Output Total 500 ml Balance 0 ml CARY RHODES MD Apr 01, 2017 09:19
--- NOTE | 2017-04-01 09:43 | PDOC ---
SURGICAL PROGRESS NOTE Subjective reports he is going home today Vital Signs Vital Signs Date Time Temp Pulse Resp B/P (MAP) Pulse Ox O2 Delivery O2 Flow Rate FiO2 04/01/17 08:44 65 156/78 04/01/17 08:43 98 Room Air 04/01/17 07:00 97.4 18 97.4 03/31/17 15:12 10.0 I&O Intake and Output 04/02/17 07:00 Intake Total 500 ml Output Total 500 ml Balance 0 ml Intake Oral 500 ml Output Urine Total 500 ml General: Alert, Oriented X3, Cooperative, No acute distress Skin: Other (right foot blister sites clean, left foot wrapped ) Labs Laboratory Tests Test 03/30/17 11:33 03/30/17 16:58 03/30/17 20:46 03/31/17 07:24 Glucose (Fingerstick) 131 mg/dL (70-99) 127 mg/dL (70-99) 144 mg/dL (70-99) 149 mg/dL (70-99) Test 03/31/17 12:12 03/31/17 16:16 03/31/17 20:35 04/01/17 08:01 Glucose (Fingerstick) 173 mg/dL (70-99) 82 mg/dL (70-99) 139 mg/dL (70-99) 123 mg/dL (70-99) Laboratory Tests Test 03/31/17 12:12 03/31/17 16:16 03/31/17 20:35 04/01/17 08:01 Glucose (Fingerstick) 173 mg/dL (70-99) 82 mg/dL (70-99) 139 mg/dL (70-99) 123 mg/dL (70-99) Problem List s/p debridement continue wound care Problems: KARLA CONNORS APRN Apr 01, 2017 09:43
--- NOTE | 2017-04-01 10:34 | PDOC ---
PROGRESS NOTES Subjective Subjective feeling better ,wounds improving Objective Objective Vital Signs Date Time Temp Pulse Resp B/P (MAP) Pulse Ox O2 Delivery O2 Flow Rate FiO2 04/01/17 09:46 Room Air 04/01/17 08:44 65 156/78 04/01/17 08:43 98 04/01/17 07:00 97.4 18 97.4 03/31/17 15:12 10.0 Intake and Output 04/02/17 07:00 Intake Total 500 ml Output Total 500 ml Balance 0 ml Intake Oral 500 ml Output Urine Total 500 ml Physical Exam Abdomen: Soft, No tenderness Heart: Normal S1, Normal S2 Extremities: No clubbing, Other (large fluid blisters to right foot, some dried drainage) General: Alert, Oriented X3, Cooperative, No acute distress HEENT: PERRLA, Mucous membr. moist/pink Lungs: Clear to auscultation MUSCULOSKELETAL: No deformity, No swelling Neuro: Normal speech Psych/Mental Status: Mental status NL Skin: Other (right foot blister sites clean, left foot wrapped ) COMMENT blisters both feet, resolving Assessment Assessment FINAL IMPRESSION: 1. Blisters on both feet, rule out bullous pemphigoid as a working diagnosis, skin biopsy done. 2. Diabetes. 3. History of spinal stenosis. 4. History of prostate cancer. 5. Chronic muscle spasms. 6. General debility and decline. 7. Eosinophilia 8. UTI PLAN:discharge home with home health. tapering doses of prednisone 40 mg x1 week ,20 mg 2nd week home with home health for pt/ot/dressing wound care Problems: Comment Review of Relevant I have reviewed the following items aleksandar (where applicable) has been applied. Labs Laboratory Tests Test 03/31/17 12:12 03/31/17 16:16 03/31/17 20:35 04/01/17 08:01 Glucose (Fingerstick) 173 mg/dL (70-99) 82 mg/dL (70-99) 139 mg/dL (70-99) 123 mg/dL (70-99) Microbiology 03/25/17 Urine Culture - Final, Complete 03/25/17 Urine Culture Result 1 (FLAVIO) - Final, Complete 03/25/17 Urine Culture Result 2 (FLAVIO) - Final, Complete 03/25/17 Antimicrobic Susceptibility - Final, Complete Medications Current Medications Hydroxyzine HCl (Atarax) 10 mg PRN Q6HRS PRN PO ITCHING Last administered on 08:48; Start 03/31/17 at 14:00 Methylprednisolone Sodium Succinate (SOLU-Medrol 125MG VIAL) 60 mg BID IV Last administered on 04/01/17 08:57; Start 03/31/17 at 21:00 Triamcinolone Acetonide (Kenalog) 1 kiet BID TP ; Start 03/31/17 at 14:00; Status Cancel Triamcinolone Acetonide (Kenalog) 1 kiet BID TP Last administered on 04/01/17 08:49; Start 03/31/17 at 14:30 Vitals/I & O Vital Sign - Last 24 Hours 03/31/17 03/31/17 03/31/17 03/31/17 11:00 13:35 15:00 15:12 Temp 97.5 97.5 97.5 97.5 Pulse 64 58 Resp 18 18 B/P (MAP) 121/62 (81) 137/68 (91) Pulse Ox 98 96 98 O2 Delivery Room Air Room Air Room Air O2 Flow Rate 10.0 10.0 03/31/17 03/31/17 03/31/17 03/31/17 19:00 19:05 20:58 21:55 Temp 97.7 97.7 Pulse 79 Resp 18 18 18 B/P (MAP) 164/77 (106) Pulse Ox 96 96 96 O2 Delivery Room Air Room Air Room Air 03/31/17 04/01/17 04/01/17 04/01/17 23:00 03:00 07:00 08:00 Temp 96.8 98.0 97.4 96.8 98.0 97.4 Pulse 65 60 55 Resp 17 18 18 B/P (MAP) 164/96 (118) 144/76 (98) 156/78 (104) Pulse Ox 95 98 97 O2 Delivery Room Air Room Air Room Air Room Air 04/01/17 04/01/17 04/01/17 08:43 08:44 09:46 Pulse 65 B/P (MAP) 156/78 Pulse Ox 98 O2 Delivery Room Air Room Air Intake and Output 04/01/17 04/01/17 04/02/17 15:00 23:00 07:00 Intake Total 500 ml Output Total 500 ml Balance 0 ml SPRING BURGESS MD Apr 01, 2017 10:34
--- NOTE | 2017-04-02 12:48 | PATHOLOGY ---
PATHOLOGY REPORT * * * * * * * * FINAL DIAGNOSIS: Skin fragments, designated "bilateral feet": - Subepidermal vesicular dermatitis with numerous eosinophils, fragmented (see comment). COMMENT: The histologic differential diagnosis for this fragmented biopsy includes a subepidermal vesicular dermatitis such as bullous pemphigoid versus a bullous drug eruption versus a bullous arthropod bite site versus a bullous allergic contact dermatitis. If clinically indicated, a biopsy for direct immunofluorescence should be considered to rule out an immunobullous disease such as bullous pemphigoid. Only one fragment shows dermis which does not show vascular damage. Please correlate clinically. (SAS:mgr; 04/02/2017) Special Stain: PAS-DF for fungus: negative REPORT ELECTRONICALLY SIGNED BY: Tiara Jenkins M.D., Dermatopathologist DATE/TIME: 04/02/2017 12:48 * * * * * * * * MICROSCOPIC DESCRIPTION: Multiple levels of multiple fragments of skin show overlying hyperkeratosis compatible with the acral location of the biopsy. Many of the fragments show complete necrosis of the underlying epidermis with exocytosis of inflammatory cells. There is a subepidermal vesicle filled with fibrin, neutrophils and numerous eosinophils. Viable, non-necrotic, epidermis shows irregular acanthosis with exocytosis of benign lymphocytes and eosinophils. The dermis which is available for review shows a superficial perivascular lymphohistiocytic inflammatory cell infiltrate with numerous eosinophils. A PAS-D stain for fungus, performed with an appropriate positive control, is negative. GROSS PATHOLOGY: The specimen is received in formalin, labeled "Can Sepulveda and bilateral feet blisters", are multiple irregular fragments of alexandre-white skin and the soft tissue the aggregate measures 5 x 3.5 x 0.5 cm, some fragments are lined by wu-white exudate. Auction Clerk sections in A1. (SWS; 03/29/2017) INITIAL CPT CODE(S): A; 07503, 94806 Professional services performed by [employer], [facility] [address]. Technical services performed by [employer] at [address] [place] [id number]. SPECIMEN(S) RECEIVED: A.Bilateral feet blisters CLINICAL HISTORY: Vascular disease PATIENT: CAN SEPULVEDA /AGE: 5 1940 (Age: 76) PATIENT #: [id number] ALT CASE #: SPECIMEN COLLECTION DATE: 03/29/2017 SPECIMEN RECEIVED DATE: 03/29/2017 [facility] - [address] [place] [address] - PHONE: [phone] * * * END OF REPORT * * *
== END 2017-04-01 13:54 | disposition home health service (06) | DRG 570 ==
LOC: ER 10:15 → 5 NORTH 13:00 → OBSVTOIN 03-26 10:24
PROVIDERS: ADMIT Internal Medicine; ATTEND Internal Medicine
PROC: 0HBNXZZ Excision of Left Foot Skin, External Approach (ICD-10-PCS; principal; 2017-03-27)
PROC: 0HBMXZX Excision of Right Foot Skin, External Approach, Diagnostic (ICD-10-PCS; 2017-03-27)
DX: L12.0 Bullous pemphigoid (principal); S72.002A Fracture of unspecified part of neck of left femur, initial encounter for closed fracture; E11.42 Type 2 diabetes mellitus with diabetic polyneuropathy; D72.1 Eosinophilia; E83.52 Hypercalcemia; E87.1 Hypo-osmolality and hyponatremia; N39.0 Urinary tract infection, site not specified; S90.822A Blister (nonthermal), left foot, initial encounter; B35.3 Tinea pedis; S90.821A Blister (nonthermal), right foot, initial encounter; J44.9 Chronic obstructive pulmonary disease, unspecified; D63.8 Anemia in other chronic diseases classified elsewhere; E03.9 Hypothyroidism, unspecified; F41.9 Anxiety disorder, unspecified; G89.29 Other chronic pain; M25.559 Pain in unspecified hip; I10 Essential (primary) hypertension; K21.9 Gastro-esophageal reflux disease without esophagitis; B96.5 Pseudomonas (aeruginosa) (mallei) (pseudomallei) as the cause of diseases classified elsewhere; R82.71 Bacteriuria; M62.838 Other muscle spasm; M48.00 Spinal stenosis, site unspecified; Z96.649 Presence of unspecified artificial hip joint; K59.00 Constipation, unspecified; L98.9 Disorder of the skin and subcutaneous tissue, unspecified; Z82.49 Family history of ischemic heart disease and other diseases of the circulatory system; Z85.038 Personal history of other malignant neoplasm of large intestine; Z83.3 Family history of diabetes mellitus; Z85.46 Personal history of malignant neoplasm of prostate; Z86.14 Personal history of Methicillin resistant Staphylococcus aureus infection; Z88.1 Allergy status to other antibiotic agents; Z99.3 Dependence on wheelchair; Z87.01 Personal history of pneumonia (recurrent); Z88.8 Allergy status to other drugs, medicaments and biological substances; X58.XXXA Exposure to other specified factors, initial encounter; Y93.89 Activity, other specified; Y92.89 Other specified places as the place of occurrence of the external cause; Y99.8 Other external cause status
CPT/HCPCS: 36415; 73501; 73630; 80048; 80053; 81001; 82607; 82728; 82746; 82784; 82962; 83540; 83550; 83735; 84100; 85007; 85025; 86140; 87086; 87186; 88305; 88312; C1769; G0378; G0379; J1650; J1815; J2405; J2704; J2930; J3490; J7120; Q0163; 97110; 97116; 97530; 97535; 99285-25; J2001

== ENCOUNTER → 2017-05-24 | Outpatient (CLI) | payer BC ==
[2017-05-20 11:00] VITALS: BP 137/90
[~2017-05-24] MED LIST changes: +DIPH25CA58 PO
[2017-05-24 15:47] LABS: INR 2.2 (0.8-1.1); PROTHROMBIN TIME PATIENT 23.2 SEC (11.7-14.0)
== END | disposition home or self-care (01) ==
LOC: SPEC 15:27
PROVIDERS: ATTEND Internal Medicine
DX: I10 Essential (primary) hypertension (principal); E03.9 Hypothyroidism, unspecified; E11.44 Type 2 diabetes mellitus with diabetic amyotrophy
CPT/HCPCS: 36415; 85610

== ENCOUNTER 2018-05-14 10:12 | Emergency (ER) | payer BC ==
[~2018-05-14] VITALS: Ht 179.1 cm; Wt 79.4 kg
[~2018-05-14 10:12] MED LIST changes: -BICA50TA4 PO; +BICA50TA47 PO; -METF-620 PO; +METF10007 PO; +OXYC-411 PO; -OXYC1TAB9 PO; +POLY119P4 PO; +POTA10TA12 PO; -POTASSIUM CHLO10 MEQ PO
[2018-05-14] MEDS ORDERED: IV NORMAL SALINE 1000ML BAG 1,000 ML IV SCH (10:47)
--- NOTE | 2018-05-14 11:06 | EKG ---
[facility] [address] [place] [address] Test Date: 2018-05-14 Test Time: 10:58:06 Pat Name: GREG ORTIZ Department: Room: Gender: M Greens Picker: : [phone] Requested By: BRANDI MCPHERSON Order Number: [id number] Reading MD: Dwayne Saenz Measurements Intervals [place] Rate: 94 P: 47 MD: 118 QRS: 39 QRSD: 72 T: 59 QT: 348 QTc: 441 Interpretive Statements SINUS RHYTHM NORMAL ECG Electronically Signed On 05-16-2018 10:33:39 CDT by Dwayne Saenz
[2018-05-14 11:29] LABS: BASO # 0.1 x10^3/uL (0.0-0.2); BASO % 1 % (0-3); EOS # 0.3 x10^3/uL (0.0-0.7); EOS % 3 % (0-3); HEMOGLOBIN 9.7 g/dL (13.0-17.5); LYMPH # 1.1 x10^3/uL (1.0-4.8); LYMPH % 10 % (24-48); MEAN CORPUSCULAR HEMOGLOBIN 31 pg (25-35); MEAN CORPUSCULAR HGB CONC 34 g/dL (31-37); MEAN CORPUSCULAR VOLUME 93 fL (79-100); MONO % 9 % (0-9); NEUT # 8.2 x10^3uL (1.8-7.7); NEUT % 77 % (31-73); PLATELET COUNT 291 x10^3/uL (140-400); RED BLOOD COUNT 3.11 x10^6/uL (4.30-5.70); RED CELL DISTRIBUTION WIDTH 14.8 % (11.5-14.5); WHITE BLOOD COUNT 10.7 x10^3/uL (4.0-11.0)
[2018-05-14 11:42] LABS: PROTHROMBIN TIME PATIENT 13.7 SEC (11.7-14.0)
[2018-05-14 11:43] LABS: CREATININE 1.4 mg/dL (0.7-1.3); GFR 59.5; POTASSIUM 4.3 mmol/L (3.5-5.1)
[2018-05-14 11:49] LABS: ALBUMIN/GLOBULIN RATIO 0.6 (1.0-1.7); TOTAL BILIRUBIN 0.5 mg/dL (0.2-1.0); TOTAL PROTEIN 8.1 g/dL (6.4-8.2)
[2018-05-14] MEDS ORDERED: IV NORMAL SALINE 1000ML BAG 1,000 ML IV ONE (12:15)
--- NOTE | 2018-05-14 13:07 | RAD ---
CT of the head without contrast, 05/14/2018: HISTORY: Altered mental status Comparison is made to a study from 04/07/2018. There is mild cerebral atrophy. There is a small unchanged lucency in the right frontal lobe compatible with an old infarct. The ventricles are within normal limits in size. There is no shift of the midline structures. There is no evidence of acute intracranial hemorrhage or mass effect. IMPRESSION: 1. 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 2. No acute intracranial abnormality is detected. Electronically signed by: Dorian Grant MD (05/14/2018 1:04 PM) [facility]
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
[2018-05-14 16:30] VITALS: BP 174/77
== END 2018-05-14 16:50 | disposition home or self-care (01) ==
LOC: ER 10:12
DX: R41.82 Altered mental status, unspecified (principal); E86.0 Dehydration; G31.9 Degenerative disease of nervous system, unspecified; M25.561 Pain in right knee; M25.562 Pain in left knee; G89.29 Other chronic pain; E11.9 Type 2 diabetes mellitus without complications; I10 Essential (primary) hypertension; Z96.649 Presence of unspecified artificial hip joint; Z88.1 Allergy status to other antibiotic agents; Z88.8 Allergy status to other drugs, medicaments and biological substances
CPT/HCPCS: 36415; 70450; 80053; 82553; 84484; 85025; 85610; 85730; 93005; 96360; 96361; 99285; J7030

== ENCOUNTER 2019-01-13 20:01 | Inpatient (IN) | payer BC ==
[~2019-01-13] VITALS: Ht 180.3 cm; Wt 74.4 kg
[~2019-01-13 20:01] MED LIST changes: -ALEN70TA5 PO; +ALEN70TA6 PO; -GABA-586 PO; +GABA300C18 PO; -GABA600T2 PO; +GABA600T7 PO; -PANT40TA5 PO; +PANT40TA77 PO
[2019-01-13] MEDS ORDERED: ACETAMINOPHEN 650 MG SUPP.RECT. PR ONE (20:15)
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
[2019-01-13] MEDS ORDERED: ACETAMINOPHEN 500 MG TABLET PO ONE (20:45)
[2019-01-13] MEDS ORDERED: IV NORMAL SALINE 1000ML BAG 1,000 ML IV ONE ×2 (20:45)
[2019-01-13 20:47] LABS: BASE EXCESS ABG -2 mmol/L (-3-3); HCO3 ABG 21 mmol/L (21-28); PCO2 ABG 29 mmHg (35-46); PO2 ABG 98 mmHg (65-108); SAT O2 ABG 97 % (92-99)
[2019-01-13 20:53] LABS: BASO # 0.1 x10^3/uL (0.0-0.2); BASO % 1 % (0-3); EOS % 0 % (0-3); HEMATOCRIT 27.9 % (39.0-53.0); HEMOGLOBIN 9.3 g/dL (13.0-17.5); LYMPH # 0.4 x10^3/uL (1.0-4.8); LYMPH % 2 % (24-48); MEAN CORPUSCULAR HEMOGLOBIN 31 pg (25-35); MEAN CORPUSCULAR HGB CONC 33 g/dL (31-37); MEAN CORPUSCULAR VOLUME 92 fL (79-100); MONO # 0.6 x10^3/uL (0.0-1.1); MONO % 3 % (0-9); NEUT % 93 % (31-73); PLATELET COUNT 371 x10^3/uL (140-400); RED BLOOD COUNT 3.03 x10^6/uL (4.30-5.70); RED CELL DISTRIBUTION WIDTH 13.2 % (11.5-14.5); WHITE BLOOD COUNT 17.1 x10^3/uL (4.0-11.0)
[2019-01-13 20:55] LABS: FIO2 ABG 28
[2019-01-13 21:01] LABS: PROTHROMBIN TIME PATIENT 13.2 SEC (11.7-14.0)
[2019-01-13 21:09] LABS: CALCIUM 9.6 mg/dL (8.5-10.1); CREATININE 1.8 mg/dL (0.7-1.3); GFR 44.4; POTASSIUM 5.2 mmol/L (3.5-5.1)
[2019-01-13 21:24] LABS: ALBUMIN 3.4 g/dL (3.4-5.0); ALBUMIN/GLOBULIN RATIO 0.7 (1.0-1.7); MAGNESIUM 1.2 mg/dL (1.8-2.4); TOTAL BILIRUBIN 0.3 mg/dL (0.2-1.0); TOTAL PROTEIN 8.6 g/dL (6.4-8.2)
[2019-01-13 21:27] LABS: % BANDS 2 % (0-9); % BASOS 1 % (0-3); % LYMPHS 1 % (24-48); % SEGS 96 % (35-66); PLT ESTIMATE ADEQUATE (ADEQUATE)
--- NOTE | 2019-01-13 21:39 | RAD ---
CT scan of the head without contrast 01/13/2019 Clinical History: Confusion. Technique: Unenhanced, contiguous, 5 mm axial sections were obtained through the head. One or more of the following individualized dose reduction techniques were utilized for this study: 1. Automated exposure control. 2. Adjustment of the mA and/or kV according to patient size. 3. Use of iterative reconstruction technique. Findings: Comparison study is dated 08/04/2018. There is generalized parenchymal atrophy. Areas of decreased attenuation are seen within the periventricular and subcortical white matter of both cerebral hemispheres consistent with areas of small vessel ischemic disease. An area of encephalomalacia is seen involving the right frontal lobe, unchanged. No acute parenchymal abnormality is seen. No extra-axial fluid collection is noted. No skull fracture is seen. Impression: No acute intracranial abnormality is seen. Electronically signed by: Ike Jean MD (01/13/2019 9:36 PM) [facility]
[2019-01-13] MEDS ORDERED: VANCOMYCIN 1GM IVPB FOR OMNI 250 ML IV ONE (21:45)
[2019-01-13] MEDS ORDERED: cefTRIAXone IV Push 1 GM VIAL. IVP ONE (21:45)
[2019-01-13] MEDS ORDERED: VANCOMYCIN 1.75 GM in IV NORMAL SALINE 500ML BAG 500 ML IV ONE (22:00)
[2019-01-13] MEDS: IV NORMAL SALINE 1000ML BAG 1,000 ML IV SCH (22:34)
[2019-01-13 22:50] VITALS: BP 136/62
--- NOTE | 2019-01-14 00:12 | RAD ---
AP portable chest radiograph 01/13/2019 Clinical History: Fever. An AP erect portable digital radiograph of the chest was obtained. Comparison study is dated 08/04/2018. The cardiac silhouette is normal in size. The thoracic aorta is mildly tortuous. An area of infiltrate is seen involving the medial aspect of the right lower lobe. No pneumothorax or pleural effusion is seen. The osseous structures are unchanged. Impression: Right lower lobe infiltrate. Electronically signed by: Ike Jean MD (01/14/2019 12:09 AM) [facility]
--- NOTE | 2019-01-14 01:27 | NUR ---
The patient, GREG ORTIZ, 78 y/o, M admitted by SPRING BURGESS MD, was given written information regarding hospital policies, unit procedures and contact persons. Valuables were checked and assessment was complete. wound photos were taken. will continue to monitor
[2019-01-14 02:10] LABS: BILIRUBIN,URINE NEGATIVE (NEG); CLARITY,URINE CLEAR; COLOR,URINE YELLOW; NITRITE,URINE NEGATIVE (NEG); PROTEIN,URINE 30 mg/dL (NEG-TRACE)
[2019-01-14 02:16] LABS: BARBITURATES NEG (NEG); BENZODIAZEPINES NEG (NEG); CANNABINOIDS NEG (NEG); COCAINE NEG (NEG); METHADONE NEG (NEG); OPIATES NEG (NEG); PHENCYCLIDINE NEG (NEG)
[2019-01-14 02:18] LABS: BACTERIA,URINE MANY /HPF (0-FEW); RBC,URINE OCC /HPF (0-2); SQUAMOUS EPITHELIAL CELL,UR OCC /LPF; WBC,URINE TNTC /HPF (0-4)
[2019-01-14 02:19] LABS: GRANULAR CASTS,URINE FEW /HPF; HYALINE CASTS, URINE OCCASIONAL /HPF
[2019-01-14 02:20] LABS: AMPHETAMINE/METHAMPHETAMINE NEG (NEG)
[2019-01-14 03:20] VITALS: BP 132/62
[2019-01-14] MEDS ORDERED: MAGNESIUM SULFATE 2GM 50 ML IV ONE (03:45)
[2019-01-14] MEDS: IV NORMAL SALINE 1000ML BAG 1,000 ML IV SCH ×4 (04:25→18:31)
--- NOTE | 2019-01-14 06:52 | EKG ---
[facility] [address] [place] [address] Test Date: 2019-01-13 Test Time: 20:12:04 Pat Name: GREG ORTIZ Department: Room: Gender: M Tape Editor: : 1940 Requested By: ZAYDA ARIAS Order Number: [id number] Reading MD: Measurements Intervals [place] Rate: 120 P: -20 VA: 106 QRS: 43 QRSD: 66 T: 66 QT: 314 QTc: 448 Interpretive Statements SINUS TACHYCARDIA OTHERWISE NORMAL ECG No previous ECG available for comparison
[2019-01-14 07:15] VITALS: BP 134/68
[2019-01-14] MEDS ORDERED: VANCOMYCIN PER PHARMACY MC PRN (08:00)
--- NOTE | 2019-01-14 08:28 | PDOC ---
Infectious Disease Note Vital Sign Vital Signs Vital Signs Date Time Temp Pulse Resp B/P (MAP) Pulse Ox O2 Delivery O2 Flow Rate FiO2 01/14/19 07:15 100.1 98 20 134/68 (90) 95 Nasal Cannula 2.0 100.1 Labs Lab Laboratory Tests Test 01/13/19 20:40 01/13/19 20:46 01/14/19 02:01 01/14/19 07:38 White Blood Count 17.1 x10^3/uL (4.0-11.0) Red Blood Count 3.03 x10^6/uL (4.30-5.70) Hemoglobin 9.3 g/dL (13.0-17.5) Hematocrit 27.9 % (39.0-53.0) Mean Corpuscular Volume 92 fL (79-100) Mean Corpuscular Hemoglobin 31 pg (25-35) Mean Corpuscular Hemoglobin Concent 33 g/dL (31-37) Red Cell Distribution Width 13.2 % (11.5-14.5) Platelet Count 371 x10^3/uL (140-400) Neutrophils (%) (Auto) 93 % (31-73) Lymphocytes (%) (Auto) 2 % (24-48) Monocytes (%) (Auto) 3 % (0-9) Eosinophils (%) (Auto) 0 % (0-3) Basophils (%) (Auto) 1 % (0-3) Neutrophils # (Auto) 16.0 x10^3uL (1.8-7.7) Lymphocytes # (Auto) 0.4 x10^3/uL (1.0-4.8) Monocytes # (Auto) 0.6 x10^3/uL (0.0-1.1) Eosinophils # (Auto) 0.0 x10^3/uL (0.0-0.7) Basophils # (Auto) 0.1 x10^3/uL (0.0-0.2) Segmented Neutrophils % 96 % (35-66) Band Neutrophils % 2 % (0-9) Lymphocytes % 1 % (24-48) Basophils % 1 % (0-3) Platelet Estimate Adequate (ADEQUATE) Prothrombin Time 13.2 SEC (11.7-14.0) Prothromb Time International Ratio 1.0 (0.8-1.1) Sodium Level 136 mmol/L (136-145) Potassium Level 5.2 mmol/L (3.5-5.1) Chloride Level 101 mmol/L (98-107) Carbon Dioxide Level 24 mmol/L (21-32) Anion Gap 11 (6-14) Blood Urea Nitrogen 38 mg/dL (8-26) Creatinine 1.8 mg/dL (0.7-1.3) Estimated GFR (Cockcroft-Gault) 44.4 BUN/Creatinine Ratio 21 (6-20) Glucose Level 132 mg/dL (70-99) Lactic Acid Level 1.1 mmol/L (0.4-2.0) Calcium Level 9.6 mg/dL (8.5-10.1) Magnesium Level 1.2 mg/dL (1.8-2.4) Total Bilirubin 0.3 mg/dL (0.2-1.0) Aspartate Amino Transf (AST/SGOT) 68 U/L (15-37) Alanine Aminotransferase (ALT/SGPT) 42 U/L (16-63) Alkaline Phosphatase 49 U/L (46-116) Ammonia < 10 mcmol/L (11-34) Creatine Kinase 1509 U/L (39-308) Creatine Kinase MB (Mass) 13.7 ng/mL (0.0-3.6) Creatine Kinase MB Relative Index 0.9 % (0-4) Troponin I Quantitative < 0.017 ng/mL (0.000-0.055) IZ-Djr-C-Type Natriuretic Peptide 377 pg/mL (0-449) Total Protein 8.6 g/dL (6.4-8.2) Albumin 3.4 g/dL (3.4-5.0) Albumin/Globulin Ratio 0.7 (1.0-1.7) Lipase 86 U/L (73-393) Thyroid Stimulating Hormone (TSH) 2.147 uIU/mL (0.358-3.74) O2 Saturation 97 % (92-99) Arterial Blood pH 7.48 (7.35-7.45) Arterial Blood pCO2 at Patient Temp 29 mmHg (35-46) Arterial Blood pO2 at Patient Temp 98 mmHg (65-108) Arterial Blood HCO3 21 mmol/L (21-28) Arterial Blood Base Excess -2 mmol/L (-3-3) FiO2 28 Urine Collection Type Unknown Urine Color Yellow Urine Clarity Clear Urine pH 5.0 Urine Specific Poth 1.015 Urine Protein 30 mg/dL (NEG-TRACE) Urine Glucose (UA) Negative mg/dL (NEG) Urine Ketones (Stick) Negative mg/dL (NEG) Urine Blood Moderate (NEG) Urine Nitrite Negative (NEG) Urine Bilirubin Negative (NEG) Urine Urobilinogen Dipstick 1.0 mg/dL (0.2 mg/dL) Urine Leukocyte Esterase Large (NEG) Urine RBC Occ /HPF (0-2) Urine WBC Tntc /HPF (0-4) Urine Squamous Epithelial Cells Occ /LPF Urine Bacteria Many /HPF (0-FEW) Urine Hyaline Casts Occasional /HPF Urine Granular Casts Few /HPF Urine Mucus Slight /LPF Urine Opiates Screen Neg (NEG) Urine Methadone Screen Neg (NEG) Urine Barbiturates Neg (NEG) Urine Phencyclidine Screen Neg (NEG) Urine Amphetamine/Methamphetamine Neg (NEG) Urine Benzodiazepines Screen Neg (NEG) Urine Cocaine Screen Neg (NEG) Urine Cannabinoids Screen Neg (NEG) Urine Ethyl Alcohol Neg (NEG) Glucose (Fingerstick) 96 mg/dL (70-99) Objective Assessment Pneumonia UTI Fever Leukocytosis ANURAG Dehydration Spinal stenosis DM HTN Plan Plan of Care cefepime, zyvox d/c vanc check cultures hydration supportive care KAREN CHINO MD Jan 14, 2019 08:28
[2019-01-14] MEDS: ACETAMINOPHEN 325 MG TABLET. PO PRN ×2 (08:39→20:52)
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
[2019-01-14] MEDS ORDERED: CEFEPIME HCL IV Push 1 GM VIAL. IVP SCH (09:00)
[2019-01-14] MEDS: LOPERAMIDE 2 MG CAPSULE PO PRN (09:35)
[2019-01-14] MEDS: LINEZOLID 600 MG TABLET PO SCH ×2 (09:37→20:53)
[2019-01-14] MEDS: CEFEPIME HCL IV Push 2 GM VIAL. IVP SCH ×2 (09:38→20:53)
--- NOTE | 2019-01-14 10:15 | PDOC ---
PROGRESS NOTES Objective Objective Vital Signs Date Time Temp Pulse Resp B/P (MAP) Pulse Ox O2 Delivery O2 Flow Rate FiO2 01/14/19 07:15 100.1 98 20 134/68 (90) 95 Nasal Cannula 2.0 100.1 Intake and Output 01/14/19 06:59 Intake Total 200 ml Output Total 400 ml Balance -200 ml Intake Oral 200 ml Output Urine Total 400 ml # Voids 2 # Bowel Movements 1 Physical Exam MUSCULOSKELETAL: Other Diagnosis Problem List Problems Medical Problems: (1) Altered level of consciousness Status: Acute (2) Anemia Status: Acute (3) HCAP (healthcare-associated pneumonia) Status: Acute (4) Hyperkalemia Status: Acute (5) Hypomagnesemia Status: Acute (6) Prostate cancer Status: Acute (7) Renal insufficiency Status: Acute (8) Rhabdomyolysis Status: Acute (9) Sepsis Status: Acute (10) UTI (urinary tract infection) Status: Acute Assessment Assessment Problems Medical Problems: (1) Altered level of consciousness Status: Acute (2) Anemia Status: Acute (3) HCAP (healthcare-associated pneumonia) Status: Acute (4) Hyperkalemia Status: Acute (5) Hypomagnesemia Status: Acute (6) Prostate cancer Status: Acute (7) Renal insufficiency Status: Acute (8) Rhabdomyolysis Status: Acute (9) Sepsis Status: Acute (10) UTI (urinary tract infection) Status: Acute Plan Plan of Care Problems Medical Problems: (1) Altered level of consciousness Status: Acute (2) Anemia Status: Acute (3) HCAP (healthcare-associated pneumonia) Status: Acute (4) Hyperkalemia Status: Acute (5) Hypomagnesemia Status: Acute (6) Prostate cancer Status: Acute (7) Renal insufficiency Status: Acute (8) Rhabdomyolysis Status: Acute (9) Sepsis Status: Acute (10) UTI (urinary tract infection) Status: Acute Comment Review of Relevant I have reviewed the following items aleksandar (where applicable) has been applied. Labs Laboratory Tests Test 01/13/19 20:40 01/13/19 20:46 01/14/19 02:01 01/14/19 07:38 White Blood Count 17.1 x10^3/uL (4.0-11.0) Red Blood Count 3.03 x10^6/uL (4.30-5.70) Hemoglobin 9.3 g/dL (13.0-17.5) Hematocrit 27.9 % (39.0-53.0) Mean Corpuscular Volume 92 fL (79-100) Mean Corpuscular Hemoglobin 31 pg (25-35) Mean Corpuscular Hemoglobin Concent 33 g/dL (31-37) Red Cell Distribution Width 13.2 % (11.5-14.5) Platelet Count 371 x10^3/uL (140-400) Neutrophils (%) (Auto) 93 % (31-73) Lymphocytes (%) (Auto) 2 % (24-48) Monocytes (%) (Auto) 3 % (0-9) Eosinophils (%) (Auto) 0 % (0-3) Basophils (%) (Auto) 1 % (0-3) Neutrophils # (Auto) 16.0 x10^3uL (1.8-7.7) Lymphocytes # (Auto) 0.4 x10^3/uL (1.0-4.8) Monocytes # (Auto) 0.6 x10^3/uL (0.0-1.1) Eosinophils # (Auto) 0.0 x10^3/uL (0.0-0.7) Basophils # (Auto) 0.1 x10^3/uL (0.0-0.2) Segmented Neutrophils % 96 % (35-66) Band Neutrophils % 2 % (0-9) Lymphocytes % 1 % (24-48) Basophils % 1 % (0-3) Platelet Estimate Adequate (ADEQUATE) Prothrombin Time 13.2 SEC (11.7-14.0) Prothromb Time International Ratio 1.0 (0.8-1.1) Sodium Level 136 mmol/L (136-145) Potassium Level 5.2 mmol/L (3.5-5.1) Chloride Level 101 mmol/L (98-107) Carbon Dioxide Level 24 mmol/L (21-32) Anion Gap 11 (6-14) Blood Urea Nitrogen 38 mg/dL (8-26) Creatinine 1.8 mg/dL (0.7-1.3) Estimated GFR (Cockcroft-Gault) 44.4 BUN/Creatinine Ratio 21 (6-20) Glucose Level 132 mg/dL (70-99) Lactic Acid Level 1.1 mmol/L (0.4-2.0) Calcium Level 9.6 mg/dL (8.5-10.1) Magnesium Level 1.2 mg/dL (1.8-2.4) Total Bilirubin 0.3 mg/dL (0.2-1.0) Aspartate Amino Transf (AST/SGOT) 68 U/L (15-37) Alanine Aminotransferase (ALT/SGPT) 42 U/L (16-63) Alkaline Phosphatase 49 U/L (46-116) Ammonia < 10 mcmol/L (11-34) Creatine Kinase 1509 U/L (39-308) Creatine Kinase MB (Mass) 13.7 ng/mL (0.0-3.6) Creatine Kinase MB Relative Index 0.9 % (0-4) Troponin I Quantitative < 0.017 ng/mL (0.000-0.055) KO-Ird-H-Type Natriuretic Peptide 377 pg/mL (0-449) Total Protein 8.6 g/dL (6.4-8.2) Albumin 3.4 g/dL (3.4-5.0) Albumin/Globulin Ratio 0.7 (1.0-1.7) Lipase 86 U/L (73-393) Thyroid Stimulating Hormone (TSH) 2.147 uIU/mL (0.358-3.74) O2 Saturation 97 % (92-99) Arterial Blood pH 7.48 (7.35-7.45) Arterial Blood pCO2 at Patient Temp 29 mmHg (35-46) Arterial Blood pO2 at Patient Temp 98 mmHg (65-108) Arterial Blood HCO3 21 mmol/L (21-28) Arterial Blood Base Excess -2 mmol/L (-3-3) FiO2 28 Urine Collection Type Unknown Urine Color Yellow Urine Clarity Clear Urine pH 5.0 Urine Specific [place] 1.015 Urine Protein 30 mg/dL (NEG-TRACE) Urine Glucose (UA) Negative mg/dL (NEG) Urine Ketones (Stick) Negative mg/dL (NEG) Urine Blood Moderate (NEG) Urine Nitrite Negative (NEG) Urine Bilirubin Negative (NEG) Urine Urobilinogen Dipstick 1.0 mg/dL (0.2 mg/dL) Urine Leukocyte Esterase Large (NEG) Urine RBC Occ /HPF (0-2) Urine WBC Tntc /HPF (0-4) Urine Squamous Epithelial Cells Occ /LPF Urine Bacteria Many /HPF (0-FEW) Urine Hyaline Casts Occasional /HPF Urine Granular Casts Few /HPF Urine Mucus Slight /LPF Urine Opiates Screen Neg (NEG) Urine Methadone Screen Neg (NEG) Urine Barbiturates Neg (NEG) Urine Phencyclidine Screen Neg (NEG) Urine Amphetamine/Methamphetamine Neg (NEG) Urine Benzodiazepines Screen Neg (NEG) Urine Cocaine Screen Neg (NEG) Urine Cannabinoids Screen Neg (NEG) Urine Ethyl Alcohol Neg (NEG) Glucose (Fingerstick) 96 mg/dL (70-99) Medications Current Medications Acetaminophen (Tylenol Supp) 650 mg 1X ONCE CA ; Start 01/13/19 at 20:15; Stop 01/13/19 at 20:18; Status DC Acetaminophen (Tylenol) 650 mg PRN Q6HRS PRN PO fever Last administered on 01/14/19at 08:39; Start 01/14/19 at 08:00 Acetaminophen (Tylenol) 1,000 mg 1X ONCE PO Last administered on 01/13/19at 21:18; Start 01/13/19 at 20:45; Stop 01/13/19 at 20:46; Status DC Cefepime HCl (Maxipime) 1 gm Q8HRS IVP ; Start 01/14/19 at 09:00; Status Cancel Cefepime HCl (Maxipime) 2 gm Q12HR IVP Last administered on 01/14/19at 09:38; Start 01/14/19 at 09:00 Ceftriaxone Sodium (Rocephin) 1 gm 1X ONCE IVP Last administered on 01/13/19at 21:49; Start 01/13/19 at 21:45; Stop 01/13/19 at 21:46; Status DC Linezolid (Zyvox) 600 mg BID PO Last administered on 01/14/19at 09:37; Start 01/14/19 at 09:00 Loperamide HCl (Imodium) 2 mg PRN Q15MIN PRN PO DIARRHEA Last administered on 01/14/19at 09:35; Start 01/14/19 at 08:45 Magnesium Sulfate 50 ml @ 25 mls/hr 1X ONCE IV Last administered on 01/14/19at 03:41; Start 01/14/19 at 03:45; Stop 01/14/19 at 05:44; Status DC Sodium Chloride 1,000 ml @ 150 mls/hr Q6H40M IV Last administered on 01/14/19at 09:38; Start 01/13/19 at 21:45; Stop 01/14/19 at 21:44 Sodium Chloride 1,000 ml @ 1,000 mls/hr 1X ONCE IV Last administered on 01/13/19at 20:45; Start 01/13/19 at 20:45; Stop 01/13/19 at 21:44; Status DC Sodium Chloride 1,000 ml @ 1,000 mls/hr 1X ONCE IV Last administered on 01/13/19at 21:14; Start 01/13/19 at 20:45; Stop 01/13/19 at 21:44; Status DC Vancomycin HCl 250 ml @ 250 mls/hr 1X ONCE IV ; Start 01/13/19 at 21:45; Stop 01/13/19 at 21:47; Status DC Vancomycin HCl (Vanco Per Pharmacy) 1 each PRN DAILY PRN MC SEE COMMENTS; Start 01/14/19 at 08:00; Stop 01/14/19 at 08:27; Status DC Vancomycin HCl (Vancomycin Trough Level) 1 each 1X ONCE MC ; Start 01/15/19 at 21:30; Stop 01/15/19 at 21:30; Status DC Vancomycin HCl 1.25 gm/Sodium Chloride 250 ml @ 167 mls/hr Q24H IV ; Start 01/14/19 at 22:00; Status Cancel Vancomycin HCl 1.75 gm/Sodium Chloride 500 ml @ 250 mls/hr 1X ONCE IV Last administered on 01/13/19at 22:35; Start 01/13/19 at 22:00; Stop 01/13/19 at 23:59; Status DC Vitals/I & O Vital Sign - Last 24 Hours 01/13/19 01/13/19 01/13/19 01/13/19 20:04 20:16 20:46 21:16 Temp 100.5 100.5 Pulse 119 120 126 126 Resp 20 20 24 20 B/P (MAP) 135/61 (85) Pulse Ox 89 92 95 92 O2 Delivery Room Air 01/13/19 01/13/19 01/13/19 01/14/19 21:46 22:50 23:11 01:25 Temp 101.6 99.3 101.6 99.3 Pulse 124 119 Resp 22 20 B/P (MAP) 136/62 (86) Pulse Ox 94 91 O2 Delivery Room Air Room Air 01/14/19 01/14/19 03:20 07:15 Temp 99.8 100.1 99.8 100.1 Pulse 96 98 Resp 20 20 B/P (MAP) 132/62 (85) 134/68 (90) Pulse Ox 97 95 O2 Delivery Nasal Cannula Nasal Cannula O2 Flow Rate 2.0 2.0 Intake and Output 01/13/19 01/13/19 01/14/19 14:59 22:59 06:59 Intake Total 200 ml Output Total 400 ml Balance -200 ml SPRING BURGESS MD Jan 14, 2019 10:14
[2019-01-14 11:25] VITALS: BP 137/64
--- NOTE | 2019-01-14 15:19 | NUR ---
Wound Care: Consult to eval and treat for wound to buttocks. Cleansed and calazime applied. Pt is incontinent of bowel and bladder, brief changed. Pt on P500 mattress. Heels floated on pillows, pt positioned on L side with wedge. No other open areas noted on head to toe inspection. Education provided verbally to pt regarding position changes to prevent skin breakdown. Follow up on 01/21/19. Previous wound assessment for "right coccyx" discontinued to reflect wound extending to bilateral buttocks.
[2019-01-14 15:22] VITALS: BP 139/68
[2019-01-14] MEDS: INSULIN LISPRO 300 UNITS/3 ML INSULN.PEN. SQ SCH (17:00)
[2019-01-14] MEDS ORDERED: DEXTROSE 50% 25 GM / 50ML DISP.SYRIN. IV PRN (17:00)
--- NOTE | 2019-01-14 17:01 | PDOC ---
Provider Note Provider Note Pt seen.H&P dictated.#[id number]. SPRING BURGESS MD Jan 14, 2019 17:01
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
[2019-01-14] MEDS ORDERED: NON FORMULARY ITEM (Alendronate Sodium (Fosamax) 70 MG) PO SCH (17:45)
[2019-01-14] MEDS: ENOXAPARIN 40 MG/0.4 ML SYRINGE. SQ SCH ×2 (18:00→18:32)
[2019-01-14 19:20] VITALS: BP 159/73
[2019-01-14] MEDS: DICLOFENAC SODIUM 1% TOPICAL GEL 100GM TUBE. TP SCH (20:52)
[2019-01-14] MEDS: tiZANidine 4 MG TABLET. PO PRN (20:53)
[2019-01-14] MEDS: GABAPENTIN 300 MG CAPSULE. PO SCH (20:53)
[2019-01-14] MEDS: TAMSULOSIN 0.4 MG CAP.ER.24H. PO SCH (20:53)
[2019-01-14] MEDS: BACLOFEN 10 MG TABLET. PO SCH (20:53)
[2019-01-14] MEDS ORDERED: LEVOMEFOLATE PO SCH (21:00)
[2019-01-14] MEDS ORDERED: ALGAL OIL PO SCH (21:00)
[2019-01-14] MEDS ORDERED: B6 PO SCH (21:00)
[2019-01-14] MEDS ORDERED: B12 PO SCH (21:00)
[2019-01-14] MEDS: diphenhydrAMINE HCL 25 MG CAPSULE PO PRN (21:09)
[2019-01-14] MEDS ORDERED: VANCOMYCIN 1.25 GM in IV NORMAL SALINE 250ML 250 ML IV SCH (22:00)
[2019-01-14 23:20] VITALS: BP 120/75
[2019-01-15 03:20] VITALS: BP 119/61
[2019-01-15 04:33] LABS: BASO # 0.1 x10^3/uL (0.0-0.2); BASO % 1 % (0-3); EOS # 0.2 x10^3/uL (0.0-0.7); EOS % 2 % (0-3); HEMATOCRIT 25.1 % (39.0-53.0); HEMOGLOBIN 8.2 g/dL (13.0-17.5); LYMPH # 1.1 x10^3/uL (1.0-4.8); LYMPH % 7 % (24-48); MEAN CORPUSCULAR HEMOGLOBIN 31 pg (25-35); MEAN CORPUSCULAR HGB CONC 33 g/dL (31-37); MEAN CORPUSCULAR VOLUME 93 fL (79-100); MONO % 6 % (0-9); NEUT # 13.4 x10^3uL (1.8-7.7); NEUT % 85 % (31-73); PLATELET COUNT 278 x10^3/uL (140-400); RED BLOOD COUNT 2.69 x10^6/uL (4.30-5.70); RED CELL DISTRIBUTION WIDTH 13.3 % (11.5-14.5); WHITE BLOOD COUNT 15.8 x10^3/uL (4.0-11.0)
[2019-01-15 04:45] LABS: CALCIUM 8.9 mg/dL (8.5-10.1); GFR 87.4; MAGNESIUM 1.7 mg/dL (1.8-2.4); POTASSIUM 4.4 mmol/L (3.5-5.1)
[2019-01-15 07:00] VITALS: BP 126/60
[2019-01-15] MEDS: INSULIN LISPRO 300 UNITS/3 ML INSULN.PEN. SQ SCH ×3 (08:00→17:00)
--- NOTE | 2019-01-15 08:06 | PDOC ---
Infectious Disease Note Subjective Subjective pt is feeling better ROS ROS no n/v/d/sob Vital Sign Vital Signs Vital Signs Date Time Temp Pulse Resp B/P (MAP) Pulse Ox O2 Delivery O2 Flow Rate FiO2 01/15/19 03:20 98.0 70 18 119/61 (80) 95 Room Air 98.0 01/14/19 15:22 2.0 Physical Exam PHYSICAL EXAM GENERAL: Alert, oriented gentleman, not in distress. VITAL SIGNS: Stable HEENT: Both pupils are round and reacting. No conjunctival lesion, no lesion in the mouth. NECK: Supple, no JVP, no lymphadenopathy. LUNGS: Clear. HEART: S1, S2 regular. ABDOMEN: Benign. EXTREMITIES: No edema, cyanosis. SKIN: Unremarkable. The patient has loss of muscle mass present. Labs Lab Laboratory Tests Test 01/14/19 11:16 01/14/19 16:33 01/14/19 20:32 01/15/19 04:00 Glucose (Fingerstick) 139 mg/dL (70-99) 104 mg/dL (70-99) 119 mg/dL (70-99) White Blood Count 15.8 x10^3/uL (4.0-11.0) Red Blood Count 2.69 x10^6/uL (4.30-5.70) Hemoglobin 8.2 g/dL (13.0-17.5) Hematocrit 25.1 % (39.0-53.0) Mean Corpuscular Volume 93 fL (79-100) Mean Corpuscular Hemoglobin 31 pg (25-35) Mean Corpuscular Hemoglobin Concent 33 g/dL (31-37) Red Cell Distribution Width 13.3 % (11.5-14.5) Platelet Count 278 x10^3/uL (140-400) Neutrophils (%) (Auto) 85 % (31-73) Lymphocytes (%) (Auto) 7 % (24-48) Monocytes (%) (Auto) 6 % (0-9) Eosinophils (%) (Auto) 2 % (0-3) Basophils (%) (Auto) 1 % (0-3) Neutrophils # (Auto) 13.4 x10^3uL (1.8-7.7) Lymphocytes # (Auto) 1.1 x10^3/uL (1.0-4.8) Monocytes # (Auto) 1.0 x10^3/uL (0.0-1.1) Eosinophils # (Auto) 0.2 x10^3/uL (0.0-0.7) Basophils # (Auto) 0.1 x10^3/uL (0.0-0.2) Sodium Level 138 mmol/L (136-145) Potassium Level 4.4 mmol/L (3.5-5.1) Chloride Level 104 mmol/L (98-107) Carbon Dioxide Level 25 mmol/L (21-32) Anion Gap 9 (6-14) Blood Urea Nitrogen 15 mg/dL (8-26) Creatinine 1.0 mg/dL (0.7-1.3) Estimated GFR (Cockcroft-Gault) 87.4 Glucose Level 118 mg/dL (70-99) Calcium Level 8.9 mg/dL (8.5-10.1) Magnesium Level 1.7 mg/dL (1.8-2.4) Micro Microbiology 01/13/19 Blood Culture - Preliminary, Resulted NO GROWTH AFTER 1 DAY Objective Assessment Pneumonia UTI Fever Leukocytosis ANURAG Dehydration Spinal stenosis DM HTN Plan Plan of Care cefepime, zyvox check cultures hydration supportive care KAREN CHINO MD Jan 15, 2019 08:06
[2019-01-15] MEDS ORDERED: POLYETHYLENE GLYCOL 3350 17 GM PACKET. PO PRN (09:00)
[2019-01-15] MEDS: PANTOPRAZOLE 40 MG TABLET.DR. PO SCH (09:55)
[2019-01-15] MEDS: VITAMIN B12,B9,B6 COMPLEX 1 TABLET. PO SCH (09:56)
[2019-01-15] MEDS: GABAPENTIN 300 MG CAPSULE. PO SCH ×2 (09:56→21:00)
[2019-01-15] MEDS: CEFEPIME HCL IV Push 2 GM VIAL. IVP SCH ×2 (09:56→21:03)
[2019-01-15] MEDS: ASPIRIN CHEWABLE 81 MG TABLET. PO SCH (09:57)
[2019-01-15] MEDS: BACLOFEN 10 MG TABLET. PO SCH ×4 (09:57→21:00)
[2019-01-15] MEDS: LISINOPRIL 10 MG TABLET PO SCH (09:57)
[2019-01-15] MEDS: TAMSULOSIN 0.4 MG CAP.ER.24H. PO SCH ×2 (09:57→21:00)
[2019-01-15] MEDS: LINEZOLID 600 MG TABLET PO SCH ×2 (09:58→21:00)
[2019-01-15] MEDS: DICLOFENAC SODIUM 1% TOPICAL GEL 100GM TUBE. TP SCH ×3 (09:59→21:03)
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
[2019-01-15 11:00] VITALS: BP 125/65
[2019-01-15] MEDS: oxyCODONE/APAP 10/325 1 TAB TABLET PO PRN ×2 (12:02→16:02)
[2019-01-15 15:00] VITALS: BP 133/69
[2019-01-15] MEDS ORDERED: MAGNESIUM SULFATE 2GM 50 ML IV ONE (15:30)
--- NOTE | 2019-01-15 16:13 | NUR ---
Noted a 9 beat VTAC on the satellite technician, the patient denies chest pain, palpitations or lightheadedness. Review of labs noted magnesium at 1.7. Notified at 1512, order received for magnesium replacement per IV.
--- NOTE | 2019-01-15 16:15 | NUR ---
non administered baclofen scheduled at 1200, patient was given the medicine 2 hours before.
[2019-01-15] MEDS: metFORMIN 500 MG TABLET PO SCH (17:12)
[2019-01-15] MEDS: ENOXAPARIN 40 MG/0.4 ML SYRINGE. SQ SCH (18:00)
[2019-01-15 19:50] VITALS: BP 123/64
[2019-01-15] MEDS: LACTOBACILLUS RHAMNOSUS GG 1 CAPSULE. PO SCH (21:00)
[2019-01-15 23:38] VITALS: BP 144/75
[2019-01-16 03:37] VITALS: BP 172/89
[2019-01-16 04:59] LABS: BASO % 0 % (0-3); EOS # 0.4 x10^3/uL (0.0-0.7); EOS % 4 % (0-3); HEMATOCRIT 24.8 % (39.0-53.0); HEMOGLOBIN 8.3 g/dL (13.0-17.5); LYMPH % 9 % (24-48); MEAN CORPUSCULAR HEMOGLOBIN 31 pg (25-35); MEAN CORPUSCULAR HGB CONC 34 g/dL (31-37); MEAN CORPUSCULAR VOLUME 92 fL (79-100); MONO % 9 % (0-9); NEUT # 8.5 x10^3uL (1.8-7.7); NEUT % 78 % (31-73); PLATELET COUNT 338 x10^3/uL (140-400); RED CELL DISTRIBUTION WIDTH 12.9 % (11.5-14.5); WHITE BLOOD COUNT 10.9 x10^3/uL (4.0-11.0)
--- NOTE | 2019-01-16 06:29 | PDOC ---
Infectious Disease Note Subjective Subjective pt is feeling better ROS ROS no n/v/d/ Vital Sign Vital Signs Vital Signs Date Time Temp Pulse Resp B/P (MAP) Pulse Ox O2 Delivery O2 Flow Rate FiO2 01/16/19 03:37 99.3 95 16 172/89 (116) 93 Room Air 99.3 Physical Exam PHYSICAL EXAM GENERAL: Alert, oriented gentleman, not in distress. VITAL SIGNS: Stable HEENT: Both pupils are round and reacting. No conjunctival lesion, no lesion in the mouth. NECK: Supple, no JVP, no lymphadenopathy. LUNGS: Clear. HEART: S1, S2 regular. ABDOMEN: Benign. EXTREMITIES: No edema, cyanosis. SKIN: Unremarkable. The patient has loss of muscle mass present. Labs Lab Laboratory Tests Test 01/15/19 07:59 01/15/19 12:05 01/15/19 17:13 01/15/19 20:42 Glucose (Fingerstick) 75 mg/dL (70-99) 125 mg/dL (70-99) 132 mg/dL (70-99) 136 mg/dL (70-99) Test 01/16/19 03:30 White Blood Count 10.9 x10^3/uL (4.0-11.0) Red Blood Count 2.70 x10^6/uL (4.30-5.70) Hemoglobin 8.3 g/dL (13.0-17.5) Hematocrit 24.8 % (39.0-53.0) Mean Corpuscular Volume 92 fL (79-100) Mean Corpuscular Hemoglobin 31 pg (25-35) Mean Corpuscular Hemoglobin Concent 34 g/dL (31-37) Red Cell Distribution Width 12.9 % (11.5-14.5) Platelet Count 338 x10^3/uL (140-400) Neutrophils (%) (Auto) 78 % (31-73) Lymphocytes (%) (Auto) 9 % (24-48) Monocytes (%) (Auto) 9 % (0-9) Eosinophils (%) (Auto) 4 % (0-3) Basophils (%) (Auto) 0 % (0-3) Neutrophils # (Auto) 8.5 x10^3uL (1.8-7.7) Lymphocytes # (Auto) 1.0 x10^3/uL (1.0-4.8) Monocytes # (Auto) 1.0 x10^3/uL (0.0-1.1) Eosinophils # (Auto) 0.4 x10^3/uL (0.0-0.7) Basophils # (Auto) 0.0 x10^3/uL (0.0-0.2) Micro Microbiology 01/13/19 Blood Culture - Preliminary, Resulted NO GROWTH AFTER 1 DAY Objective Assessment Pneumonia UTI Fever Leukocytosis ANURAG Dehydration Spinal stenosis DM HTN Plan Plan of Care cefepime, zyvox,,, can be changed to po omnicef for d/c check cultures hydration supportive care KAREN CHINO MD Jan 16, 2019 06:29
[2019-01-16] MEDS: PANTOPRAZOLE 40 MG TABLET.DR. PO SCH (06:39)
[2019-01-16 07:00] VITALS: BP 159/84
[2019-01-16] MEDS: INSULIN LISPRO 300 UNITS/3 ML INSULN.PEN. SQ SCH ×3 (08:00→17:00)
[2019-01-16] MEDS: TAMSULOSIN 0.4 MG CAP.ER.24H. PO SCH ×2 (09:23→20:43)
[2019-01-16] MEDS: VITAMIN B12,B9,B6 COMPLEX 1 TABLET. PO SCH (09:23)
[2019-01-16] MEDS: ASPIRIN CHEWABLE 81 MG TABLET. PO SCH (09:23)
[2019-01-16] MEDS: GABAPENTIN 300 MG CAPSULE. PO SCH ×2 (09:23→20:44)
[2019-01-16] MEDS: LACTOBACILLUS RHAMNOSUS GG 1 CAPSULE. PO SCH ×2 (09:23→20:43)
[2019-01-16] MEDS: LINEZOLID 600 MG TABLET PO SCH ×2 (09:23→20:44)
[2019-01-16] MEDS: metFORMIN 500 MG TABLET PO SCH ×2 (09:23→17:22)
[2019-01-16] MEDS: BACLOFEN 10 MG TABLET. PO SCH ×4 (09:24→20:44)
[2019-01-16] MEDS: LISINOPRIL 10 MG TABLET PO SCH (09:24)
[2019-01-16] MEDS: DICLOFENAC SODIUM 1% TOPICAL GEL 100GM TUBE. TP SCH ×3 (09:25→20:45)
[2019-01-16] MEDS: CEFEPIME HCL IV Push 2 GM VIAL. IVP SCH ×2 (09:25→20:43)
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
[2019-01-16] MEDS ORDERED: CEFD300C PO (09:57)
--- NOTE | 2019-01-16 09:58 | SNU/HH DC ---
DISCHARGE ORDERS DISCHARGE INFORMATION: DISCHARGE DATE: Jan 16, 2019 FINAL DIAGNOSIS Problems Medical Problems: (1) Altered level of consciousness Status: Acute (2) Anemia Status: Acute (3) HCAP (healthcare-associated pneumonia) Status: Acute (4) Hyperkalemia Status: Acute (5) Hypomagnesemia Status: Acute (6) Prostate cancer Status: Acute (7) Renal insufficiency Status: Acute (8) Rhabdomyolysis Status: Acute (9) Sepsis Status: Acute (10) UTI (urinary tract infection) Status: Acute CONDITION ON DISCHARGE: Stable CODE STATUS: Code Status: DNR/DNI SHELTER: SNF STAY <30 DAYS: Yes HOSPICE: HOSPICE: Yes POST DISCHARGE ORDERS: ACTIVITY ORDERS: Activity as tolerated WEIGHT BEARING STATUS: Full weight bearing BATHING ORDERS: Shower-keep dressing dry, No Tub Bath until see DIET AFTER DISCHARGE: CUONG WOUND/INCISION CARE: Change dressing OTHER ORDERS: back brace while up CHECKS AFTER DISCHARGE: CHECKS AFTER DISCHARGE: Check blood sugar, ac/hs FOLLOW-UP: LAB ORDERS FOR FOLLOW-UP: weekly cbc and cmp TREATMENT/EQUIPMENT ORDERS: ADAPTIVE EQUIPMENT NEEDED: Walker Physical Therapy For: Evalulation/Treatment Occupational Therapy For: Evaluation/Treatment DISCHARGE MEDICATIONS: Home Meds Active Scripts Cefdinir (CEFDINIR) 300 Mg Capsule, 1 CAP PO BID for infection, #14 CAP Prov:SPRING BURGESS MD 01/16/19 Tamsulosin Hcl (FLOMAX) 0.4 Mg Cap.er.24h, 1 CAP PO BID, #30 CAP 11 Refills Prov:SPRING BURGESS MD 01/13/17 Gabapentin (NEURONTIN ) 300 Mg Capsule, 600 MG PO TID, #180 CAP Prov:TWYLA ESPINOZA APRN 10/05/14 Aspirin (ASPIRIN) 81 Mg Tab.chew, 81 MG PO DAILY, #30 TAB.CHEW Prov:SPRING BURGESS MD 04/06/14 Reported Medications Levomefolate/B6/B12/Algal Oil (METANX CAPSULE) 1 Each Capsule, 1 EACH PO BID for Foot pain, CAP 04/09/18 Polyethylene Glycol 3350 (MIRALAX) 119 Gm Powder, 17 GM PO BID PRN for CONSTIPATION, #527 GM 12/01/17 Diphenhydramine Hcl (BENADRYL) 25 Mg Capsule, 1 CAP PO PRN PRN for ITCHING, #30 CAP 1 Refill 03/25/17 Levomefolate/B6/B12/Algal Oil (METANX CAPSULE) 1 Each Capsule, 1 EACH PO BID 10/02/14 Pantoprazole Sodium (PANTOPRAZOLE SODIUM ) 40 Mg Tablet.dr, 1 TAB PO DAILY, #30 TAB 3 Refills 03/31/14 Diclofenac Sodium (VOLTAREN) 100 Gm Gel..gram., 1 GM TP TID, #100 GM 2 Refills 03/31/14 Baclofen (BACLOFEN) 10 Mg Tablet, 15 MG PO TID for MUSCLE RELAXER 01/22/14 Tizanidine Hcl (ZANAFLEX) 6 Mg Capsule, 12 MG PO HS PRN for MUSCLE SPASMS, CAP 12/29/13 Alendronate Sodium (FOSAMAX) 70 Mg Tablet, 70 MG PO weekly on saturday12/29/13 Oxycodone Hcl/Acetaminophen (OXYCODONE-ACETAMINOPHEN 10-325) 1 Each Tablet, 1 EACH PO PRN Q4HRS PRN for severe pain 12/03/13 Baclofen (BACLOFEN) 20 Mg Tablet, 20 MG PO HS 12/03/13 Lisinopril (LISINOPRIL) 10 Mg Tablet, 10 MG PO DAILY 12/03/13 Metformin Hcl (METFORMIN HCL) 1,000 Mg Tablet, 1000 MG PO BID 12/03/13 SPRING BURGESS MD Jan 16, 2019 09:58
--- NOTE | 2019-01-16 10:09 | NUR ---
SW following pt for dc needs. Chart reviewed and discussed with Physician. Pt was with [facility] at home and his sister, Lisandra was his main long term care social worker. Pt's sister is not able to care for pt at home anymore and Physician requested for SNU eval. PT/OT evaluation show pt is at baseline and does not need skilled intervention. Pt also do not have Medicaid for LTC placement. ELIOT spoke with shakila at [facility] who advised they have discussed about placement but is not sure on specifics. SW discussed pt will need placement and requested their assistance in potentially doing a respite Stay. ELIOT faxed clinicals to [facility], Phone; [phone], fax: [phone] and awaiting to hear back from admission team wether they are able to take pt back/provide Respite stay. ELIOT will continue to follow.
[2019-01-16 11:00] VITALS: BP 162/82
--- NOTE | 2019-01-16 13:48 | NUR ---
SW following pt. Spoke with [facility] and they do not want to take pt back. Per [facility], Family was uncooperative when they attempted to find a placement for pt. ELIOT spoke with pt at bedside and discussed plan. Pt claims he uses a walker to ambulate to the bathroom but according to PT notes, his sister has informed them he is dependent and uses lift for transfers. Pt wants to go to rehab and SW explained based on PT/OT assessment he is not skillable and will just need placement. Pt stated he own he still owns his home and his health had declined since his last year. Pt claims his sister, Lisandra and his son, Julio had been helping taking care of him at home. Pt plans to go to rehab and go home after getting PT/OT. SW explained SNU evaluation process and that pt is currently at baseline-PT/OT might not change his current physical condition. ELIOT phoned pt's sister, Lisandra but phone was picked by her spouse who reported Lisandra was at work. He also reported Pt's son Julio was the main manager career. ELIOT left a voice mail to Julio, requesting a call back. ELIOT spoke with pt's sister in law, Vicky: [phone], who states pt was 'never on hospice' and pt was ambulating with a walker at home. She states pt will need to go to rehab and SW discussed pt might be at baseline at this time. ELIOT unable to screen pt for SNU at this time and Pt does not have a payer source for LTC placement. Awaiting to hear back from pt's son, Julio. Discussed with RN.
[2019-01-16 15:00] VITALS: BP 150/77
[2019-01-16] MEDS: LOPERAMIDE 2 MG CAPSULE PO PRN (17:22)
[2019-01-16] MEDS: ENOXAPARIN 40 MG/0.4 ML SYRINGE. SQ SCH (18:00)
[2019-01-16] MEDS: oxyCODONE/APAP 10/325 1 TAB TABLET PO PRN (18:01)
[2019-01-16 19:38] VITALS: BP 152/87
[2019-01-16 23:17] VITALS: BP 123/70
[2019-01-17] MEDS: LOPERAMIDE 2 MG CAPSULE PO PRN ×4 (03:10→17:04)
[2019-01-17 03:30] VITALS: BP 140/69
[2019-01-17 07:00] VITALS: BP 148/78
[2019-01-17] MEDS: INSULIN LISPRO 300 UNITS/3 ML INSULN.PEN. SQ SCH ×3 (08:00→17:00)
[2019-01-17] MEDS: CEFEPIME HCL IV Push 2 GM VIAL. IVP SCH ×2 (08:23→20:11)
[2019-01-17] MEDS: GABAPENTIN 300 MG CAPSULE. PO SCH ×2 (08:23→20:12)
[2019-01-17] MEDS: VITAMIN B12,B9,B6 COMPLEX 1 TABLET. PO SCH (08:24)
[2019-01-17] MEDS: ASPIRIN CHEWABLE 81 MG TABLET. PO SCH (08:24)
[2019-01-17] MEDS: LINEZOLID 600 MG TABLET PO SCH ×2 (08:24→20:13)
[2019-01-17] MEDS: metFORMIN 500 MG TABLET PO SCH ×2 (08:24→17:00)
[2019-01-17] MEDS: LACTOBACILLUS RHAMNOSUS GG 1 CAPSULE. PO SCH ×2 (08:24→20:12)
[2019-01-17] MEDS: TAMSULOSIN 0.4 MG CAP.ER.24H. PO SCH ×2 (08:24→20:12)
[2019-01-17] MEDS: BACLOFEN 10 MG TABLET. PO SCH ×4 (08:25→20:12)
[2019-01-17] MEDS: PANTOPRAZOLE 40 MG TABLET.DR. PO SCH (08:25)
[2019-01-17] MEDS: DICLOFENAC SODIUM 1% TOPICAL GEL 100GM TUBE. TP SCH ×3 (08:26→21:00)
[2019-01-17] MEDS: LISINOPRIL 10 MG TABLET PO SCH (08:28)
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
[2019-01-17 11:00] VITALS: BP 139/83
--- NOTE | 2019-01-17 11:02 | RAD ---
PORTABLE CHEST 1V History: Pneumonia Comparison: January 13, 2019; April 07, 2018 Findings: Single view of the chest is submitted. Elevation of the left hemidiaphragm is fairly similar compared with March 2018 exam. There is persistent right base airspace opacity although somewhat less defined on this exam. There is no pneumothorax. Cardiac silhouette is similar. Small right pleural effusion is possible. Impression: 1. There is persistent right base opacity although somewhat less defined on this exam, may be infiltrate for which attention on follow-up after treatment advised. There may be a very small right pleural effusion. Electronically signed by: Rene Grimm MD (01/17/2019 10:59 AM) [facility]
[2019-01-17] MEDS: IRON POLYSACCHARIDE COMPLEX 150 MG CAPSULE PO SCH ×2 (11:13→20:13)
[2019-01-17] MEDS: ASCORBIC ACID 500 MG TABLET PO SCH ×2 (11:13→20:13)
[2019-01-17] MEDS: oxyCODONE/APAP 10/325 1 TAB TABLET PO PRN ×3 (11:17→21:08)
--- NOTE | 2019-01-17 12:31 | PDOC ---
Infectious Disease Note Subjective Subjective Feeling better Cough gone Denies CP/SOA/F/C Hungry ROS ROS per HPI Vital Sign Vital Signs Vital Signs Date Time Temp Pulse Resp B/P (MAP) Pulse Ox O2 Delivery O2 Flow Rate FiO2 01/17/19 11:17 Room Air 01/17/19 11:00 98.8 91 20 139/83 (101) 94 98.8 Physical Exam PHYSICAL EXAM GENERAL: Sitting in the chair, alert, NAD HEENT: Oral cavity clear, dentures in place NECK: Supple LUNGS: Clear. HEART: S1, S2 regular. ABDOMEN: Mildly distended, soft, nontender EXTREMITIES: No edema, cyanosis. SKIN: warm to touch OPERATIONS DIRECTOR: Alert, responds appropriately Labs Lab Laboratory Tests Test 01/16/19 17:17 01/16/19 20:44 01/17/19 08:13 01/17/19 11:14 Glucose (Fingerstick) 91 mg/dL (70-99) 89 mg/dL (70-99) 82 mg/dL (70-99) 73 mg/dL (70-99) CXR, 01/17 1. There is persistent right base opacity although somewhat less defined on this exam, may be infiltrate for which attention on follow-up after treatment advised. There may be a very small right pleural effusion. Micro 01/13/19 Blood Culture - Preliminary, Resulted NO GROWTH AFTER 3 DAYS URINE CULTURE RES 1 Final Mixed urogenital sharmin Objective Assessment Pneumonia UTI - UC neg Fever - better Leukocytosis - better ANURAG - better Dehydration Spinal stenosis DM HTN Plan Plan of Care cefepime, Zyvox,,, can be changed to po Omnicef for d/c Supportive care D/w nursing Patient seen and examined. Chart reviewed in detail. Case discussed with [facility]. Agree with above plan. SHANIQUE NOLASCO APRN Jan 17, 2019 12:31 CAS IBARRA MD Jan 17, 2019 21:20
[2019-01-17 15:00] VITALS: BP 124/82
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
[2019-01-17] MEDS: ENOXAPARIN 40 MG/0.4 ML SYRINGE. SQ SCH (17:01)
[2019-01-17 19:25] VITALS: BP 135/72
[2019-01-17 23:25] VITALS: BP 157/74
[2019-01-18] VITALS (7 sets, daily range): BP systolic 128–168; BP diastolic 74–83
[2019-01-18 04:56] LABS: BASO # 0.1 x10^3/uL (0.0-0.2); BASO % 1 % (0-3); EOS # 0.5 x10^3/uL (0.0-0.7); EOS % 6 % (0-3); HEMATOCRIT 25.5 % (39.0-53.0); HEMOGLOBIN 8.7 g/dL (13.0-17.5); LYMPH # 1.6 x10^3/uL (1.0-4.8); LYMPH % 19 % (24-48); MEAN CORPUSCULAR HEMOGLOBIN 31 pg (25-35); MEAN CORPUSCULAR HGB CONC 34 g/dL (31-37); MEAN CORPUSCULAR VOLUME 92 fL (79-100); MONO % 12 % (0-9); NEUT # 5.5 x10^3uL (1.8-7.7); NEUT % 63 % (31-73); PLATELET COUNT 337 x10^3/uL (140-400); RED BLOOD COUNT 2.78 x10^6/uL (4.30-5.70); RED CELL DISTRIBUTION WIDTH 13.1 % (11.5-14.5); WHITE BLOOD COUNT 8.7 x10^3/uL (4.0-11.0)
[2019-01-18 05:16] LABS: CALCIUM 9.6 mg/dL (8.5-10.1); CREATININE 1.1 mg/dL (0.7-1.3); GFR 78.3
[2019-01-18] MEDS: INSULIN LISPRO 300 UNITS/3 ML INSULN.PEN. SQ SCH ×3 (08:00→17:00)
[2019-01-18] MEDS: DICLOFENAC SODIUM 1% TOPICAL GEL 100GM TUBE. TP SCH ×3 (09:00→21:54)
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
[2019-01-18] MEDS: ASPIRIN CHEWABLE 81 MG TABLET. PO SCH (10:16)
[2019-01-18] MEDS: LINEZOLID 600 MG TABLET PO SCH ×2 (10:16→21:50)
[2019-01-18] MEDS: BACLOFEN 10 MG TABLET. PO SCH ×4 (10:16→21:50)
[2019-01-18] MEDS: PANTOPRAZOLE 40 MG TABLET.DR. PO SCH (10:16)
[2019-01-18] MEDS: TAMSULOSIN 0.4 MG CAP.ER.24H. PO SCH ×2 (10:16→21:50)
[2019-01-18] MEDS: ASCORBIC ACID 500 MG TABLET PO SCH ×2 (10:16→21:54)
[2019-01-18] MEDS: IRON POLYSACCHARIDE COMPLEX 150 MG CAPSULE PO SCH ×2 (10:17→21:50)
[2019-01-18] MEDS: VITAMIN B12,B9,B6 COMPLEX 1 TABLET. PO SCH (10:17)
[2019-01-18] MEDS: GABAPENTIN 300 MG CAPSULE. PO SCH ×2 (10:17→21:50)
[2019-01-18] MEDS: LACTOBACILLUS RHAMNOSUS GG 1 CAPSULE. PO SCH ×2 (10:17→21:50)
[2019-01-18] MEDS: metFORMIN 500 MG TABLET PO SCH ×2 (10:17→17:38)
[2019-01-18] MEDS: LISINOPRIL 10 MG TABLET PO SCH (10:19)
[2019-01-18] MEDS: CEFEPIME HCL IV Push 2 GM VIAL. IVP SCH ×2 (10:20→21:50)
--- NOTE | 2019-01-18 13:58 | PDOC ---
Infectious Disease Note Subjective Subjective Not very hungry + diarrhea Fever 100.0 Denies cramps/N/V/chills Denies SOA ROS ROS per HPI Vital Sign Vital Signs Vital Signs Date Time Temp Pulse Resp B/P (MAP) Pulse Ox O2 Delivery O2 Flow Rate FiO2 01/18/19 12:23 97.6 80 20 165/81 (109) 95 Room Air 97.6 01/18/19 08:00 2.0 Physical Exam PHYSICAL EXAM GENERAL: Lying down, alert, NAD HEENT: Oral cavity clear, dentures NECK: Supple LUNGS: Clear. HEART: S1, S2 regular. ABDOMEN: Mildly distended, soft, nontender, BS active EXTREMITIES: No edema, cyanosis. SKIN: warm to touch SHOT HOLE SHOOTER: Alert, responds appropriately Labs Lab Laboratory Tests Test 01/17/19 16:18 01/17/19 20:30 01/18/19 03:30 01/18/19 07:33 Glucose (Fingerstick) 91 mg/dL (70-99) 83 mg/dL (70-99) 65 mg/dL (70-99) White Blood Count 8.7 x10^3/uL (4.0-11.0) Red Blood Count 2.78 x10^6/uL (4.30-5.70) Hemoglobin 8.7 g/dL (13.0-17.5) Hematocrit 25.5 % (39.0-53.0) Mean Corpuscular Volume 92 fL (79-100) Mean Corpuscular Hemoglobin 31 pg (25-35) Mean Corpuscular Hemoglobin Concent 34 g/dL (31-37) Red Cell Distribution Width 13.1 % (11.5-14.5) Platelet Count 337 x10^3/uL (140-400) Neutrophils (%) (Auto) 63 % (31-73) Lymphocytes (%) (Auto) 19 % (24-48) Monocytes (%) (Auto) 12 % (0-9) Eosinophils (%) (Auto) 6 % (0-3) Basophils (%) (Auto) 1 % (0-3) Neutrophils # (Auto) 5.5 x10^3uL (1.8-7.7) Lymphocytes # (Auto) 1.6 x10^3/uL (1.0-4.8) Monocytes # (Auto) 1.0 x10^3/uL (0.0-1.1) Eosinophils # (Auto) 0.5 x10^3/uL (0.0-0.7) Basophils # (Auto) 0.1 x10^3/uL (0.0-0.2) Sodium Level 133 mmol/L (136-145) Potassium Level 4.0 mmol/L (3.5-5.1) Chloride Level 100 mmol/L (98-107) Carbon Dioxide Level 25 mmol/L (21-32) Anion Gap 8 (6-14) Blood Urea Nitrogen 15 mg/dL (8-26) Creatinine 1.1 mg/dL (0.7-1.3) Estimated GFR (Cockcroft-Gault) 78.3 Glucose Level 72 mg/dL (70-99) Calcium Level 9.6 mg/dL (8.5-10.1) Test 01/18/19 12:01 Glucose (Fingerstick) 78 mg/dL (70-99) Micro 01/13/19 Blood Culture - Preliminary, Resulted NO GROWTH AFTER 4 DAYS URINE CULTURE RES 1 Final Mixed urogenital sharmin Objective Assessment Pneumonia UTI - UC neg Fever Leukocytosis - better ANURAG - better Dehydration Spinal stenosis DM HTN Diarrhea Plan Plan of Care cefepime, Zyvox, check c. diff PCR Supportive care Patient seen and examined. Chart reviewed in detail. Case discussed with MACHINE RECORDS UNITS SUPERVISOR. Agree with above plan. SHANIQUE NOLASCO APRN Jan 18, 2019 13:58 CAS IBARRA MD Jan 18, 2019 21:50
[2019-01-18] MEDS: ENOXAPARIN 40 MG/0.4 ML SYRINGE. SQ SCH (17:38)
[2019-01-18] MEDS: ZOLPIDEM 5 MG TABLET. PO PRN (21:50)
[2019-01-19 03:30] VITALS: BP 150/80
[2019-01-19] MEDS: oxyCODONE/APAP 10/325 1 TAB TABLET PO PRN ×3 (07:13→23:01)
[2019-01-19 07:30] VITALS: BP 141/63
[2019-01-19] MEDS: INSULIN LISPRO 300 UNITS/3 ML INSULN.PEN. SQ SCH ×3 (08:00→17:00)
[2019-01-19] MEDS: LACTOBACILLUS RHAMNOSUS GG 1 CAPSULE. PO SCH ×2 (09:00→20:55)
--- NOTE | 2019-01-19 09:15 | NUR ---
ELIOT following pt. ELIOT attempted to reach pt's son, Julio. but phone was picked up and disconnected. ELIOT spoke with Lisandra, who reported she is pt's niece regarding dc plan. ELIOT discussed that pt does not qualify for SNU eval as he does not have PT needs and does not have payer source for LTC. Per Lisandra pt still owns his home and ELIOT discussed that pt will need to be on a spend down to qualify for Medicaid. ELIOT discussed this will make things complicated for LTC placement and ELIOT is not able to get a hold of Julio, . Lisandra reported she will have Julio call ELIOT back. ELIOT then received a phone call from Julio and discussed dc plan. Julio reports he work punch operator and is not able to care for pt at home. ELIOT discussed pt might have to go home but ELIOT will reach out to some LTC facility to see if they will accept pt. ELIOT encouraged pt's son to vegetable picker phone and be cooperative in dc planning. Pt's son verbalized understanding. ELIOT had faxed referral to [facility] and [facility] care and rehab on Saturday. Pt's son agreeable to speak with these facilities regarding financial questions. ELIOT left a message to Bridgett at [facility] and Tereso at [facility]. Will continue to follow. Addendum: 01/19/19 at 1221 by LAURENCE MCCABE ELIOT following. Bridgett from [facility] is reaching out to pt's son regarding applying for Medicaid.
--- NOTE | 2019-01-19 09:30 | PDOC ---
PROGRESS NOTES Subjective Subjective He admits pain in his left hip area while trying to get up Objective Objective Vital Signs Date Time Temp Pulse Resp B/P (MAP) Pulse Ox O2 Delivery O2 Flow Rate FiO2 01/19/19 07:30 98.2 73 20 141/63 (89) 94 Room Air 98.2 01/18/19 08:00 2.0 Intake and Output 01/19/19 06:59 Intake Total 170 ml Balance 170 ml Intake Oral 170 ml # Voids 7 # Bowel Movements 3 Physical Exam Physical Exam He tried to get up with sliding board with physical therapy and occupational therapy and he is having some difficulty holding on to the sliding board with his weakness in his hands from neuropathy. He is having painful left trochanteric bursa,which I can inject when his is not in sepsis. Assessment Assessment Problems Medical Problems: (1) ANURAG (acute kidney injury) Status: Acute (2) Altered level of consciousness Status: Acute (3) Anemia Status: Acute (4) HCAP (healthcare-associated pneumonia) Status: Acute (5) Hyperkalemia Status: Acute (6) Hypomagnesemia Status: Acute (7) Prostate cancer Status: Acute (8) Renal insufficiency Status: Acute (9) Rhabdomyolysis Status: Acute (10) Sepsis Status: Acute (11) UTI (urinary tract infection) Status: Acute Plan Plan of Care To SNF when medically stable to work more on his transfers before going home with home health or [place] placement. He reports of him not getting any therapy to help improve with his mobility and self care,since being on hospice. Comment Review of Relevant I have reviewed the following items aleksandar (where applicable) has been applied. Labs Laboratory Tests Test 01/17/19 11:14 01/17/19 16:18 01/17/19 20:30 01/18/19 03:30 Glucose (Fingerstick) 73 mg/dL (70-99) 91 mg/dL (70-99) 83 mg/dL (70-99) White Blood Count 8.7 x10^3/uL (4.0-11.0) Red Blood Count 2.78 x10^6/uL (4.30-5.70) Hemoglobin 8.7 g/dL (13.0-17.5) Hematocrit 25.5 % (39.0-53.0) Mean Corpuscular Volume 92 fL (79-100) Mean Corpuscular Hemoglobin 31 pg (25-35) Mean Corpuscular Hemoglobin Concent 34 g/dL (31-37) Red Cell Distribution Width 13.1 % (11.5-14.5) Platelet Count 337 x10^3/uL (140-400) Neutrophils (%) (Auto) 63 % (31-73) Lymphocytes (%) (Auto) 19 % (24-48) Monocytes (%) (Auto) 12 % (0-9) Eosinophils (%) (Auto) 6 % (0-3) Basophils (%) (Auto) 1 % (0-3) Neutrophils # (Auto) 5.5 x10^3uL (1.8-7.7) Lymphocytes # (Auto) 1.6 x10^3/uL (1.0-4.8) Monocytes # (Auto) 1.0 x10^3/uL (0.0-1.1) Eosinophils # (Auto) 0.5 x10^3/uL (0.0-0.7) Basophils # (Auto) 0.1 x10^3/uL (0.0-0.2) Sodium Level 133 mmol/L (136-145) Potassium Level 4.0 mmol/L (3.5-5.1) Chloride Level 100 mmol/L (98-107) Carbon Dioxide Level 25 mmol/L (21-32) Anion Gap 8 (6-14) Blood Urea Nitrogen 15 mg/dL (8-26) Creatinine 1.1 mg/dL (0.7-1.3) Estimated GFR (Cockcroft-Gault) 78.3 Glucose Level 72 mg/dL (70-99) Calcium Level 9.6 mg/dL (8.5-10.1) Test 01/18/19 07:33 01/18/19 12:01 01/18/19 16:56 01/19/19 07:49 Glucose (Fingerstick) 65 mg/dL (70-99) 78 mg/dL (70-99) 108 mg/dL (70-99) 99 mg/dL (70-99) Laboratory Tests Test 01/18/19 12:01 01/18/19 16:56 01/19/19 07:49 Glucose (Fingerstick) 78 mg/dL (70-99) 108 mg/dL (70-99) 99 mg/dL (70-99) Microbiology 01/13/19 Blood Culture - Final, Complete NO GROWTH AFTER 5 DAYS 01/14/19 Urine Culture - Final, Complete 01/14/19 Urine Culture Result 1 (FLAVIO) - Final, Complete Medications Current Medications Sodium Chloride 1,000 ml @ 1,000 mls/hr 1X ONCE IV Last administered on 01/13/19at 21:14; Start 01/13/19 at 20:45; Stop 01/13/19 at 21:44; Status DC Sodium Chloride 1,000 ml @ 1,000 mls/hr 1X ONCE IV Last administered on 01/13/19at 20:45; Start 01/13/19 at 20:45; Stop 01/13/19 at 21:44; Status DC Acetaminophen (Tylenol Supp) 650 mg 1X ONCE GA ; Start 01/13/19 at 20:15; Stop 01/13/19 at 20:18; Status DC Acetaminophen (Tylenol) 1,000 mg 1X ONCE PO Last administered on 01/13/19at 21:18; Start 01/13/19 at 20:45; Stop 01/13/19 at 20:46; Status DC Vancomycin HCl 250 ml @ 250 mls/hr 1X ONCE IV ; Start 01/13/19 at 21:45; Stop 01/13/19 at 21:47; Status DC Ceftriaxone Sodium (Rocephin) 1 gm 1X ONCE IVP Last administered on 01/13/19at 21:49; Start 01/13/19 at 21:45; Stop 01/13/19 at 21:46; Status DC Sodium Chloride 1,000 ml @ 100 mls/hr Q10H IV Last administered on 01/14/19at 18:31; Start 01/13/19 at 21:45; Stop 01/14/19 at 21:44; Status DC Vancomycin HCl 1.75 gm/Sodium Chloride 500 ml @ 250 mls/hr 1X ONCE IV Last administered on 01/13/19at 22:35; Start 01/13/19 at 22:00; Stop 01/13/19 at 23:59; Status DC Magnesium Sulfate 50 ml @ 25 mls/hr 1X ONCE IV Last administered on 01/14/19at 03:41; Start 01/14/19 at 03:45; Stop 01/14/19 at 05:44; Status DC Cefepime HCl (Maxipime) 1 gm Q8HRS IVP ; Start 01/14/19 at 09:00; Status Cancel Vancomycin HCl (Vanco Per Pharmacy) 1 each PRN DAILY PRN MC SEE COMMENTS; Start 01/14/19 at 08:00; Stop 01/14/19 at 08:27; Status DC Acetaminophen (Tylenol) 650 mg PRN Q6HRS PRN PO fever Last administered on 01/14/19 20:52; Start 01/14/19 at 08:00 Cefepime HCl (Maxipime) 2 gm Q12HR IVP Last administered on 01/18/19 21:50; Start 01/14/19 at 09:00 Vancomycin HCl 1.25 gm/Sodium Chloride 250 ml @ 167 mls/hr Q24H IV ; Start 01/14/19 at 22:00; Status Cancel Vancomycin HCl (Vancomycin Trough Level) 1 each 1X ONCE MC ; Start 01/15/19 at 21:30; Stop 01/15/19 at 21:30; Status DC Linezolid (Zyvox) 600 mg BID PO Last administered on 01/18/19 21:50; Start 01/14/19 at 09:00 Loperamide HCl (Imodium) 2 mg PRN Q15MIN PRN PO DIARRHEA Last administered on 01/17/19 17:04; Start 01/14/19 at 08:45 Insulin Human Lispro (HumaLOG) 0-7 UNITS TIDWMEALS SQ ; Start 01/14/19 at 17:00 Dextrose (Dextrose 50%-Water Syringe) 12.5 gm PRN Q15MIN PRN IV SEE COMMENTS; Start 01/14/19 at 17:00 Enoxaparin Sodium (Lovenox 40mg Syringe) 40 mg Q24H SQ Last administered on 01/18/19 17:38; Start 01/14/19 at 18:00 Aspirin (Children'S Aspirin) 81 mg DAILY PO Last administered on 01/18/19 10:16; Start 01/15/19 at 09:00 Baclofen (Lioresal) 15 mg TIDWMEALS PO Last administered on 01/18/19 17:38; Start 01/15/19 at 08:00 Diclofenac Sodium (Voltaren) 1 kiet TID TP Last administered on 01/18/19 21:54; Start 01/14/19 at 21:00 Diphenhydramine HCl (Benadryl) 25 mg PRN Q6HRS PRN PO ITCHING Last administered on 01/14/19 21:09; Start 01/14/19 at 17:45 Gabapentin (Neurontin) 600 mg BID PO Last administered on 01/18/19 21:50; Start 01/14/19 at 21:00 Lisinopril (Prinivil) 10 mg DAILY PO Last administered on 01/18/19 10:19; Start 01/15/19 at 09:00 Oxycodone/ Acetaminophen (Percocet 10/325) 1 tab PRN Q4HRS PRN PO severe pain Last administered on 01/19/19 07:13; Start 01/14/19 at 17:45 Pantoprazole Sodium (Protonix) 40 mg DAILYAC PO Last administered on 01/18/19 10:16; Start 01/15/19 at 07:30 Tamsulosin HCl (Flomax) 0.4 mg BID PO Last administered on 01/18/19 21:50; Start 01/14/19 at 21:00 Non-Formulary Medication (Alendronate Sodium (Fosamax)) 70 mg weekly on saturday PO ; Start 01/14/19 at 17:45; Status UNV Baclofen (Lioresal) 20 mg QHS PO Last administered on 01/18/19 21:50; Start 01/14/19 at 21:00 Non-Formulary Medication (Levomefolate/B6/ B12/Algal Oil (Metanx Capsule)) 1 each BID PO ; Start 01/14/19 at 21:00; Status UNV Vitamin B Complex (Folbic Tablet) 1 tab DAILY PO Last administered on 01/18/19 10:17; Start 01/15/19 at 09:00 Non-Formulary Medication (Metformin Hcl ) 1,000 mg BID PO ; Start 01/14/19 at 21:00; Status UNV Polyethylene Glycol (miraLAX PACKET) 17 gm PRN BID PRN PO CONSTIPATION 1ST CHOICE; Start 01/15/19 at 09:00 Tizanidine HCl (Zanaflex) 12 mg PRN QHS PRN PO MUSCLE SPASMS Last administered on 01/14/19 20:53; Start 01/14/19 at 18:00 Metformin HCl (Glucophage) 1,000 mg BIDWMEALS PO Last administered on 01/18/19 17:38; Start 01/15/19 at 17:00 Lactobacillus Rhamnosus (Culturelle) 1 cap BID PO Last administered on 01/18/19 21:50; Start 01/15/19 at 21:00 Magnesium Sulfate 50 ml @ 25 mls/hr 1X ONCE IV Last administered on 01/15/19at 15:53; Start 01/15/19 at 15:30; Stop 01/15/19 at 17:29; Status DC Ascorbic Acid (Vitamin C) 500 mg BID PO Last administered on 01/18/19 21:54; Start 01/17/19 at 11:00 Polysaccharide Iron Complex (Niferex 150) 150 mg BID PO Last administered on 01/18/19 21:50; Start 01/17/19 at 11:00 Zolpidem Tartrate (Ambien) 5 mg PRN QHS PRN PO INSOMNIA Last administered on 01/18/19 21:50; Start 01/18/19 at 20:00 Active Scripts Active Cefdinir 300 Mg Capsule 1 Cap PO BID Flomax (Tamsulosin Hcl) 0.4 Mg Cap.er.24h 1 Cap PO BID Neurontin (Gabapentin) 300 Mg Capsule 600 Mg PO TID Aspirin 81 Mg Tab.chew 81 Mg PO DAILY Reported Metanx Capsule (Levomefolate/B6/B12/Algal Oil) 1 Each Capsule 1 Each PO BID Miralax (Polyethylene Glycol 3350) 119 Gm Powder 17 Gm PO BID PRN Benadryl (Diphenhydramine Hcl) 25 Mg Capsule 1 Cap PO PRN PRN Metanx Capsule (Levomefolate/B6/B12/Algal Oil) 1 Each Capsule 1 Each PO BID Pantoprazole Sodium (Pantoprazole Sodium) 40 Mg Tablet.dr 1 Tab PO DAILY Voltaren (Diclofenac Sodium) 100 Gm Gel..gram. 1 Gm TP TID Baclofen 10 Mg Tablet 15 Mg PO TID Zanaflex (Tizanidine Hcl) 6 Mg Capsule 12 Mg PO HS PRN Fosamax (Alendronate Sodium) 70 Mg Tablet 70 Mg PO WEEKLY ON SATURDAY Oxycodone-Acetaminophen 10-325 (Oxycodone Hcl/Acetaminophen) 1 Each Tablet 1 Each PO PRN Q4HRS PRN Baclofen 20 Mg Tablet 20 Mg PO HS Lisinopril 10 Mg Tablet 10 Mg PO DAILY Metformin Hcl 1,000 Mg Tablet 1,000 Mg PO BID Vitals/I & O Vital Sign - Last 24 Hours 01/18/19 01/18/19 01/18/19 01/18/19 10:19 11:00 12:23 15:00 Temp 97.6 97.6 97.7 97.6 97.6 97.7 Pulse 83 80 80 80 Resp 20 20 18 B/P (MAP) 168/83 165/81 (109) 165/81 (109) 129/83 (98) Pulse Ox 95 95 96 O2 Delivery Room Air Room Air Room Air 01/18/19 01/18/19 01/18/19 01/19/19 19:30 20:00 23:30 03:30 Temp 99.1 98.7 98.4 99.1 98.7 98.4 Pulse 76 78 76 Resp 20 20 18 B/P (MAP) 128/79 (95) 151/81 (104) 150/80 (103) Pulse Ox 97 96 97 O2 Delivery Room Air Room Air Room Air Room Air 01/19/19 01/19/19 07:13 07:30 Temp 98.2 98.2 Pulse 73 Resp 18 20 B/P (MAP) 141/63 (89) Pulse Ox 97 94 O2 Delivery Room Air Room Air Intake and Output 01/18/19 01/18/19 01/19/19 14:59 22:59 06:59 Intake Total 120 ml 50 ml Balance 120 ml 50 ml Nutrition Consultation Dietary Evaluation: Recommendations by RD: Increase Calorie Intake, Protein supplementation Comments: glucerna added tid Expected Outcomes/Goals: to meet > 75% est nutr needs Malnutrition Findings: Body Fat Depletion (Non Severe: Mild Depletion Weight Status: Underweight DAVE VU MD Jan 19, 2019 09:30
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
[2019-01-19] MEDS: DICLOFENAC SODIUM 1% TOPICAL GEL 100GM TUBE. TP SCH ×3 (10:19→20:56)
[2019-01-19] MEDS: GABAPENTIN 300 MG CAPSULE. PO SCH ×2 (10:20→20:55)
[2019-01-19] MEDS: IRON POLYSACCHARIDE COMPLEX 150 MG CAPSULE PO SCH ×2 (10:21→20:54)
[2019-01-19] MEDS: VITAMIN B12,B9,B6 COMPLEX 1 TABLET. PO SCH (10:21)
[2019-01-19] MEDS: CEFEPIME HCL IV Push 2 GM VIAL. IVP SCH ×2 (10:21→20:55)
[2019-01-19] MEDS: TAMSULOSIN 0.4 MG CAP.ER.24H. PO SCH ×2 (10:22→20:55)
[2019-01-19] MEDS: LINEZOLID 600 MG TABLET PO SCH ×2 (10:22→20:54)
[2019-01-19] MEDS: ASCORBIC ACID 500 MG TABLET PO SCH ×2 (10:22→20:55)
[2019-01-19] MEDS: ASPIRIN CHEWABLE 81 MG TABLET. PO SCH (10:22)
[2019-01-19] MEDS: LISINOPRIL 10 MG TABLET PO SCH (10:23)
[2019-01-19] MEDS: PANTOPRAZOLE 40 MG TABLET.DR. PO SCH (10:23)
[2019-01-19] MEDS: metFORMIN 500 MG TABLET PO SCH ×2 (10:23→17:26)
[2019-01-19] MEDS: BACLOFEN 10 MG TABLET. PO SCH ×4 (10:24→20:54)
[2019-01-19 11:00] VITALS: BP 137/68
--- NOTE | 2019-01-19 11:22 | PDOC ---
Infectious Disease Note Subjective Subjective Feeling better today No fever last 24 hours + diarrhea Denies cramps/N/V/chills Denies SOA ROS ROS per HPI Vital Sign Vital Signs Vital Signs Date Time Temp Pulse Resp B/P (MAP) Pulse Ox O2 Delivery O2 Flow Rate FiO2 01/19/19 10:25 Room Air 01/19/19 10:23 73 141/63 01/19/19 07:30 98.2 20 94 98.2 01/18/19 08:00 2.0 Physical Exam PHYSICAL EXAM GENERAL: Lying down, alert, watching TV HEENT: Oral cavity clear, dentures NECK: Supple LUNGS: Clear. HEART: S1, S2 regular. ABDOMEN: Mildly distended, soft, nontender, BS active EXTREMITIES: No edema, cyanosis. SKIN: warm to touch CAFETERIA AIDE: Alert, responds appropriately PIV Labs Lab Laboratory Tests Test 01/18/19 12:01 01/18/19 16:56 01/19/19 07:49 Glucose (Fingerstick) 78 mg/dL (70-99) 108 mg/dL (70-99) 99 mg/dL (70-99) Micro 01/13/19 Blood Culture - Preliminary, Resulted NO GROWTH AFTER 4 DAYS URINE CULTURE RES 1 Final Mixed urogenital sharmin Objective Assessment Pneumonia UTI - UC neg Fever Leukocytosis - better ANURAG - better Dehydration Spinal stenosis DM HTN Diarrhea Plan Plan of Care cefepime (01/14) and Zyvox (01/14) - wean soon C. diff PCR - neg Probiotics Supportive care PT/OT Attending Co-Sign Attending Co-Sign The patient was seen and interviewed as well as examined at the bedside. The chart was reviewed. The case was discussed. Agree with the plan of care. SHANIQUE NOLASCO APRN Jan 19, 2019 11:22 AMANDA SHARP MD Jan 19, 2019 18:05
--- NOTE | 2019-01-19 14:00 | NUR ---
SW following pt. Discussed with Pt's son, Julio and Bridgett at [facility]. Pt's son will meet with Bridgett tomorrow at 0730 to fill out Medicaid application and check assets. Discussed with RN.
[2019-01-19 15:00] VITALS: BP 147/68
[2019-01-19] MEDS: ENOXAPARIN 40 MG/0.4 ML SYRINGE. SQ SCH (18:22)
--- NOTE | 2019-01-19 18:46 | NUR ---
Received report from Tristin in ER for pt. Awaiting arrival.
[2019-01-19 19:10] VITALS: BP 158/77
[2019-01-19] MEDS: diphenhydrAMINE HCL 25 MG CAPSULE PO PRN ×2 (19:35→20:54)
[2019-01-19] MEDS: ZOLPIDEM 5 MG TABLET. PO PRN (20:54)
[2019-01-19 23:10] VITALS: BP 145/81
[2019-01-20] VITALS (7 sets, daily range): BP systolic 128–145; BP diastolic 65–78
--- NOTE | 2019-01-20 06:40 | NUR ---
Patient has redness around left eye with a yellow discharge. Cleaned with warm compresses.
[2019-01-20] MEDS: INSULIN LISPRO 300 UNITS/3 ML INSULN.PEN. SQ SCH ×3 (08:00→17:00)
[2019-01-20] MEDS: PANTOPRAZOLE 40 MG TABLET.DR. PO SCH (08:31)
[2019-01-20] MEDS: metFORMIN 500 MG TABLET PO SCH ×2 (08:32→17:05)
[2019-01-20] MEDS: VITAMIN B12,B9,B6 COMPLEX 1 TABLET. PO SCH (08:32)
[2019-01-20] MEDS: TAMSULOSIN 0.4 MG CAP.ER.24H. PO SCH ×2 (08:33→22:06)
[2019-01-20] MEDS: LINEZOLID 600 MG TABLET PO SCH ×2 (08:33→22:05)
[2019-01-20] MEDS: ASPIRIN CHEWABLE 81 MG TABLET. PO SCH (08:33)
[2019-01-20] MEDS: ASCORBIC ACID 500 MG TABLET PO SCH ×2 (08:33→22:06)
[2019-01-20] MEDS: BACLOFEN 10 MG TABLET. PO SCH ×4 (08:33→22:06)
[2019-01-20] MEDS: GABAPENTIN 300 MG CAPSULE. PO SCH ×2 (08:33→22:05)
[2019-01-20] MEDS: LACTOBACILLUS RHAMNOSUS GG 1 CAPSULE. PO SCH ×2 (08:34→22:06)
[2019-01-20] MEDS: LISINOPRIL 10 MG TABLET PO SCH (08:34)
[2019-01-20] MEDS: DICLOFENAC SODIUM 1% TOPICAL GEL 100GM TUBE. TP SCH ×3 (08:34→22:05)
[2019-01-20] MEDS: CEFEPIME HCL IV Push 2 GM VIAL. IVP SCH ×3 (09:00→22:21)
--- NOTE | 2019-01-20 09:26 | PDOC ---
PROGRESS NOTES Subjective Subjective He still admits left hip area pain. Objective Objective Vital Signs Date Time Temp Pulse Resp B/P (MAP) Pulse Ox O2 Delivery O2 Flow Rate FiO2 01/20/19 08:34 72 132/78 01/20/19 08:00 Room Air 01/20/19 07:00 97.9 14 95 97.9 01/18/19 08:00 2.0 Intake and Output 01/20/19 06:59 Intake Total 918 ml Output Total 1100 ml Balance -182 ml Intake Oral 918 ml Output Urine Total 1100 ml # Voids 4 # Bowel Movements 4 Physical Exam Physical Exam He is alert,supine in bed and still had tenderness to palpation over left sacroiliac joint and trochanteric bursa area and mobility and self care limitations. Physical therapy and occupational therapy working with him on transfers training. Assessment Assessment Problems Medical Problems: (1) ANURAG (acute kidney injury) Status: Acute (2) Altered level of consciousness Status: Acute (3) Anemia Status: Acute (4) HCAP (healthcare-associated pneumonia) Status: Acute (5) Hyperkalemia Status: Acute (6) Hypomagnesemia Status: Acute (7) Prostate cancer Status: Acute (8) Renal insufficiency Status: Acute (9) Rhabdomyolysis Status: Acute (10) Sepsis Status: Acute (11) UTI (urinary tract infection) Status: Acute Plan Plan of Care To SNF for continued physical and occupational therapy if he qualifies,to see whether he can perform sliding board transfers by him self or with minimal assistance before deciding on NH or home wiht home health. I am planning to inject his right sacroiliac joint and trochanteric bursa when he is medically stable. Comment Review of Relevant I have reviewed the following items aleksandar (where applicable) has been applied. Labs Laboratory Tests Test 01/18/19 12:01 01/18/19 16:56 01/18/19 22:00 01/19/19 07:49 Glucose (Fingerstick) 78 mg/dL (70-99) 108 mg/dL (70-99) 99 mg/dL (70-99) Clostridium difficile Toxin B Gene Negative (Negative) Test 01/19/19 12:09 01/19/19 16:55 01/19/19 21:09 01/20/19 07:22 Glucose (Fingerstick) 117 mg/dL (70-99) 131 mg/dL (70-99) 92 mg/dL (70-99) 90 mg/dL (70-99) Laboratory Tests Test 01/19/19 12:09 01/19/19 16:55 01/19/19 21:09 01/20/19 07:22 Glucose (Fingerstick) 117 mg/dL (70-99) 131 mg/dL (70-99) 92 mg/dL (70-99) 90 mg/dL (70-99) Microbiology 01/13/19 Blood Culture - Final, Complete NO GROWTH AFTER 5 DAYS 01/14/19 Urine Culture - Final, Complete 01/14/19 Urine Culture Result 1 (FLAVIO) - Final, Complete Medications Current Medications Sodium Chloride 1,000 ml @ 1,000 mls/hr 1X ONCE IV Last administered on 01/13/19at 21:14; Start 01/13/19 at 20:45; Stop 01/13/19 at 21:44; Status DC Sodium Chloride 1,000 ml @ 1,000 mls/hr 1X ONCE IV Last administered on 01/13/19at 20:45; Start 01/13/19 at 20:45; Stop 01/13/19 at 21:44; Status DC Acetaminophen (Tylenol Supp) 650 mg 1X ONCE SD ; Start 01/13/19 at 20:15; Stop 01/13/19 at 20:18; Status DC Acetaminophen (Tylenol) 1,000 mg 1X ONCE PO Last administered on 01/13/19at 21:18; Start 01/13/19 at 20:45; Stop 01/13/19 at 20:46; Status DC Vancomycin HCl 250 ml @ 250 mls/hr 1X ONCE IV ; Start 01/13/19 at 21:45; Stop 01/13/19 at 21:47; Status DC Ceftriaxone Sodium (Rocephin) 1 gm 1X ONCE IVP Last administered on 01/13/19at 21:49; Start 01/13/19 at 21:45; Stop 01/13/19 at 21:46; Status DC Sodium Chloride 1,000 ml @ 100 mls/hr Q10H IV Last administered on 01/14/19at 18:31; Start 01/13/19 at 21:45; Stop 01/14/19 at 21:44; Status DC Vancomycin HCl 1.75 gm/Sodium Chloride 500 ml @ 250 mls/hr 1X ONCE IV Last administered on 01/13/19 22:35; Start 01/13/19 at 22:00; Stop 01/13/19 at 23:59; Status DC Magnesium Sulfate 50 ml @ 25 mls/hr 1X ONCE IV Last administered on 01/14/19at 03:41; Start 01/14/19 at 03:45; Stop 01/14/19 at 05:44; Status DC Cefepime HCl (Maxipime) 1 gm Q8HRS IVP ; Start 01/14/19 at 09:00; Status Cancel Vancomycin HCl (Vanco Per Pharmacy) 1 each PRN DAILY PRN MC SEE COMMENTS; Start 01/14/19 at 08:00; Stop 01/14/19 at 08:27; Status DC Acetaminophen (Tylenol) 650 mg PRN Q6HRS PRN PO fever Last administered on 01/14/19at 20:52; Start 01/14/19 at 08:00 Cefepime HCl (Maxipime) 2 gm Q12HR IVP Last administered on 01/19/19at 20:55; Start 01/14/19 at 09:00 Vancomycin HCl 1.25 gm/Sodium Chloride 250 ml @ 167 mls/hr Q24H IV ; Start 01/14/19 at 22:00; Status Cancel Vancomycin HCl (Vancomycin Trough Level) 1 each 1X ONCE MC ; Start 01/15/19 at 21:30; Stop 01/15/19 at 21:30; Status DC Linezolid (Zyvox) 600 mg BID PO Last administered on 01/20/19at 08:33; Start 01/14/19 at 09:00 Loperamide HCl (Imodium) 2 mg PRN Q15MIN PRN PO DIARRHEA Last administered on 01/17/19 17:04; Start 01/14/19 at 08:45 Insulin Human Lispro (HumaLOG) 0-7 UNITS TIDWMEALS SQ ; Start 01/14/19 at 17:00 Dextrose (Dextrose 50%-Water Syringe) 12.5 gm PRN Q15MIN PRN IV SEE COMMENTS; Start 01/14/19 at 17:00 Enoxaparin Sodium (Lovenox 40mg Syringe) 40 mg Q24H SQ Last administered on 01/19/19at 18:22; Start 01/14/19 at 18:00 Aspirin (Children'S Aspirin) 81 mg DAILY PO Last administered on 01/20/19 08:33; Start 01/15/19 at 09:00 Baclofen (Lioresal) 15 mg TIDWMEALS PO Last administered on 01/20/19 08:33; Start 01/15/19 at 08:00 Diclofenac Sodium (Voltaren) 1 kiet TID TP Last administered on 01/20/19 08:34; Start 01/14/19 at 21:00 Diphenhydramine HCl (Benadryl) 25 mg PRN Q6HRS PRN PO ITCHING Last administered on 01/19/19 20:54; Start 01/14/19 at 17:45 Gabapentin (Neurontin) 600 mg BID PO Last administered on 01/20/19 08:33; Start 01/14/19 at 21:00 Lisinopril (Prinivil) 10 mg DAILY PO Last administered on 01/20/19 08:34; Start 01/15/19 at 09:00 Oxycodone/ Acetaminophen (Percocet 10/325) 1 tab PRN Q4HRS PRN PO severe pain Last administered on 01/19/19 23:01; Start 01/14/19 at 17:45 Pantoprazole Sodium (Protonix) 40 mg DAILYAC PO Last administered on 01/20/19 08:31; Start 01/15/19 at 07:30 Tamsulosin HCl (Flomax) 0.4 mg BID PO Last administered on 01/20/19 08:33; Start 01/14/19 at 21:00 Non-Formulary Medication (Alendronate Sodium (Fosamax)) 70 mg weekly on saturday PO ; Start 01/14/19 at 17:45; Status UNV Baclofen (Lioresal) 20 mg QHS PO Last administered on 01/19/19 20:54; Start 01/14/19 at 21:00 Non-Formulary Medication (Levomefolate/B6/ B12/Algal Oil (Metanx Capsule)) 1 each BID PO ; Start 01/14/19 at 21:00; Status UNV Vitamin B Complex (Folbic Tablet) 1 tab DAILY PO Last administered on 01/20/19 08:32; Start 01/15/19 at 09:00 Non-Formulary Medication (Metformin Hcl ) 1,000 mg BID PO ; Start 01/14/19 at 21:00; Status UNV Polyethylene Glycol (miraLAX PACKET) 17 gm PRN BID PRN PO CONSTIPATION 1ST CHOICE; Start 01/15/19 at 09:00 Tizanidine HCl (Zanaflex) 12 mg PRN QHS PRN PO MUSCLE SPASMS Last administered on 01/14/19 20:53; Start 01/14/19 at 18:00 Metformin HCl (Glucophage) 1,000 mg BIDWMEALS PO Last administered on 01/20/19 08:32; Start 01/15/19 at 17:00 Lactobacillus Rhamnosus (Culturelle) 1 cap BID PO Last administered on 01/20/19 08:34; Start 01/15/19 at 21:00 Magnesium Sulfate 50 ml @ 25 mls/hr 1X ONCE IV Last administered on 01/15/19 15:53; Start 01/15/19 at 15:30; Stop 01/15/19 at 17:29; Status DC Ascorbic Acid (Vitamin C) 500 mg BID PO Last administered on 01/20/19at 08:33; Start 01/17/19 at 11:00 Polysaccharide Iron Complex (Niferex 150) 150 mg BID PO Last administered on 01/19/19 20:54; Start 01/17/19 at 11:00 Zolpidem Tartrate (Ambien) 5 mg PRN QHS PRN PO INSOMNIA Last administered on 01/19/19 20:54; Start 01/18/19 at 20:00 Active Scripts Active Cefdinir 300 Mg Capsule 1 Cap PO BID Flomax (Tamsulosin Hcl) 0.4 Mg Cap.er.24h 1 Cap PO BID Neurontin (Gabapentin) 300 Mg Capsule 600 Mg PO TID Aspirin 81 Mg Tab.chew 81 Mg PO DAILY Reported Metanx Capsule (Levomefolate/B6/B12/Algal Oil) 1 Each Capsule 1 Each PO BID Miralax (Polyethylene Glycol 3350) 119 Gm Powder 17 Gm PO BID PRN Benadryl (Diphenhydramine Hcl) 25 Mg Capsule 1 Cap PO PRN PRN Metanx Capsule (Levomefolate/B6/B12/Algal Oil) 1 Each Capsule 1 Each PO BID Pantoprazole Sodium (Pantoprazole Sodium) 40 Mg Tablet.dr 1 Tab PO DAILY Voltaren (Diclofenac Sodium) 100 Gm Gel..gram. 1 Gm TP TID Baclofen 10 Mg Tablet 15 Mg PO TID Zanaflex (Tizanidine Hcl) 6 Mg Capsule 12 Mg PO HS PRN Fosamax (Alendronate Sodium) 70 Mg Tablet 70 Mg PO WEEKLY ON SATURDAY Oxycodone-Acetaminophen 10-325 (Oxycodone Hcl/Acetaminophen) 1 Each Tablet 1 Each PO PRN Q4HRS PRN Baclofen 20 Mg Tablet 20 Mg PO HS Lisinopril 10 Mg Tablet 10 Mg PO DAILY Metformin Hcl 1,000 Mg Tablet 1,000 Mg PO BID Vitals/I & O Vital Sign - Last 24 Hours 01/19/19 01/19/19 01/19/19 01/19/19 10:23 11:00 15:00 18:18 Temp 98.0 97.9 98.0 97.9 Pulse 73 79 73 Resp 18 18 B/P (MAP) 141/63 137/68 (91) 147/68 (94) Pulse Ox 95 97 O2 Delivery Room Air Room Air Room Air 01/19/19 01/19/19 01/19/19 01/19/19 19:10 20:00 23:01 23:10 Temp 98.4 98.9 98.4 98.9 Pulse 81 77 Resp 18 19 18 B/P (MAP) 158/77 (104) 145/81 (102) Pulse Ox 96 94 O2 Delivery Room Air Room Air Nasal Cannula Room Air 01/20/19 01/20/19 01/20/19 01/20/19 00:14 03:10 07:00 08:00 Temp 98.6 97.9 98.6 97.9 Pulse 74 72 Resp 16 18 14 B/P (MAP) 134/69 (90) 132/78 (96) Pulse Ox 94 95 95 O2 Delivery Room Air Room Air Room Air Room Air 01/20/19 08:34 Pulse 72 B/P (MAP) 132/78 Intake and Output 01/19/19 01/19/19 01/20/19 14:59 22:59 06:59 Intake Total 118 ml 250 ml 550 ml Output Total 300 ml 800 ml Balance 118 ml -50 ml -250 ml Nutrition Consultation Dietary Evaluation: Recommendations by RD: Increase Calorie Intake, Protein supplementation Comments: glucerna added tid Expected Outcomes/Goals: to meet > 75% est nutr needs- goal ongoing Malnutrition Findings: Body Fat Depletion (Non Severe: Mild Depletion Weight Status: Underweight DAVE VU MD Jan 20, 2019 09:26
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
[2019-01-20] MEDS ORDERED: CEFD300C PO (10:06)
--- NOTE | 2019-01-20 10:07 | SNU/HH DC ---
DISCHARGE ORDERS DISCHARGE INFORMATION: DISCHARGE DATE: Jan 20, 2019 FINAL DIAGNOSIS Problems Medical Problems: (1) ANURAG (acute kidney injury) Status: Acute (2) Altered level of consciousness Status: Acute (3) Anemia Status: Acute (4) HCAP (healthcare-associated pneumonia) Status: Acute (5) Hyperkalemia Status: Acute (6) Hypomagnesemia Status: Acute (7) Prostate cancer Status: Acute (8) Renal insufficiency Status: Acute (9) Rhabdomyolysis Status: Acute (10) Sepsis Status: Acute (11) UTI (urinary tract infection) Status: Acute CONDITION ON DISCHARGE: Stable CODE STATUS: Code Status: DNR/DNI JAIL: SNF STAY <30 DAYS: Yes POST DISCHARGE ORDERS: ACTIVITY ORDERS: Activity as tolerated WEIGHT BEARING STATUS: Full weight bearing BATHING ORDERS: Shower-keep dressing dry, No Tub Bath until see DIET AFTER DISCHARGE: ADA WOUND/INCISION CARE: Change dressing OTHER ORDERS: back brace while up CHECKS AFTER DISCHARGE: CHECKS AFTER DISCHARGE: Check blood sugar, ac/hs FOLLOW-UP: LAB ORDERS FOR FOLLOW-UP: weekly cbc and cmp TREATMENT/EQUIPMENT ORDERS: ADAPTIVE EQUIPMENT NEEDED: Wheelchair Physical Therapy For: Evalulation/Treatment Occupational Therapy For: Evaluation/Treatment Speech Language Pathology For: Evaluation/Treatment DISCHARGE MEDICATIONS: Home Meds Active Scripts Cefdinir (CEFDINIR) 300 Mg Capsule, 300 MG PO BID for infection for 3 Days, #6 CAP 0 Refills Prov:SPRING BURGESS MD 01/20/19 Tamsulosin Hcl (FLOMAX) 0.4 Mg Cap.er.24h, 1 CAP PO BID, #30 CAP 11 Refills Prov:SPRING BURGESS MD 01/13/17 Gabapentin (NEURONTIN ) 300 Mg Capsule, 600 MG PO TID, #180 CAP Prov:TWYLA ESPINOZA LASER SET UP OPERATOR 10/05/14 Aspirin (ASPIRIN) 81 Mg Tab.chew, 81 MG PO DAILY, #30 TAB.CHEW Prov:SPRING BURGESS MD 04/06/14 Reported Medications Levomefolate/B6/B12/Algal Oil (METANX CAPSULE) 1 Each Capsule, 1 EACH PO BID for Foot pain, CAP 04/09/18 Polyethylene Glycol 3350 (MIRALAX) 119 Gm Powder, 17 GM PO BID PRN for CONSTIPATION, #527 GM 12/01/17 Diphenhydramine Hcl (BENADRYL) 25 Mg Capsule, 1 CAP PO PRN PRN for ITCHING, #30 CAP 1 Refill 03/25/17 Levomefolate/B6/B12/Algal Oil (METANX CAPSULE) 1 Each Capsule, 1 EACH PO BID 10/02/14 Pantoprazole Sodium (PANTOPRAZOLE SODIUM ) 40 Mg Tablet.dr, 1 TAB PO DAILY, #30 TAB 3 Refills 03/31/14 Diclofenac Sodium (VOLTAREN) 100 Gm Gel..gram., 1 GM TP TID, #100 GM 2 Refills 03/31/14 Baclofen (BACLOFEN) 10 Mg Tablet, 15 MG PO TID for MUSCLE RELAXER 01/22/14 Tizanidine Hcl (ZANAFLEX) 6 Mg Capsule, 12 MG PO HS PRN for MUSCLE SPASMS, CAP 12/29/13 Alendronate Sodium (FOSAMAX) 70 Mg Tablet, 70 MG PO weekly on saturday12/29/13 Oxycodone Hcl/Acetaminophen (OXYCODONE-ACETAMINOPHEN 10-325) 1 Each Tablet, 1 EACH PO PRN Q4HRS PRN for severe pain 12/03/13 Baclofen (BACLOFEN) 20 Mg Tablet, 20 MG PO HS 12/03/13 Lisinopril (LISINOPRIL) 10 Mg Tablet, 10 MG PO DAILY 12/03/13 Metformin Hcl (METFORMIN HCL) 1,000 Mg Tablet, 1000 MG PO BID 12/03/13 SPRING BURGESS MD Jan 20, 2019 10:07
--- NOTE | 2019-01-20 10:13 | PDOC ---
Provider Note Provider Note Discharge summary dictated. #[id number] SPRING BURGESS MD Jan 20, 2019 10:13
[2019-01-20] MEDS: IRON POLYSACCHARIDE COMPLEX 150 MG CAPSULE PO SCH ×2 (11:12→22:06)
--- NOTE | 2019-01-20 11:25 | NUR ---
SW following pt. Pt's son had met with Bridgett at [facility] and they had completed Medicaid kiet. Per Bridgett, they are awaiting on corporate approval and asset check. Discussed with Physician. Will continue to follow.
[2019-01-20] MEDS: oxyCODONE/APAP 10/325 1 TAB TABLET PO PRN ×3 (12:59→22:06)
--- NOTE | 2019-01-20 15:33 | DS ---
DATE OF DISCHARGE: 01/22/2019 REASON FOR ADMISSION TO THE HOSPITAL: Sepsis, possible urinary tract infection versus pneumonia. CONSULTATIONS: Dr. Jon Brannon, Infectious Disease; Dr. Dumont, Rehabilitation. HOSPITAL PROCEDURES DONE: CT head.cortisone inj to lt hip bursa. HOSPITAL COURSE: The patient is a 78-year-old male, has been declining steadily, has cervical spinal stenosis, some contractures of hands, and decreased mobility. His last year and he has been steadily declining. He has history of diabetes, hypertension, chronic obstructive pulmonary disease, benign prostatic hypertrophy, history of colon surgery, prostate cancer, etc. The patient had recurrent infections in the past, pseudomonas, methicillin-resistant Staphylococcus aureus. The patient was admitted with sepsis. White count was high. The patient had a fever, was seen by Infectious Disease. His white count was 17 and temperature 101. The patient was started with broad-spectrum antibiotics, Zyvox and Zosyn. Infectious Disease was consulted. The patient's fevers were down, white count was down to 8.7, and the patient has improved. The patient was on hospice prior to this admission, but he cannot take it himself at home and the plan is to move him to a jail and see how he does, then go to a long-term residential and if deteriorate there, will go back to hospice, but right now, he wants physical therapy and rehabilitation. Urine culture shows a mixed sharmin, 50 to 100,000. UA has only 5 wbcs. Blood cultures negative. Chest x-ray shows infiltrate in the left lung. CT head is negative for acute stroke. FINAL DIAGNOSES: 1. Acute Sepsis. 2. Possible pneumonia, could be silent aspiration. 3. History of recurrent urinary tract infection, but has mixed sharmin now. 4. General decondition. 5. History of recurrent infections in the past including pseudomonas and staph infections. 6. Diabetes. 7. Hypertension. 8. Chronic obstructive pulmonary disease. 9. Chronic spinal stenosis with contractures. 10. History of abdominal surgery. 11. History of prostate cancer. 12. 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 PLAN: At this time, the patient is discharged to jail. CODE STATUS: DNR. See MRAD for discharge medications. PROGNOSIS: Poor. SPRING BURGESS MD DR: CECE/julien JOB#: [id number] / [id number] EARLENE
[2019-01-20] MEDS: ENOXAPARIN 40 MG/0.4 ML SYRINGE. SQ SCH (18:13)
[2019-01-20] MEDS: ZOLPIDEM 5 MG TABLET. PO PRN (22:05)
[2019-01-20] MEDS: diphenhydrAMINE HCL 25 MG CAPSULE PO PRN (22:06)
[2019-01-21 03:48] VITALS: BP 167/87
[2019-01-21 07:00] VITALS: BP 145/71
[2019-01-21] MEDS: INSULIN LISPRO 300 UNITS/3 ML INSULN.PEN. SQ SCH ×3 (08:00→17:00)
[2019-01-21] MEDS: DICLOFENAC SODIUM 1% TOPICAL GEL 100GM TUBE. TP SCH ×3 (08:56→21:44)
[2019-01-21] MEDS: LINEZOLID 600 MG TABLET PO SCH (08:57)
[2019-01-21] MEDS: metFORMIN 500 MG TABLET PO SCH ×2 (08:57→16:48)
[2019-01-21] MEDS: PANTOPRAZOLE 40 MG TABLET.DR. PO SCH (08:57)
[2019-01-21] MEDS: LACTOBACILLUS RHAMNOSUS GG 1 CAPSULE. PO SCH ×2 (08:57→21:43)
[2019-01-21] MEDS: VITAMIN B12,B9,B6 COMPLEX 1 TABLET. PO SCH (08:57)
[2019-01-21] MEDS: GABAPENTIN 300 MG CAPSULE. PO SCH ×2 (08:57→21:44)
[2019-01-21] MEDS: TAMSULOSIN 0.4 MG CAP.ER.24H. PO SCH ×2 (08:57→21:43)
[2019-01-21] MEDS: ASPIRIN CHEWABLE 81 MG TABLET. PO SCH (08:57)
[2019-01-21] MEDS: ASCORBIC ACID 500 MG TABLET PO SCH ×2 (08:57→21:44)
[2019-01-21] MEDS: IRON POLYSACCHARIDE COMPLEX 150 MG CAPSULE PO SCH ×2 (08:57→21:42)
[2019-01-21] MEDS: oxyCODONE/APAP 10/325 1 TAB TABLET PO PRN ×2 (08:58→21:43)
[2019-01-21] MEDS: BACLOFEN 10 MG TABLET. PO SCH ×4 (08:58→21:42)
[2019-01-21] MEDS: LISINOPRIL 10 MG TABLET PO SCH (08:59)
[2019-01-21] MEDS: CEFEPIME HCL IV Push 2 GM VIAL. IVP SCH (09:00)
[2019-01-21] MEDS ORDERED: BUPIVACAINE MPF 0.25% 10 ML VIAL. IJ ONE (09:45)
[2019-01-21] MEDS ORDERED: methylPREDNISolone ACETATE 40 MG/ML VIAL. IM ONE (09:45)
[2019-01-21] MEDS: CEFDINIR 300 MG CAPSULE PO SCH ×2 (09:45→21:44)
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
--- NOTE | 2019-01-21 10:22 | PDOC ---
PROGRESS NOTES Subjective Subjective He admits continued left hip area pain. Objective Objective Vital Signs Date Time Temp Pulse Resp B/P (MAP) Pulse Ox O2 Delivery O2 Flow Rate FiO2 01/21/19 10:02 94 Room Air 01/21/19 08:59 72 145/71 01/21/19 07:00 97.9 17 97.9 01/18/19 08:00 2.0 Intake and Output 01/21/19 07:00 Intake Total 1010 ml Balance 1010 ml Intake Oral 1010 ml # Voids 4 # Bowel Movements 4 Physical Exam Physical Exam He continues with tenderness to palpation over left sacroiliac joint and trochanteric bursa and mobility and self care limitations. I spoke to . Assessment Assessment Problems Medical Problems: (1) ANURAG (acute kidney injury) Status: Acute (2) Altered level of consciousness Status: Acute (3) Anemia Status: Acute (4) HCAP (healthcare-associated pneumonia) Status: Acute (5) Hyperkalemia Status: Acute (6) Hypomagnesemia Status: Acute (7) Prostate cancer Status: Acute (8) Renal insufficiency Status: Acute (9) Rhabdomyolysis Status: Acute (10) Sepsis Status: Acute (11) UTI (urinary tract infection) Status: Acute Plan Plan of Care At his request,I have injected painful left sacroiliac joint under aseptic skin technique using alcohol skin prep,with 2 ml of 0.25% bupivacaine solution mixed with 1 ml of methylprednisone 40 mg/ 1 ml solution and he tolerated the procedure satisfactorily without any side effects. To continue physical and occupational therapy follow up waiting for transfer to SNF. Comment Review of Relevant I have reviewed the following items aleksandar (where applicable) has been applied. Labs Laboratory Tests Test 01/19/19 12:09 01/19/19 16:55 01/19/19 21:09 01/20/19 07:22 Glucose (Fingerstick) 117 mg/dL (70-99) 131 mg/dL (70-99) 92 mg/dL (70-99) 90 mg/dL (70-99) Test 01/20/19 11:19 01/20/19 16:46 01/20/19 20:52 01/21/19 08:18 Glucose (Fingerstick) 93 mg/dL (70-99) 71 mg/dL (70-99) 68 mg/dL (70-99) 85 mg/dL (70-99) Laboratory Tests Test 01/20/19 11:19 01/20/19 16:46 01/20/19 20:52 01/21/19 08:18 Glucose (Fingerstick) 93 mg/dL (70-99) 71 mg/dL (70-99) 68 mg/dL (70-99) 85 mg/dL (70-99) Microbiology 01/13/19 Blood Culture - Final, Complete NO GROWTH AFTER 5 DAYS 01/14/19 Urine Culture - Final, Complete 01/14/19 Urine Culture Result 1 (FLAVIO) - Final, Complete Medications Current Medications Sodium Chloride 1,000 ml @ 1,000 mls/hr 1X ONCE IV Last administered on 01/13/19at 21:14; Start 01/13/19 at 20:45; Stop 01/13/19 at 21:44; Status DC Sodium Chloride 1,000 ml @ 1,000 mls/hr 1X ONCE IV Last administered on 01/13/19at 20:45; Start 01/13/19 at 20:45; Stop 01/13/19 at 21:44; Status DC Acetaminophen (Tylenol Supp) 650 mg 1X ONCE IN ; Start 01/13/19 at 20:15; Stop 01/13/19 at 20:18; Status DC Acetaminophen (Tylenol) 1,000 mg 1X ONCE PO Last administered on 01/13/19at 21:18; Start 01/13/19 at 20:45; Stop 01/13/19 at 20:46; Status DC Vancomycin HCl 250 ml @ 250 mls/hr 1X ONCE IV ; Start 01/13/19 at 21:45; Stop 01/13/19 at 21:47; Status DC Ceftriaxone Sodium (Rocephin) 1 gm 1X ONCE IVP Last administered on 01/13/19at 21:49; Start 01/13/19 at 21:45; Stop 01/13/19 at 21:46; Status DC Sodium Chloride 1,000 ml @ 100 mls/hr Q10H IV Last administered on 01/14/19at 18:31; Start 01/13/19 at 21:45; Stop 01/14/19 at 21:44; Status DC Vancomycin HCl 1.75 gm/Sodium Chloride 500 ml @ 250 mls/hr 1X ONCE IV Last administered on 01/13/19at 22:35; Start 01/13/19 at 22:00; Stop 01/13/19 at 23:59; Status DC Magnesium Sulfate 50 ml @ 25 mls/hr 1X ONCE IV Last administered on 01/14/19at 03:41; Start 01/14/19 at 03:45; Stop 01/14/19 at 05:44; Status DC Cefepime HCl (Maxipime) 1 gm Q8HRS IVP ; Start 01/14/19 at 09:00; Status Cancel Vancomycin HCl (Vanco Per Pharmacy) 1 each PRN DAILY PRN MC SEE COMMENTS; Start 01/14/19 at 08:00; Stop 01/14/19 at 08:27; Status DC Acetaminophen (Tylenol) 650 mg PRN Q6HRS PRN PO fever Last administered on 01/14/19at 20:52; Start 01/14/19 at 08:00 Cefepime HCl (Maxipime) 2 gm Q12HR IVP Last administered on 01/19/19at 20:55; Start 01/14/19 at 09:00; Stop 01/21/19 at 09:49; Status DC Vancomycin HCl 1.25 gm/Sodium Chloride 250 ml @ 167 mls/hr Q24H IV ; Start 01/14/19 at 22:00; Status Cancel Vancomycin HCl (Vancomycin Trough Level) 1 each 1X ONCE MC ; Start 01/15/19 at 21:30; Stop 01/15/19 at 21:30; Status DC Linezolid (Zyvox) 600 mg BID PO Last administered on 01/21/19at 08:57; Start 01/14/19 at 09:00; Stop 01/21/19 at 09:49; Status DC Loperamide HCl (Imodium) 2 mg PRN Q15MIN PRN PO DIARRHEA Last administered on 01/17/19at 17:04; Start 01/14/19 at 08:45 Insulin Human Lispro (HumaLOG) 0-7 UNITS TIDWMEALS SQ ; Start 01/14/19 at 17:00 Dextrose (Dextrose 50%-Water Syringe) 12.5 gm PRN Q15MIN PRN IV SEE COMMENTS; Start 01/14/19 at 17:00 Enoxaparin Sodium (Lovenox 40mg Syringe) 40 mg Q24H SQ Last administered on 01/20 18:13; Start 01/14/19 at 18:00 Aspirin (Children'S Aspirin) 81 mg DAILY PO Last administered on 01/21/19 08:57; Start 01/15/19 at 09:00 Baclofen (Lioresal) 15 mg TIDWMEALS PO Last administered on 01/21/19 08:58; Start 01/15/19 at 08:00 Diclofenac Sodium (Voltaren) 1 kiet TID TP Last administered on 01/21/19 08:56; Start 01/14/19 at 21:00 Diphenhydramine HCl (Benadryl) 25 mg PRN Q6HRS PRN PO ITCHING Last administered on 01/20/19 22:06; Start 01/14/19 at 17:45 Gabapentin (Neurontin) 600 mg BID PO Last administered on 01/21/19 08:57; Start 01/14/19 at 21:00 Lisinopril (Prinivil) 10 mg DAILY PO Last administered on 01/21/19 08:59; Start 01/15/19 at 09:00 Oxycodone/ Acetaminophen (Percocet 10/325) 1 tab PRN Q4HRS PRN PO severe pain Last administered on 01/21/19 08:58; Start 01/14/19 at 17:45 Pantoprazole Sodium (Protonix) 40 mg DAILYAC PO Last administered on 01/21/19 08:57; Start 01/15/19 at 07:30 Tamsulosin HCl (Flomax) 0.4 mg BID PO Last administered on 01/21/19 08:57; Start 01/14/19 at 21:00 Non-Formulary Medication (Alendronate Sodium (Fosamax)) 70 mg weekly on saturday PO ; Start 01/14/19 at 17:45; Status UNV Baclofen (Lioresal) 20 mg QHS PO Last administered on 01/20/19 22:06; Start 01/14/19 at 21:00 Non-Formulary Medication (Levomefolate/B6/ B12/Algal Oil (Metanx Capsule)) 1 each BID PO ; Start 01/14/19 at 21:00; Status UNV Vitamin B Complex (Folbic Tablet) 1 tab DAILY PO Last administered on 01/21/19 08:57; Start 01/15/19 at 09:00 Non-Formulary Medication (Metformin Hcl ) 1,000 mg BID PO ; Start 01/14/19 at 21:00; Status UNV Polyethylene Glycol (miraLAX PACKET) 17 gm PRN BID PRN PO CONSTIPATION 1ST CHOICE; Start 01/15/19 at 09:00 Tizanidine HCl (Zanaflex) 12 mg PRN QHS PRN PO MUSCLE SPASMS Last administered on 01/14/19 20:53; Start 01/14/19 at 18:00 Metformin HCl (Glucophage) 1,000 mg BIDWMEALS PO Last administered on 01/21/19 08:57; Start 01/15/19 at 17:00 Lactobacillus Rhamnosus (Culturelle) 1 cap BID PO Last administered on 01/21/19 08:57; Start 01/15/19 at 21:00 Magnesium Sulfate 50 ml @ 25 mls/hr 1X ONCE IV Last administered on 01/15/19 15:53; Start 01/15/19 at 15:30; Stop 01/15/19 at 17:29; Status DC Ascorbic Acid (Vitamin C) 500 mg BID PO Last administered on 01/21/19 08:57; Start 01/17/19 at 11:00 Polysaccharide Iron Complex (Niferex 150) 150 mg BID PO Last administered on 01/21/19 08:57; Start 01/17/19 at 11:00 Zolpidem Tartrate (Ambien) 5 mg PRN QHS PRN PO INSOMNIA Last administered on 01/19/19 20:54; Start 01/18/19 at 20:00 Methylprednisolone Acetate (DEPO-Medrol 40MG VIAL) 40 mg 1X ONCE IM ; Start 01/21/19 at 09:45; Stop 01/21/19 at 09:46; Status DC Bupivacaine HCl (Sensorcaine-Mpf 0.25%) 10 ml 1X ONCE IJ ; Start 01/21/19 at 09:45; Stop 01/21/19 at 09:46; Status DC Cefdinir (Omnicef) 300 mg BID PO Last administered on 01/21/19at 09:45; Start 01/21/19 at 09:45 Active Scripts Active Cefdinir 300 Mg Capsule 300 Mg PO BID 3 Days Flomax (Tamsulosin Hcl) 0.4 Mg Cap.er.24h 1 Cap PO BID Neurontin (Gabapentin) 300 Mg Capsule 600 Mg PO TID Aspirin 81 Mg Tab.chew 81 Mg PO DAILY Reported Metanx Capsule (Levomefolate/B6/B12/Algal Oil) 1 Each Capsule 1 Each PO BID Miralax (Polyethylene Glycol 3350) 119 Gm Powder 17 Gm PO BID PRN Benadryl (Diphenhydramine Hcl) 25 Mg Capsule 1 Cap PO PRN PRN Metanx Capsule (Levomefolate/B6/B12/Algal Oil) 1 Each Capsule 1 Each PO BID Pantoprazole Sodium (Pantoprazole Sodium) 40 Mg Tablet.dr 1 Tab PO DAILY Voltaren (Diclofenac Sodium) 100 Gm Gel..gram. 1 Gm TP TID Baclofen 10 Mg Tablet 15 Mg PO TID Zanaflex (Tizanidine Hcl) 6 Mg Capsule 12 Mg PO HS PRN Fosamax (Alendronate Sodium) 70 Mg Tablet 70 Mg PO WEEKLY ON SATURDAY Oxycodone-Acetaminophen 10-325 (Oxycodone Hcl/Acetaminophen) 1 Each Tablet 1 Each PO PRN Q4HRS PRN Baclofen 20 Mg Tablet 20 Mg PO HS Lisinopril 10 Mg Tablet 10 Mg PO DAILY Metformin Hcl 1,000 Mg Tablet 1,000 Mg PO BID Vitals/I & O Vital Sign - Last 24 Hours 01/20/19 01/20/19 01/20/19 01/20/19 11:00 12:59 15:00 18:14 Temp 98.6 98.5 98.6 98.5 Pulse 77 77 Resp 14 16 B/P (MAP) 130/65 (86) 139/71 (93) Pulse Ox 96 99 O2 Delivery Room Air Room Air Room Air Room Air 01/20/19 01/20/19 01/20/19 01/21/19 19:41 20:00 23:31 03:48 Temp 98.3 98.5 98.1 98.3 98.5 98.1 Pulse 70 72 75 Resp 18 18 18 B/P (MAP) 145/77 (99) 137/65 (89) 167/87 (113) Pulse Ox 97 96 98 O2 Delivery Room Air Room Air Room Air Room Air 01/21/19 01/21/19 01/21/19 01/21/19 07:00 08:00 08:58 08:59 Temp 97.9 97.9 Pulse 72 72 Resp 17 B/P (MAP) 145/71 (95) 145/71 Pulse Ox 94 94 O2 Delivery Room Air Room Air Room Air 01/21/19 10:02 Pulse Ox 94 O2 Delivery Room Air Intake and Output 01/20/19 01/20/19 01/21/19 15:00 23:00 07:00 Intake Total 200 ml 810 ml Balance 200 ml 810 ml Nutrition Consultation Dietary Evaluation: Recommendations by RD: Increase Calorie Intake, Protein supplementation Comments: glucerna added tid Expected Outcomes/Goals: to meet > 75% est nutr needs- goal ongoing Malnutrition Findings: Body Fat Depletion (Non Severe: Mild Depletion Weight Status: Underweight DAVE VU MD Jan 21, 2019 10:22
--- NOTE | 2019-01-21 10:31 | NUR ---
SW following pt. PT/OT has been working with pt but pt still appears to be at baseline. Spoke with Bridgett at [facility], awaiting on corporate approval to admit pt. Will continue to follow.
[2019-01-21 11:00] VITALS: BP 126/69
--- NOTE | 2019-01-21 11:27 | PDOC ---
Infectious Disease Note Subjective: Subjective Feeling better today No fever last 24 hours no diarrhea Denies cramps/N/V/chills Denies SOA ROS: ROS Negative except for above. Vital Signs: Vital Signs Vital Signs Date Time Temp Pulse Resp B/P (MAP) Pulse Ox O2 Delivery O2 Flow Rate FiO2 01/21/19 10:02 94 Room Air 01/21/19 08:59 72 145/71 01/21/19 07:00 97.9 17 97.9 Physical Exam: PHYSICAL EXAM GENERAL: Lying down, alert, watching TV HEENT: Oral cavity clear, dentures NECK: Supple LUNGS: Clear. HEART: S1, S2 regular. ABDOMEN: Mildly distended, soft, nontender, BS active EXTREMITIES: No edema, cyanosis. SKIN: warm to touch [employer] HOUSE: Alert, responds appropriately PIV Medications: Inpatient Meds: Current Medications Medications (Trade) Dose Ordered Sig/Karina Start Time Stop Time Status Last Admin Dose Admin Acetaminophen (Tylenol Supp) 650 mg 1X ONCE 01/13/19 20:15 01/13/19 20:18 DC Acetaminophen (Tylenol) 650 mg PRN Q6HRS PRN 01/14/19 08:00 01/14/19 20:52 650 MG Ascorbic Acid (Vitamin C) 500 mg BID 01/17/19 11:00 01/21/19 08:57 500 MG Aspirin (Children'S Aspirin) 81 mg DAILY 01/15/19 09:00 01/21/19 08:57 81 MG Baclofen (Lioresal) 20 mg QHS 01/14/19 21:00 01/20/19 22:06 20 MG Bupivacaine HCl (Sensorcaine-Mpf 0.25%) 10 ml 1X ONCE 01/21/19 09:45 01/21/19 09:46 DC 01/21/19 09:45 10 ML Cefdinir (Omnicef) 300 mg BID 01/21/19 09:45 01/21/19 09:45 300 MG Cefepime HCl (Maxipime) 2 gm Q12HR 01/14/19 09:00 01/21/19 09:49 DC 01/19/19 20:55 2 GM Ceftriaxone Sodium (Rocephin) 1 gm 1X ONCE 01/13/19 21:45 01/13/19 21:46 DC 01/13/19 21:49 1 GM Dextrose (Dextrose 50%-Water Syringe) 12.5 gm PRN Q15MIN PRN 01/14/19 17:00 Diclofenac Sodium (Voltaren) 1 kiet TID 01/14/19 21:00 01/21/19 08:56 1 KIET Diphenhydramine HCl (Benadryl) 25 mg PRN Q6HRS PRN 01/14/19 17:45 01/20/19 22:06 25 MG Enoxaparin Sodium (Lovenox 40mg Syringe) 40 mg Q24H 01/14/19 18:00 01/20/19 18:13 40 MG Gabapentin (Neurontin) 600 mg BID 01/14/19 21:00 01/21/19 08:57 600 MG Insulin Human Lispro (HumaLOG) 0-7 UNITS TIDWMEALS 01/14/19 17:00 Lactobacillus Rhamnosus (Culturelle) 1 cap BID 01/15/19 21:00 01/21/19 08:57 1 CAP Linezolid (Zyvox) 600 mg BID 01/14/19 09:00 01/21/19 09:49 DC 01/21/19 08:57 600 MG Lisinopril (Prinivil) 10 mg DAILY 01/15/19 09:00 01/21/19 08:59 10 MG Loperamide HCl (Imodium) 2 mg PRN Q15MIN PRN 01/14/19 08:45 01/17/19 17:04 2 MG Magnesium Sulfate 50 ml @ 25 mls/hr 1X ONCE 01/15/19 15:30 01/15/19 17:29 DC 01/15/19 15:53 25 MLS/HR Metformin HCl (Glucophage) 1,000 mg BIDWMEALS 01/15/19 17:00 01/21/19 08:57 1,000 MG Methylprednisolone Acetate (DEPO-Medrol 40MG VIAL) 40 mg 1X ONCE 01/21/19 09:45 01/21/19 09:46 DC 01/21/19 09:45 40 MG Non-Formulary Medication (Alendronate Sodium (Fosamax)) 70 mg weekly on saturday01/14/19 17:45 UNV Non-Formulary Medication (Levomefolate/B6/ B12/Algal Oil (Metanx Capsule)) 1 each BID 01/14/19 21:00 UNV Non-Formulary Medication (Metformin Hcl ) 1,000 mg BID 01/14/19 21:00 UNV Oxycodone/ Acetaminophen (Percocet 10/325) 1 tab PRN Q4HRS PRN 01/14/19 17:45 01/21/19 08:58 1 TAB Pantoprazole Sodium (Protonix) 40 mg DAILYAC 01/15/19 07:30 01/21/19 08:57 40 MG Polyethylene Glycol (miraLAX PACKET) 17 gm PRN BID PRN 01/15/19 09:00 Polysaccharide Iron Complex (Niferex 150) 150 mg BID 01/17/19 11:00 01/21/19 08:57 150 MG Sodium Chloride 1,000 ml @ 100 mls/hr Q10H 01/13/19 21:45 01/14/19 21:44 DC 01/14/19 18:31 100 MLS/HR Tamsulosin HCl (Flomax) 0.4 mg BID 01/14/19 21:00 01/21/19 08:57 0.4 MG Tizanidine HCl (Zanaflex) 12 mg PRN QHS PRN 01/14/19 18:00 01/14/19 20:53 12 MG Vancomycin HCl (Vanco Per Pharmacy) 1 each PRN DAILY PRN 01/14/19 08:00 01/14/19 08:27 DC Vancomycin HCl (Vancomycin Trough Level) 1 each 1X ONCE 01/15/19 21:30 01/15/19 21:30 DC Vancomycin HCl 1.25 gm/Sodium Chloride 250 ml @ 167 mls/hr Q24H 01/14/19 22:00 Cancel Vancomycin HCl 1.75 gm/Sodium Chloride 500 ml @ 250 mls/hr 1X ONCE 01/13/19 22:00 01/13/19 23:59 DC 01/13/19 22:35 250 MLS/HR Vitamin B Complex (Folbic Tablet) 1 tab DAILY 01/15/19 09:00 01/21/19 08:57 1 TAB Zolpidem Tartrate (Ambien) 5 mg PRN QHS PRN 01/18/19 20:00 01/19/19 20:54 5 MG Labs: Lab Laboratory Tests Test 01/20/19 16:46 01/20/19 20:52 01/21/19 08:18 Glucose (Fingerstick) 71 mg/dL (70-99) 68 mg/dL (70-99) 85 mg/dL (70-99) Micro URINE CULTURE RES 1 Final Comment Mixed urogenital sharmin 50,000-100,000 colony forming units per mL Performed at: DA - [facility] [address], [place], [place] [id number] Diamond Cutter: STEPHANIE Jewell MD, Phone: [phone] Objective: Assessment: Pneumonia UTI - UC 50 k -100K Likely contaminant Fever improved Leukocytosis - better ANURAG - better Dehydration Spinal stenosis DM HTN Diarrhea Plan: Plan of Care ok to dc cefepime and zyvox on cefdinir C. diff PCR - neg Probiotics Supportive care PT/OT GLENYS CHINO MD Jan 21, 2019 11:27
--- NOTE | 2019-01-21 13:50 | NUR ---
Wound Care: Patient seen per wound care follow up for pressure ulcer to right buttock. Wound cleansed, assessed, measured, and photographed. Recommendations to continue with calazime. Calazime applied. Pt is incontinent of bowel and bladder, brief changed. Pt on P500 mattress. Heels floated on pillows, pt turned to left side with wedge. No other open areas noted on head to toe inspection. Education provided verbally to pt regarding position changes to prevent skin breakdown. Bed lowered and call light in reach. Follow up on 01/28/19.
--- NOTE | 2019-01-21 13:56 | NUR ---
Spoke to marci Bucio to discontinue telemetry monitoring.
[2019-01-21 15:00] VITALS: BP 153/81
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
[2019-01-21] MEDS: ENOXAPARIN 40 MG/0.4 ML SYRINGE. SQ SCH (16:49)
--- NOTE | 2019-01-21 17:53 | NUR ---
Patient transferred from 6S. Patient oriented to room. Call light within reach. Will continue to monitor and care for according to poc.
[2019-01-21 19:00] VITALS: BP 171/84
[2019-01-21] MEDS: diphenhydrAMINE HCL 25 MG CAPSULE PO PRN (21:43)
[2019-01-21] MEDS: ZOLPIDEM 5 MG TABLET. PO PRN (21:43)
[2019-01-21 23:00] VITALS: BP 138/76
[2019-01-21] MEDS: tiZANidine 4 MG TABLET. PO PRN (23:13)
[2019-01-22 03:00] VITALS: BP 138/76
[2019-01-22] MEDS: oxyCODONE/APAP 10/325 1 TAB TABLET PO PRN ×2 (03:15→09:11)
[2019-01-22 07:00] VITALS: BP 159/80
[2019-01-22] MEDS: INSULIN LISPRO 300 UNITS/3 ML INSULN.PEN. SQ SCH ×3 (08:00→16:42)
--- NOTE | 2019-01-22 08:51 | NUR ---
ELIOT following pt. Still awaiting on Corporate approval from [facility] for LTC placement. 2nd plan: Pt is accepted at [facility] pending insurance auth for SNU. Maryellen at [facility] will submit for auth this morning. ELIOT left a detailed voice mail to pt's son, Julio. Will continue to follow.
[2019-01-22] MEDS: LOPERAMIDE 2 MG CAPSULE PO PRN (08:58)
[2019-01-22] MEDS: PANTOPRAZOLE 40 MG TABLET.DR. PO SCH (08:59)
[2019-01-22] MEDS: LACTOBACILLUS RHAMNOSUS GG 1 CAPSULE. PO SCH (08:59)
[2019-01-22] MEDS: ASPIRIN CHEWABLE 81 MG TABLET. PO SCH (08:59)
[2019-01-22] MEDS: metFORMIN 500 MG TABLET PO SCH (08:59)
[2019-01-22] MEDS: GABAPENTIN 300 MG CAPSULE. PO SCH (08:59)
[2019-01-22] MEDS: ASCORBIC ACID 500 MG TABLET PO SCH (08:59)
[2019-01-22] MEDS: TAMSULOSIN 0.4 MG CAP.ER.24H. PO SCH (08:59)
[2019-01-22] MEDS: CEFDINIR 300 MG CAPSULE PO SCH (08:59)
[2019-01-22] MEDS: LISINOPRIL 10 MG TABLET PO SCH (09:00)
[2019-01-22] MEDS: IRON POLYSACCHARIDE COMPLEX 150 MG CAPSULE PO SCH (09:00)
[2019-01-22] MEDS: BACLOFEN 10 MG TABLET. PO SCH ×2 (09:01→13:11)
[2019-01-22] MEDS: DICLOFENAC SODIUM 1% TOPICAL GEL 100GM TUBE. TP SCH ×2 (09:12→13:12)
--- NOTE | 2019-01-22 09:16 | PDOC ---
Infectious Disease Note Subjective: Subjective Feeling better today no diarrhea Denies cramps/N/V/chills Denies SOA ROS: ROS Negative except for above. Vital Signs: Vital Signs Vital Signs Date Time Temp Pulse Resp B/P (MAP) Pulse Ox O2 Delivery O2 Flow Rate FiO2 01/22/19 09:11 16 Room Air 01/22/19 09:00 80 159/80 01/22/19 04:15 98 01/22/19 03:00 97.4 97.4 Physical Exam: PHYSICAL EXAM GENERAL: Lying down, alert, watching TV HEENT: Oral cavity clear, dentures NECK: Supple LUNGS: Clear. HEART: S1, S2 regular. ABDOMEN: Mildly distended, soft, nontender, BS active EXTREMITIES: No edema, cyanosis. 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 PIV Medications: Inpatient Meds: Current Medications Medications (Trade) Dose Ordered Sig/Karina Start Time Stop Time Status Last Admin Dose Admin Acetaminophen (Tylenol Supp) 650 mg 1X ONCE 01/13/19 20:15 01/13/19 20:18 DC Acetaminophen (Tylenol) 650 mg PRN Q6HRS PRN 01/14/19 08:00 01/14/19 20:52 650 MG Ascorbic Acid (Vitamin C) 500 mg BID 01/17/19 11:00 01/22/19 08:59 500 MG Aspirin (Children'S Aspirin) 81 mg DAILY 01/15/19 09:00 01/22/19 08:59 81 MG Baclofen (Lioresal) 20 mg QHS 01/14/19 21:00 01/21/19 21:42 20 MG Bupivacaine HCl (Sensorcaine-Mpf 0.25%) 10 ml 1X ONCE 01/21/19 09:45 01/21/19 09:46 DC 01/21/19 09:45 10 ML Cefdinir (Omnicef) 300 mg BID 01/21/19 09:45 01/22/19 08:59 300 MG Cefepime HCl (Maxipime) 2 gm Q12HR 01/14/19 09:00 01/21/19 09:49 DC 01/19/19 20:55 2 GM Ceftriaxone Sodium (Rocephin) 1 gm 1X ONCE 01/13/19 21:45 01/13/19 21:46 DC 01/13/19 21:49 1 GM Dextrose (Dextrose 50%-Water Syringe) 12.5 gm PRN Q15MIN PRN 01/14/19 17:00 Diclofenac Sodium (Voltaren) 1 kiet TID 01/14/19 21:00 01/22/19 09:12 1 KIET Diphenhydramine HCl (Benadryl) 25 mg PRN Q6HRS PRN 01/14/19 17:45 01/21/19 21:43 25 MG Enoxaparin Sodium (Lovenox 40mg Syringe) 40 mg Q24H 01/14/19 18:00 01/21/19 16:49 40 MG Gabapentin (Neurontin) 600 mg BID 01/14/19 21:00 01/22/19 08:59 600 MG Insulin Human Lispro (HumaLOG) 0-7 UNITS TIDWMEALS 01/14/19 17:00 Lactobacillus Rhamnosus (Culturelle) 1 cap BID 01/15/19 21:00 01/22/19 08:59 1 CAP Linezolid (Zyvox) 600 mg BID 01/14/19 09:00 01/21/19 09:49 DC 01/21/19 08:57 600 MG Lisinopril (Prinivil) 10 mg DAILY 01/15/19 09:00 01/22/19 09:00 10 MG Loperamide HCl (Imodium) 2 mg PRN Q15MIN PRN 01/14/19 08:45 01/22/19 08:58 2 MG Magnesium Sulfate 50 ml @ 25 mls/hr 1X ONCE 01/15/19 15:30 01/15/19 17:29 DC 01/15/19 15:53 25 MLS/HR Metformin HCl (Glucophage) 1,000 mg BIDWMEALS 01/15/19 17:00 01/22/19 08:59 1,000 MG Methylprednisolone Acetate (DEPO-Medrol 40MG VIAL) 40 mg 1X ONCE 01/21/19 09:45 01/21/19 09:46 DC 01/21/19 09:45 40 MG Non-Formulary Medication (Alendronate Sodium (Fosamax)) 70 mg weekly on saturday01/14/19 17:45 UNV Non-Formulary Medication (Levomefolate/B6/ B12/Algal Oil (Metanx Capsule)) 1 each BID 01/14/19 21:00 UNV Non-Formulary Medication (Metformin Hcl ) 1,000 mg BID 01/14/19 21:00 UNV Oxycodone/ Acetaminophen (Percocet 10/325) 1 tab PRN Q4HRS PRN 01/14/19 17:45 01/22/19 09:11 1 TAB Pantoprazole Sodium (Protonix) 40 mg DAILYAC 01/15/19 07:30 01/22/19 08:59 40 MG Polyethylene Glycol (miraLAX PACKET) 17 gm PRN BID PRN 01/15/19 09:00 Polysaccharide Iron Complex (Niferex 150) 150 mg BID 01/17/19 11:00 01/22/19 09:00 150 MG Sodium Chloride 1,000 ml @ 100 mls/hr Q10H 01/13/19 21:45 01/14/19 21:44 DC 01/14/19 18:31 100 MLS/HR Tamsulosin HCl (Flomax) 0.4 mg BID 01/14/19 21:00 01/22/19 08:59 0.4 MG Tizanidine HCl (Zanaflex) 12 mg PRN QHS PRN 01/14/19 18:00 01/21/19 23:13 12 MG Vancomycin HCl (Vanco Per Pharmacy) 1 each PRN DAILY PRN 01/14/19 08:00 01/14/19 08:27 DC Vancomycin HCl (Vancomycin Trough Level) 1 each 1X ONCE 01/15/19 21:30 01/15/19 21:30 DC Vancomycin HCl 1.25 gm/Sodium Chloride 250 ml @ 167 mls/hr Q24H 01/14/19 22:00 Cancel Vancomycin HCl 1.75 gm/Sodium Chloride 500 ml @ 250 mls/hr 1X ONCE 01/13/19 22:00 01/13/19 23:59 DC 01/13/19 22:35 250 MLS/HR Vitamin B Complex (Folbic Tablet) 1 tab DAILY 01/15/19 09:00 01/21/19 08:57 1 TAB Zolpidem Tartrate (Ambien) 5 mg PRN QHS PRN 01/18/19 20:00 01/21/19 21:43 5 MG Labs: Lab Laboratory Tests Test 01/21/19 12:09 01/21/19 17:26 7/10/19 20:29 Glucose (Fingerstick) 89 mg/dL (70-99) 107 mg/dL (70-99) 85 mg/dL (70-99) Micro URINE CULTURE RES 1 Final Comment Mixed urogenital sharmin 50,000-100,000 colony forming units per mL Performed at: DA - [facility] [address], [place], [place] [id number] Roll Sheeting Cutter: STEPHANIE Jewell MD, Phone: [phone] Objective: Assessment: Pneumonia UTI - UC 50 k -100K Likely contaminant Fever improved Leukocytosis - better ANURAG - better Dehydration Spinal stenosis DM HTN Diarrhea Plan: Plan of Care cefdinir C. diff PCR - neg Probiotics Supportive care PT/OT GLENYS CHINO MD Jan 22, 2019 09:16
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
--- NOTE | 2019-01-22 09:54 | PDOC ---
PROGRESS NOTES Subjective Subjective No new complaints and he admits some help with low back injection done yesterday. Objective Objective Vital Signs Date Time Temp Pulse Resp B/P (MAP) Pulse Ox O2 Delivery O2 Flow Rate FiO2 01/22/19 09:11 16 Room Air 01/22/19 09:00 80 159/80 01/22/19 07:00 98.6 96 98.6 01/18/19 08:00 2.0 Intake and Output 01/22/19 07:00 Intake Total 970 ml Balance 970 ml Intake Oral 970 ml # Voids 4 # Bowel Movements 1 Physical Exam Physical Exam He is supine in bed and comfortable and he did transfer using stand step t echnique with physical therapy with moderate assistance. Assessment Assessment Problems Medical Problems: (1) ANURAG (acute kidney injury) Status: Acute (2) Altered level of consciousness Status: Acute (3) Anemia Status: Acute (4) HCAP (healthcare-associated pneumonia) Status: Acute (5) Hyperkalemia Status: Acute (6) Hypomagnesemia Status: Acute (7) Prostate cancer Status: Acute (8) Renal insufficiency Status: Acute (9) Rhabdomyolysis Status: Acute (10) Sepsis Status: Acute (11) UTI (urinary tract infection) Status: Acute Plan Plan of Care Agree with plans for SNF transfer when medically stable. Comment Review of Relevant I have reviewed the following items aleksandar (where applicable) has been applied. Labs Laboratory Tests Test 01/20/19 11:19 01/20/19 16:46 01/20/19 20:52 01/21/19 08:18 Glucose (Fingerstick) 93 mg/dL (70-99) 71 mg/dL (70-99) 68 mg/dL (70-99) 85 mg/dL (70-99) Test 01/21/19 12:09 01/21/19 17:26 01/21/19 20:29 Glucose (Fingerstick) 89 mg/dL (70-99) 107 mg/dL (70-99) 85 mg/dL (70-99) Laboratory Tests Test 01/21/19 12:09 01/21/19 17:26 01/21/19 20:29 Glucose (Fingerstick) 89 mg/dL (70-99) 107 mg/dL (70-99) 85 mg/dL (70-99) Microbiology 01/13/19 Blood Culture - Final, Complete NO GROWTH AFTER 5 DAYS 01/14/19 Urine Culture - Final, Complete 01/14/19 Urine Culture Result 1 (FLAVIO) - Final, Complete Medications Current Medications Sodium Chloride 1,000 ml @ 1,000 mls/hr 1X ONCE IV Last administered on 01/13/19at 21:14; Start 01/13/19 at 20:45; Stop 01/13/19 at 21:44; Status DC Sodium Chloride 1,000 ml @ 1,000 mls/hr 1X ONCE IV Last administered on 01/13/19at 20:45; Start 01/13/19 at 20:45; Stop 01/13/19 at 21:44; Status DC Acetaminophen (Tylenol Supp) 650 mg 1X ONCE LA ; Start 01/13/19 at 20:15; Stop 01/13/19 at 20:18; Status DC Acetaminophen (Tylenol) 1,000 mg 1X ONCE PO Last administered on 01/13/19at 21:18; Start 01/13/19 at 20:45; Stop 01/13/19 at 20:46; Status DC Vancomycin HCl 250 ml @ 250 mls/hr 1X ONCE IV ; Start 01/13/19 at 21:45; Stop 01/13/19 at 21:47; Status DC Ceftriaxone Sodium (Rocephin) 1 gm 1X ONCE IVP Last administered on 01/13/19at 21:49; Start 01/13/19 at 21:45; Stop 01/13/19 at 21:46; Status DC Sodium Chloride 1,000 ml @ 100 mls/hr Q10H IV Last administered on 01/14/19at 18:31; Start 01/13/19 at 21:45; Stop 01/14/19 at 21:44; Status DC Vancomycin HCl 1.75 gm/Sodium Chloride 500 ml @ 250 mls/hr 1X ONCE IV Last administered on 01/13/19at 22:35; Start 01/13/19 at 22:00; Stop 01/13/19 at 23:59; Status DC Magnesium Sulfate 50 ml @ 25 mls/hr 1X ONCE IV Last administered on 01/14/19at 03:41; Start 01/14/19 at 03:45; Stop 01/14/19 at 05:44; Status DC Cefepime HCl (Maxipime) 1 gm Q8HRS IVP ; Start 01/14/19 at 09:00; Status Cancel Vancomycin HCl (Vanco Per Pharmacy) 1 each PRN DAILY PRN MC SEE COMMENTS; Start 01/14/19 at 08:00; Stop 01/14/19 at 08:27; Status DC Acetaminophen (Tylenol) 650 mg PRN Q6HRS PRN PO fever Last administered on 01/14/19at 20:52; Start 01/14/19 at 08:00 Cefepime HCl (Maxipime) 2 gm Q12HR IVP Last administered on 01/19/19at 20:55; Start 01/14/19 at 09:00; Stop 01/21/19 at 09:49; Status DC Vancomycin HCl 1.25 gm/Sodium Chloride 250 ml @ 167 mls/hr Q24H IV ; Start 01/14/19 at 22:00; Status Cancel Vancomycin HCl (Vancomycin Trough Level) 1 each 1X ONCE MC ; Start 01/15/19 at 21:30; Stop 01/15/19 at 21:30; Status DC Linezolid (Zyvox) 600 mg BID PO Last administered on 01/21/19at 08:57; Start 01/14/19 at 09:00; Stop 01/21/19 at 09:49; Status DC Loperamide HCl (Imodium) 2 mg PRN Q15MIN PRN PO DIARRHEA Last administered on 01/22/19at 08:58; Start 01/14/19 at 08:45 Insulin Human Lispro (HumaLOG) 0-7 UNITS TIDWMEALS SQ ; Start 01/14/19 at 17:00 Dextrose (Dextrose 50%-Water Syringe) 12.5 gm PRN Q15MIN PRN IV SEE COMMENTS; Start 01/14/19 at 17:00 Enoxaparin Sodium (Lovenox 40mg Syringe) 40 mg Q24H SQ Last administered on 01/21/19at 16:49; Start 01/14/19 at 18:00 Aspirin (Children'S Aspirin) 81 mg DAILY PO Last administered on 01/22/19at 08:59; Start 01/15/19 at 09:00 Baclofen (Lioresal) 15 mg TIDWMEALS PO Last administered on 01/22/19at 09:01; Start 01/15/19 at 08:00 Diclofenac Sodium (Voltaren) 1 kiet TID TP Last administered on 01/22/19 09:12; Start 01/14/19 at 21:00 Diphenhydramine HCl (Benadryl) 25 mg PRN Q6HRS PRN PO ITCHING Last administered on 01/21/19 21:43; Start 01/14/19 at 17:45 Gabapentin (Neurontin) 600 mg BID PO Last administered on 01/22/19 08:59; Start 01/14/19 at 21:00 Lisinopril (Prinivil) 10 mg DAILY PO Last administered on 01/22/19 09:00; Start 01/15/19 at 09:00 Oxycodone/ Acetaminophen (Percocet 10/325) 1 tab PRN Q4HRS PRN PO severe pain Last administered on 01/22/19 09:11; Start 01/14/19 at 17:45 Pantoprazole Sodium (Protonix) 40 mg DAILYAC PO Last administered on 01/22/19 08:59; Start 01/15/19 at 07:30 Tamsulosin HCl (Flomax) 0.4 mg BID PO Last administered on 01/22/19 08:59; Start 01/14/19 at 21:00 Non-Formulary Medication (Alendronate Sodium (Fosamax)) 70 mg weekly on saturday PO ; Start 01/14/19 at 17:45; Status UNV Baclofen (Lioresal) 20 mg QHS PO Last administered on 01/21/19 21:42; Start 01/14/19 at 21:00 Non-Formulary Medication (Levomefolate/B6/ B12/Algal Oil (Metanx Capsule)) 1 each BID PO ; Start 01/14/19 at 21:00; Status UNV Vitamin B Complex (Folbic Tablet) 1 tab DAILY PO Last administered on 01/21/19 08:57; Start 01/15/19 at 09:00 Non-Formulary Medication (Metformin Hcl ) 1,000 mg BID PO ; Start 01/14/19 at 21:00; Status UNV Polyethylene Glycol (miraLAX PACKET) 17 gm PRN BID PRN PO CONSTIPATION 1ST CHOICE; Start 01/15/19 at 09:00 Tizanidine HCl (Zanaflex) 12 mg PRN QHS PRN PO MUSCLE SPASMS Last administered on 01/21/19 23:13; Start 01/14/19 at 18:00 Metformin HCl (Glucophage) 1,000 mg BIDWMEALS PO Last administered on 01/22/19 08:59; Start 01/15/19 at 17:00 Lactobacillus Rhamnosus (Culturelle) 1 cap BID PO Last administered on 01/22/19 08:59; Start 01/15/19 at 21:00 Magnesium Sulfate 50 ml @ 25 mls/hr 1X ONCE IV Last administered on 01/15/19 15:53; Start 01/15/19 at 15:30; Stop 01/15/19 at 17:29; Status DC Ascorbic Acid (Vitamin C) 500 mg BID PO Last administered on 01/22/19 08:59; Start 01/17/19 at 11:00 Polysaccharide Iron Complex (Niferex 150) 150 mg BID PO Last administered on 01/22/19 09:00; Start 01/17/19 at 11:00 Zolpidem Tartrate (Ambien) 5 mg PRN QHS PRN PO INSOMNIA Last administered on 01/21/19 21:43; Start 01/18/19 at 20:00 Methylprednisolone Acetate (DEPO-Medrol 40MG VIAL) 40 mg 1X ONCE IM Last administered on 01/21/19 09:45; Start 01/21/19 at 09:45; Stop 01/21/19 at 09:46; Status DC Bupivacaine HCl (Sensorcaine-Mpf 0.25%) 10 ml 1X ONCE IJ Last administered on 01/21/19 09:45; Start 01/21/19 at 09:45; Stop 01/21/19 at 09:46; Status DC Cefdinir (Omnicef) 300 mg BID PO Last administered on 01/22/19 08:59; Start 01/21/19 at 09:45 Active Scripts Active Cefdinir 300 Mg Capsule 300 Mg PO BID 3 Days Flomax (Tamsulosin Hcl) 0.4 Mg Cap.er.24h 1 Cap PO BID Neurontin (Gabapentin) 300 Mg Capsule 600 Mg PO TID Aspirin 81 Mg Tab.chew 81 Mg PO DAILY Reported Metanx Capsule (Levomefolate/B6/B12/Algal Oil) 1 Each Capsule 1 Each PO BID Miralax (Polyethylene Glycol 3350) 119 Gm Powder 17 Gm PO BID PRN Benadryl (Diphenhydramine Hcl) 25 Mg Capsule 1 Cap PO PRN PRN Metanx Capsule (Levomefolate/B6/B12/Algal Oil) 1 Each Capsule 1 Each PO BID Pantoprazole Sodium (Pantoprazole Sodium) 40 Mg Tablet.dr 1 Tab PO DAILY Voltaren (Diclofenac Sodium) 100 Gm Gel..gram. 1 Gm TP TID Baclofen 10 Mg Tablet 15 Mg PO TID Zanaflex (Tizanidine Hcl) 6 Mg Capsule 12 Mg PO HS PRN Fosamax (Alendronate Sodium) 70 Mg Tablet 70 Mg PO WEEKLY ON SATURDAY Oxycodone-Acetaminophen 10-325 (Oxycodone Hcl/Acetaminophen) 1 Each Tablet 1 Each PO PRN Q4HRS PRN Baclofen 20 Mg Tablet 20 Mg PO HS Lisinopril 10 Mg Tablet 10 Mg PO DAILY Metformin Hcl 1,000 Mg Tablet 1,000 Mg PO BID Vitals/I & O Vital Sign - Last 24 Hours 01/21/19 01/21/19 01/21/19 01/21/19 11:00 15:00 19:00 20:00 Temp 98.4 98.4 97.9 98.4 98.4 97.9 Pulse 72 72 77 Resp 18 19 18 B/P (MAP) 126/69 (88) 153/81 (105) 171/84 (113) Pulse Ox 93 94 98 O2 Delivery Room Air Room Air Room Air Room Air 01/21/19 01/21/19 01/22/19 01/22/19 21:43 23:00 03:00 03:15 Temp 97.4 97.4 97.4 97.4 Pulse 69 69 Resp 18 18 18 18 B/P (MAP) 138/76 (96) 138/76 (96) Pulse Ox 98 98 98 98 O2 Delivery Room Air Room Air Room Air Room Air 01/22/19 01/22/19 01/22/19 01/22/19 04:15 07:00 09:00 09:11 Temp 98.6 98.6 Pulse 71 80 Resp 18 16 16 B/P (MAP) 159/80 (106) 159/80 Pulse Ox 98 96 O2 Delivery Room Air Room Air Room Air Intake and Output 01/21/19 01/21/19 01/22/19 15:00 23:00 07:00 Intake Total 150 ml 460 ml 360 ml Balance 150 ml 460 ml 360 ml Nutrition Consultation Dietary Evaluation: Recommendations by RD: Increase Calorie Intake, Protein supplementation Comments: glucerna added tid Expected Outcomes/Goals: to meet > 75% est nutr needs- goal ongoing Malnutrition Findings: Body Fat Depletion (Non Severe: Mild Depletion Weight Status: Underweight DAVE VU MD Jan 22, 2019 09:54
[2019-01-22 11:00] VITALS: BP 137/64
[2019-01-22] MEDS: VITAMIN B12,B9,B6 COMPLEX 1 TABLET. PO SCH (13:11)
--- NOTE | 2019-01-22 14:29 | NUR ---
SW following pt. Insurance denied SNU and [facility] declined due to admit pt due to financial complexity. Discussed with pt and son-agreeable to try Hospice again-referral faxed to [facility]. A nurse from [facility] to meet pt and family at home tonight. Pt will transport via [facility] at 1600. RN notified and Discussed with Physician.
[2019-01-22 15:00] VITALS: BP 159/75
--- NOTE | 2019-01-22 17:06 | NUR ---
Discharge Note: GREG ORTIZ Discharge instructions and discharge home medications reviewed with Patient and a copy given. All questions have been answered and understanding verbalized. The following instructions and handouts were given: AMS, UTI Discontinued lines and drains: peripheral IV. Patient discharged to Home w/services with Ambulance Personnel via [facility]
== END 2019-01-22 16:50 | disposition hospice, home (50) | DRG 871 ==
LOC: ER 20:01 → 6 SOUTH 20:16 → 5 NORTH 01-21 17:17
PROVIDERS: ADMIT Internal Medicine; ATTEND Internal Medicine
DX: A41.9 Sepsis, unspecified organism (principal); G82.50 Quadriplegia, unspecified; J69.0 Pneumonitis due to inhalation of food and vomit; N17.9 Acute kidney failure, unspecified; N39.0 Urinary tract infection, site not specified; M62.82 Rhabdomyolysis; I10 Essential (primary) hypertension; E86.0 Dehydration; Z85.46 Personal history of malignant neoplasm of prostate; D64.9 Anemia, unspecified; E03.9 Hypothyroidism, unspecified; E11.42 Type 2 diabetes mellitus with diabetic polyneuropathy; E83.42 Hypomagnesemia; E87.5 Hyperkalemia; I25.10 Atherosclerotic heart disease of native coronary artery without angina pectoris; J44.9 Chronic obstructive pulmonary disease, unspecified; N40.0 Benign prostatic hyperplasia without lower urinary tract symptoms; R29.6 Repeated falls; Y95 Nosocomial condition; Z51.5 Encounter for palliative care; Z66 Do not resuscitate; Z96.643 Presence of artificial hip joint, bilateral; Z96.653 Presence of artificial knee joint, bilateral; G89.29 Other chronic pain; Z83.3 Family history of diabetes mellitus; Z82.49 Family history of ischemic heart disease and other diseases of the circulatory system; Z86.73 Personal history of transient ischemic attack (TIA), and cerebral infarction without residual deficits; Z87.891 Personal history of nicotine dependence; Z88.1 Allergy status to other antibiotic agents; Z88.8 Allergy status to other drugs, medicaments and biological substances; Z79.82 Long term (current) use of aspirin; Z79.899 Other long term (current) drug therapy; Z79.84 Long term (current) use of oral hypoglycemic drugs; Z86.14 Personal history of Methicillin resistant Staphylococcus aureus infection
CPT/HCPCS: 36415; 36600; 70450; 71045; 80048; 80053; 80307; 81001; 82140; 82550; 82553; 82805; 82962; 83605; 83690; 83735; 83880; 84443; 84484; 85007; 85025; 85610; 87040; 87086; 87493; 93005; 96361; 96374; J0692; J0696; J1030; J1650; J1815; J3370; J3475; J3490; J7030; J7040; Q0163; 97110; 97530; 99285-25

== ENCOUNTER 2019-02-18 17:58 | Inpatient (IN) | payer BC ==
[~2019-02-18] VITALS: Ht 180.3 cm; Wt 65.9 kg
[~2019-02-18 17:58] MED LIST changes: +CEFD300C PO; +OXYC1TAB15 PO; +TIZA4CAP PO; -TIZA4TAB PO; +TIZA4TAB2 PO
--- NOTE | 2019-02-18 18:31 | PHYS DOC ---
Past Medical History Past Medical History: Cancer, Diabetes-Type II, Hypertension, Other Additional Past Medical Histor: SPINAL STENOSIS,MUSCLE SPASAMS,COLON OBST,PROSTATE CA, chronic hip pain Past Surgical History: Hip Replacement, Other Additional Past Surgical Histo: HERNIA, SPINE Alcohol Use: Rarely Drug Use: None Adult General Chief Complaint Chief Complaint: ALTERED [facility]AL [facility] Patient is a 78 year old male who brought in by EMS because of confusion. Patient was discharged from hospital this morning after 2 days hospitalization because of chronic back pain exacerbation. Patient called police department twice today and stated there was somebody at his home and complaining of seeing somebody standing between his bed and the wall. Patient lives at home by himself and family members check on him and called 911 because of hallucination. Patient complaining of chronic low back pain and rated his pain 9/10 when he looks very comfortable. Patient denies chest pain, urinary symptoms, focal neuro deficit, headache, fall and injury. Patient is alert and oriented and answers the questions appropriately. Review of Systems Review of Systems Constitutional: Denies fever or chills [] Eyes: Denies change in visual acuity, redness, or eye pain [] HENT: Denies nasal congestion or sore throat [] Respiratory: Denies cough or shortness of breath [] Cardiovascular: No additional information not addressed in HPI [] GI: Denies abdominal pain, nausea, vomiting, bloody stools or diarrhea [] : Denies dysuria or hematuria [] Musculoskeletal: Reports back pain , denies joint pain [] Integument: Denies rash or skin lesions [] Neurologic: Denies headache, focal weakness or sensory changes [] Endocrine: Denies polyuria or polydipsia [] All other systems were reviewed and found to be within normal limits, except as documented in this note. Allergies Allergies Allergies Coded Allergies Type Severity Reaction Last Updated Verified piperacillin Allergy Severe Itching, unresponsive,hypotension 05/14/18 Yes tazobactam Allergy Severe Itching, unresponsive,hypotension 05/14/18 Yes warfarin Allergy Severe Itching 05/14/18 Yes levofloxacin Allergy Intermediate Itching 05/14/18 Yes Physical Exam Physical Exam Constitutional: Well nourished, no acute distress, non-toxic appearance, thin. [] HENT: Normocephalic, atraumatic, oropharynx moist. Eyes: PERRLA, EOMI, conjunctiva normal, no discharge. [] Neck: Normal range of motion, no tenderness, supple, no stridor. [] Cardiovascular:Heart rate regular rhythm, no murmur [] Lungs & Thorax: Bilateral breath sounds clear to auscultation [] Abdomen: Bowel sounds normal, soft, no tenderness, no masses, no pulsatile masses. [] Skin: Warm, dry, no erythema, no rash. [] Back: No midline tenderness, no CVA tenderness. [] Extremities: No tenderness, no cyanosis, no clubbing, ROM intact, no edema. [] Neurologic: Alert and oriented X 3, normal motor function, normal sensory function, no focal deficits noted. [] Psychologic: Affect normal,mood normal. [] Current Patient Data Vital Signs Vital Signs Date Time Temp Pulse Resp B/P (MAP) Pulse Ox O2 Delivery O2 Flow Rate FiO2 02/18/19 18:09 98.1 93 18 148/77 (100) 96 Room Air 98.1 EKG EKG EKG interpreted by me. EKG at 1848 showed normal sinus rhythm at rate of 86, normal SC and QT intervals, no acute ST and T-wave abnormalities. Radiology/Procedures Radiology/Procedures [facility] [address] [place], [place] [id number] IMAGING REPORT Signed PATIENT: GREG ORTIZ ACCOUNT: [id number] : 1940 LOCATION: [address] [place] [address] AGE: 78 SEX: M EXAM STATUS: ADM IN ORD. PHYSICIAN: ZAYDA ARIAS MD REASON: confusion PROCEDURE: CT HEAD WO CONTRAST PQRS Compliance Statement: One or more of the following individualized dose reduction techniques were utilized for this examination: 1. Automated exposure control 2. Adjustment of the mA and/or kV according to patient size 3. Use of iterative reconstruction technique CT head without contrast 02/18/2019 6:16 PM INDICATION: Confusion COMPARISON: CT head January 13, 2019 TECHNIQUE: Multiple axial CT images of the head were obtained from skull base through the vertex without intravenous contrast. FINDINGS: Head: Ventricles, sulci and basal cisterns are within normal limits. Remote ischemic changes are identified in the right superior frontal gyrus and right middle frontal gyrus. Low-attenuation in the periventricular white matter is suggestive of chronic small vessel ischemic changes. There is no hydrocephalus. [place]-white matter differentiation is normal. There is no acute intracranial hemorrhage. There is no mass, mass effect or midline shift. Posterior fossa is normal in appearance. Visualized portions of the orbits are normal. Paranasal sinuses are well aerated. Mastoid air cells are well aerated. Scalp and calvaria are normal. IMPRESSION: No acute intracranial hemorrhage. Remote ischemic changes are identified in the right superior and middle frontal gyrus. Electronically signed by: Romeo Gallego MD (02/18/2019 7:41 PM) [facility] DICTATED and SIGNED BY: ROMEO GALLEGO MD DATE: 02/18/191940 Course & Med Decision Making Course & Med Decision Making Pertinent Labs and Imaging studies reviewed. (See chart for details) Evaluation of patient in ER showed 78-year-old male patient with recent hospitalization and discharged home today and lives at home alone brought in by EMS because of visual hallucination. Patient was alert and oriented �3 without acute distress, fever, hypotension. lactic acid was elevated at 2.9 and blood culture was obtained and antibiotic and IV fluid was started. Magnesium was 1.2 and IV magnesium was ordered. Patient requiring admission for further evaluation and treatment. Discussed with Dr. Burgess who is in agreement with admission. Discussed findings and plan with patient and family, who acknowledge understanding and agreement. Dragon Disclaimer Dragon Disclaimer This electronic medical record was generated, in whole or in part, using a voice recognition dictation system. Departure Departure Impression: Primary Impression: Altered level of consciousness Additional Impressions: Sepsis Chronic anemia Hypomagnesemia Disposition: ADMITTED INPATIENT (at 1849) Admitting Physician: Luis Antonio Burgess (accepted admission at 184) Condition: IMPROVED Referrals: LUIS ANTONIO BURGESS MD (PCP) NIHSS Stroke Scale NIH Stroke Scale: NIH Stroke Scale Response (Comments) Value Level of Consciousness: 0 Alert/Responsive 0 LOC Questions: 0 Answers both correctly 0 LOC Commands: 0 Performs both tasks 0 Best Gaze: 0 Normal 0 Visual: 0 No visual loss 0 Facial Palsy: 0 Normal, symmetrical 0 Motor - Left Arm 0 No drift 0 Motor - Right Arm 0 No drift 0 Motor - Left Leg 0 No drift 0 Motor: Right Leg 0 No drift 0 Limb Ataxia: 0 Absent 0 Sensory: 0 No loss 0 Best Language: 0 Normal 0 Dysathria: 0 Normal 0 Extinction and Inattention: 0 Normal 0 Total 0 Date and Time of Reassessment Date: Oct 31, 2016 Time: 18:55 Fluid Challenge Is the fluid challenge complet: No IBW Target Volume Used: No BMI > 30: No Vital Signs Vital Signs: Vital Signs Date Time Temp Pulse Resp B/P (MAP) Pulse Ox O2 Delivery O2 Flow Rate FiO2 02/18/19 18:09 98.1 93 18 148/77 (100) 96 Room Air 98.1 Temperature Source: Oral Cardiovascular Pulse Rhythm: Regular Heart: Nml rate, reg. rhythm Lung Sounds Breath Sounds: Clear Capillary Refil Capillary Refill: Rt Hand < 3 seconds Peripheral Pulse Pulse Location: Radial Pulse Strength: Normal (2+) Pulse Assessment Method: Monitor Integumentary Skin Moisture: Dry Problem Qualifiers ZAYDA ARIAS MD Feb 18, 2019 18:31
[2019-02-18 18:49] LABS: BASO # 0.2 x10^3/uL (0.0-0.2); BASO % 2 % (0-3); EOS # 0.5 x10^3/uL (0.0-0.7); EOS % 7 % (0-3); HEMATOCRIT 28.2 % (39.0-53.0); HEMOGLOBIN 9.2 g/dL (13.0-17.5); LYMPH # 1.4 x10^3/uL (1.0-4.8); LYMPH % 18 % (24-48); MEAN CORPUSCULAR HEMOGLOBIN 30 pg (25-35); MEAN CORPUSCULAR HGB CONC 33 g/dL (31-37); MEAN CORPUSCULAR VOLUME 91 fL (79-100); MONO # 0.6 x10^3/uL (0.0-1.1); MONO % 7 % (0-9); NEUT # 5.1 x10^3/uL (1.8-7.7); NEUT % 66 % (31-73); PLATELET COUNT 330 x10^3/uL (140-400); RED BLOOD COUNT 3.09 x10^6/uL (4.30-5.70); RED CELL DISTRIBUTION WIDTH 15.8 % (11.5-14.5); WHITE BLOOD COUNT 7.7 x10^3/uL (4.0-11.0)
[2019-02-18 18:55] LABS: CREATININE 1.2 mg/dL (0.7-1.3); GFR 70.9; POTASSIUM 4.3 mmol/L (3.5-5.1)
[2019-02-18 19:12] LABS: ALBUMIN 3.3 g/dL (3.4-5.0); ALBUMIN/GLOBULIN RATIO 0.6 (1.0-1.7); MAGNESIUM 1.2 mg/dL (1.8-2.4); TOTAL BILIRUBIN 0.2 mg/dL (0.2-1.0); TOTAL PROTEIN 8.6 g/dL (6.4-8.2)
[2019-02-18 19:14] LABS: BILIRUBIN,URINE NEGATIVE (NEG); CLARITY,URINE CLEAR; COLOR,URINE YELLOW; NITRITE,URINE NEGATIVE (NEG); PROTEIN,URINE 30 mg/dL (NEG-TRACE); UROBILINOGEN,URINE 0.2 mg/dL (0.2 mg/dL)
[2019-02-18 19:24] LABS: BACTERIA,URINE FEW /HPF (0-FEW); RBC,URINE 0 /HPF (0-2); SQUAMOUS EPITHELIAL CELL,UR OCC /LPF
[2019-02-18 19:25] LABS: AMORPHOUS SEDIMENT,UR PRESENT /HPF; HYALINE CASTS, URINE FEW /HPF
[2019-02-18] MEDS ORDERED: IV NORMAL SALINE 1000ML BAG 1,000 ML IV ONE ×2 (19:30)
[2019-02-18] MEDS ORDERED: MAGNESIUM SULFATE 2GM 50 ML IV ONE (19:30)
[2019-02-18] MEDS ORDERED: cefTRIAXone IV Push 1 GM VIAL. IVP ONE (19:30)
--- NOTE | 2019-02-18 19:42 | EKG ---
[facility] [address] [place] [address] Test Date: 2019-02-18 Test Time: 18:48:42 Pat Name: GREG ORTIZ Department: Room: 674 1 Gender: M Manager Nicu: : 1940 Requested By: ZAYDA ARIAS Order Number: [id number] Reading MD: Sarwat Tello MD Measurements Intervals [place] Rate: 85 P: 38 NH: 132 QRS: 36 QRSD: 76 T: 53 QT: 350 QTc: 421 Interpretive Statements SINUS RHYTHM Electronically Signed On 03-04-2019 0:39:35 CDT by Sarwat Tello MD
--- NOTE | 2019-02-18 19:44 | RAD ---
PQRS Compliance Statement: One or more of the following individualized dose reduction techniques were utilized for this examination: 1. Automated exposure control 2. Adjustment of the mA and/or kV according to patient size 3. Use of iterative reconstruction technique CT head without contrast 02/18/2019 6:16 PM INDICATION: Confusion COMPARISON: CT head January 13, 2019 TECHNIQUE: Multiple axial CT images of the head were obtained from skull base through the vertex without intravenous contrast. FINDINGS: Head: Ventricles, sulci and basal cisterns are within normal limits. Remote ischemic changes are identified in the right superior frontal gyrus and right middle frontal gyrus. Low-attenuation in the periventricular white matter is suggestive of chronic small vessel ischemic changes. There is no hydrocephalus. [place]-white matter differentiation is normal. There is no acute intracranial hemorrhage. There is no mass, mass effect or midline shift. Posterior fossa is normal in appearance. Visualized portions of the orbits are normal. Paranasal sinuses are well aerated. Mastoid air cells are well aerated. Scalp and calvaria are normal. IMPRESSION: No acute intracranial hemorrhage. Remote ischemic changes are identified in the right superior and middle frontal gyrus. Electronically signed by: Tati Ahmadi MD (02/18/2019 7:41 PM) [facility]
[2019-02-18 20:24] VITALS: BP 143/88
[2019-02-18] MEDS ORDERED: diphenhydrAMINE HCL 25 MG CAPSULE PO PRN (21:15)
[2019-02-18] MEDS ORDERED: oxyCODONE/APAP 10/325 1 TAB TABLET PO PRN (21:15)
[2019-02-18] MEDS ORDERED: NON FORMULARY ITEM (Alendronate Sodium (Fosamax) 70 MG) PO SCH (21:15)
[2019-02-18] MEDS ORDERED: tiZANidine 4 MG TABLET. PO PRN (21:30)
[2019-02-18] MEDS: CYCLOBENZAPRINE 10 MG TABLET. PO SCH (22:00)
[2019-02-18 23:34] VITALS: BP 158/79
[2019-02-19 03:08] VITALS: BP 172/89
[2019-02-19 07:49] VITALS: BP 156/72
[2019-02-19] MEDS ORDERED: metFORMIN 500 MG TABLET PO SCH (08:00)
[2019-02-19] MEDS ORDERED: POLYETHYLENE GLYCOL 3350 17 GM PACKET. PO PRN (09:00)
[2019-02-19] MEDS ORDERED: ALGAL OIL PO SCH (09:00)
[2019-02-19] MEDS ORDERED: B12 PO SCH (09:00)
[2019-02-19] MEDS: DICLOFENAC SODIUM 1% TOPICAL GEL 100GM TUBE. TP SCH ×3 (09:00→21:00)
[2019-02-19] MEDS ORDERED: LEVOMEFOLATE PO SCH (09:00)
[2019-02-19] MEDS ORDERED: B6 PO SCH (09:00)
[2019-02-19] MEDS: LISINOPRIL 10 MG TABLET PO SCH (09:04)
[2019-02-19] MEDS: PANTOPRAZOLE 40 MG TABLET.DR. PO SCH (09:04)
[2019-02-19] MEDS: CYCLOBENZAPRINE 10 MG TABLET. PO SCH ×3 (09:04→21:16)
[2019-02-19] MEDS: ASPIRIN CHEWABLE 81 MG TABLET. PO SCH (09:04)
[2019-02-19] MEDS: TAMSULOSIN 0.4 MG CAP.ER.24H. PO SCH ×2 (09:04→21:00)
--- NOTE | 2019-02-19 10:23 | PDOC ---
Provider Note Provider Note Pt seen.H&P dictated.#[id number] SPRING BURGESS MD Feb 19, 2019 10:23
[2019-02-19 11:20] VITALS: BP 141/78
--- NOTE | 2019-02-19 11:50 | NUR ---
Notified Dr. Tran with lab results for lactide acid of 1.8 and Mag 1.7. Gave the okay to discharge.
--- NOTE | 2019-02-19 11:53 | HP ---
ADMIT DATE: COMBINED HISTORY AND PHYSICAL AND DISCHARGE SUMMARY LOCATION: [facility]. REASON FOR ADMISSION TO THE HOSPITAL: Confusion. HISTORY OF PRESENT ILLNESS: The patient is a 78-year-old male. The patient was discharged from the hospital yesterday morning and apparently supposed to be there when he was at home, but there was nobody at home and later on, he heard some nausea that somebody is entering his house and he was paranoid. He called the police and has been confused, hallucinating yesterday, and was brought to the hospital. In the ER, he had a CT which was negative. CBC and chem profile were unremarkable. The patient was admitted for observation. PAST MEDICAL HISTORY: History of diabetes, hypertension, COPD, history of prostate cancer, spinal stenosis, colon obstruction, chronic pain, and multiple hip and knee surgeries. PAST SURGICAL HISTORY: He has had bilateral hip, knee replacements, hernia, and spine surgery. ALLERGIES: LEVAQUIN AND PIPERACILLIN, TAZOBACTAM, AND COUMADIN. MEDICATIONS AT HOME: The patient is on cefdinir 300 mg twice a day for UTI, Fosamax 70 mg weekly, aspirin 81 mg daily, baclofen 15 mg 3 times daily and 20 mg at bedtime, Voltaren gel to arthritis, Benadryl p.r.n., gabapentin 600 mg 3 times daily, Metanx capsule 1 twice a day for circulation, lisinopril 10 mg daily, metformin 1000 mg twice a day, oxycodone 10/325 every 6 hours, pantoprazole 40 mg daily, MiraLax 17 grams daily, Flomax 0.4 daily, and Zanaflex takes 12 mg at bedtime for muscle spasms. PERSONAL HISTORY: Ex-smoker, denies alcohol. SOCIAL HISTORY: Lives at home, does not want to go to group home. He does not want hospice. REVIEW OF SYSTEMS: Denies any chest pain or shortness of breath. PHYSICAL EXAMINATION: GENERAL: The patient is his baseline. He recognizes my name. He knows he is in the hospital. He knows the year, month, and date. HEENT: Head is atraumatic. Pupils are equal. Oral cavity, no teeth. NECK: Supple. CHEST: Symmetrical. CARDIOVASCULAR: S1 and S2. LUNGS: Clear. ABDOMEN: Soft. Scar from abdominal surgeries. No mass palpable. GENITOURINARY: External genitalia, incontinence of the urine. Rectal exam is deferred. EXTREMITIES: The patient has no swelling. Has some wasting of the muscles and contractures of the hands bilaterally and also muscle wasting in the lower legs. BACK: Examination of the back, there is a very superficial skin erosion in the gluteal area, otherwise nothing abnormality. LABORATORY/RADIOLOGIC DATA: Shows a white count of 7, hemoglobin 9.2, and platelets 330. Electrolytes show sodium 135, potassium 4.3, chloride 97, bicarbonate 25, anion gap 13, BUN 19, creatinine 1.2, and glucose 107. Magnesium 1.2, low. LFTs were normal. Troponin was negative. Urine negative for infection, 5-10 wbc's, moderate leukocyte esterase, the patient is on antibiotics for that. CT head negative. The patient recently had x-ray of the lungs, nothing major. FINAL DIAGNOSES: 1. Confusion with hallucination yesterday, resolved. 2. General decline. 3. Diabetes, hypertension, and hyperlipidemia. 4. Chronic spinal stenosis, bedridden 5. Lactic acidosis,will stop metformin. DISPOSITION: Back to home. The patient refused hospice. Family is trying to get 24-hour caregivers for him. The patient's long-term prognosis is poor. SPRING BURGESS MD DR: CECE/julien JOB#: [id number] / [id number] EARLENE
--- NOTE | 2019-02-19 11:59 | SNU/HH DC ---
DISCHARGE WITH HOME HEALTH DISCHARGE INFORMATION: Discharge Date: Feb 19, 2019 Final Diagnosis: Problems Medical Problems: (1) Altered level of consciousness Status: Acute (2) Chronic anemia Status: Acute (3) Hypomagnesemia Status: Acute (4) Sepsis Status: Acute Condition on Discharge: Stable HOME HEALTH: Face to Face: I certify this patient is under my care and that I, or a nurse practitioner or physician's periodicals library assistant working with me, had a face to face encounter that meets the physician face to face encounter requirements with this patient on [02/19/19]. Medical Complications: DJD RN For Eval/Treatment: Yes Physical Therapy For: Evalulation/Treatment Occupational Therapy For: Evaluation/Treatment Pt Meets Homebound Status: Extreme weakness w/ amb., Poor cognition POST DISCHARGE ORDERS: Activity Instructions for Disc: Resume previous activity, Activity as tolerated Weight Bearing Status after Di: As tolerated Bathing Instructions: Shower-keep dressing dry, No Tub Bath until see DIET AFTER DISCHARGE: ADA Wound/Incision Care: Change dressing DC TO SNF OTHER: back brace while up CHECKS AFTER DISCHARGE: Checks after discharge: Check blood sugar, ac/hs FOLLOW-UP: DC TO SNF LABS: weekly cbc and cmp TREATMENT/EQUIPMENT ORDERS: Adaptive Equipment Issued: None, Wheelchair CERTIFICATION STATEMENT: Certification Statement: Certification Statement: Based on the above finding, I certify that this patient is confined to the home and needs intermittent fdc care, physical therapy and/or speech therapy, or continues to need occupational therapy.~ This patient is under my care, and I have initiated the establishment of the plan of care.~ This patient will be followed by myself or a community physician who will periodically review the plan of care. Home Meds Active Scripts Cefdinir (CEFDINIR) 300 Mg Capsule, 1 CAP PO BID for uti, #10 CAP Prov:SPRING BURGESS MD 02/18/19 Tamsulosin Hcl (FLOMAX) 0.4 Mg Cap.er.24h, 1 CAP PO BID, #30 CAP 11 Refills Prov:SPRING BURGESS MD 01/13/17 Gabapentin (NEURONTIN ) 300 Mg Capsule, 600 MG PO TID, #180 CAP Prov:TWYLA ESPINOZA APRN 10/05/14 Aspirin (ASPIRIN) 81 Mg Tab.chew, 81 MG PO DAILY, #30 TAB.CHEW Prov:SPRING BURGESS MD 04/06/14 Reported Medications Levomefolate/B6/B12/Algal Oil (METANX CAPSULE) 1 Each Capsule, 1 EACH PO BID for Foot pain, CAP 04/09/18 Polyethylene Glycol 3350 (MIRALAX) 119 Gm Powder, 17 GM PO BID PRN for CONSTIPATION, #527 GM 12/01/17 Diphenhydramine Hcl (BENADRYL) 25 Mg Capsule, 1 CAP PO PRN PRN for ITCHING, #30 CAP 1 Refill 03/25/17 Pantoprazole Sodium (PANTOPRAZOLE SODIUM ) 40 Mg Tablet.dr, 1 TAB PO DAILY, #30 TAB 3 Refills 03/31/14 Diclofenac Sodium (VOLTAREN) 100 Gm Gel..gram., 1 GM TP TID, #100 GM 2 Refills 03/31/14 Baclofen (BACLOFEN) 10 Mg Tablet, 15 MG PO TID for MUSCLE RELAXER 01/22/14 Tizanidine Hcl (ZANAFLEX) 6 Mg Capsule, 12 MG PO HS PRN for MUSCLE SPASMS, CAP 12/29/13 Alendronate Sodium (FOSAMAX) 70 Mg Tablet, 70 MG PO weekly on saturday12/29/13 Oxycodone Hcl/Acetaminophen (OXYCODONE-ACETAMINOPHEN 10-325) 1 Each Tablet, 1 EACH PO PRN Q4HRS PRN for severe pain 12/03/13 Baclofen (BACLOFEN) 20 Mg Tablet, 20 MG PO HS 12/03/13 Lisinopril (LISINOPRIL) 10 Mg Tablet, 10 MG PO DAILY 12/03/13 Discontinued Reported Medications Metformin Hcl (METFORMIN HCL) 1,000 Mg Tablet, 1000 MG PO BID 12/03/13 SPRING BURGESS MD Feb 19, 2019 11:59
--- NOTE | 2019-02-19 12:19 | NUR ---
SW following pt for dc planning. Pt is known to SW and was just discharged to home yesterday. Pt still wants to go home, refuses placement. New home health orders faxed to [facility]. Awaiting to hear back from pt's son, Julio, when he will be at home to set up transport. SW also had received an email from [facility] that yesterday's report was not assigned because "it has been or is being assessed by DCF and/or law enforcement". Discussed with RN.
[2019-02-19 15:00] VITALS: BP 149/83
--- NOTE | 2019-02-19 15:07 | NUR ---
SW left a message to pt's son again. Pt does not have house vuong with him. Awaiting to hear back if someone can let pt inside to set up transport.
--- NOTE | 2019-02-19 15:38 | NUR ---
Wound Care Wound care consult for wound assessment on right thigh and coccyx. Coccyx is resolved with pale pink scar tissue present. Right upper thigh dressed with calazime cream. No other wounds noted on full skin inspection. Pt left on right side, educated on PU prevention. WC will continue to follow for possible changes.
--- NOTE | 2019-02-19 16:12 | NUR ---
SW attempted to reach pt's son, Julio no-response. Left a message for him to call RN after 1630. SW also left a voice mail to pt's nidonna Fry. Discussed with CM director.
[2019-02-19 19:50] VITALS: BP 172/87
[2019-02-19] MEDS ORDERED: BACLOFEN 20 MG PO SCH (21:00)
[2019-02-19] MEDS: GABAPENTIN 300 MG CAPSULE. PO SCH (21:16)
[2019-02-19 23:35] VITALS: BP 146/78
[2019-02-20 03:42] VITALS: BP 144/77
[2019-02-20 07:20] VITALS: BP 150/77
[2019-02-20] MEDS: PANTOPRAZOLE 40 MG TABLET.DR. PO SCH (08:53)
[2019-02-20] MEDS: CYCLOBENZAPRINE 10 MG TABLET. PO SCH (08:53)
[2019-02-20] MEDS: TAMSULOSIN 0.4 MG CAP.ER.24H. PO SCH (08:53)
[2019-02-20] MEDS: ASPIRIN CHEWABLE 81 MG TABLET. PO SCH (08:53)
[2019-02-20] MEDS: GABAPENTIN 300 MG CAPSULE. PO SCH (08:53)
[2019-02-20 08:54] VITALS: BP 150/77
[2019-02-20] MEDS: LISINOPRIL 10 MG TABLET PO SCH (08:54)
[2019-02-20] MEDS: DICLOFENAC SODIUM 1% TOPICAL GEL 100GM TUBE. TP SCH (09:00)
--- NOTE | 2019-02-20 09:20 | NUR ---
SW following pt. Spoke with RN, pt's son, Julio had called and transport is set via [facility] at 0930. Confirmed this with pt's son Julio via phone who stated he didn't call SW back because he had taken 'medicine and was out of it'. ELIOT updated [facility].
--- NOTE | 2019-02-20 09:51 | PDOC ---
PROGRESS NOTES Subjective Subjective pt feels better today Objective Objective Vital Signs Date Time Temp Pulse Resp B/P (MAP) Pulse Ox O2 Delivery O2 Flow Rate FiO2 02/20/19 08:54 87 150/77 02/20/19 07:20 98.5 20 96 Room Air 98.5 Intake and Output 02/20/19 06:59 Intake Total 60 ml Balance 60 ml Intake Oral 60 ml # Voids 4 Physical Exam Abdomen: Normal bowel sounds, Soft Heart: Regular rate, Normal S1 Extremities: No clubbing General: Alert HEENT: Atraumatic Lungs: Clear to auscultation MUSCULOSKELETAL: No swelling, Other Neck: Supple Neuro: Normal speech Psych/Mental Status: Mental status NL Skin: No breakdown Diagnosis Problem List Problems Medical Problems: (1) Altered level of consciousness Status: Acute (2) Chronic anemia Status: Acute (3) DM2 (diabetes mellitus, type 2) Status: Chronic (4) Hypomagnesemia Status: Acute (5) Sepsis Status: Acute (6) Spinal stenosis Status: Chronic Assessment Assessment Problems Medical Problems: (1) Altered level of consciousness Status: Acute (2) Chronic anemia Status: Acute (3) DM2 (diabetes mellitus, type 2) Status: Chronic (4) Hypomagnesemia Status: Acute (5) Sepsis Status: Acute (6) Spinal stenosis Status: Chronic FINAL DIAGNOSES: 1. Confusion with hallucination , resolved. 2. General decline. 3. Diabetes, hypertension, and hyperlipidemia. 4. Chronic spinal stenosis, bedridden 5. Lactic acidosis,will stop metformin. DISPOSITION: lactic acidosis resolved , stop metformin. pt going home today. Home health. The patient refused hospice. Family is trying to get 24-hour caregivers for him. The patient's long-term prognosis is poor. Plan Plan of Care Problems Medical Problems: (1) Altered level of consciousness Status: Acute (2) Chronic anemia Status: Acute (3) DM2 (diabetes mellitus, type 2) Status: Chronic (4) Hypomagnesemia Status: Acute (5) Sepsis Status: Acute (6) Spinal stenosis Status: Chronic Comment Review of Relevant I have reviewed the following items aleksandar (where applicable) has been applied. Labs Laboratory Tests Test 02/19/19 11:05 02/19/19 11:44 02/19/19 17:25 02/19/19 21:00 Lactic Acid Level 1.8 mmol/L (0.4-2.0) Magnesium Level 1.7 mg/dL (1.8-2.4) Glucose (Fingerstick) 108 mg/dL (70-99) 103 mg/dL (70-99) 97 mg/dL (70-99) Test 02/20/19 07:29 Glucose (Fingerstick) 90 mg/dL (70-99) Microbiology 02/18/19 Blood Culture - Preliminary, Resulted NO GROWTH AFTER 1 DAY Medications Current Medications Gabapentin (Neurontin) 600 mg TID PO Last administered on 02/20/19at 08:54; Start 02/19/19 at 21:30 Non-Formulary Medication (Baclofen ) 20 mg HS PO ; Start 02/19/19 at 21:00; Status UNV Vitals/I & O Vital Sign - Last 24 Hours 02/19/19 02/19/19 02/19/19 02/19/19 11:20 15:00 19:50 20:00 Temp 98.9 98.3 98.4 98.9 98.3 98.4 Pulse 80 84 89 Resp 16 18 18 B/P (MAP) 141/78 (99) 149/83 (105) 172/87 (115) Pulse Ox 99 96 97 O2 Delivery Room Air Room Air Room Air Room Air 02/19/19 02/20/19 02/20/19 02/20/19 23:35 03:42 07:20 08:54 Temp 98.5 98.1 98.5 98.5 98.1 98.5 Pulse 91 76 87 87 Resp 18 18 20 B/P (MAP) 146/78 (100) 144/77 (99) 150/77 (101) 150/77 Pulse Ox 96 97 96 O2 Delivery Room Air Room Air Room Air Intake and Output 02/19/19 02/19/19 02/20/19 14:59 22:59 06:59 Intake Total 60 ml Balance 60 ml SPRING BURGESS MD Feb 20, 2019 09:51
--- NOTE | 2019-02-20 10:15 | NUR ---
Discharge Note: GREG ORTIZ L [address] [facility] Discharge instructions and discharge home medications reviewed with KCK FD and instructions printed for SonJulio awaiting father at home and a copy given. All questions have been answered and understanding verbalized. The following instructions and handouts were given: Home health Discontinued lines and drains: 1 PIV previously removed. Patient discharged to Home with home health. Julio Freire, waiting at home for K FD to arrive. Coordinated discharge with ELIOT.
== END 2019-02-20 11:57 | disposition home health service (06) | DRG 641 ==
LOC: ER 17:58 → 6 SOUTH 18:19
PROVIDERS: ADMIT Internal Medicine; ATTEND Internal Medicine
DX: E83.42 Hypomagnesemia (principal); E87.2 Acidosis; D64.9 Anemia, unspecified; E11.9 Type 2 diabetes mellitus without complications; E78.5 Hyperlipidemia, unspecified; M54.5 Low back pain; Z96.643 Presence of artificial hip joint, bilateral; M48.00 Spinal stenosis, site unspecified; G89.29 Other chronic pain; I10 Essential (primary) hypertension; J44.9 Chronic obstructive pulmonary disease, unspecified; Z85.46 Personal history of malignant neoplasm of prostate; Z74.01 Bed confinement status; Z87.891 Personal history of nicotine dependence
CPT/HCPCS: 36415; 70450; 80053; 81001; 82550; 82962; 83605; 83735; 83880; 84484; 85025; 87040; 87086; 93005; J0696; J3475; J7030; 99285-25; G0378

== ENCOUNTER 2019-03-03 11:26 | Inpatient (IN) | payer BC ==
[~2019-03-03] VITALS: Ht 180.3 cm; Wt 77.1 kg
[2019-03-03] MEDS ORDERED: IV NORMAL SALINE 1000ML BAG 1,000 ML IV SCH (12:30)
--- NOTE | 2019-03-03 12:44 | PHYS DOC ---
Past Medical History Past Medical History: Cancer, Diabetes-Type II, Hypertension, Other Additional Past Medical Histor: SPINAL STENOSIS,MUSCLE SPASAMS,COLON OBST,PROSTATE CA, chronic hip pain Past Surgical History: Hip Replacement, Other Additional Past Surgical Histo: HERNIA, SPINE Alcohol Use: Rarely Drug Use: None Adult General Chief Complaint Chief Complaint: ABNORMAL LABS [facility] HPI Patient is a 78 year old male who brought in by his son because of abnormal blood tests. Patient had white count of 20,000 at his primary care physician office and was told to come to emergency room. Patient had recent hospitalization because of confusion and elevation of lactic acid and hypomagnesemia area patient has had history of chronic back pain. Review of Systems Review of Systems Constitutional: Denies fever or chills [] Eyes: Denies change in visual acuity, redness, or eye pain [] HENT: Denies nasal congestion or sore throat [] Respiratory: Denies cough or shortness of breath [] Cardiovascular: No additional information not addressed in HPI [] GI: Denies abdominal pain, nausea, vomiting, bloody stools or diarrhea [] : Denies dysuria or hematuria [] Musculoskeletal: Reports back pain, denies joint pain [] Integument: Denies rash or skin lesions [] Neurologic: Denies headache, focal weakness or sensory changes [] Endocrine: Denies polyuria or polydipsia [] All other systems were reviewed and found to be within normal limits, except as documented in this note. Current Medications Current Medications Current Medications Medications (Trade) Dose Ordered Sig/Karina Start Time Stop Time Status Last Admin Dose Admin Sodium Chloride 1,000 ml @ 1,000 mls/hr Q1H 03/03/19 12:30 03/03/19 13:29 DC 03/03/19 12:38 1,000 MLS/HR Allergies Allergies Allergies Coded Allergies Type Severity Reaction Last Updated Verified piperacillin Allergy Severe Itching, unresponsive,hypotension 05/14/18 Yes tazobactam Allergy Severe Itching, unresponsive,hypotension 05/14/18 Yes warfarin Allergy Severe Itching 05/14/18 Yes levofloxacin Allergy Intermediate Itching 05/14/18 Yes Physical Exam Physical Exam Constitutional: Mild distress, non-toxic appearance. [] HENT: Normocephalic, atraumatic, dry oral mucosa. Eyes: PERRLA, EOMI, conjunctiva normal, no discharge. [] Neck: Normal range of motion, no tenderness, supple, no stridor. [] Cardiovascular: Tachycardia, no murmur [] Lungs & Thorax: Bilateral breath sounds clear to auscultation [] Abdomen: Bowel sounds normal, soft, no tenderness, no masses, no pulsatile mas ses. [] Skin: Warm, dry, no erythema, no rash. [] Back: No tenderness, no CVA tenderness. [] Extremities: No tenderness, no cyanosis, no clubbing, ROM intact, no edema. [] Neurologic: Alert and oriented X 3, no focal deficits noted. [] Current Patient Data Vital Signs Vital Signs Date Time Temp Pulse Resp B/P (MAP) Pulse Ox O2 Delivery O2 Flow Rate FiO2 03/03/19 11:41 99.0 104 18 127/58 (81) 93 Room Air 99.0 Lab Values Laboratory Tests Test 03/03/19 12:50 White Blood Count 11.6 x10^3/uL (4.0-11.0) H Red Blood Count 3.28 x10^6/uL (4.30-5.70) L Hemoglobin 9.6 g/dL (13.0-17.5) L Hematocrit 30.0 % (39.0-53.0) L Mean Corpuscular Volume 92 fL (79-100) Mean Corpuscular Hemoglobin 29 pg (25-35) Mean Corpuscular Hemoglobin Concent 32 g/dL (31-37) Red Cell Distribution Width 16.1 % (11.5-14.5) H Platelet Count 304 x10^3/uL (140-400) Neutrophils (%) (Auto) 89 % (31-73) H Lymphocytes (%) (Auto) 5 % (24-48) L Monocytes (%) (Auto) 5 % (0-9) Eosinophils (%) (Auto) 0 % (0-3) Basophils (%) (Auto) 0 % (0-3) Neutrophils # (Auto) 10.3 x10^3/uL (1.8-7.7) H Lymphocytes # (Auto) 0.6 x10^3/uL (1.0-4.8) L Monocytes # (Auto) 0.6 x10^3/uL (0.0-1.1) Eosinophils # (Auto) 0.0 x10^3/uL (0.0-0.7) Basophils # (Auto) 0.0 x10^3/uL (0.0-0.2) Segmented Neutrophils % 90 % (35-66) H Band Neutrophils % 2 % (0-9) Lymphocytes % 5 % (24-48) L Monocytes % 3 % (0-10) Platelet Estimate Adequate (ADEQUATE) Prothrombin Time 12.9 SEC (11.7-14.0) Prothrombin Time INR 1.0 (0.8-1.1) Sodium Level 141 mmol/L (136-145) Potassium Level 4.4 mmol/L (3.5-5.1) Chloride Level 104 mmol/L (98-107) Carbon Dioxide Level 25 mmol/L (21-32) Anion Gap 12 (6-14) Blood Urea Nitrogen 47 mg/dL (8-26) H Creatinine 1.6 mg/dL (0.7-1.3) H Estimated GFR (Cockcroft-Gault) 50.8 BUN/Creatinine Ratio 29 (6-20) H Glucose Level 102 mg/dL (70-99) H Lactic Acid Level 3.0 mmol/L (0.4-2.0) H Calcium Level 10.8 mg/dL (8.5-10.1) H Magnesium Level 1.9 mg/dL (1.8-2.4) Total Bilirubin 0.4 mg/dL (0.2-1.0) Aspartate Amino Transferase (AST) 51 U/L (15-37) H Alanine Aminotransferase (ALT) 40 U/L (16-63) Alkaline Phosphatase 63 U/L (46-116) Creatine Kinase 594 U/L (39-308) H Troponin I Quantitative < 0.017 ng/mL (0.000-0.055) JF-Kht-L-Type Natriuretic Peptide 345 pg/mL (0-449) Total Protein 9.4 g/dL (6.4-8.2) H Albumin 3.0 g/dL (3.4-5.0) L Albumin/Globulin Ratio 0.5 (1.0-1.7) L Lipase 286 U/L (73-393) Laboratory Tests 03/03/19 12:50 Laboratory Tests 03/03/19 12:50 EKG EKG EKG interpreted by me. EKG at 1148 showed sinus tachycardia rate of 102, normal NE and QT intervals, no acute ST and T-wave elevation. Radiology/Procedures Radiology/Procedures [][facility] [address] [place] [address] IMAGING REPORT Signed PATIENT: GREG ORTIZ ACCOUNT: [id number] : 1940 LOCATION: ER AGE: 78 SEX: M EXAM STATUS: REG ER ORD. PHYSICIAN: ZAYDA ARIAS MD REASON: leukocytosis PROCEDURE: PORTABLE CHEST 1V Indication:Leukocytosis. TECHNIQUE:Portable AP chest X-ray COMPARISON: 02/16/2019 FINDINGS: Heart is normal in size. Lungs are hyperinflated. Stable elevation of left hemidiaphragm. Bibasilar interstitial opacities are seen. No focal consolidation. No pneumothorax or pleural effusion. Visualized bony thorax within normal limits. IMPRESSION: COPD changes. Mild bibasilar infiltrates or scarring. Electronically signed by: Tereso Larry DO (03/03/2019 1:28 PM) [facility] DICTATED and SIGNED BY: TERESO LARRY DO DATE: 03/03/19 1328 Course & Med Decision Making Course & Med Decision Making Pertinent Labs and Imaging studies reviewed. (See chart for details) Evaluation of patient in ER showed 78-year-old male patient with history of recent hospitalization for several �10 because had white count of 20,000 four days ago at primary care physician office. Patient did not have fever hypertension at arrival to ER. Patient didn't eat and dehydrated. Patient had mild tachycardia that improved with rest. Labs showed white count of 11.6 and lactic acid of 3.0. Chest x-ray did not show infiltrate and UA is pending. Patient treated with IV fluid and antibiotic with improvement of his condition. Patient requiring admission for further evaluation and treatment. Discussed with Dr. Burgess who is in agreement with admission. Discussed findings and plan with patient and family, who acknowledge understanding and agreement. Dragon Disclaimer Dragon Disclaimer This electronic medical record was generated, in whole or in part, using a voice recognition dictation system. Departure Departure Impression: Primary Impression: Sepsis Additional Impressions: Dehydration Renal insufficiency Anemia Generalized weakness Disposition: ADMITTED INPATIENT (@1350) Admitting Physician: Luis Antonio Burgess (accepted admission at 1343) Condition: IMPROVED Referrals: LUIS ANTONIO BURGESS MD (PCP) Date and Time of Reassessment Date: Oct 31, 2016 Time: 14:23 Fluid Challenge Is the fluid challenge complet: No IBW Target Volume Used: No BMI > 30: No Vital Signs Vital Signs: Vital Signs Date Time Temp Pulse Resp B/P (MAP) Pulse Ox O2 Delivery O2 Flow Rate FiO2 03/03/19 11:41 99.0 104 18 127/58 (81) 93 Room Air 99.0 Temperature Source: Oral Cardiovascular Pulse Rhythm: Regular Heart: Nml rate, reg. rhythm Capillary Refil Capillary Refill: Rt Hand < 3 seconds Peripheral Pulse Pulse Location: Radial Pulse Strength: Normal (2+) Pulse Assessment Method: NIBP Problem Qualifiers Primary Impression: Sepsis Sepsis type: sepsis due to unspecified organism Sepsis acute organ dysfunction status: unspecified Qualified Codes: A41.9 - Sepsis, unspecified organism Additional Impressions: Anemia Anemia type: unspecified type Qualified Codes: D64.9 - Anemia, unspecified ZAYDA ARIAS MD Mar 03, 2019 12:44
--- NOTE | 2019-03-03 12:47 | EKG ---
[facility] [address] [place] [address] Test Date: 2019-03-03 Test Time: 11:48:18 Pat Name: GREG ORTIZ Department: Room: Gender: M Legal Assistant: : 1940 Requested By: ZAYDA ARIAS Order Number: [id number] Reading MD: Franki Thomas Measurements Intervals [place] Rate: 102 P: 34 ND: 106 QRS: 42 QRSD: 72 T: 58 QT: 334 QTc: 439 Interpretive Statements SINUS TACHYCARDIA Electronically Signed On 03-06-2019 10:09:40 CDT by Franki Thomas
[2019-03-03 13:09] LABS: BASO % 0 % (0-3); EOS % 0 % (0-3); HEMOGLOBIN 9.6 g/dL (13.0-17.5); LYMPH # 0.6 x10^3/uL (1.0-4.8); LYMPH % 5 % (24-48); MEAN CORPUSCULAR HEMOGLOBIN 29 pg (25-35); MEAN CORPUSCULAR HGB CONC 32 g/dL (31-37); MEAN CORPUSCULAR VOLUME 92 fL (79-100); MONO # 0.6 x10^3/uL (0.0-1.1); MONO % 5 % (0-9); NEUT # 10.3 x10^3/uL (1.8-7.7); NEUT % 89 % (31-73); PLATELET COUNT 304 x10^3/uL (140-400); RED BLOOD COUNT 3.28 x10^6/uL (4.30-5.70); RED CELL DISTRIBUTION WIDTH 16.1 % (11.5-14.5); WHITE BLOOD COUNT 11.6 x10^3/uL (4.0-11.0)
[2019-03-03 13:16] LABS: PROTHROMBIN TIME PATIENT 12.9 SEC (11.7-14.0)
[2019-03-03 13:18] LABS: CALCIUM 10.8 mg/dL (8.5-10.1); CREATININE 1.6 mg/dL (0.7-1.3); GFR 50.8; POTASSIUM 4.4 mmol/L (3.5-5.1)
[2019-03-03 13:24] LABS: ALBUMIN/GLOBULIN RATIO 0.5 (1.0-1.7); MAGNESIUM 1.9 mg/dL (1.8-2.4); TOTAL BILIRUBIN 0.4 mg/dL (0.2-1.0); TOTAL PROTEIN 9.4 g/dL (6.4-8.2)
[2019-03-03 13:31] LABS: % BANDS 2 % (0-9); % LYMPHS 5 % (24-48); % MONOS 3 % (0-10); % SEGS 90 % (35-66); PLT ESTIMATE ADEQUATE (ADEQUATE)
--- NOTE | 2019-03-03 13:31 | RAD ---
Indication:Leukocytosis. TECHNIQUE:Portable AP chest X-ray COMPARISON: 02/16/2019 FINDINGS: Heart is normal in size. Lungs are hyperinflated. Stable elevation of left hemidiaphragm. Bibasilar interstitial opacities are seen. No focal consolidation. No pneumothorax or pleural effusion. Visualized bony thorax within normal limits. IMPRESSION: COPD changes. Mild bibasilar infiltrates or scarring. Electronically signed by: Tereso Larry DO (03/03/2019 1:28 PM) [facility]
[2019-03-03] MEDS ORDERED: cefTRIAXone IV Push 1 GM VIAL. IVP ONE (14:00)
[2019-03-03] MEDS ORDERED: VANCOMYCIN 1GM IVPB FOR OMNI 250 ML IV ONE (14:00)
[2019-03-03] MEDS ORDERED: IV NORMAL SALINE 1000ML BAG 1,000 ML IV ONE (14:00)
[2019-03-03] MEDS ORDERED: NON FORMULARY ITEM (Alendronate Sodium (Fosamax) 70 MG) PO SCH (15:15)
[2019-03-03] MEDS ORDERED: diphenhydrAMINE HCL 25 MG CAPSULE PO PRN (15:15)
[2019-03-03] MEDS ORDERED: tiZANidine 4 MG TABLET. PO PRN (15:30)
[2019-03-03] MEDS ORDERED: CYCLOBENZAPRINE 10 MG TABLET. PO SCH ×2 (15:30→17:00)
[2019-03-03] MEDS: GABAPENTIN 300 MG CAPSULE. PO SCH ×2 (16:43→20:04)
[2019-03-03] MEDS: CYCLOBENZAPRINE 10 MG TABLET. PO SCH ×2 (16:43→20:05)
[2019-03-03] MEDS: IV NORMAL SALINE 1000ML BAG 1,000 ML IV SCH ×2 (16:47→23:41)
[2019-03-03 19:50] VITALS: BP 154/88
[2019-03-03] MEDS: TAMSULOSIN 0.4 MG CAP.ER.24H. PO SCH (20:04)
[2019-03-03] MEDS: VITAMIN B COMPLEX TABLET. PO SCH (20:04)
[2019-03-03] MEDS: oxyCODONE/APAP 10/325 1 TAB TABLET PO PRN (20:05)
[2019-03-03] MEDS: DICLOFENAC SODIUM 1% TOPICAL GEL 100GM TUBE. TP SCH (20:06)
[2019-03-03] MEDS: HEPARIN for SUB-Q USE 5,000 UNIT/ML VIAL. SQ SCH (20:08)
[2019-03-03] MEDS ORDERED: BACLOFEN 20 MG PO SCH (21:00)
[2019-03-03 23:56] VITALS: BP 140/77
[2019-03-04 03:48] VITALS: BP 149/76
[2019-03-04] MEDS: IV NORMAL SALINE 1000ML BAG 1,000 ML IV SCH ×3 (06:13→21:23)
[2019-03-04 07:15] VITALS: BP 143/75
[2019-03-04] MEDS: VITAMIN B COMPLEX TABLET. PO SCH ×2 (07:47→21:23)
[2019-03-04] MEDS: GABAPENTIN 300 MG CAPSULE. PO SCH ×3 (07:47→21:23)
[2019-03-04] MEDS: PANTOPRAZOLE 40 MG TABLET.DR. PO SCH (07:47)
[2019-03-04] MEDS: CYCLOBENZAPRINE 10 MG TABLET. PO SCH ×4 (07:47→21:23)
[2019-03-04] MEDS: TAMSULOSIN 0.4 MG CAP.ER.24H. PO SCH ×2 (07:47→21:23)
[2019-03-04] MEDS: ASPIRIN CHEWABLE 81 MG TABLET. PO SCH (07:48)
[2019-03-04] MEDS: DICLOFENAC SODIUM 1% TOPICAL GEL 100GM TUBE. TP SCH ×3 (07:48→21:00)
[2019-03-04] MEDS: HEPARIN for SUB-Q USE 5,000 UNIT/ML VIAL. SQ SCH ×2 (07:59→21:30)
[2019-03-04] MEDS ORDERED: POLYETHYLENE GLYCOL 3350 17 GM PACKET. PO PRN (09:00)
[2019-03-04 10:05] LABS: CALCIUM 9.4 mg/dL (8.5-10.1); CREATININE 1.2 mg/dL (0.7-1.3); GFR 70.9; POTASSIUM 4.1 mmol/L (3.5-5.1)
--- NOTE | 2019-03-04 10:05 | PDOC ---
Provider Note Provider Note Pt seen.H&P dictated.#[id number] SPRING BURGESS MD Mar 04, 2019 10:05
[2019-03-04 10:13] LABS: BASO # 0.1 x10^3/uL (0.0-0.2); BASO % 1 % (0-3); EOS # 0.4 x10^3/uL (0.0-0.7); EOS % 5 % (0-3); HEMATOCRIT 27.9 % (39.0-53.0); LYMPH # 1.1 x10^3/uL (1.0-4.8); LYMPH % 13 % (24-48); MEAN CORPUSCULAR HEMOGLOBIN 30 pg (25-35); MEAN CORPUSCULAR HGB CONC 32 g/dL (31-37); MEAN CORPUSCULAR VOLUME 93 fL (79-100); MONO # 0.4 x10^3/uL (0.0-1.1); MONO % 5 % (0-9); NEUT # 6.5 x10^3/uL (1.8-7.7); NEUT % 76 % (31-73); PLATELET COUNT 246 x10^3/uL (140-400); RED BLOOD COUNT 3.01 x10^6/uL (4.30-5.70); RED CELL DISTRIBUTION WIDTH 16.5 % (11.5-14.5); WHITE BLOOD COUNT 8.6 x10^3/uL (4.0-11.0)
--- NOTE | 2019-03-04 10:40 | NUR ---
SW consulted for dc planning. Chart reviewed and pt is well known to SW from previous admission. Pt lives at home and was discharged with [facility] on last admission. Will continue to follow.
[2019-03-04 11:02] VITALS: BP 130/72
--- NOTE | 2019-03-04 11:07 | HP ---
ADMIT DATE: 03/03/2019 PATIENT LOCATION: [facility]. REASON FOR ADMISSION TO THE HOSPITAL: Lactic acidosis and acute renal insufficiency. HISTORY OF PRESENT ILLNESS: The patient is a 78-year-old male has been declining lately has been at home, followed by home health. Yesterday, they did labs. His white count was 20,000 and the patient was sent to the hospital for further evaluation and his white count came down to 12,000 in the ER, but he had lactic acidosis with 3 lactic acid, BUN 47, creatinine 1.6. His current creatinine is 1.2, BUN around 20. The patient was given IV fluids, was admitted for lactic acidosis workup. PAST MEDICAL HISTORY: The patient has been in and out of the hospitals multiple times. The last admission was 02/19/2019, history of diabetes, hypertension, chronic obstructive pulmonary disease, spinal stenosis, contractures. PAST SURGICAL HISTORY: Bilateral knee replacements, hernia, spine surgery for spinal stenosis. ALLERGIES: LEVAQUIN, PIPERACILLIN, TAZOBACTAM, AND COUMADIN. MEDICATIONS: Fosamax 70 mg weekly, aspirin 81 mg daily, baclofen 15 mg 3 times daily, 20 mg at bedtime, Voltaren gel daily, Benadryl, gabapentin 300 mg 3 times daily, Metanx capsule 1 daily, lisinopril 10 mg daily. The patient was off metformin, already on oxycodone 10/325 mg for pain, Protonix 40 mg daily, MiraLax 17 grams daily, Flomax 0.4 daily, Zanaflex 12 mg at bedtime. PERSONAL HISTORY: Ex-smoker, denies smoking, alcohol or drugs at the present time, is on chronic narcotic medications. SOCIAL HISTORY: Lives at home, is wheelchair level and there is somebody at home. In the past, the patient was seen by social workers and he does not qualify for custodial placement. He owns a lot of house and other property and does not have Medicaid. REVIEW OF SYSTEMS: Denies any chest pain, shortness of breath, and burning in urination. Rest of the 14 systems was reviewed and negative. PHYSICAL EXAMINATION: GENERAL: The patient is chronically sick, not in acute distress. VITAL SIGNS: Temperature 97, pulse 82, respirations 18, blood pressure 140/77, 91 on room air. HEENT: Head is atraumatic. Pupils equal. Oral cavity, no teeth. NECK: Supple. Scar of previous surgery on the neck for spinal stenosis. CARDIOVASCULAR: S1, S2. LUNGS: Diminished breath sounds. ABDOMEN: Soft, had a scar of abdominal surgery. EXTERNAL GENITALIA: No Laureano. The patient is incontinent of the urine. RECTAL: Deferred. EXTREMITIES: No edema. The patient has wasting of the muscles and contractures of the fingers and also wasting of muscles in the lower leg. LABORATORY DATA: Shows a white count 11.6, hemoglobin 9.6, and platelets 304. INR is 1.0. Electrolytes showed sodium 141, potassium 4.4, chloride 104, bicarbonate 25, BUN 47, creatinine 1.6, glucose 102. Lactic acid 3.0. LFTs were okay. Chest x-ray: No acute infiltrates. EKG done. FINAL IMPRESSION: 1. Lactic acidosis. 2. Acute renal insufficiency on chronic. 3. General debility. 4. Chronic obstructive pulmonary disease. 5. Spinal stenosis with contractures. 6. Diabetes, hypertension, hyperlipidemia, and benign prostatic hypertrophy. PLAN: At this time, was given IV fluids to correct renal insufficiency. Follow up on the lactic acid daily, does not have a fever. White count is relatively normal. The patient was given dose of vancomycin and Rocephin in the ER and then, we will watch for the cultures. SPRING BURGESS MD DR: CECE/julien JOB#: [id number] / [id number]
--- NOTE | 2019-03-04 13:57 | NUR ---
Wound care: Patient seen per wound care consult. See wound assessment. Patient is well known to us from previous admissions. Patient has a stage III on midback and buttocks, as well as a stage II with DTI to the left hip. Wounds cleansed, assessed, measured, and pictured. recommendations for Hydrocolloid and foam dressing to right midback, a foam dressing to the left hip, and A & D ointment to buttocks/coccyx area. Dressings applied and patient tolerated well. No other areas noted. Patient socks were not placed back on as patient had significant swelling and they appeared too tight. Bilateral heels elevated. Patient repositioned using wedge. Dressing change instructions left in room. Bed lowered and call light in reach.
[2019-03-04] MEDS ORDERED: cefTRIAXone IV Push 1 GM VIAL. IVP SCH (14:00)
[2019-03-04 15:07] VITALS: BP 133/77
[2019-03-04 19:44] VITALS: BP 163/76
[2019-03-04] MEDS: LACTOBACILLUS RHAMNOSUS GG 1 CAPSULE. PO SCH (21:23)
[2019-03-04 23:25] VITALS: BP 167/67
[2019-03-05] MEDS: oxyCODONE/APAP 10/325 1 TAB TABLET PO PRN (02:28)
[2019-03-05 03:42] VITALS: BP 169/82
[2019-03-05 05:39] LABS: CALCIUM 8.7 mg/dL (8.5-10.1); GFR 87.4; POTASSIUM 4.3 mmol/L (3.5-5.1)
[2019-03-05] MEDS: IV NORMAL SALINE 1000ML BAG 1,000 ML IV SCH (06:12)
[2019-03-05 07:15] VITALS: BP 141/56
--- NOTE | 2019-03-05 09:52 | PDOC ---
PROGRESS NOTES Subjective Subjective feels better want to go home Objective Objective Vital Signs Date Time Temp Pulse Resp B/P (MAP) Pulse Ox O2 Delivery O2 Flow Rate FiO2 03/05/19 07:15 98.3 69 20 141/56 (84) 95 Room Air 98.3 Intake and Output 03/05/19 06:59 Intake Total 1640 ml Balance 1640 ml Intake Oral 1640 ml # Voids 7 # Bowel Movements 2 Physical Exam Abdomen: Normal bowel sounds, Soft Heart: Regular rate, Normal S1 Extremities: No clubbing General: Alert HEENT: Atraumatic Lungs: Clear to auscultation MUSCULOSKELETAL: No swelling, Other Neuro: Normal speech Psych/Mental Status: Mood NL Skin: No breakdown Diagnosis Problem List Problems Medical Problems: (1) Anemia Status: Acute (2) BPH (benign prostatic hyperplasia) Status: Chronic (3) COPD (chronic obstructive pulmonary disease) Status: Chronic (4) DM2 (diabetes mellitus, type 2) Status: Chronic (5) Generalized weakness Status: Acute (6) HTN (hypertension) Status: Chronic (7) Renal insufficiency Status: Acute (8) Sepsis Status: Acute (9) Spinal stenosis Status: Chronic Assessment Assessment Problems Medical Problems: (1) Anemia Status: Acute (2) BPH (benign prostatic hyperplasia) Status: Chronic (3) COPD (chronic obstructive pulmonary disease) Status: Chronic (4) DM2 (diabetes mellitus, type 2) Status: Chronic (5) Generalized weakness Status: Acute (6) HTN (hypertension) Status: Chronic (7) Renal insufficiency Status: Acute (8) Sepsis Status: Acute (9) Spinal stenosis Status: Chronic FINAL IMPRESSION: 1. Lactic acidosis. 2. Acute renal insufficiency on chronic. 3. General debility. 4. Chronic obstructive pulmonary disease. 5. Spinal stenosis with contractures. 6. Diabetes, hypertension, hyperlipidemia, and benign prostatic hypertrophy. PLAN: cxr-ve kidney function normal. labs good lactic acid trending down wbc normal c/s neg. d/c home. At this time, was given IV fluids to correct renal insufficiency. Follow up on the lactic acid daily, does not have a fever. White count is relatively normal. The patient was given dose of vancomycin and Rocephin in the ER and then, we will watch for the cultures. Plan Plan of Care Problems Medical Problems: (1) Anemia Status: Acute (2) BPH (benign prostatic hyperplasia) Status: Chronic (3) COPD (chronic obstructive pulmonary disease) Status: Chronic (4) DM2 (diabetes mellitus, type 2) Status: Chronic (5) Generalized weakness Status: Acute (6) HTN (hypertension) Status: Chronic (7) Renal insufficiency Status: Acute (8) Sepsis Status: Acute (9) Spinal stenosis Status: Chronic Comment Review of Relevant I have reviewed the following items aleksandar (where applicable) has been applied. Labs Laboratory Tests Test 03/05/19 05:00 Sodium Level 144 mmol/L (136-145) Potassium Level 4.3 mmol/L (3.5-5.1) Chloride Level 109 mmol/L (98-107) Carbon Dioxide Level 25 mmol/L (21-32) Anion Gap 10 (6-14) Blood Urea Nitrogen 14 mg/dL (8-26) Creatinine 1.0 mg/dL (0.7-1.3) Estimated GFR (Cockcroft-Gault) 87.4 Glucose Level 91 mg/dL (70-99) Calcium Level 8.7 mg/dL (8.5-10.1) Microbiology 03/03/19 Blood Culture - Preliminary, Resulted NO GROWTH AFTER 1 DAY Medications Current Medications Ceftriaxone Sodium (Rocephin) 1 gm Q24H IVP Last administered on 03/04/19at 15:01; Start 03/04/19 at 14:00 Lactobacillus Rhamnosus (Culturelle) 1 cap BID PO Last administered on 03/04/19at 21:30; Start 03/04/19 at 21:00 Vitals/I & O Vital Sign - Last 24 Hours 03/04/19 03/04/19 03/04/19 03/04/19 11:02 15:07 19:44 20:00 Temp 98.1 97.3 98.1 98.1 97.3 98.1 Pulse 84 80 70 Resp 18 18 18 B/P (MAP) 130/72 (91) 133/77 (95) 163/76 (105) Pulse Ox 96 96 99 O2 Delivery Room Air Room Air Room Air Room Air 03/04/19 03/05/19 03/05/19 23:25 03:42 07:15 Temp 99.0 98.5 98.3 99.0 98.5 98.3 Pulse 90 87 69 Resp 18 18 20 B/P (MAP) 167/67 (100) 169/82 (111) 141/56 (84) Pulse Ox 100 96 95 O2 Delivery Room Air Room Air Room Air Intake and Output 03/04/19 03/04/19 03/05/19 14:59 22:59 06:59 Intake Total 780 ml 760 ml 100 ml Balance 780 ml 760 ml 100 ml SPRING BURGESS MD Mar 05, 2019 09:52
--- NOTE | 2019-03-05 09:57 | SNU/HH DC ---
DISCHARGE WITH HOME HEALTH DISCHARGE INFORMATION: Discharge Date: Mar 05, 2019 Final Diagnosis: Problems Medical Problems: (1) Anemia Status: Acute (2) BPH (benign prostatic hyperplasia) Status: Chronic (3) COPD (chronic obstructive pulmonary disease) Status: Chronic (4) DM2 (diabetes mellitus, type 2) Status: Chronic (5) Generalized weakness Status: Acute (6) HTN (hypertension) Status: Chronic (7) Renal insufficiency Status: Acute (8) Sepsis Status: Acute (9) Spinal stenosis Status: Chronic Condition on Discharge: Stable CODE STATUS: Code Status: Full HOME HEALTH: Face to Face: I certify this patient is under my care and that I, or a nurse practitioner or physician's quality assistant working with me, had a face to face encounter that meets the physician face to face encounter requirements with this patient on []. Medical Complications: DJD RN For Eval/Treatment: Yes Physical Therapy For: Evalulation/Treatment Occupational Therapy For: Evaluation/Treatment Home Health Aide For: Self-care BENEFITS OFFICER For: Community Resources Pt Meets Homebound Status: Poor coordination w/ amb. POST DISCHARGE ORDERS: Activity Instructions for Disc: Resume previous activity, Activity as tolerated Weight Bearing Status after Di: As tolerated Bathing Instructions: Shower-keep dressing dry, No Tub Bath until see DIET AFTER DISCHARGE: ADA Wound/Incision Care: Change dressing DC TO SNF OTHER: back brace while up CHECKS AFTER DISCHARGE: Checks after discharge: Check blood sugar, ac/hs FOLLOW-UP: DC TO SNF LABS: weekly cbc and cmp TREATMENT/EQUIPMENT ORDERS: Adaptive Equipment Issued: None, Wheelchair CERTIFICATION STATEMENT: Certification Statement: Certification Statement: Based on the above finding, I certify that this patient is confined to the home and needs intermittent mcfp care, physical therapy and/or speech therapy, or continues to need occupational therapy.~ This patient is under my care, and I have initiated the establishment of the plan of care.~ This patient will be followed by myself or a community physician who will periodically review the plan of care. Home Meds Active Scripts Tamsulosin Hcl (FLOMAX) 0.4 Mg Cap.er.24h, 1 CAP PO BID, #30 CAP 11 Refills Prov:SPRING BURGESS MD 01/13/17 Gabapentin (NEURONTIN ) 300 Mg Capsule, 600 MG PO TID, #180 CAP Prov:TWYLA ESPNIOZA APRN 10/05/14 Aspirin (ASPIRIN) 81 Mg Tab.chew, 81 MG PO DAILY, #30 TAB.CHEW Prov:SPRING BURGESS MD 04/06/14 Reported Medications Levomefolate/B6/B12/Algal Oil (METANX CAPSULE) 1 Each Capsule, 1 EACH PO BID for Foot pain, CAP 04/09/18 Polyethylene Glycol 3350 (MIRALAX) 119 Gm Powder, 17 GM PO BID PRN for CONSTIPATION, #527 GM 12/01/17 Diphenhydramine Hcl (BENADRYL) 25 Mg Capsule, 1 CAP PO PRN PRN for ITCHING, #30 CAP 1 Refill 03/25/17 Pantoprazole Sodium (PANTOPRAZOLE SODIUM ) 40 Mg Tablet.dr, 1 TAB PO DAILY, #30 TAB 3 Refills 03/31/14 Diclofenac Sodium (VOLTAREN) 100 Gm Gel..gram., 1 GM TP TID, #100 GM 2 Refills 03/31/14 Baclofen (BACLOFEN) 10 Mg Tablet, 15 MG PO TID for MUSCLE RELAXER 01/22/14 Tizanidine Hcl (ZANAFLEX) 6 Mg Capsule, 12 MG PO HS PRN for MUSCLE SPASMS, CAP 12/29/13 Alendronate Sodium (FOSAMAX) 70 Mg Tablet, 70 MG PO weekly on saturday12/29/13 Oxycodone Hcl/Acetaminophen (OXYCODONE-ACETAMINOPHEN 10-325) 1 Each Tablet, 1 EACH PO PRN Q4HRS PRN for severe pain 12/03/13 Baclofen (BACLOFEN) 20 Mg Tablet, 20 MG PO HS 12/03/13 Lisinopril (LISINOPRIL) 10 Mg Tablet, 10 MG PO DAILY 12/03/13 Discontinued Scripts Cefdinir (CEFDINIR) 300 Mg Capsule, 1 CAP PO BID for uti, #10 CAP Prov:SPRING BURGESS MD 02/18/19 SPRING BURGESS MD Mar 05, 2019 09:57
[2019-03-05] MEDS: VITAMIN B COMPLEX TABLET. PO SCH (10:39)
[2019-03-05] MEDS: LACTOBACILLUS RHAMNOSUS GG 1 CAPSULE. PO SCH (10:39)
[2019-03-05] MEDS: PANTOPRAZOLE 40 MG TABLET.DR. PO SCH (10:39)
[2019-03-05] MEDS: ASPIRIN CHEWABLE 81 MG TABLET. PO SCH (10:39)
[2019-03-05] MEDS: CYCLOBENZAPRINE 10 MG TABLET. PO SCH (10:39)
[2019-03-05] MEDS: GABAPENTIN 300 MG CAPSULE. PO SCH (10:39)
[2019-03-05] MEDS: TAMSULOSIN 0.4 MG CAP.ER.24H. PO SCH (10:39)
[2019-03-05] MEDS: HEPARIN for SUB-Q USE 5,000 UNIT/ML VIAL. SQ SCH (10:48)
[2019-03-05] MEDS: DICLOFENAC SODIUM 1% TOPICAL GEL 100GM TUBE. TP SCH (10:48)
[2019-03-05 10:59] VITALS: BP 156/78
--- NOTE | 2019-03-05 11:04 | NUR ---
Pt was discharged and escorted to the family vehicle. via wheelchair with shefalis and Chelsey OSHEA and this RN and transferred to vehicle.
--- NOTE | 2019-03-06 09:19 | NUR ---
Late note: ELIOT faxed resumption orders to Jake [facility].
--- NOTE | 2019-03-06 16:28 | PDOC ---
Provider Note Provider Note Discharge summary dictated.#[id number] SPRING BURGESS MD Mar 06, 2019 16:28
--- NOTE | 2019-03-06 19:19 | DS ---
DATE OF DISCHARGE: 03/05/2019 REASON FOR ADMISSION TO THE HOSPITAL: Acute renal insufficiency and dehydration. HOSPITAL COURSE: The patient is a 78-year-old male, patient is at home, he has chronic COPD, general debility and bedridden because of his arthritis. The home health did some labs and his white count was high at 20,000. BUN and creatinine was up, so the patient was sent to the ER. Surprisingly, his white count was normal in the ER, BUN was 47, creatinine 1.6. The patient was given fluids and BUN came down to 14, creatinine 1.0. The patient had lactic acid was high at 3, improved to 2.8. The patient on the whole was feeling better. He is anxious to go home. The patient was discharged. FINAL DIAGNOSES: 1. Acute renal insufficiency. 2. Mild lactic acidosis. 3. Chronic obstructive pulmonary disease. 4. General debility secondary to arthritis and spinal stenosis. PROGNOSIS: The patient's prognosis is poor. Chance of readmission is high. CONDITION ON DISCHARGE: At the time of discharge, he is stable. SPRING BURGESS MD DR: CECE/julien JOB#: [id number] / [id number]
== END 2019-03-05 11:07 | disposition home health service (06) | DRG 640 ==
LOC: ER 11:26 → 6 SOUTH 13:43
PROVIDERS: ADMIT Internal Medicine; ATTEND Internal Medicine
DX: E86.0 Dehydration (principal); N17.0 Acute kidney failure with tubular necrosis; D64.9 Anemia, unspecified; E78.5 Hyperlipidemia, unspecified; J44.9 Chronic obstructive pulmonary disease, unspecified; M19.90 Unspecified osteoarthritis, unspecified site; M48.00 Spinal stenosis, site unspecified; N40.0 Benign prostatic hyperplasia without lower urinary tract symptoms; Z96.649 Presence of unspecified artificial hip joint; Z96.653 Presence of artificial knee joint, bilateral; G89.29 Other chronic pain; M25.559 Pain in unspecified hip; M54.9 Dorsalgia, unspecified; I12.9 Hypertensive chronic kidney disease with stage 1 through stage 4 chronic kidney disease, or unspecified chronic kidney disease; E11.22 Type 2 diabetes mellitus with diabetic chronic kidney disease; N18.9 Chronic kidney disease, unspecified; Z74.01 Bed confinement status; Z85.46 Personal history of malignant neoplasm of prostate; Z88.1 Allergy status to other antibiotic agents; Z88.8 Allergy status to other drugs, medicaments and biological substances; Z79.899 Other long term (current) drug therapy
CPT/HCPCS: 36415; 71045; 80048; 80053; 82550; 83605; 83690; 83735; 83880; 84484; 85007; 85025; 85610; 87040; 93005; 96365; 96375; J0696; J1644; J3370; J7030; 97535; 99285-25; G0378

== ENCOUNTER 2019-04-30 15:14 | Inpatient (IN) | payer BC, MEDICARE ==
[~2019-04-30] VITALS: Ht 177.8 cm; Wt 77.1 kg
--- NOTE | 2019-04-30 15:37 | PHYS DOC ---
Past Medical History Past Medical History: Cancer, Diabetes-Type II, Hypertension, Other Additional Past Medical Histor: SPINAL STENOSIS,MUSCLE SPASAMS,COLON OBST,PROSTATE CA, chronic hip pain (CE VERDUZCO APRN) Past Surgical History: Hip Replacement, Other Additional Past Surgical Histo: HERNIA, SPINE (CE VERDUZCO APRN) Alcohol Use: Rarely Drug Use: None (CE VERDUZCO APRN) Adult General HPI HPI Patient is a 78 year old Male who presents with EMS states that they were called for a lift assist and when they got there the patient seemed to be altered and they noticed he has a pressure ulcer on his coccyx. (CE VERDUZCO APRN) Review of Systems Review of Systems Musculoskeletal: Chronic back pain or joint pain [] Integument: Coccyx ulceration. Denies rash or skin lesions [] Neurologic: Altered mental status. Denies headache, focal weakness or sensory changes [] All other systems were reviewed and found to be within normal limits, except as documented in this note. (CE VERDUZCO APRN) Current Medications Current Medications Current Medications Medications (Trade) Dose Ordered Sig/Karina Start Time Stop Time Status Last Admin Dose Admin Sodium Chloride 1,000 ml @ 1,000 mls/hr 1X ONCE 04/30/19 16:45 04/30/19 17:44 DC 04/30/19 16:57 1,000 MLS/HR (ZAYDA ARIAS MD) Allergies Allergies Allergies Coded Allergies Type Severity Reaction Last Updated Verified piperacillin Allergy Severe Itching, unresponsive,hypotension 05/14/18 Yes tazobactam Allergy Severe Itching, unresponsive,hypotension 05/14/18 Yes warfarin Allergy Severe Itching 05/14/18 Yes levofloxacin Allergy Intermediate Itching 05/14/18 Yes (ZAYDA ARAIS MD) Physical Exam Physical Exam Constitutional: Well developed, well nourished, no acute distress, non-toxic appearance. [] HENT: Normocephalic, atraumatic, bilateral external ears normal, oropharynx moist, no oral exudates, nose normal. [] Eyes: PERRLA, EOMI, conjunctiva normal, no discharge. [] Neck: Normal range of motion, no tenderness, supple, no stridor. [] Cardiovascular:Heart rate regular rhythm, no murmur [] Lungs & Thorax: Bilateral upper breath sounds clear and lower lobes diminished to auscultation [] Abdomen: Bowel sounds normal, soft, no tenderness, no masses, no pulsatile masses. [] Skin: Pressure ulcer stage II to coccyx. Patient covered in feces. Warm, dry, no erythema, no rash. [] Back: No tenderness, no CVA tenderness. [] Extremities: No tenderness, no cyanosis, no clubbing, ROM intact, no edema. [] Neurologic: Alert and oriented X 3, normal motor function, normal sensory function, no focal deficits noted. [] Psychologic: Affect normal, judgement normal, mood normal. [] (CE VERDUZCO APRN) Current Patient Data Vital Signs Vital Signs Date Time Temp Pulse Resp B/P (MAP) Pulse Ox O2 Delivery O2 Flow Rate FiO2 04/30/19 17:30 82 16 100 04/30/19 15:20 98.0 160/81 (107) Room Air 98.0 (ZAYDA ARIAS MD) Lab Values Laboratory Tests Test 04/30/19 17:05 White Blood Count 6.6 x10^3/uL (4.0-11.0) Red Blood Count 3.14 x10^6/uL (4.30-5.70) L Hemoglobin 9.1 g/dL (13.0-17.5) L Hematocrit 28.4 % (39.0-53.0) L Mean Corpuscular Volume 90 fL (79-100) Mean Corpuscular Hemoglobin 29 pg (25-35) Mean Corpuscular Hemoglobin Concent 32 g/dL (31-37) Red Cell Distribution Width 14.4 % (11.5-14.5) Platelet Count 296 x10^3/uL (140-400) Neutrophils (%) (Auto) 65 % (31-73) Lymphocytes (%) (Auto) 20 % (24-48) L Monocytes (%) (Auto) 10 % (0-9) H Eosinophils (%) (Auto) 5 % (0-3) H Basophils (%) (Auto) 1 % (0-3) Neutrophils # (Auto) 4.3 x10^3/uL (1.8-7.7) Lymphocytes # (Auto) 1.3 x10^3/uL (1.0-4.8) Monocytes # (Auto) 0.6 x10^3/uL (0.0-1.1) Eosinophils # (Auto) 0.3 x10^3/uL (0.0-0.7) Basophils # (Auto) 0.0 x10^3/uL (0.0-0.2) Prothrombin Time 12.5 SEC (11.7-14.0) Prothrombin Time INR 1.0 (0.8-1.1) Sodium Level 130 mmol/L (136-145) L Potassium Level 4.6 mmol/L (3.5-5.1) Chloride Level 95 mmol/L (98-107) L Carbon Dioxide Level 27 mmol/L (21-32) Anion Gap 8 (6-14) Blood Urea Nitrogen 12 mg/dL (8-26) Creatinine 1.0 mg/dL (0.7-1.3) Estimated GFR (Cockcroft-Gault) 87.4 BUN/Creatinine Ratio 12 (6-20) Glucose Level 93 mg/dL (70-99) Lactic Acid Level 2.0 mmol/L (0.4-2.0) Calcium Level 9.9 mg/dL (8.5-10.1) Total Bilirubin 0.2 mg/dL (0.2-1.0) Aspartate Amino Transferase (AST) 33 U/L (15-37) Alanine Aminotransferase (ALT) 29 U/L (16-63) Alkaline Phosphatase 70 U/L (46-116) Troponin I Quantitative < 0.017 ng/mL (0.000-0.055) Total Protein 8.0 g/dL (6.4-8.2) Albumin 3.0 g/dL (3.4-5.0) L Albumin/Globulin Ratio 0.6 (1.0-1.7) L Laboratory Tests 04/30/19 17:05 Laboratory Tests 04/30/19 17:05 (ZAYDA ARIAS MD) Lab Values Laboratory Tests Test 04/30/19 17:05 04/30/19 18:27 White Blood Count 6.6 x10^3/uL (4.0-11.0) Red Blood Count 3.14 x10^6/uL (4.30-5.70) L Hemoglobin 9.1 g/dL (13.0-17.5) L Hematocrit 28.4 % (39.0-53.0) L Mean Corpuscular Volume 90 fL (79-100) Mean Corpuscular Hemoglobin 29 pg (25-35) Mean Corpuscular Hemoglobin Concent 32 g/dL (31-37) Red Cell Distribution Width 14.4 % (11.5-14.5) Platelet Count 296 x10^3/uL (140-400) Neutrophils (%) (Auto) 65 % (31-73) Lymphocytes (%) (Auto) 20 % (24-48) L Monocytes (%) (Auto) 10 % (0-9) H Eosinophils (%) (Auto) 5 % (0-3) H Basophils (%) (Auto) 1 % (0-3) Neutrophils # (Auto) 4.3 x10^3/uL (1.8-7.7) Lymphocytes # (Auto) 1.3 x10^3/uL (1.0-4.8) Monocytes # (Auto) 0.6 x10^3/uL (0.0-1.1) Eosinophils # (Auto) 0.3 x10^3/uL (0.0-0.7) Basophils # (Auto) 0.0 x10^3/uL (0.0-0.2) Prothrombin Time 12.5 SEC (11.7-14.0) Prothrombin Time INR 1.0 (0.8-1.1) Sodium Level 130 mmol/L (136-145) L Potassium Level 4.6 mmol/L (3.5-5.1) Chloride Level 95 mmol/L (98-107) L Carbon Dioxide Level 27 mmol/L (21-32) Anion Gap 8 (6-14) Blood Urea Nitrogen 12 mg/dL (8-26) Creatinine 1.0 mg/dL (0.7-1.3) Estimated GFR (Cockcroft-Gault) 87.4 BUN/Creatinine Ratio 12 (6-20) Glucose Level 93 mg/dL (70-99) Lactic Acid Level 2.0 mmol/L (0.4-2.0) Calcium Level 9.9 mg/dL (8.5-10.1) Total Bilirubin 0.2 mg/dL (0.2-1.0) Aspartate Amino Transferase (AST) 33 U/L (15-37) Alanine Aminotransferase (ALT) 29 U/L (16-63) Alkaline Phosphatase 70 U/L (46-116) Troponin I Quantitative < 0.017 ng/mL (0.000-0.055) Total Protein 8.0 g/dL (6.4-8.2) Albumin 3.0 g/dL (3.4-5.0) L Albumin/Globulin Ratio 0.6 (1.0-1.7) L Urine Collection Type Void Urine Color Yellow Urine Clarity Clear Urine pH 7.0 Urine Specific [place] <=1.005 Urine Protein Negative mg/dL (NEG-TRACE) Urine Glucose (UA) Negative mg/dL (NEG) Urine Ketones (Stick) Negative mg/dL (NEG) Urine Blood Trace (NEG) Urine Nitrite Negative (NEG) Urine Bilirubin Negative (NEG) Urine Urobilinogen Dipstick 1.0 mg/dL (0.2 mg/dL) Urine Leukocyte Esterase Large (NEG) Urine RBC 0 /HPF (0-2) Urine WBC >40 /HPF (0-4) Urine Squamous Epithelial Cells Few /LPF Urine Bacteria Moderate /HPF (0-FEW) Urine Opiates Screen Neg (NEG) Urine Methadone Screen Neg (NEG) Urine Barbiturates Neg (NEG) Urine Phencyclidine Screen Neg (NEG) Urine Amphetamine/Methamphetamine Neg (NEG) Urine Benzodiazepines Screen Neg (NEG) Urine Cocaine Screen Neg (NEG) Urine Cannabinoids Screen Neg (NEG) Urine Ethyl Alcohol Neg (NEG) Laboratory Tests 04/30/19 17:05 Laboratory Tests 04/30/19 17:05 (CE VERDUZCO APRN) EKG EKG Sinus Rhythm and no STEMI[] Interpretation Time: [address] Arias (CE VERDUZCO APRN) Radiology/Procedures Radiology/Procedures [] (CE VERDUZCO APRN) Impressions: [facility] [address] [place] [address] IMAGING REPORT Signed PATIENT: GREG ORTIZ ACCOUNT: [id number] : 1940 LOCATION: ER AGE: 78 SEX: M EXAM STATUS: REG ER ORD. PHYSICIAN: CE VERDUZCO APRN REASON: AMS PROCEDURE: CT HEAD WO CONTRAST CT HEAD INDICATION: Altered mental status COMPARISON: 02/18/2019 Exposure: One or more of the following individualized dose reduction techniques were utilized for this examination: 1. Automated exposure control 2. Adjustment of the mA and/or kV according to patient size 3. Use of iterative reconstruction technique TECHNIQUE: 5 mm contiguous axial images were obtained from the skull base to the vertex in both bone and soft tissue algorithm. FINDINGS: Mild hypodensity identified in the bilateral frontal lobes likely small vessel ischemic disease or old infarcts. No evidence of acute intracranial hemorrhage. No extra-axial fluid collections. No mass effect or midline shift. Ventricular size is appropriate. Basal cisterns are patent. No fractures identified.[place]-white differentiation is preserved.Globes and orbits are within normal limits. Paranasal sinuses and mastoid air cells are clear. IMPRESSION: No acute intracranial findings. Electronically signed by: Rajinder Key MD (04/30/2019 3:59 PM) [id number] DICTATED and SIGNED BY: RAJINDER KEY MD DATE: 04/30/19 1559 [facility] [address] [place] [address] IMAGING REPORT Signed PATIENT: GREG ORTIZ ACCOUNT: [id number] : 1940 LOCATION: ER AGE: 78 SEX: M EXAM STATUS: REG ER ORD. PHYSICIAN: CE VERDUZCO APRN REASON: AMS PROCEDURE: PORTABLE CHEST 1V Examination: PORTABLE CHEST 1V History: Altered metal status Comparison/Correlation: 03/03/2019 portable chest x-ray exam Findings: Portable upright frontal view chest was obtained. Postoperative cervical spine fusion noted. Heart size is borderline. No pneumothorax. Mild left basilar atelectasis is present. Right small right pleural effusion or pleural thickening at the costophrenic angle is again seen. No suspicious new infiltrate. Impression: Minimal left basilar atelectasis in the interval. No significant change in pulmonary aeration. Electronically signed by: Abdulkadir Mckeon MD (04/30/2019 3:45 PM) [facility] DICTATED and SIGNED BY: ABDULKADIR MCKEON MD DATE: 04/30/19 1522 (CE VERDUZCO APRN) Course & Med Decision Making Course & Med Decision Making Patient is alert and oriented x2. When asked what year it is patient states his 2012. PERRLA. Patient denies chest pain, shortness of air, abdominal pain, nausea, vomiting, fevers, headache, dizziness, visual changes, numbness or tingling. Patient states his only pain is his chronic back pain. Patient rates this chronic back pain as 7 out of 10 currently. Skin is pink warm and dry. Patient has a baseball sized area of a stage II ulcer to his coccyx. Patient is covered in feces. No extremity swelling. Patient's skin is very dry and flaky. Patient can move all of his extremities but has a generalized weaknesses. Patient has no focal weaknesses. Lungs are clear to upper lobes but diminished in lower lobes. Patient speaks in full clear sentences. Mucous membranes are moist. Patient has a history of sepsis, pneumonia, TIA, cellulitis, vascular dis ease, a KI, hypertension, diabetes 2, COPD, BPH, falls, many fractured bones from falls, chronic back pain. EMS is unsure of who helps take care of the patient. She states that he lives alone but that his son comes by every day to help take care of him. Patient denies any recent falls. There are no deformities or tenderness to any of patient's extremities. No bruising is seen or lacerations or abrasions. Patient has had a TIA in the past and when I ask him if she has a weaker side he states no. When I did an NIH asked the patient to lift the right leg he barely lifted up off the bed whereas he can lift the left leg up higher and hold it longer. Patient can raise both arms but again the left is up farther than the right. He can hold both arms without them falling to the bed or twisting. the patient to smile is seems that his right-sided face is drooping more than the left side of the face. 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 Patient follows all commands has asked appropriately. Patient answers all my questions appropriately. Again it is unknown if he has any weaknesses or if this is new findings for him. Patient denies any new weaknesses or having weaknesses or numbness and tingling. Chest x-ray shows Minimal left basilar atelectasis in the interval. No significant change in pulmonary aeration. CT head shows no acute findings. Urinalysis shows infection. I gave him Rocephin 1 g in the ER. I've spoken to Dr. Burgess and he states to order cefepime 1 g every 12 hours and patient is admitted. (CE VERDUZCO APRN) Course & Med Decision Making I was not involved in the care of this patient 1800 on 2018. (ZAYDA ARIAS MD) Dragon Disclaimer Dragon Disclaimer This electronic medical record was generated, in whole or in part, using a voice recognition dictation system. (CE VERDUZCO APRN) The HEART Score for CP Pts HEART Score for Chest Pain: HEART Score for Chest Pain Response (Comments) Value History Slighlty/Non-Suspicious 0 ECG Normal 0 Age > 65 2 Risk Factors >3 Risk Factors or Hx CAD 2 Troponin < Normal Limit 0 Total 4 Risk Factors: Risk Factors: DM, Current or recent (<one month) smoker, HTN, HLP, family history of CAD, obesity. Risk Scores: Score 0 - 3: 2.5% MACE over next 6 weeks - Discharge Home Score 4 - 6: 20.3% MACE over next 6 weeks - Admit for Clinical Observation Score 7 - 10: 72.7% MACE over next 6 weeks - Early Invasive Strategies (CE VERDUZCO APRN) NIHSS Stroke Scale NIH Stroke Scale: NIH Stroke Scale Response (Comments) Value Level of Consciousness: 0 Alert/Responsive 0 LOC Questions: 1 Answers one correctly 1 LOC Commands: 0 Performs both tasks 0 Best Gaze: 0 Normal 0 Visual: 0 No visual loss 0 Facial Palsy: 1 Minor paralysis 1 Motor - Left Arm 0 No drift 0 Motor - Right Arm 0 No drift 0 Motor - Left Leg 0 No drift 0 Motor: Right Leg 0 No drift 0 Limb Ataxia: 0 Absent 0 Sensory: 0 No loss 0 Best Language: 0 Normal 0 Dysathria: 0 Normal 0 Extinction and Inattention: 0 Normal 0 Total 2 Departure Departure Impression: Primary Impression: Pressure ulcer Additional Impressions: UTI (urinary tract infection) AMS (altered mental status) Disposition: 09 ADMITTED INPATIENT Admitting Physician: Luis Antonio Burgess (CE VERDUZCO APRN) Condition: STABLE Referrals: LUIS ANTONIO BURGESS MD (PCP) Problem Qualifiers Primary Impression: Pressure ulcer Pressure injury location: sacral region Pressure injury stage: stage 2 Qualified Codes: L89.152 - Pressure ulcer of sacral region, stage 2 Additional Impressions: UTI (urinary tract infection) Urinary tract infection type: acute cystitis Hematuria presence: with hematuria Qualified Codes: N30.01 - Acute cystitis with hematuria AMS (altered mental status) Altered mental status type: unspecified Qualified Codes: R41.82 - Altered mental status, unspecified CE VERDUZCO APRN Apr 30, 2019 15:37 ZAYDA ARIAS MD May 01, 2019 17:24
--- NOTE | 2019-04-30 15:48 | RAD ---
Examination: PORTABLE CHEST 1V History: Altered metal status Comparison/Correlation: 03/03/2019 portable chest x-ray exam Findings: Portable upright frontal view chest was obtained. Postoperative cervical spine fusion noted. Heart size is borderline. No pneumothorax. Mild left basilar atelectasis is present. Right small right pleural effusion or pleural thickening at the costophrenic angle is again seen. No suspicious new infiltrate. Impression: Minimal left basilar atelectasis in the interval. No significant change in pulmonary aeration. Electronically signed by: Abdulkadir Fregoso MD (04/30/2019 3:45 PM) [facility]
--- NOTE | 2019-04-30 15:56 | EKG ---
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
--- NOTE | 2019-04-30 16:02 | RAD ---
CT HEAD INDICATION: Altered mental status COMPARISON: 02/18/2019 Exposure: One or more of the following individualized dose reduction techniques were utilized for this examination: 1. Automated exposure control 2. Adjustment of the mA and/or kV according to patient size 3. Use of iterative reconstruction technique TECHNIQUE: 5 mm contiguous axial images were obtained from the skull base to the vertex in both bone and soft tissue algorithm. FINDINGS: Mild hypodensity identified in the bilateral frontal lobes likely small vessel ischemic disease or old infarcts. No evidence of acute intracranial hemorrhage. No extra-axial fluid collections. No mass effect or midline shift. Ventricular size is appropriate. Basal cisterns are patent. No fractures identified.[place]-white differentiation is preserved.Globes and orbits are within normal limits. Paranasal sinuses and mastoid air cells are clear. IMPRESSION: No acute intracranial findings. Electronically signed by: Rajinder Key MD (04/30/2019 3:59 PM) [id number]
[2019-04-30] MEDS ORDERED: IV NORMAL SALINE 1000ML BAG 1,000 ML IV ONE (16:45)
[2019-04-30 17:16] LABS: BASO % 1 % (0-3); EOS # 0.3 x10^3/uL (0.0-0.7); EOS % 5 % (0-3); HEMATOCRIT 28.4 % (39.0-53.0); HEMOGLOBIN 9.1 g/dL (13.0-17.5); LYMPH # 1.3 x10^3/uL (1.0-4.8); LYMPH % 20 % (24-48); MEAN CORPUSCULAR HEMOGLOBIN 29 pg (25-35); MEAN CORPUSCULAR HGB CONC 32 g/dL (31-37); MEAN CORPUSCULAR VOLUME 90 fL (79-100); MONO # 0.6 x10^3/uL (0.0-1.1); MONO % 10 % (0-9); NEUT # 4.3 x10^3/uL (1.8-7.7); NEUT % 65 % (31-73); PLATELET COUNT 296 x10^3/uL (140-400); RED BLOOD COUNT 3.14 x10^6/uL (4.30-5.70); RED CELL DISTRIBUTION WIDTH 14.4 % (11.5-14.5); WHITE BLOOD COUNT 6.6 x10^3/uL (4.0-11.0)
[2019-04-30 17:21] LABS: PROTHROMBIN TIME PATIENT 12.5 SEC (11.7-14.0)
[2019-04-30 17:24] LABS: CALCIUM 9.9 mg/dL (8.5-10.1); GFR 87.4; POTASSIUM 4.6 mmol/L (3.5-5.1)
[2019-04-30 17:39] LABS: ALBUMIN/GLOBULIN RATIO 0.6 (1.0-1.7); TOTAL BILIRUBIN 0.2 mg/dL (0.2-1.0)
[2019-04-30 18:37] LABS: BILIRUBIN,URINE NEGATIVE (NEG); CLARITY,URINE CLEAR; COLOR,URINE YELLOW; NITRITE,URINE NEGATIVE (NEG); PROTEIN,URINE NEGATIVE (NEG-TRACE)
[2019-04-30 18:43] LABS: BARBITURATES NEG (NEG); BENZODIAZEPINES NEG (NEG); CANNABINOIDS NEG (NEG); COCAINE NEG (NEG); METHADONE NEG (NEG); OPIATES NEG (NEG); PHENCYCLIDINE NEG (NEG)
[2019-04-30 18:47] LABS: AMPHETAMINE/METHAMPHETAMINE NEG (NEG)
[2019-04-30 18:51] LABS: BACTERIA,URINE MODERATE /HPF (0-FEW); RBC,URINE 0 /HPF (0-2); SQUAMOUS EPITHELIAL CELL,UR FEW /LPF; WBC,URINE >40 /HPF (0-4)
[2019-04-30] MEDS ORDERED: cefTRIAXone IV Push 1 GM VIAL. IVP ONE (19:30)
[2019-04-30] MEDS ORDERED: ACETAMINOPHEN 325 MG TABLET. PO PRN (19:45)
[2019-04-30] MEDS ORDERED: fentaNYL PF VIAL 100 MCG/2 ML VIAL IV PRN (19:45)
[2019-04-30] MEDS ORDERED: ONDANSETRON PF 4 MG/2 ML VIAL. IV PRN (19:45)
[2019-04-30 22:10] VITALS: BP 145/71
[2019-05-01 03:35] VITALS: BP 134/73
[2019-05-01] MEDS: CEFEPIME HCL IV Push 1 GM VIAL. IVP SCH ×2 (05:58→18:23)
[2019-05-01 07:40] VITALS: BP 149/70
--- NOTE | 2019-05-01 08:55 | PDOC ---
Provider Note Provider Note Pt admitted for acute uti ,pseudomonas in the past,encephalopathy, sacral ulcer, poor home situation.#[id number]. SPRING BURGESS MD May 01, 2019 08:55
[2019-05-01] MEDS ORDERED: POLYETHYLENE GLYCOL 3350 17 GM PACKET. PO PRN (08:59)
[2019-05-01] MEDS ORDERED: ALGAL OIL PO SCH (09:00)
[2019-05-01] MEDS ORDERED: LEVOMEFOLATE PO SCH (09:00)
[2019-05-01] MEDS ORDERED: NON FORMULARY ITEM (Alendronate Sodium (Fosamax) 70 MG) PO SCH (09:00)
[2019-05-01] MEDS ORDERED: B12 PO SCH (09:00)
[2019-05-01] MEDS ORDERED: B6 PO SCH (09:00)
[2019-05-01] MEDS ORDERED: tiZANidine 4 MG TABLET. PO PRN (09:15)
[2019-05-01] MEDS: CYCLOBENZAPRINE 10 MG TABLET. PO SCH ×3 (10:20→20:58)
[2019-05-01] MEDS: TAMSULOSIN 0.4 MG CAP.ER.24H. PO SCH ×2 (10:21→20:58)
[2019-05-01] MEDS: PANTOPRAZOLE 40 MG TABLET.DR. PO SCH (10:21)
[2019-05-01] MEDS: LISINOPRIL 10 MG TABLET PO SCH (10:21)
[2019-05-01] MEDS: ASPIRIN CHEWABLE 81 MG TABLET. PO SCH (10:21)
[2019-05-01] MEDS: GABAPENTIN 300 MG CAPSULE. PO SCH ×3 (10:21→20:57)
[2019-05-01] MEDS: oxyCODONE/APAP 10/325 1 TAB TABLET PO PRN (10:24)
[2019-05-01] MEDS: DICLOFENAC SODIUM 1% TOPICAL GEL 100GM TUBE. TP SCH ×3 (10:24→20:57)
[2019-05-01] MEDS: MULTIVITAMIN with MINERAL TABLET. PO SCH (10:27)
[2019-05-01] MEDS: ASCORBIC ACID 500 MG TABLET PO SCH (10:27)
--- NOTE | 2019-05-01 10:50 | NUR ---
Wound Care Wound care consult for PU to coccyx and foot. Pt has stage III to sacrum and stage II to right foot. Cleansed wounds and redressed. A&D ointment on coccyx, recommend no back laying unless eating. Skin prep and foam applied to right plantar foot with heel medix boots. Pt on P500 bed. No other wounds noted on full skin inspection. WC will continue to follow for possible changes. Pt educated on PU prevention. Dr Tran present for assessment.
[2019-05-01] MEDS ORDERED: FLU VAX QS 2019-20 (36MOS+)/PF 0.5 ML SYRINGE. VAX IM ONE (11:00)
[2019-05-01 11:51] VITALS: BP 129/63
--- NOTE | 2019-05-01 12:06 | HP ---
ADMIT DATE: LOCATION: . REASON FOR ADMISSION TO THE HOSPITAL: Weakness, confusion, urinary tract infection and sacral ulcer. HISTORY OF PRESENT ILLNESS: The patient is a 78-year-old male. The patient has been declining lately, has spinal stenosis, has decreased mobility with contractures, has been opted hospice, then he came out of hospice to home and basically he wanted to stay in his home and his son keeps an eye on him and he also works in the nights. He was not feeling well. He was confused and paramedics was called and was brought to the hospital. He was covered with feces and has developed stage 3 ulcer. Urine shows lot of leukocytes. 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 He was admitted to the hospital. Last admission was in the hospital 2 months ago. PAST MEDICAL HISTORY: The patient has history of hypertension, diabetes, COPD, spinal stenosis and contractures. PAST SURGICAL HISTORY: Bilateral knee replacements, bilateral hip replacements, hernia, spine surgery for spinal stenosis. ALLERGIES: LEVAQUIN, PIPERACILLIN, TAZOBACTAM AND COUMADIN. MEDICATIONS AT HOME: He is on Fosamax 80 mg weekly, aspirin 81 mg daily, baclofen 15 mg 3 times daily and 20 mg at bedtime, Voltaren gel daily, Benadryl, gabapentin 300 mg 3 times daily, Metanx capsule 1 daily, lisinopril 10 mg daily, the patient is off metformin because of lactic acidosis, oxycodone 10 mg 3 times a day for pain, Protonix 40 mg daily, MiraLax 17 grams daily, Flomax 0.4 daily and Zanaflex 12 mg at bedtime. PERSONAL HISTORY: Ex-smoker. He denies alcohol or smoking. The patient is on chronic pain medication. He is basically wheelchair and bedridden and his son takes care of him at home. The patient had seen multiple social workers and palliative team in the past. The patient has been on hospice, refused hospice and is basically at home right now. REVIEW OF SYMPTOMS: Complains of weakness, sore on the bottom and then tingling and numbness in fingers. PHYSICAL EXAMINATION: GENERAL: The patient is chronically sick, not in any distress. VITAL SIGNS: Temperature 98, pulse 78, respirations 16, blood pressure 160/81 and saturating 96% on room air. HEENT: Head is atraumatic. Pupils are equal. Oral cavity, no teeth. NECK: Supple. The patient has some spinal spasms. CHEST: Symmetrical, chronic COPD pattern. CARDIOVASCULAR: S1, S2. LUNGS: No wheezing. ABDOMEN: Soft. Scar of previous surgery on the colon. EXTERNAL GENITALIA: No La[place]. RECTAL: Deferred. EXTREMITIES: Wasting of the muscles, has contractures of the fingers secondary to spinal stenosis and also extension of lower extremities. The patient has scars of bilateral hip and knee replacement and a taylor in the left femoral fracture. No edema. The patient has some dark discoloration at the plantar aspect of the foot, has between stage 2 and 3 sacral ulcer, which is 4 cm. LABORATORY DATA: Shows white count of 6.6, hemoglobin 9.1 and platelets 296. INR 1.0. Electrolytes show sodium 130, potassium 4.6, chloride 95, bicarbonate 27, BUN 12, creatinine 1.0 and glucose 93. Lactic acid 2, came down to 0.5. LFTs are normal. Urine shows more than 40 wbc's, large leukocyte esterase, toxicology was negative. CT head, negative for acute stroke. Chest x-ray, negative for acute infiltrates. FINAL IMPRESSION: 1. Generalized weakness. 2. Urinary tract infection. 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 3. Encephalopathy at admission secondary to urinary tract infection. 4. Pressure ulcer, stage 3 sacral present on admission. 5. Spinal stenosis with contractures. 6. Chronic obstructive pulmonary disease. 7. Diabetes. 8. General debility and decline. 9. Protein-calorie malnutrition. PLAN: At this time, was admit to hospital. Blood cultures, urine cultures, started on cefepime and also wound care consult, surgical consult, social service consult and see. The patient has poor prognosis. SPRING BURGESS MD DR: CECE/julien JOB#: [id number] / [id number]
--- NOTE | 2019-05-01 14:49 | PDOC2 ---
CONSULT Date of Consult Date of Consult DATE: 05/01/19 TIME: 14:46 Reason for Consult Reason for Consult: sacral and heel ulcers Referring Physician Referring Physician: Dr. Tran Identification/Chief Complaint Chief Complaint none Source Source: Chart review, Patient History of Present Illness Reason for Visit: 78 yo M presented to hospital with essentially failure to thrive. Decreased mobility. Noted to have heel and sacral ulcers. Seen in hospital room and is pleasant. Past Medical History Cardiovascular: HTN Pulmonary: Pneumonia CENTRAL NERVOUS SYSTEM: Periperal neuropathy GI: GERD Psych: No pertinent hx Musculoskeletal: low back pain, Osteoarthritis Infectious disease: Other Renal/: Benign prostatic enlarg., Prostate Ca., Other Endocrine: Diabetes, Hypothyroidism Past Surgical History Past Surgical History: Total hip replacement, Other Family History Family History: Diabetes, Hypertension Social History ALCOHOL: rare Drugs: None Lives: Alone Current Problem List Problem List Problems Medical Problems: (1) AMS (altered mental status) Status: Acute (2) Pressure ulcer Status: Acute (3) UTI (urinary tract infection) Status: Acute Current Medications Current Medications Current Medications Sodium Chloride 1,000 ml @ 1,000 mls/hr 1X ONCE IV Last administered on 04/30/19at 16:57; Start 04/30/19 at 16:45; Stop 04/30/19 at 17:44; Status DC Ceftriaxone Sodium (Rocephin) 1 gm 1X ONCE IVP Last administered on 04/30/19at 19:24; Start 04/30/19 at 19:30; Stop 04/30/19 at 19:31; Status DC Ondansetron HCl (Zofran) 4 mg PRN Q8HRS PRN IV NAUSEA/VOMITING; Start 04/30/19 at 19:45; Stop 05/01/19 at 19:44 Fentanyl Citrate (Fentanyl 2ml Vial) 50 mcg PRN Q1HR PRN IV PAIN; Start 04/30/19 at 19:45; Stop 05/01/19 at 19:44 Acetaminophen (Tylenol) 650 mg PRN Q4HRS PRN PO FEVER; Start 04/30/19 at 19:45; Stop 05/01/19 at 19:44 Cefepime HCl (Maxipime) 1 gm BID66 IVP Last administered on 05/01/19at 05:58; Start 05/01/19 at 06:00 Aspirin (Children'S Aspirin) 81 mg DAILY PO Last administered on 05/01/19 10:21; Start 05/01/19 at 09:00 Diclofenac Sodium (Voltaren) 1 kiet TID TP Last administered on 05/01/19 14:03; Start 05/01/19 at 09:00 Diphenhydramine HCl (Benadryl) 25 mg PRN QID PRN PO ITCHING; Start 05/01/19 at 09:00 Gabapentin (Neurontin) 600 mg TID PO Last administered on 05/01/19 14:03; Start 05/01/19 at 09:00 Lisinopril (Prinivil) 10 mg DAILY PO Last administered on 05/01/19 10:21; Start 05/01/19 at 09:00 Oxycodone/ Acetaminophen (Percocet 10/325) 1 tab PRN Q4HRS PRN PO severe pain Last administered on 05/01/19 10:24; Start 05/01/19 at 09:00 Pantoprazole Sodium (Protonix) 40 mg DAILYAC PO Last administered on 05/01/19 10:21; Start 05/01/19 at 09:00 Polyethylene Glycol (miraLAX PACKET) 17 gm PRN BID PRN PO CONSTIPATION Last administered on 05/01/19 14:02; Start 05/01/19 at 08:59 Tamsulosin HCl (Flomax) 0.4 mg BID PO Last administered on 05/01/19 10:21; Start 05/01/19 at 09:00 Non-Formulary Medication (Alendronate Sodium (Fosamax)) 70 mg weekly on saturday PO ; Start 05/01/19 at 09:00; Status UNV Cyclobenzaprine HCl (Flexeril) 10 mg TID PO Last administered on 05/01/19 14:03; Start 05/01/19 at 09:00 Non-Formulary Medication (Baclofen ) 20 mg HS PO ; Start 05/01/19 at 21:00; Status UNV Non-Formulary Medication (Levomefolate/B6/ B12/Algal Oil (Metanx Capsule)) 1 each BID PO ; Start 05/01/19 at 09:00; Status UNV Tizanidine HCl (Zanaflex) 12 mg PRN QHS PRN PO MUSCLE SPASMS; Start 05/01/19 at 09:15 Ascorbic Acid (Vitamin C) 500 mg DAILY PO Last administered on 05/01/19at 10:27; Start 05/01/19 at 10:00 Multivitamins (Thera M Plus) 1 tab DAILY PO Last administered on 05/01/19at 10:27; Start 05/01/19 at 10:00 Influenza Virus Vaccine Quadrival (Afluria Quad 2019-20 (3yr Up) Syringe) 0.5 ml ONCE ONCE VAX IM Last administered on 05/01/19at 11:27; Start 05/01/19 at 11:00; Stop 05/01/19 at 11:08; Status DC Lactobacillus Rhamnosus (Culturelle) 1 cap BID PO ; Start 05/01/19 at 21:00 Active Scripts Active Flomax (Tamsulosin Hcl) 0.4 Mg Cap.er.24h 1 Cap PO BID Neurontin (Gabapentin) 300 Mg Capsule 600 Mg PO TID Aspirin 81 Mg Tab.chew 81 Mg PO DAILY Reported Metanx Capsule (Levomefolate/B6/B12/Algal Oil) 1 Each Capsule 1 Each PO BID Miralax (Polyethylene Glycol 3350) 119 Gm Powder 17 Gm PO BID PRN Benadryl (Diphenhydramine Hcl) 25 Mg Capsule 1 Cap PO PRN PRN Pantoprazole Sodium (Pantoprazole Sodium) 40 Mg Tablet.dr 1 Tab PO DAILY Voltaren (Diclofenac Sodium) 100 Gm Gel..gram. 1 Gm TP TID Baclofen 10 Mg Tablet 15 Mg PO TID Zanaflex (Tizanidine Hcl) 6 Mg Capsule 12 Mg PO HS PRN Fosamax (Alendronate Sodium) 70 Mg Tablet 70 Mg PO WEEKLY ON SATURDAY Oxycodone-Acetaminophen 10-325 (Oxycodone Hcl/Acetaminophen) 1 Each Tablet 1 Eac h PO PRN Q4HRS PRN Baclofen 20 Mg Tablet 20 Mg PO HS Lisinopril 10 Mg Tablet 10 Mg PO DAILY Allergies Allergies: Coded Allergies: piperacillin (Verified Allergy, Severe, Itching, unresponsive,hypotension, 05/14/18) pt with rapid response 0345 for becoming unresponsive and hypotension. HAS TOLERATED CEFPODOME, CEFTRIAXONE, CEFEPIME tazobactam (Verified Allergy, Severe, Itching, unresponsive,hypotension, 05/14/18) pt with rapid response 0345 for becoming unresponsive and hypotension. warfarin (Verified Allergy, Severe, Itching, 05/14/18) levofloxacin (Verified Allergy, Intermediate, Itching, 05/14/18) ROS General: YES: Other (decrease mobility) Physical Exam General: Alert, Cooperative, No acute distress HEENT: Atraumatic Lungs: Normal air movement Abdomen: Soft Extremities: Other (reviewed wound care pictures with ulcers on sacrum and heels) Psych/Mental Status: Mental status NL, Mood NL Vitals VITALS Vital Signs Date Time Temp Pulse Resp B/P (MAP) Pulse Ox O2 Delivery O2 Flow Rate FiO2 05/01/19 11:51 98.6 102 18 129/63 (85) 96 Room Air 98.6 Labs Labs Laboratory Tests Test 04/30/19 17:05 04/30/19 18:27 04/30/19 21:00 05/01/19 07:27 White Blood Count 6.6 x10^3/uL (4.0-11.0) Red Blood Count 3.14 x10^6/uL (4.30-5.70) Hemoglobin 9.1 g/dL (13.0-17.5) Hematocrit 28.4 % (39.0-53.0) Mean Corpuscular Volume 90 fL (79-100) Mean Corpuscular Hemoglobin 29 pg (25-35) Mean Corpuscular Hemoglobin Concent 32 g/dL (31-37) Red Cell Distribution Width 14.4 % (11.5-14.5) Platelet Count 296 x10^3/uL (140-400) Neutrophils (%) (Auto) 65 % (31-73) Lymphocytes (%) (Auto) 20 % (24-48) Monocytes (%) (Auto) 10 % (0-9) Eosinophils (%) (Auto) 5 % (0-3) Basophils (%) (Auto) 1 % (0-3) Neutrophils # (Auto) 4.3 x10^3/uL (1.8-7.7) Lymphocytes # (Auto) 1.3 x10^3/uL (1.0-4.8) Monocytes # (Auto) 0.6 x10^3/uL (0.0-1.1) Eosinophils # (Auto) 0.3 x10^3/uL (0.0-0.7) Basophils # (Auto) 0.0 x10^3/uL (0.0-0.2) Prothrombin Time 12.5 SEC (11.7-14.0) Prothromb Time International Ratio 1.0 (0.8-1.1) Sodium Level 130 mmol/L (136-145) Potassium Level 4.6 mmol/L (3.5-5.1) Chloride Level 95 mmol/L (98-107) Carbon Dioxide Level 27 mmol/L (21-32) Anion Gap 8 (6-14) Blood Urea Nitrogen 12 mg/dL (8-26) Creatinine 1.0 mg/dL (0.7-1.3) Estimated GFR (Cockcroft-Gault) 87.4 BUN/Creatinine Ratio 12 (6-20) Glucose Level 93 mg/dL (70-99) Lactic Acid Level 2.0 mmol/L (0.4-2.0) 0.5 mmol/L (0.4-2.0) Calcium Level 9.9 mg/dL (8.5-10.1) Total Bilirubin 0.2 mg/dL (0.2-1.0) Aspartate Amino Transf (AST/SGOT) 33 U/L (15-37) Alanine Aminotransferase (ALT/SGPT) 29 U/L (16-63) Alkaline Phosphatase 70 U/L (46-116) Troponin I Quantitative < 0.017 ng/mL (0.000-0.055) Total Protein 8.0 g/dL (6.4-8.2) Albumin 3.0 g/dL (3.4-5.0) Albumin/Globulin Ratio 0.6 (1.0-1.7) Urine Collection Type Void Urine Color Yellow Urine Clarity Clear Urine pH 7.0 Urine Specific Henriette <=1.005 Urine Protein Negative mg/dL (NEG-TRACE) Urine Glucose (UA) Negative mg/dL (NEG) Urine Ketones (Stick) Negative mg/dL (NEG) Urine Blood Trace (NEG) Urine Nitrite Negative (NEG) Urine Bilirubin Negative (NEG) Urine Urobilinogen Dipstick 1.0 mg/dL (0.2 mg/dL) Urine Leukocyte Esterase Large (NEG) Urine RBC 0 /HPF (0-2) Urine WBC >40 /HPF (0-4) Urine Squamous Epithelial Cells Few /LPF Urine Bacteria Moderate /HPF (0-FEW) Urine Opiates Screen Neg (NEG) Urine Methadone Screen Neg (NEG) Urine Barbiturates Neg (NEG) Urine Phencyclidine Screen Neg (NEG) Urine Amphetamine/Methamphetamine Neg (NEG) Urine Benzodiazepines Screen Neg (NEG) Urine Cocaine Screen Neg (NEG) Urine Cannabinoids Screen Neg (NEG) Urine Ethyl Alcohol Neg (NEG) Glucose (Fingerstick) 73 mg/dL (70-99) Test 05/01/19 11:05 Glucose (Fingerstick) 119 mg/dL (70-99) Laboratory Tests Test 04/30/19 17:05 04/30/19 18:27 04/30/19 21:00 05/01/19 07:27 White Blood Count 6.6 x10^3/uL (4.0-11.0) Red Blood Count 3.14 x10^6/uL (4.30-5.70) Hemoglobin 9.1 g/dL (13.0-17.5) Hematocrit 28.4 % (39.0-53.0) Mean Corpuscular Volume 90 fL (79-100) Mean Corpuscular Hemoglobin 29 pg (25-35) Mean Corpuscular Hemoglobin Concent 32 g/dL (31-37) Red Cell Distribution Width 14.4 % (11.5-14.5) Platelet Count 296 x10^3/uL (140-400) Neutrophils (%) (Auto) 65 % (31-73) Lymphocytes (%) (Auto) 20 % (24-48) Monocytes (%) (Auto) 10 % (0-9) Eosinophils (%) (Auto) 5 % (0-3) Basophils (%) (Auto) 1 % (0-3) Neutrophils # (Auto) 4.3 x10^3/uL (1.8-7.7) Lymphocytes # (Auto) 1.3 x10^3/uL (1.0-4.8) Monocytes # (Auto) 0.6 x10^3/uL (0.0-1.1) Eosinophils # (Auto) 0.3 x10^3/uL (0.0-0.7) Basophils # (Auto) 0.0 x10^3/uL (0.0-0.2) Prothrombin Time 12.5 SEC (11.7-14.0) Prothromb Time International Ratio 1.0 (0.8-1.1) Sodium Level 130 mmol/L (136-145) Potassium Level 4.6 mmol/L (3.5-5.1) Chloride Level 95 mmol/L (98-107) Carbon Dioxide Level 27 mmol/L (21-32) Anion Gap 8 (6-14) Blood Urea Nitrogen 12 mg/dL (8-26) Creatinine 1.0 mg/dL (0.7-1.3) Estimated GFR (Cockcroft-Gault) 87.4 BUN/Creatinine Ratio 12 (6-20) Glucose Level 93 mg/dL (70-99) Lactic Acid Level 2.0 mmol/L (0.4-2.0) 0.5 mmol/L (0.4-2.0) Calcium Level 9.9 mg/dL (8.5-10.1) Total Bilirubin 0.2 mg/dL (0.2-1.0) Aspartate Amino Transf (AST/SGOT) 33 U/L (15-37) Alanine Aminotransferase (ALT/SGPT) 29 U/L (16-63) Alkaline Phosphatase 70 U/L (46-116) Troponin I Quantitative < 0.017 ng/mL (0.000-0.055) Total Protein 8.0 g/dL (6.4-8.2) Albumin 3.0 g/dL (3.4-5.0) Albumin/Globulin Ratio 0.6 (1.0-1.7) Urine Collection Type Void Urine Color Yellow Urine Clarity Clear Urine pH 7.0 Urine Specific Henriette <=1.005 Urine Protein Negative mg/dL (NEG-TRACE) Urine Glucose (UA) Negative mg/dL (NEG) Urine Ketones (Stick) Negative mg/dL (NEG) Urine Blood Trace (NEG) Urine Nitrite Negative (NEG) Urine Bilirubin Negative (NEG) Urine Urobilinogen Dipstick 1.0 mg/dL (0.2 mg/dL) Urine Leukocyte Esterase Large (NEG) Urine RBC 0 /HPF (0-2) Urine WBC >40 /HPF (0-4) Urine Squamous Epithelial Cells Few /LPF Urine Bacteria Moderate /HPF (0-FEW) Urine Opiates Screen Neg (NEG) Urine Methadone Screen Neg (NEG) Urine Barbiturates Neg (NEG) Urine Phencyclidine Screen Neg (NEG) Urine Amphetamine/Methamphetamine Neg (NEG) Urine Benzodiazepines Screen Neg (NEG) Urine Cocaine Screen Neg (NEG) Urine Cannabinoids Screen Neg (NEG) Urine Ethyl Alcohol Neg (NEG) Glucose (Fingerstick) 73 mg/dL (70-99) Test 05/01/19 11:05 Glucose (Fingerstick) 119 mg/dL (70-99) Assessment/Plan Assessment/Plan sacral and heel ulcers will plan review and possible debridement of ulcers on 05/04. R/R/B/A d/w pt. Thanks for consult! CARMELLA PAREDES MD May 01, 2019 14:49
[2019-05-01 15:18] VITALS: BP 118/67
[2019-05-01 19:56] VITALS: BP 120/62
[2019-05-01] MEDS: diphenhydrAMINE HCL 25 MG CAPSULE PO PRN (20:57)
[2019-05-01] MEDS: LACTOBACILLUS RHAMNOSUS GG 1 CAPSULE. PO SCH (20:58)
[2019-05-01] MEDS ORDERED: BACLOFEN 20 MG PO SCH (21:00)
[2019-05-01] MEDS: ZOLPIDEM 5 MG TABLET. PO PRN (23:07)
[2019-05-01 23:46] VITALS: BP 154/75
[2019-05-02 03:12] VITALS: BP 138/75
[2019-05-02] MEDS: CEFEPIME HCL IV Push 1 GM VIAL. IVP SCH ×2 (05:38→18:00)
[2019-05-02 07:25] VITALS: BP 120/67
[2019-05-02] MEDS: PANTOPRAZOLE 40 MG TABLET.DR. PO SCH (09:39)
[2019-05-02] MEDS: DICLOFENAC SODIUM 1% TOPICAL GEL 100GM TUBE. TP SCH ×3 (09:39→21:05)
[2019-05-02] MEDS: ASCORBIC ACID 500 MG TABLET PO SCH (09:39)
[2019-05-02] MEDS: ASPIRIN CHEWABLE 81 MG TABLET. PO SCH (09:39)
[2019-05-02] MEDS: LACTOBACILLUS RHAMNOSUS GG 1 CAPSULE. PO SCH ×2 (09:39→21:04)
[2019-05-02] MEDS: CYCLOBENZAPRINE 10 MG TABLET. PO SCH ×3 (09:40→21:05)
[2019-05-02] MEDS: MULTIVITAMIN with MINERAL TABLET. PO SCH (09:40)
[2019-05-02] MEDS: GABAPENTIN 300 MG CAPSULE. PO SCH ×3 (09:40→21:05)
[2019-05-02] MEDS: LISINOPRIL 10 MG TABLET PO SCH (09:40)
[2019-05-02] MEDS: TAMSULOSIN 0.4 MG CAP.ER.24H. PO SCH ×2 (09:40→21:05)
[2019-05-02 11:40] VITALS: BP 132/67
--- NOTE | 2019-05-02 12:33 | PDOC ---
PROGRESS NOTES Subjective Subjective eating lunch, feels better today Objective Objective Vital Signs Date Time Temp Pulse Resp B/P (MAP) Pulse Ox O2 Delivery O2 Flow Rate FiO2 05/02/19 09:40 90 120/67 05/02/19 07:25 98.4 18 95 Room Air 98.4 Intake and Output 05/02/19 07:00 Intake Total 940 ml Output Total 300 ml Balance 640 ml Intake Oral 940 ml Output Urine Total 300 ml # Voids 3 # Bowel Movements 1 Physical Exam Abdomen: Soft Extremities: Other (reviewed wound care pictures with ulcers on sacrum and heels) General: Alert, Cooperative, No acute distress HEENT: Atraumatic Lungs: Normal air movement MUSCULOSKELETAL: No swelling, Other Psych/Mental Status: Mental status NL, Mood NL Skin: Other (sacral ulcer stage 3 present on admission) Diagnosis Problem List Problems Medical Problems: (1) AMS (altered mental status) Status: Acute (2) Pressure ulcer Status: Acute (3) UTI (urinary tract infection) Status: Acute Assessment Assessment Problems Medical Problems: (1) AMS (altered mental status) Status: Acute (2) Pressure ulcer Status: Acute (3) UTI (urinary tract infection) Status: Acute FINAL IMPRESSION: 1. Generalized weakness. 2. Urinary tract infection. 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 3. Encephalopathy at admission secondary to urinary tract infection. 4. Pressure ulcer, stage 3 sacral present on admission. 5. Spinal stenosis with contractures. 6. Chronic obstructive pulmonary disease. 7. Diabetes. 8. General debility and decline. 9. severe Protein-calorie malnutrition. PLAN: wound care consult iv cefepime labs nd [facility] bed for pressure relief. pt/ot At this time, was admit to hospital. Blood cultures, urine cultures, started on cefepime and also wound care consult, surgical consult, social service consult and see. The patient has poor prognosis. Plan Plan of Care Problems Medical Problems: (1) AMS (altered mental status) Status: Acute (2) Pressure ulcer Status: Acute (3) UTI (urinary tract infection) Status: Acute Comment Review of Relevant I have reviewed the following items aleksandar (where applicable) has been applied. Labs Laboratory Tests Test 05/01/19 16:55 05/01/19 20:48 05/02/19 07:52 05/02/19 11:36 Glucose (Fingerstick) 124 mg/dL (70-99) 126 mg/dL (70-99) 79 mg/dL (70-99) 141 mg/dL (70-99) Microbiology 04/30/19 Blood Culture - Preliminary, Resulted NO GROWTH AFTER 1 DAY Medications Current Medications Lactobacillus Rhamnosus (Culturelle) 1 cap BID PO Last administered on 05/02/19at 09:39; Start 05/01/19 at 21:00 Non-Formulary Medication (Baclofen ) 20 mg HS PO ; Start 05/01/19 at 21:00; Status UNV Zolpidem Tartrate (Ambien) 5 mg PRN QHS PRN PO INSOMNIA Last administered on 05/01/19at 23:07; Start 05/01/19 at 21:30 Vitals/I & O Vital Sign - Last 24 Hours 05/01/19 05/01/19 05/01/19 05/01/19 15:18 19:56 20:15 23:46 Temp 99.0 97.5 98.1 99.0 97.5 98.1 Pulse 91 79 88 Resp 18 16 16 B/P (MAP) 118/67 (84) 120/62 (81) 154/75 (101) Pulse Ox 97 96 98 O2 Delivery Room Air Room Air Room Air Room Air 05/02/19 05/02/19 05/02/19 03:12 07:25 09:40 Temp 98.3 98.4 98.3 98.4 Pulse 83 90 90 Resp 16 18 B/P (MAP) 138/75 (96) 120/67 (84) 120/67 Pulse Ox 95 95 O2 Delivery Room Air Room Air Intake and Output 05/01/19 05/01/19 05/02/19 15:00 23:00 07:00 Intake Total 100 ml 600 ml 240 ml Output Total 300 ml Balance 100 ml 600 ml -60 ml Nutrition Consultation Dietary Evaluation: Recommendations by RD: Increase Calorie Intake, Protein supplementation Comments: glucerna tid magic cup bid Expected Outcomes/Goals: to meet > 75% est nutr needs Malnutrition Findings: Food and Nutrition Intake (Mod: <75% est energy req 7days Weight Status: Appropriate SPRING BURGESS MD May 02, 2019 12:33
[2019-05-02] MEDS: oxyCODONE/APAP 10/325 1 TAB TABLET PO PRN ×2 (14:31→21:05)
[2019-05-02 15:25] VITALS: BP 153/79
[2019-05-02 19:20] VITALS: BP 179/105
[2019-05-02] MEDS: ZOLPIDEM 5 MG TABLET. PO PRN (21:04)
[2019-05-02] MEDS: diphenhydrAMINE HCL 25 MG CAPSULE PO PRN (21:05)
[2019-05-02 23:28] VITALS: BP 144/67
[2019-05-03 03:23] VITALS: BP 123/60
[2019-05-03] MEDS: CEFEPIME HCL IV Push 1 GM VIAL. IVP SCH ×2 (06:01→17:41)
[2019-05-03 07:00] VITALS: BP 147/70
[2019-05-03] MEDS: DICLOFENAC SODIUM 1% TOPICAL GEL 100GM TUBE. TP SCH ×3 (09:30→23:10)
[2019-05-03] MEDS: TAMSULOSIN 0.4 MG CAP.ER.24H. PO SCH ×2 (09:38→23:10)
[2019-05-03] MEDS: oxyCODONE/APAP 10/325 1 TAB TABLET PO PRN ×3 (09:38→23:10)
[2019-05-03] MEDS: PANTOPRAZOLE 40 MG TABLET.DR. PO SCH (09:40)
[2019-05-03] MEDS: CYCLOBENZAPRINE 10 MG TABLET. PO SCH ×3 (09:40→23:10)
[2019-05-03] MEDS: LACTOBACILLUS RHAMNOSUS GG 1 CAPSULE. PO SCH ×2 (09:40→23:10)
[2019-05-03] MEDS: ASPIRIN CHEWABLE 81 MG TABLET. PO SCH (09:40)
[2019-05-03] MEDS: GABAPENTIN 300 MG CAPSULE. PO SCH ×3 (09:40→23:10)
[2019-05-03] MEDS: MULTIVITAMIN with MINERAL TABLET. PO SCH (09:40)
[2019-05-03] MEDS: ASCORBIC ACID 500 MG TABLET PO SCH (09:40)
[2019-05-03] MEDS: LISINOPRIL 10 MG TABLET PO SCH (09:40)
[2019-05-03 11:00] VITALS: BP 151/64
--- NOTE | 2019-05-03 12:02 | PDOC ---
PROGRESS NOTES Subjective Subjective pt awake, comfortable Objective Objective Vital Signs Date Time Temp Pulse Resp B/P (MAP) Pulse Ox O2 Delivery O2 Flow Rate FiO2 05/03/19 11:00 98.6 100 16 151/64 (93) 98 Room Air 98.6 Intake and Output 05/03/19 07:00 Intake Total 880 ml Balance 880 ml Intake Oral 880 ml # Voids 3 Physical Exam Abdomen: Soft, No tenderness General: Alert, Oriented X3 Assessment Assessment Problems Medical Problems: (1) AMS (altered mental status) Status: Acute (2) Pressure ulcer Status: Acute (3) UTI (urinary tract infection) Status: Acute Plan Plan of Care To OR tomorrow per Dr Barksdale Comment Review of Relevant I have reviewed the following items aleksandar (where applicable) has been applied. Labs Laboratory Tests Test 05/01/19 16:55 05/01/19 20:48 05/02/19 07:52 05/02/19 11:36 Glucose (Fingerstick) 124 mg/dL (70-99) 126 mg/dL (70-99) 79 mg/dL (70-99) 141 mg/dL (70-99) Test 05/02/19 16:41 05/02/19 20:56 05/03/19 07:54 05/03/19 11:53 Glucose (Fingerstick) 129 mg/dL (70-99) 143 mg/dL (70-99) 105 mg/dL (70-99) 106 mg/dL (70-99) Laboratory Tests Test 05/02/19 16:41 05/02/19 20:56 05/03/19 07:54 05/03/19 11:53 Glucose (Fingerstick) 129 mg/dL (70-99) 143 mg/dL (70-99) 105 mg/dL (70-99) 106 mg/dL (70-99) Microbiology 04/30/19 Blood Culture - Preliminary, Resulted NO GROWTH AFTER 2 DAYS 04/30/19 Urine Culture - Preliminary, Resulted 04/30/19 Urine Culture Result 1 (FLAVIO) - Preliminary, Resulted Medications Current Medications Sodium Chloride 1,000 ml @ 1,000 mls/hr 1X ONCE IV Last administered on 04/30/19at 16:57; Start 04/30/19 at 16:45; Stop 04/30/19 at 17:44; Status DC Ceftriaxone Sodium (Rocephin) 1 gm 1X ONCE IVP Last administered on 04/30/19at 19:24; Start 04/30/19 at 19:30; Stop 04/30/19 at 19:31; Status DC Ondansetron HCl (Zofran) 4 mg PRN Q8HRS PRN IV NAUSEA/VOMITING; Start 04/30/19 at 19:45; Stop 05/01/19 at 19:44; Status DC Fentanyl Citrate (Fentanyl 2ml Vial) 50 mcg PRN Q1HR PRN IV PAIN; Start 04/30/19 at 19:45; Stop 05/01/19 at 19:44; Status DC Acetaminophen (Tylenol) 650 mg PRN Q4HRS PRN PO FEVER; Start 04/30/19 at 19:45; Stop 05/01/19 at 19:44; Status DC Cefepime HCl (Maxipime) 1 gm BID66 IVP Last administered on 05/03/19 06:01; Start 05/01/19 at 06:00 Aspirin (Children'S Aspirin) 81 mg DAILY PO Last administered on 05/03/19at 09:40; Start 05/01/19 at 09:00 Diclofenac Sodium (Voltaren) 1 kiet TID TP Last administered on 05/03/19 09:30; Start 05/01/19 at 09:00 Diphenhydramine HCl (Benadryl) 25 mg PRN QID PRN PO ITCHING Last administered on 05/02/19 21:05; Start 05/01/19 at 09:00 Gabapentin (Neurontin) 600 mg TID PO Last administered on 05/03/19at 09:40; Start 05/01/19 at 09:00 Lisinopril (Prinivil) 10 mg DAILY PO Last administered on 05/03/19 09:40; Start 05/01/19 at 09:00 Oxycodone/ Acetaminophen (Percocet 10/325) 1 tab PRN Q4HRS PRN PO severe pain Last administered on 05/03/19 09:38; Start 05/01/19 at 09:00 Pantoprazole Sodium (Protonix) 40 mg DAILYAC PO Last administered on 05/03/19 09:40; Start 05/01/19 at 09:00 Polyethylene Glycol (miraLAX PACKET) 17 gm PRN BID PRN PO CONSTIPATION Last administered on 05/01/19 14:02; Start 05/01/19 at 08:59 Tamsulosin HCl (Flomax) 0.4 mg BID PO Last administered on 05/03/19 09:38; Start 05/01/19 at 09:00 Non-Formulary Medication (Alendronate Sodium (Fosamax)) 70 mg weekly on saturday PO ; Start 05/01/19 at 09:00; Status UNV Cyclobenzaprine HCl (Flexeril) 10 mg TID PO Last administered on 05/03/19 09:40; Start 05/01/19 at 09:00 Non-Formulary Medication (Baclofen ) 20 mg HS PO ; Start 05/01/19 at 21:00; Status UNV Non-Formulary Medication (Levomefolate/B6/ B12/Algal Oil (Metanx Capsule)) 1 each BID PO ; Start 05/01/19 at 09:00; Status UNV Tizanidine HCl (Zanaflex) 12 mg PRN QHS PRN PO MUSCLE SPASMS; Start 05/01/19 at 09:15 Ascorbic Acid (Vitamin C) 500 mg DAILY PO Last administered on 05/03/19 09:40; Start 05/01/19 at 10:00 Multivitamins (Thera M Plus) 1 tab DAILY PO Last administered on 05/03/19 09:40; Start 05/01/19 at 10:00 Influenza Virus Vaccine Quadrival (Afluria Quad 2019-20 (3yr Up) Syringe) 0.5 ml ONCE ONCE VAX IM Last administered on 05/01/19 11:27; Start 05/01/19 at 11:00; Stop 05/01/19 at 11:08; Status DC Lactobacillus Rhamnosus (Culturelle) 1 cap BID PO Last administered on 05/03/19 09:40; Start 05/01/19 at 21:00 Zolpidem Tartrate (Ambien) 5 mg PRN QHS PRN PO INSOMNIA Last administered on 05/02/19at 21:04; Start 05/01/19 at 21:30 Active Scripts Active Flomax (Tamsulosin Hcl) 0.4 Mg Cap.er.24h 1 Cap PO BID Neurontin (Gabapentin) 300 Mg Capsule 600 Mg PO TID Aspirin 81 Mg Tab.chew 81 Mg PO DAILY Reported Metanx Capsule (Levomefolate/B6/B12/Algal Oil) 1 Each Capsule 1 Each PO BID Miralax (Polyethylene Glycol 3350) 119 Gm Powder 17 Gm PO BID PRN Benadryl (Diphenhydramine Hcl) 25 Mg Capsule 1 Cap PO PRN PRN Pantoprazole Sodium (Pantoprazole Sodium) 40 Mg Tablet.dr 1 Tab PO DAILY Voltaren (Diclofenac Sodium) 100 Gm Gel..gram. 1 Gm TP TID Baclofen 10 Mg Tablet 15 Mg PO TID Zanaflex (Tizanidine Hcl) 6 Mg Capsule 12 Mg PO HS PRN Fosamax (Alendronate Sodium) 70 Mg Tablet 70 Mg PO WEEKLY ON SATURDAY Oxycodone-Acetaminophen 10-325 (Oxycodone Hcl/Acetaminophen) 1 Each Tablet 1 Each PO PRN Q4HRS PRN Baclofen 20 Mg Tablet 20 Mg PO HS Lisinopril 10 Mg Tablet 10 Mg PO DAILY Vitals/I & O Vital Sign - Last 24 Hours 05/02/19 05/02/19 05/02/19 05/02/19 14:31 15:25 15:31 19:20 Temp 99.5 97.8 99.5 97.8 Pulse 119 131 Resp 18 22 17 20 B/P (MAP) 153/79 (103) 179/105 (129) Pulse Ox 97 93 O2 Delivery Room Air Room Air Room Air Room Air 05/02/19 05/02/19 05/02/19 05/02/19 20:15 21:05 22:05 23:28 Temp 97.7 97.7 Pulse 109 Resp 18 B/P (MAP) 144/67 (92) Pulse Ox 93 94 93 O2 Delivery Room Air Room Air Room Air Room Air 05/03/19 05/03/19 05/03/19 05/03/19 03:23 07:00 09:38 09:40 Temp 97.5 98.0 97.5 98.0 Pulse 105 107 107 Resp 18 18 18 B/P (MAP) 123/60 (81) 147/70 (95) 147/70 Pulse Ox 92 94 O2 Delivery Room Air Room Air Room Air 05/03/19 05/03/19 10:38 11:00 Temp 98.6 98.6 Pulse 100 Resp 18 16 B/P (MAP) 151/64 (93) Pulse Ox 98 O2 Delivery Room Air Room Air Intake and Output 05/02/19 05/02/19 05/03/19 15:00 23:00 07:00 Intake Total 580 ml 300 ml 0 ml Balance 580 ml 300 ml 0 ml Nutrition Consultation Dietary Evaluation: Recommendations by RD: Increase Calorie Intake, Protein supplementation Comments: glucerna tid magic cup bid Expected Outcomes/Goals: to meet > 75% est nutr needs Malnutrition Findings: Food and Nutrition Intake (Mod: <75% est energy req 7days Weight Status: Appropriate MARTELL BECKFORD MD May 03, 2019 12:02
--- NOTE | 2019-05-03 12:42 | RAD ---
Renal ultrasound complete History: UTI Sonographic examination of the kidneys was performed and multiple static images were obtained. Right kidney: The right kidney is seen with no hydronephrosis and measures 11 cm in length. There is a 2 cm cyst laterally. Left kidney: The left kidney is seen with no hydronephrosis and measures 11 cm in length. Urinary bladder: The urinary bladder is seen measuring up to 30 mL. The patient was unable to void. Impression: No hydronephrosis. The bladder appears within normal limits however the patient was unable to void. Electronically signed by: Anthony Justice III, MD (05/03/2019 12:39 PM) [facility]
--- NOTE | 2019-05-03 12:52 | PDOC ---
PROGRESS NOTES Subjective Subjective no new complaints Objective Objective Vital Signs Date Time Temp Pulse Resp B/P (MAP) Pulse Ox O2 Delivery O2 Flow Rate FiO2 05/03/19 11:00 98.6 100 16 151/64 (93) 98 Room Air 98.6 Intake and Output 05/03/19 06:59 Intake Total 880 ml Balance 880 ml Intake Oral 880 ml # Voids 3 Physical Exam Abdomen: Soft, No tenderness Heart: Regular rate, Normal S1, Normal S2 Extremities: Other (reviewed wound care pictures with ulcers on sacrum and heels) General: Alert, Oriented X3 HEENT: Atraumatic Lungs: Normal air movement MUSCULOSKELETAL: No swelling, Other Psych/Mental Status: Mental status NL, Mood NL Skin: Other (sacral ulcer stage 3 present on admission) Diagnosis Problem List Problems Medical Problems: (1) AMS (altered mental status) Status: Acute (2) Pressure ulcer Status: Acute (3) UTI (urinary tract infection) Status: Acute Assessment Assessment Problems Medical Problems: (1) AMS (altered mental status) Status: Acute (2) Pressure ulcer Status: Acute (3) UTI (urinary tract infection) Status: Acute FINAL IMPRESSION: 1. Generalized weakness. 2. Urinary tract infection. 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 3. Encephalopathy at admission secondary to urinary tract infection. 4. Pressure ulcer, stage 3 sacral present on admission. 5. Spinal stenosis with contractures. 6. Chronic obstructive pulmonary disease. 7. Diabetes. 8. General debility and decline. 9. severe Protein-calorie malnutrition. PLAN:urine c/s showed Pseudomonas wound care consult/surgical consult appreciated [facility] pt/ot At this time, was admit to hospital. Blood cultures, urine cultures, started on cefepime and also wound care consult, surgical consult, social service consult and see. The patient has poor prognosis. Plan Plan of Care Problems Medical Problems: (1) AMS (altered mental status) Status: Acute (2) Pressure ulcer Status: Acute (3) UTI (urinary tract infection) Status: Acute Comment Review of Relevant I have reviewed the following items aleksandar (where applicable) has been applied. Labs Laboratory Tests Test 05/02/19 16:41 05/02/19 20:56 05/03/19 07:54 05/03/19 11:53 Glucose (Fingerstick) 129 mg/dL (70-99) 143 mg/dL (70-99) 105 mg/dL (70-99) 106 mg/dL (70-99) Microbiology 04/30/19 Blood Culture - Preliminary, Resulted NO GROWTH AFTER 2 DAYS 04/30/19 Urine Culture - Preliminary, Resulted 04/30/19 Urine Culture Result 1 (FLAVIO) - Preliminary, Resulted Vitals/I & O Vital Sign - Last 24 Hours 05/02/19 05/02/19 05/02/19 05/02/19 14:31 15:25 15:31 19:20 Temp 99.5 97.8 99.5 97.8 Pulse 119 131 Resp 18 20 B/P (MAP) 153/79 (103) 179/105 (129) Pulse Ox 97 93 O2 Delivery Room Air Room Air Room Air Room Air 05/02/19 05/02/19 05/02/19 05/02/19 20:15 21:05 22:05 23:28 Temp 97.7 97.7 Pulse 109 Resp 18 B/P (MAP) 144/67 (92) Pulse Ox 93 94 93 O2 Delivery Room Air Room Air Room Air Room Air 05/03/19 05/03/19 05/03/19 05/03/19 03:23 07:00 09:38 09:40 Temp 97.5 98.0 97.5 98.0 Pulse 105 107 107 Resp 18 18 18 B/P (MAP) 123/60 (81) 147/70 (95) 147/70 Pulse Ox 92 94 O2 Delivery Room Air Room Air Room Air 05/03/19 05/03/19 10:38 11:00 Temp 98.6 98.6 Pulse 100 Resp 18 16 B/P (MAP) 151/64 (93) Pulse Ox 98 O2 Delivery Room Air Room Air Intake and Output 05/02/19 05/02/19 05/03/19 14:59 22:59 06:59 Intake Total 580 ml 300 ml 0 ml Balance 580 ml 300 ml 0 ml Nutrition Consultation Dietary Evaluation: Recommendations by RD: Increase Calorie Intake, Protein supplementation Comments: glucerna tid magic cup bid Expected Outcomes/Goals: to meet > 75% est nutr needs Malnutrition Findings: Food and Nutrition Intake (Mod: <75% est energy req 7days Weight Status: Appropriate SPRING BURGESS MD May 03, 2019 12:52
[2019-05-03 15:00] VITALS: BP 129/79
[2019-05-03 19:22] VITALS: BP 151/86
[2019-05-03] MEDS: ZOLPIDEM 5 MG TABLET. PO PRN (23:10)
[2019-05-03] MEDS: diphenhydrAMINE HCL 25 MG CAPSULE PO PRN (23:10)
[2019-05-03 23:55] VITALS: BP 119/69
[2019-05-04] VITALS (14 sets, daily range): BP systolic 88–154; BP diastolic 49–130
[2019-05-04] MEDS: CEFEPIME HCL IV Push 1 GM VIAL. IVP SCH ×2 (05:42→17:45)
[2019-05-04 06:08] LABS: BASO # 0.1 x10^3/uL (0.0-0.2); BASO % 1 % (0-3); EOS # 0.5 x10^3/uL (0.0-0.7); EOS % 5 % (0-3); HEMATOCRIT 27.3 % (39.0-53.0); HEMOGLOBIN 8.9 g/dL (13.0-17.5); LYMPH # 3.1 x10^3/uL (1.0-4.8); LYMPH % 25 % (24-48); MEAN CORPUSCULAR HEMOGLOBIN 29 pg (25-35); MEAN CORPUSCULAR HGB CONC 33 g/dL (31-37); MEAN CORPUSCULAR VOLUME 90 fL (79-100); MONO # 1.2 x10^3/uL (0.0-1.1); MONO % 10 % (0-9); NEUT # 7.3 x10^3/uL (1.8-7.7); NEUT % 60 % (31-73); PLATELET COUNT 378 x10^3/uL (140-400); RED BLOOD COUNT 3.05 x10^6/uL (4.30-5.70); RED CELL DISTRIBUTION WIDTH 14.5 % (11.5-14.5); WHITE BLOOD COUNT 12.2 x10^3/uL (4.0-11.0)
[2019-05-04 06:14] LABS: CALCIUM 10.6 mg/dL (8.5-10.1); GFR 87.4; POTASSIUM 4.9 mmol/L (3.5-5.1)
[2019-05-04] MEDS ORDERED: HYDROmorphone 2 MG/ML VIAL IV PRN (07:00)
[2019-05-04] MEDS ORDERED: ONDANSETRON PF 4 MG/2 ML VIAL. IV PRN (07:00)
[2019-05-04] MEDS ORDERED: fentaNYL PF VIAL 100 MCG/2 ML VIAL IV PRN ×2 (07:00)
[2019-05-04] MEDS ORDERED: PROCHLORPERAZINE 10 MG/2 ML VIAL. IV PRN (07:00)
[2019-05-04] MEDS ORDERED: IV RINGERS,LACTATED 1000ML 1,000 ML IV SCH (07:00)
[2019-05-04] MEDS ORDERED: MORPHINE SULFATE 2 MG/ML VIAL. IV PRN (07:00)
[2019-05-04] MEDS: PANTOPRAZOLE 40 MG TABLET.DR. PO SCH (07:30)
[2019-05-04] MEDS: TAMSULOSIN 0.4 MG CAP.ER.24H. PO SCH ×2 (09:00→20:10)
[2019-05-04] MEDS: LACTOBACILLUS RHAMNOSUS GG 1 CAPSULE. PO SCH ×2 (09:00→20:10)
[2019-05-04] MEDS: LISINOPRIL 10 MG TABLET PO SCH (09:00)
[2019-05-04] MEDS: ASPIRIN CHEWABLE 81 MG TABLET. PO SCH (09:00)
[2019-05-04] MEDS: ASCORBIC ACID 500 MG TABLET PO SCH (09:00)
[2019-05-04] MEDS: CYCLOBENZAPRINE 10 MG TABLET. PO SCH ×3 (09:00→20:10)
[2019-05-04] MEDS: DICLOFENAC SODIUM 1% TOPICAL GEL 100GM TUBE. TP SCH ×3 (09:00→20:11)
[2019-05-04] MEDS: MULTIVITAMIN with MINERAL TABLET. PO SCH (09:00)
[2019-05-04] MEDS: GABAPENTIN 300 MG CAPSULE. PO SCH ×3 (09:00→20:10)
--- NOTE | 2019-05-04 09:06 | PDOC ---
SURGICAL PROGRESS NOTE Subjective Pre-Op Note 78 yo M with heel and sacral ulcers. TO OR for debridement Consent obtained from family. Vital Signs Vital Signs Date Time Temp Pulse Resp B/P (MAP) Pulse Ox O2 Delivery O2 Flow Rate FiO2 05/04/19 07:00 99.2 112 30 88/49 (62) 94 Room Air 99.2 I&O Intake and Output 05/04/19 07:00 Intake Total 170 ml Balance 170 ml Intake Oral 170 ml # Voids 1 Labs Laboratory Tests Test 05/02/19 11:36 05/02/19 16:41 05/02/19 20:56 05/03/19 07:54 Glucose (Fingerstick) 141 mg/dL (70-99) 129 mg/dL (70-99) 143 mg/dL (70-99) 105 mg/dL (70-99) Test 05/03/19 11:53 05/03/19 16:53 05/03/19 21:44 05/04/19 05:41 Glucose (Fingerstick) 106 mg/dL (70-99) 101 mg/dL (70-99) 90 mg/dL (70-99) White Blood Count 12.2 x10^3/uL (4.0-11.0) Red Blood Count 3.05 x10^6/uL (4.30-5.70) Hemoglobin 8.9 g/dL (13.0-17.5) Hematocrit 27.3 % (39.0-53.0) Mean Corpuscular Volume 90 fL (79-100) Mean Corpuscular Hemoglobin 29 pg (25-35) Mean Corpuscular Hemoglobin Concent 33 g/dL (31-37) Red Cell Distribution Width 14.5 % (11.5-14.5) Platelet Count 378 x10^3/uL (140-400) Neutrophils (%) (Auto) 60 % (31-73) Lymphocytes (%) (Auto) 25 % (24-48) Monocytes (%) (Auto) 10 % (0-9) Eosinophils (%) (Auto) 5 % (0-3) Basophils (%) (Auto) 1 % (0-3) Neutrophils # (Auto) 7.3 x10^3/uL (1.8-7.7) Lymphocytes # (Auto) 3.1 x10^3/uL (1.0-4.8) Monocytes # (Auto) 1.2 x10^3/uL (0.0-1.1) Eosinophils # (Auto) 0.5 x10^3/uL (0.0-0.7) Basophils # (Auto) 0.1 x10^3/uL (0.0-0.2) Sodium Level 135 mmol/L (136-145) Potassium Level 4.9 mmol/L (3.5-5.1) Chloride Level 100 mmol/L (98-107) Carbon Dioxide Level 25 mmol/L (21-32) Anion Gap 10 (6-14) Blood Urea Nitrogen 12 mg/dL (8-26) Creatinine 1.0 mg/dL (0.7-1.3) Estimated GFR (Cockcroft-Gault) 87.4 Glucose Level 77 mg/dL (70-99) Calcium Level 10.6 mg/dL (8.5-10.1) Test 05/04/19 07:58 Glucose (Fingerstick) 78 mg/dL (70-99) Laboratory Tests Test 05/03/19 11:53 05/03/19 16:53 05/03/19 21:44 05/04/19 05:41 Glucose (Fingerstick) 106 mg/dL (70-99) 101 mg/dL (70-99) 90 mg/dL (70-99) White Blood Count 12.2 x10^3/uL (4.0-11.0) Red Blood Count 3.05 x10^6/uL (4.30-5.70) Hemoglobin 8.9 g/dL (13.0-17.5) Hematocrit 27.3 % (39.0-53.0) Mean Corpuscular Volume 90 fL (79-100) Mean Corpuscular Hemoglobin 29 pg (25-35) Mean Corpuscular Hemoglobin Concent 33 g/dL (31-37) Red Cell Distribution Width 14.5 % (11.5-14.5) Platelet Count 378 x10^3/uL (140-400) Neutrophils (%) (Auto) 60 % (31-73) Lymphocytes (%) (Auto) 25 % (24-48) Monocytes (%) (Auto) 10 % (0-9) Eosinophils (%) (Auto) 5 % (0-3) Basophils (%) (Auto) 1 % (0-3) Neutrophils # (Auto) 7.3 x10^3/uL (1.8-7.7) Lymphocytes # (Auto) 3.1 x10^3/uL (1.0-4.8) Monocytes # (Auto) 1.2 x10^3/uL (0.0-1.1) Eosinophils # (Auto) 0.5 x10^3/uL (0.0-0.7) Basophils # (Auto) 0.1 x10^3/uL (0.0-0.2) Sodium Level 135 mmol/L (136-145) Potassium Level 4.9 mmol/L (3.5-5.1) Chloride Level 100 mmol/L (98-107) Carbon Dioxide Level 25 mmol/L (21-32) Anion Gap 10 (6-14) Blood Urea Nitrogen 12 mg/dL (8-26) Creatinine 1.0 mg/dL (0.7-1.3) Estimated GFR (Cockcroft-Gault) 87.4 Glucose Level 77 mg/dL (70-99) Calcium Level 10.6 mg/dL (8.5-10.1) Test 05/04/19 07:58 Glucose (Fingerstick) 78 mg/dL (70-99) Problem List Problems Medical Problems: (1) AMS (altered mental status) Status: Acute (2) Pressure ulcer Status: Acute (3) UTI (urinary tract infection) Status: Acute CARMELLA PARDEES MD May 04, 2019 09:06
[2019-05-04] MEDS ORDERED: SEVOFLURANE 31 TO 60 MINUTES. IH ONE (09:11)
[2019-05-04] MEDS ORDERED: PROPOFOL 20 ML IV ONE (09:12)
[2019-05-04] MEDS ORDERED: LIDOCAINE 2% PF 5 ML VIAL. ONE (09:12)
[2019-05-04] MEDS ORDERED: NEOSTIGMINE METHYLSULFATE 5 MG/5 ML SYRINGE. ONE (09:12)
[2019-05-04] MEDS ORDERED: ONDANSETRON PF 4 MG/2 ML VIAL. ONE (09:12)
[2019-05-04] MEDS ORDERED: GLYCOPYRROLATE 1 MG/5 ML VIAL. ONE (09:12)
[2019-05-04] MEDS ORDERED: fentaNYL PF VIAL 100 MCG/2 ML VIAL ONE (09:12)
[2019-05-04] MEDS ORDERED: DEXAMETHASONE SOD PHOS 4 MG/ML VIAL ONE (09:12)
[2019-05-04] MEDS ORDERED: ROCURONIUM 50 MG/5 ML VIAL. ONE (09:12)
--- NOTE | 2019-05-04 09:56 | PDOC ---
PROGRESS NOTES Subjective Subjective surgery today for debridement Objective Objective Vital Signs Date Time Temp Pulse Resp B/P (MAP) Pulse Ox O2 Delivery O2 Flow Rate FiO2 05/04/19 08:51 101.2 107 26 107/54 95 Room Air 101.2 Intake and Output 05/04/19 07:00 Intake Total 170 ml Balance 170 ml Intake Oral 170 ml # Voids 1 Physical Exam Abdomen: Soft, No tenderness Heart: Regular rate, Normal S1, Normal S2 Extremities: Other (reviewed wound care pictures with ulcers on sacrum and heels) General: Alert, Oriented X3 HEENT: Atraumatic Lungs: Normal air movement MUSCULOSKELETAL: No swelling, Other Psych/Mental Status: Mental status NL, Mood NL Skin: Other (sacral ulcer stage 3 present on admission) Diagnosis Problem List Problems Medical Problems: (1) AMS (altered mental status) Status: Acute (2) Pressure ulcer Status: Acute (3) UTI (urinary tract infection) Status: Acute Assessment Assessment Problems Medical Problems: (1) AMS (altered mental status) Status: Acute (2) Pressure ulcer Status: Acute (3) UTI (urinary tract infection) Status: Acute FINAL IMPRESSION: 1. Generalized weakness. 2. Urinary tract infection. 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 3. Encephalopathy at admission secondary to urinary tract infection. 4. Pressure ulcer, stage 3 sacral present on admission. 5. Spinal stenosis with contractures. 6. Chronic obstructive pulmonary disease. 7. Diabetes. 8. General debility and decline. 9. severe Protein-calorie malnutrition. PLAN:To OR for surgery, debridement of wounds urine c/s showed Pseudomonas aeruginosa wound care consult/surgical consult appreciated iv cefepime labs reviewed speciality bed for pressure relief. pt/ot At this time, was admit to hospital. Blood cultures, urine cultures, started on cefepime and also wound care consult, surgical consult, social service consult and see. The patient has poor prognosis. Plan Plan of Care Problems Medical Problems: (1) AMS (altered mental status) Status: Acute (2) Pressure ulcer Status: Acute (3) UTI (urinary tract infection) Status: Acute Comment Review of Relevant I have reviewed the following items aleksandar (where applicable) has been applied. Labs Laboratory Tests Test 05/03/19 11:53 05/03/19 16:53 05/03/19 21:44 05/04/19 05:41 Glucose (Fingerstick) 106 mg/dL (70-99) 101 mg/dL (70-99) 90 mg/dL (70-99) White Blood Count 12.2 x10^3/uL (4.0-11.0) Red Blood Count 3.05 x10^6/uL (4.30-5.70) Hemoglobin 8.9 g/dL (13.0-17.5) Hematocrit 27.3 % (39.0-53.0) Mean Corpuscular Volume 90 fL (79-100) Mean Corpuscular Hemoglobin 29 pg (25-35) Mean Corpuscular Hemoglobin Concent 33 g/dL (31-37) Red Cell Distribution Width 14.5 % (11.5-14.5) Platelet Count 378 x10^3/uL (140-400) Neutrophils (%) (Auto) 60 % (31-73) Lymphocytes (%) (Auto) 25 % (24-48) Monocytes (%) (Auto) 10 % (0-9) Eosinophils (%) (Auto) 5 % (0-3) Basophils (%) (Auto) 1 % (0-3) Neutrophils # (Auto) 7.3 x10^3/uL (1.8-7.7) Lymphocytes # (Auto) 3.1 x10^3/uL (1.0-4.8) Monocytes # (Auto) 1.2 x10^3/uL (0.0-1.1) Eosinophils # (Auto) 0.5 x10^3/uL (0.0-0.7) Basophils # (Auto) 0.1 x10^3/uL (0.0-0.2) Sodium Level 135 mmol/L (136-145) Potassium Level 4.9 mmol/L (3.5-5.1) Chloride Level 100 mmol/L (98-107) Carbon Dioxide Level 25 mmol/L (21-32) Anion Gap 10 (6-14) Blood Urea Nitrogen 12 mg/dL (8-26) Creatinine 1.0 mg/dL (0.7-1.3) Estimated GFR (Cockcroft-Gault) 87.4 Glucose Level 77 mg/dL (70-99) Calcium Level 10.6 mg/dL (8.5-10.1) Test 05/04/19 07:58 Glucose (Fingerstick) 78 mg/dL (70-99) Microbiology 04/30/19 Blood Culture - Preliminary, Resulted NO GROWTH AFTER 3 DAYS 04/30/19 Urine Culture - Preliminary, Resulted 04/30/19 Urine Culture Result 1 (FLAVIO) - Preliminary, Resulted Medications Current Medications Dexamethasone Sodium Phosphate (Decadron) 4 mg STK-MED ONCE .ROUTE ; Start 05/04/19 at 09:12; Stop 05/04/19 at 09:13; Status DC Fentanyl Citrate (Fentanyl 2ml Vial) 25 mcg PRN Q5MIN PRN IV MILD PAIN 1-3; Start 05/04/19 at 07:00; Stop 05/05/19 at 06:59 Fentanyl Citrate (Fentanyl 2ml Vial) 50 mcg PRN Q5MIN PRN IV MODERATE TO SEVERE PAIN; Start 05/04/19 at 07:00; Stop 05/05/19 at 06:59 Fentanyl Citrate (Fentanyl 2ml Vial) 100 mcg STK-MED ONCE .ROUTE ; Start 05/04/19 at 09:12; Stop 05/04/19 at 09:12; Status DC Glycopyrrolate (Robinul) 1 mg STK-MED ONCE .ROUTE ; Start 05/04/19 at 09:12; Stop 05/04/19 at 09:12; Status DC Hydromorphone HCl (Dilaudid) 0.5 mg PRN Q10MIN PRN IV SEV PAIN, Second choice; Start 05/04/19 at 07:00; Stop 05/05/19 at 06:59 Lidocaine HCl (Lidocaine Pf 2% Vial) 5 ml STK-MED ONCE .ROUTE ; Start 05/04/19 at 09:12; Stop 05/04/19 at 09:13; Status DC Morphine Sulfate (Morphine Sulfate) 1 mg PRN Q10MIN PRN IV SEVERE PAIN 7-10; Start 05/04/19 at 07:00; Stop 05/05/19 at 06:59 Neostigmine Methylsulfate (Neostigmine Methylsulfate) 5 mg STK-MED ONCE .ROUTE ; Start 05/04/19 at 09:12; Stop 05/04/19 at 09:12; Status DC Ondansetron HCl (Zofran) 4 mg PRN Q6HRS PRN IV NAUSEA/VOMITING; Start 05/04/19 at 07:00; Stop 05/05/19 at 06:59 Ondansetron HCl (Zofran) 4 mg STK-MED ONCE .ROUTE ; Start 05/04/19 at 09:12; Stop 05/04/19 at 09:13; Status DC Prochlorperazine Edisylate (Compazine) 5 mg PACU PRN PRN IV NAUSEA, MRX1; Start 05/04/19 at 07:00; Stop 05/05/19 at 06:59 Propofol 20 ml @ As Directed STK-MED ONCE IV ; Start 05/04/19 at 09:12; Stop 05/04/19 at 09:13; Status DC Ringer's Solution 1,000 ml @ 30 mls/hr Q24H IV Last administered on 05/04/19at 09:30; Start 05/04/19 at 07:00; Stop 05/04/19 at 18:59 Rocuronium [place] (Zemuron) 50 mg STK-MED ONCE .ROUTE ; Start 05/04/19 at 09:12; Stop 05/04/19 at 09:12; Status DC Sevoflurane (Ultane) 30 ml STK-MED ONCE IH ; Start 05/04/19 at 09:11; Stop 05/04/19 at 09:12; Status DC Vitals/I & O Vital Sign - Last 24 Hours 05/03/19 05/03/19 05/03/19 05/03/19 10:38 11:00 14:43 15:00 Temp 98.6 98.1 98.6 98.1 Pulse 100 105 Resp 18 16 17 16 B/P (MAP) 151/64 (93) 129/79 (96) Pulse Ox 98 91 O2 Delivery Room Air Room Air Room Air Room Air 05/03/19 05/03/19 05/03/19 05/03/19 15:43 19:22 20:00 23:10 Temp 98.5 98.5 Pulse 114 Resp 17 18 B/P (MAP) 151/86 (107) Pulse Ox 94 94 O2 Delivery Room Air Room Air Room Air Room Air 05/03/19 05/04/19 05/04/19 05/04/19 23:55 00:10 03:54 07:00 Temp 98.5 97.8 99.2 98.5 97.8 99.2 Pulse 117 108 112 Resp 18 18 30 B/P (MAP) 119/69 (86) 92/51 (65) 88/49 (62) Pulse Ox 95 95 94 94 O2 Delivery Room Air Room Air Room Air Room Air 05/04/19 08:51 Temp 101.2 101.2 Pulse 107 Resp 26 B/P (MAP) 107/54 Pulse Ox 95 O2 Delivery Room Air Intake and Output 05/03/19 05/03/19 05/04/19 15:00 23:00 07:00 Intake Total 0 ml 120 ml 50 ml Balance 0 ml 120 ml 50 ml Nutrition Consultation Dietary Evaluation: Recommendations by RD: Increase Calorie Intake, Protein supplementation Comments: glucerna tid magic cup bid Expected Outcomes/Goals: to meet > 75% est nutr needs Malnutrition Findings: Food and Nutrition Intake (Mod: <75% est energy req 7days Weight Status: Appropriate SPRING BURGESS MD May 04, 2019 09:55
[2019-05-04] MEDS ORDERED: VASOPRESSIN 20 UNIT/ML VIAL. ONE (10:19)
[2019-05-04] MEDS: IV NORMAL SALINE 1000ML BAG 1,000 ML IV SCH ×3 (10:57→23:20)
[2019-05-04] MEDS ORDERED: NALOXONE 0.4 MG/ML VIAL. IV PRN (11:00)
[2019-05-04] MEDS ORDERED: 0.9 % SODIUM CHLORIDE 10 ML DISP.SYRIN. IV PRN (11:00)
--- NOTE | 2019-05-04 11:09 | PDOC4 ---
OPERATIVE NOTE Date: Date: May 04, 2019 Pre-Op Diagnosis: Sacral decubitus ulcer, left heel decubitus ulcer Post-Op Diagnosis: same Procedure Performed: Excisional debridement of left heel, left lateral foot Surgeon: Anthony Paredes Anesthesia Type: GETA Blood Loss: minimal Specimans Obtained: Heel ulcer Findings: sacral ulcer clean, involves skin and dermis, but no necrotic tissue, wound washed but not debrided, agree with plans for local wound care and off loading. Left heel with decubitus ulcer extending onto left lateral plantar foot, Full thickness skin involvement Complications: none Operative Note: After obtaining informed consent, patient was taken to OR, induced under GETA and prepped in the usual fashion over sacral area and left heel. As above, sacral ulcer clean and does not need debridement at this time. Left heel with area of full thickness involvement of plantar surface. Necrotic skin and superficial aspect of dermis sharply debrided with vikas jewell. Hemostasis (mi nimal need) obtained with cautery. Vaseline gauze and clean dressing placed. Patient tolerated procedure well and sent to PACU in stable condition. All counts correct. Wound class is 4. CARMELLA PAREDES MD May 04, 2019 11:09
--- NOTE | 2019-05-04 11:22 | NUR ---
SW consulted for poor home situation. Chart reviewed and discussed with RN. Pt is known to SWer from previous admission. Pt has PMHx of HTN, COPD and spinal stenosis. Pt is admitted for UTI, AMS, Wound. Pt had repeatedly declined LTC placement in the past and has signed out of hospice twice. Pt did not want to give up his assets (still owns home) and has asserts that were being garnished due to unpaid taxes. SW had made APS report in February due to self neglect and poor decision makings. ELIOT attempted to meet with pt and pt currently undergoing I&D. ELIOT left a message to with Julio requesting a call back. ELIOT will continue to follow.
--- NOTE | 2019-05-04 15:45 | NUR ---
SW following pt. SW spoke with pt's son and he states his nephew has been taking care of pt at home. SW discussed pt was found covered with feces and has wounds. Pt's son states he is agreeable with pt being placed in custodial as long as pt agrees. Son also reported pt has APS worker following but did not know the name. SW spoke with pt, he was oriented to self and Place. Pt states his son was taking care of him at home but from SWer observation, he appears like he had lost weight since previous admission. SW discussed pt does not seem to be getting the care he needs at home and pt is agreeable with placement for now. Plan 1. SW phoned [facility] office and notified pt's rehabilitation caseworker is Ceci Garciacelia, phone: [phone]- Left a VM. Pt's son states they have been working on getting him approved home care services (did not verify that at this time). 2. ELIOT phoned and faxed referral to [facility], Sharron Pineda, and [facility] director of outreach care placement. Pt acceptance and admission pending. ELIOT will continue to follow.
[2019-05-04] MEDS ORDERED: ASCO500T2 PO (21:36)
[2019-05-04] MEDS ORDERED: MULT1TAB90 PO (21:36)
--- NOTE | 2019-05-04 21:39 | SNU/HH DC ---
DISCHARGE WITH HOME HEALTH DISCHARGE INFORMATION: Discharge Date: May 05, 2019 Final Diagnosis: Problems Medical Problems: (1) AMS (altered mental status) Status: Acute (2) Pressure ulcer Status: Acute (3) UTI (urinary tract infection) Status: Acute Condition on Discharge: Stable CODE STATUS: Code Status: Full HOME HEALTH: Face to Face: I certify this patient is under my care and that I, or a nurse practitioner or physician's scheduling assistant working with me, had a face to face encounter that meets the physician face to face encounter requirements with this patient on [05/04/19]. Medical Complications: Other (spinal stenosis) Usp For: aoc operations intelligence chief For Eval/Treatment: Yes Physical Therapy For: Evalulation/Treatment Occupational Therapy For: Evaluation/Treatment Home Health Aide For: Self-care ETHYLBENZENE OXIDIZER For: Community Resources Pt Meets Homebound Status: Poor coordination w/ amb., Other: (bed ridden) POST DISCHARGE ORDERS: Activity Instructions for Disc: Resume previous activity, Activity as tolerated Weight Bearing Status after Di: As tolerated Bathing Instructions: Shower-keep dressing dry, No Tub Bath until see DIET AFTER DISCHARGE: ADA Wound/Incision Care: Change dressing DC TO SNF OTHER: back brace while up CHECKS AFTER DISCHARGE: Checks after discharge: Check blood sugar, ac/hs TREATMENT/EQUIPMENT ORDERS: Adaptive Equipment Issued: None, Wheelchair CERTIFICATION STATEMENT: Certification Statement: Certification Statement: Based on the above finding, I certify that this patient is confined to the home and needs intermittent fci care, physical therapy and/or speech therapy, or continues to need occupational therapy.~ This patient is under my care, and I have initiated the establishment of the plan of care.~ This patient will be followed by myself or a community physician who will periodically review the plan of care. Home Meds Active Scripts Multivits,Ca,Minerals/Iron/Fa (THERA-M TABLET) 1 Each Tablet, 1 TAB PO DAILY for wounds for 30 Days, #30 TAB Prov:SPRING BURGESS MD 05/04/19 Ascorbic Acid (VITAMIN C) 500 Mg Tablet, 500 MG PO DAILY for wounds for 30 Days, #30 TAB Prov:SPRING BURGESS MD 05/04/19 Tamsulosin Hcl (FLOMAX) 0.4 Mg Cap.er.24h, 1 CAP PO BID, #30 CAP 11 Refills Prov:SPRING BURGESS MD 01/13/17 Gabapentin (NEURONTIN ) 300 Mg Capsule, 600 MG PO TID, #180 CAP Prov:TWYLA ESPINOZA DIRECTOR OF SOCIAL SERVICES 10/05/14 Aspirin (ASPIRIN) 81 Mg Tab.chew, 81 MG PO DAILY, #30 TAB.CHEW Prov:SPRING BURGESS MD 04/06/14 Reported Medications Levomefolate/B6/B12/Algal Oil (METANX CAPSULE) 1 Each Capsule, 1 EACH PO BID for Foot pain, CAP 04/09/18 Polyethylene Glycol 3350 (MIRALAX) 119 Gm Powder, 17 GM PO BID PRN for CONSTIPATION, #527 GM 12/01/17 Diphenhydramine Hcl (BENADRYL) 25 Mg Capsule, 1 CAP PO PRN PRN for ITCHING, #30 CAP 1 Refill 03/25/17 Pantoprazole Sodium (PANTOPRAZOLE SODIUM ) 40 Mg Tablet.dr, 1 TAB PO DAILY, #30 TAB 3 Refills 03/31/14 Diclofenac Sodium (VOLTAREN) 100 Gm Gel..gram., 1 GM TP TID, #100 GM 2 Refills 03/31/14 Baclofen (BACLOFEN) 10 Mg Tablet, 15 MG PO TID for MUSCLE RELAXER 01/22/14 Tizanidine Hcl (ZANAFLEX) 6 Mg Capsule, 12 MG PO HS PRN for MUSCLE SPASMS, CAP 12/29/13 Alendronate Sodium (FOSAMAX) 70 Mg Tablet, 70 MG PO weekly on saturday12/29/13 Oxycodone Hcl/Acetaminophen (OXYCODONE-ACETAMINOPHEN 10-325) 1 Each Tablet, 1 EACH PO PRN Q4HRS PRN for severe pain 12/03/13 Baclofen (BACLOFEN) 20 Mg Tablet, 20 MG PO HS 12/03/13 Lisinopril (LISINOPRIL) 10 Mg Tablet, 10 MG PO DAILY 12/03/13 SPRING BURGESS MD May 04, 2019 21:39
[2019-05-05 03:45] VITALS: BP 146/70
[2019-05-05] MEDS: CEFEPIME HCL IV Push 1 GM VIAL. IVP SCH ×2 (04:57→18:35)
[2019-05-05 07:00] VITALS: BP 131/60
--- NOTE | 2019-05-05 08:51 | PDOC ---
SURGICAL PROGRESS NOTE Subjective doing well no nausea son present Vital Signs Vital Signs Date Time Temp Pulse Resp B/P (MAP) Pulse Ox O2 Delivery O2 Flow Rate FiO2 05/05/19 07:00 99.1 95 20 131/60 (83) 94 Room Air 99.1 05/04/19 11:20 10 I&O Intake and Output 05/05/19 07:00 Intake Total 100 ml Output Total 605 ml Balance -505 ml Intake Oral 100 ml Output Urine Total 600 ml Estimated Blood Loss 5 ml # Voids 2 General: Alert, Oriented X3, Cooperative, No acute distress Abdomen: Soft, No tenderness Skin: Other (dressings in place) Labs Laboratory Tests Test 05/03/19 11:53 05/03/19 16:53 05/03/19 21:44 05/04/19 05:41 Glucose (Fingerstick) 106 mg/dL (70-99) 101 mg/dL (70-99) 90 mg/dL (70-99) White Blood Count 12.2 x10^3/uL (4.0-11.0) Red Blood Count 3.05 x10^6/uL (4.30-5.70) Hemoglobin 8.9 g/dL (13.0-17.5) Hematocrit 27.3 % (39.0-53.0) Mean Corpuscular Volume 90 fL (79-100) Mean Corpuscular Hemoglobin 29 pg (25-35) Mean Corpuscular Hemoglobin Concent 33 g/dL (31-37) Red Cell Distribution Width 14.5 % (11.5-14.5) Platelet Count 378 x10^3/uL (140-400) Neutrophils (%) (Auto) 60 % (31-73) Lymphocytes (%) (Auto) 25 % (24-48) Monocytes (%) (Auto) 10 % (0-9) Eosinophils (%) (Auto) 5 % (0-3) Basophils (%) (Auto) 1 % (0-3) Neutrophils # (Auto) 7.3 x10^3/uL (1.8-7.7) Lymphocytes # (Auto) 3.1 x10^3/uL (1.0-4.8) Monocytes # (Auto) 1.2 x10^3/uL (0.0-1.1) Eosinophils # (Auto) 0.5 x10^3/uL (0.0-0.7) Basophils # (Auto) 0.1 x10^3/uL (0.0-0.2) Sodium Level 135 mmol/L (136-145) Potassium Level 4.9 mmol/L (3.5-5.1) Chloride Level 100 mmol/L (98-107) Carbon Dioxide Level 25 mmol/L (21-32) Anion Gap 10 (6-14) Blood Urea Nitrogen 12 mg/dL (8-26) Creatinine 1.0 mg/dL (0.7-1.3) Estimated GFR (Cockcroft-Gault) 87.4 Glucose Level 77 mg/dL (70-99) Calcium Level 10.6 mg/dL (8.5-10.1) Test 05/04/19 07:58 05/04/19 12:41 05/04/19 16:42 05/04/19 18:50 Glucose (Fingerstick) 78 mg/dL (70-99) 73 mg/dL (70-99) 88 mg/dL (70-99) Lactic Acid Level 0.7 mmol/L (0.4-2.0) Test 05/04/19 21:10 05/05/19 07:50 Glucose (Fingerstick) 87 mg/dL (70-99) 63 mg/dL (70-99) Laboratory Tests Test 05/04/19 12:41 05/04/19 16:42 05/04/19 18:50 05/04/19 21:10 Glucose (Fingerstick) 73 mg/dL (70-99) 88 mg/dL (70-99) 87 mg/dL (70-99) Lactic Acid Level 0.7 mmol/L (0.4-2.0) Test 05/05/19 07:50 Glucose (Fingerstick) 63 mg/dL (70-99) Problem List Problems Medical Problems: (1) AMS (altered mental status) Status: Acute (2) Pressure ulcer Status: Acute (3) UTI (urinary tract infection) Status: Acute Assessment/Plan wound care KARLA Granger APRN May 05, 2019 08:51
[2019-05-05] MEDS: GABAPENTIN 300 MG CAPSULE. PO SCH ×3 (09:25→21:16)
[2019-05-05] MEDS: CYCLOBENZAPRINE 10 MG TABLET. PO SCH ×3 (09:25→21:15)
[2019-05-05] MEDS: LACTOBACILLUS RHAMNOSUS GG 1 CAPSULE. PO SCH ×2 (09:26→21:16)
[2019-05-05] MEDS: TAMSULOSIN 0.4 MG CAP.ER.24H. PO SCH ×2 (09:26→21:15)
[2019-05-05] MEDS: MULTIVITAMIN with MINERAL TABLET. PO SCH (09:26)
[2019-05-05] MEDS: ASCORBIC ACID 500 MG TABLET PO SCH (09:26)
[2019-05-05] MEDS: DICLOFENAC SODIUM 1% TOPICAL GEL 100GM TUBE. TP SCH ×3 (09:26→21:15)
[2019-05-05] MEDS: PANTOPRAZOLE 40 MG TABLET.DR. PO SCH (09:26)
[2019-05-05] MEDS: LISINOPRIL 10 MG TABLET PO SCH (09:26)
[2019-05-05] MEDS: ASPIRIN CHEWABLE 81 MG TABLET. PO SCH (09:27)
--- NOTE | 2019-05-05 09:51 | PDOC ---
PROGRESS NOTES Subjective Subjective no new problems Objective Objective Vital Signs Date Time Temp Pulse Resp B/P (MAP) Pulse Ox O2 Delivery O2 Flow Rate FiO2 05/05/19 09:26 95 131/60 05/05/19 07:00 99.1 20 94 Room Air 99.1 05/04/19 11:20 10 Intake and Output 05/05/19 07:00 Intake Total 100 ml Output Total 605 ml Balance -505 ml Intake Oral 100 ml Output Urine Total 600 ml Estimated Blood Loss 5 ml # Voids 2 Physical Exam Abdomen: Soft, No tenderness Heart: Regular rate, Normal S1, Normal S2 Extremities: Other (reviewed wound care pictures with ulcers on sacrum and heels) General: Alert, Oriented X3, Cooperative, No acute distress HEENT: Atraumatic Lungs: Normal air movement MUSCULOSKELETAL: No swelling, Other Psych/Mental Status: Mental status NL, Mood NL Skin: Other (dressings in place) Diagnosis Problem List Problems Medical Problems: (1) AMS (altered mental status) Status: Acute (2) Pressure ulcer Status: Acute (3) UTI (urinary tract infection) Status: Acute Assessment Assessment Problems Medical Problems: (1) AMS (altered mental status) Status: Acute (2) Pressure ulcer Status: Acute (3) UTI (urinary tract infection) Status: Acute FINAL IMPRESSION: 1. Generalized weakness. encephalopathy. 2. Urinary tract infection. 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 3. Encephalopathy at admission secondary to urinary tract infection. 4. Pressure ulcer, stage 3 sacral present on admission. 5. Spinal stenosis with contractures. 6. Chronic obstructive pulmonary disease. 7. Diabetes. 8. General debility and decline. 9. severe Protein-calorie malnutrition. PLAN:SNU screen. wbc 12 on cefipime 05/04/19 Pt had surgery, debridement of wounds foot urine c/s showed Pseudomonas aeruginosa, s/s pending wound care consult/surgical consult appreciated labs reviewed speciality bed for pressure relief. pt/ot Plan Plan of Care Problems Medical Problems: (1) AMS (altered mental status) Status: Acute (2) Pressure ulcer Status: Acute (3) UTI (urinary tract infection) Status: Acute Comment Review of Relevant I have reviewed the following items aleksandar (where applicable) has been applied. Labs Laboratory Tests Test 05/04/19 12:41 05/04/19 16:42 05/04/19 18:50 05/04/19 21:10 Glucose (Fingerstick) 73 mg/dL (70-99) 88 mg/dL (70-99) 87 mg/dL (70-99) Lactic Acid Level 0.7 mmol/L (0.4-2.0) Test 05/05/19 07:50 Glucose (Fingerstick) 63 mg/dL (70-99) Microbiology 04/30/19 Blood Culture - Preliminary, Resulted NO GROWTH AFTER 4 DAYS 04/30/19 Urine Culture - Preliminary, Resulted 04/30/19 Urine Culture Result 1 (FLAVIO) - Preliminary, Resulted Medications Current Medications Naloxone HCl (Narcan) 0.4 mg PRN Q2MIN PRN IV SEE INSTRUCTIONS; Start 05/04/19 at 11:00 Sodium Chloride 1,000 ml @ 25 mls/hr Q24H IV ; Start 05/04/19 at 10:57 Sodium Chloride 1,000 ml @ 75 mls/hr [id number] IV Last administered on 05/04/19at 23:20; Start 05/04/19 at 10:00 Sodium Chloride (Normal Saline Flush) 3 ml QSHIFT PRN IV AFTER MEDS AND BLOOD DRAWS; Start 05/04/19 at 11:00 Vasopressin (Vasostrict) 20 unit STK-MED ONCE .ROUTE ; Start 05/04/19 at 10:19; Stop 05/04/19 at 10:19; Status DC Vitals/I & O Vital Sign - Last 24 Hours 05/04/19 05/04/19 05/04/19 05/04/19 11:05 11:05 11:20 11:35 Temp 98.5 98.5 98.5 98.5 98.5 98.5 Pulse 102 104 90 Resp 16 16 16 B/P (MAP) 101/57 98/61 119/75 Pulse Ox 100 100 97 O2 Delivery Mask Simple Mask Simple Mask Room Air O2 Flow Rate 10 10 10 05/04/19 05/04/19 05/04/19 05/04/19 11:50 11:55 12:29 12:46 Temp 98.5 97.8 98.5 97.8 Pulse 92 91 94 98 Resp 16 22 B/P (MAP) 113/49 98/57 (71) 154/130 (138) 110/64 (79) Pulse Ox 97 94 O2 Delivery Room Air Room Air 05/04/19 05/04/19 05/04/19 05/04/19 13:01 13:17 13:31 14:30 Pulse 104 107 106 113 B/P (MAP) 117/67 (84) 124/76 (92) 135/79 (97) 136/73 (94) 05/04/19 05/04/19 05/04/19 05/04/19 15:00 16:01 16:24 19:51 Temp 98.5 98.9 98.5 98.9 Pulse 128 109 109 112 Resp 26 20 B/P (MAP) 143/79 (100) 118/67 (84) 139/80 (99) 137/69 (91) Pulse Ox 96 94 O2 Delivery Room Air Room Air 05/04/19 05/04/19 05/05/19 05/05/19 20:00 23:50 03:45 07:00 Temp 99.1 99.5 99.1 99.1 99.5 99.1 Pulse 98 104 95 Resp 20 20 20 B/P (MAP) 147/57 (87) 146/70 (95) 131/60 (83) Pulse Ox 97 95 94 O2 Delivery Room Air Room Air Room Air Room Air 05/05/19 09:26 Pulse 95 B/P (MAP) 131/60 Intake and Output 05/04/19 05/04/19 05/05/19 15:00 23:00 07:00 Intake Total 50 ml 50 ml Output Total 605 ml Balance -605 ml 50 ml 50 ml Nutrition Consultation Dietary Evaluation: Recommendations by RD: Increase Calorie Intake, Protein supplementation Comments: glucerna tid magic cup bid Expected Outcomes/Goals: to meet > 75% est nutr needs Malnutrition Findings: Food and Nutrition Intake (Mod: <75% est energy req 7days Weight Status: Appropriate SPRING BURGESS MD May 05, 2019 09:51
[2019-05-05] MEDS ORDERED: CEFP100S3 PO (10:12)
--- NOTE | 2019-05-05 10:14 | SNU/HH DC ---
DISCHARGE ORDERS DISCHARGE INFORMATION: DISCHARGE DATE: May 05, 2019 FINAL DIAGNOSIS Problems Medical Problems: (1) AMS (altered mental status) Status: Acute (2) Pressure ulcer Status: Acute (3) UTI (urinary tract infection) Status: Acute CONDITION ON DISCHARGE: Stable CODE STATUS: Code Status: Full [facility]: SNF STAY <30 DAYS: Yes POST DISCHARGE ORDERS: ACTIVITY ORDERS: Resume previous activity, Activity as tolerated WEIGHT BEARING STATUS: As tolerated BATHING ORDERS: Shower-keep dressing dry, No Tub Bath until see DIET AFTER DISCHARGE: ADA WOUND/INCISION CARE: Change dressing, Other, see below OTHER ORDERS: back brace while up CHECKS AFTER DISCHARGE: CHECKS AFTER DISCHARGE: Check blood sugar, ac/hs TREATMENT/EQUIPMENT ORDERS: ADAPTIVE EQUIPMENT NEEDED: None, Wheelchair Physical Therapy For: Evalulation/Treatment Occupational Therapy For: Evaluation/Treatment Speech Language Pathology For: Evaluation/Treatment DISCHARGE MEDICATIONS: Home Meds Active Scripts Cefpodoxime Proxetil (CEFPODOXIME PROXETIL) 100 Mg/5 Ml Susp.recon, 1 TAB PO BID for uti for 7 Days, #14 TAB 0 Refills Prov:SPRING BURGESS MD 05/05/19 Multivits,Ca,Minerals/Iron/Fa (THERA-M TABLET) 1 Each Tablet, 1 TAB PO DAILY for wounds for 30 Days, #30 TAB Prov:SPRING BURGESS MD 05/04/19 Ascorbic Acid (VITAMIN C) 500 Mg Tablet, 500 MG PO DAILY for wounds for 30 Days, #30 TAB Prov:SPRING BURGESS MD 05/04/19 Tamsulosin Hcl (FLOMAX) 0.4 Mg Cap.er.24h, 1 CAP PO BID, #30 CAP 11 Refills Prov:SPRING BURGESS MD 01/13/17 Gabapentin (NEURONTIN ) 300 Mg Capsule, 600 MG PO TID, #180 CAP Prov:TWYLA ESPINOZA APRN 10/05/14 Aspirin (ASPIRIN) 81 Mg Tab.chew, 81 MG PO DAILY, #30 TAB.CHEW Prov:SPRING BURGESS MD 04/06/14 Reported Medications Levomefolate/B6/B12/Algal Oil (METANX CAPSULE) 1 Each Capsule, 1 EACH PO BID for Foot pain, CAP 04/09/18 Polyethylene Glycol 3350 (MIRALAX) 119 Gm Powder, 17 GM PO BID PRN for CO NSTIPATION, #527 GM 12/01/17 Diphenhydramine Hcl (BENADRYL) 25 Mg Capsule, 1 CAP PO PRN PRN for ITCHING, #30 CAP 1 Refill 03/25/17 Pantoprazole Sodium (PANTOPRAZOLE SODIUM ) 40 Mg Tablet.dr, 1 TAB PO DAILY, #30 TAB 3 Refills 03/31/14 Diclofenac Sodium (VOLTAREN) 100 Gm Gel..gram., 1 GM TP TID, #100 GM 2 Refills 03/31/14 Baclofen (BACLOFEN) 10 Mg Tablet, 15 MG PO TID for MUSCLE RELAXER 01/22/14 Tizanidine Hcl (ZANAFLEX) 6 Mg Capsule, 12 MG PO HS PRN for MUSCLE SPASMS, CAP 12/29/13 Alendronate Sodium (FOSAMAX) 70 Mg Tablet, 70 MG PO weekly on saturday12/29/13 Oxycodone Hcl/Acetaminophen (OXYCODONE-ACETAMINOPHEN 10-325) 1 Each Tablet, 1 EACH PO PRN Q4HRS PRN for severe pain 12/03/13 Baclofen (BACLOFEN) 20 Mg Tablet, 20 MG PO HS 12/03/13 Lisinopril (LISINOPRIL) 10 Mg Tablet, 10 MG PO DAILY 12/03/13 SPRING BURGESS MD May 05, 2019 10:13
[2019-05-05] MEDS: IV NORMAL SALINE 1000ML BAG 1,000 ML IV SCH ×2 (10:57→13:25)
[2019-05-05 11:00] VITALS: BP 147/70
[2019-05-05 11:42] LABS: BASO # 0.1 x10^3/uL (0.0-0.2); BASO % 1 % (0-3); EOS # 0.1 x10^3/uL (0.0-0.7); EOS % 1 % (0-3); HEMOGLOBIN 7.6 g/dL (13.0-17.5); LYMPH # 1.8 x10^3/uL (1.0-4.8); LYMPH % 21 % (24-48); MEAN CORPUSCULAR HEMOGLOBIN 30 pg (25-35); MEAN CORPUSCULAR HGB CONC 33 g/dL (31-37); MEAN CORPUSCULAR VOLUME 90 fL (79-100); MONO # 0.8 x10^3/uL (0.0-1.1); MONO % 10 % (0-9); NEUT # 5.8 x10^3/uL (1.8-7.7); NEUT % 67 % (31-73); PLATELET COUNT 387 x10^3/uL (140-400); RED BLOOD COUNT 2.56 x10^6/uL (4.30-5.70); RED CELL DISTRIBUTION WIDTH 14.2 % (11.5-14.5); WHITE BLOOD COUNT 8.6 x10^3/uL (4.0-11.0)
--- NOTE | 2019-05-05 12:19 | NUR ---
ELIOT following pt. Pt has been accepted at [facility], [facility] out [facility] network, [facility] does not accept medicaid pending pts. Nathen from [facility] had left VM to pt's son regarding medicaid status. ELIOT left a message to pt's son as well. ELIOT will continue to follow.
[2019-05-05 15:00] VITALS: BP 141/87
--- NOTE | 2019-05-05 15:15 | NUR ---
Wound Care patient seen for a f/u of Wound care consult for PU to coccyx and foot. Pt has stage III to sacrum and unstageable PU to right foot. Cleansed wounds, measured and pictured and redressed. A&D ointment on coccyx, recommend no back laying unless eating. patient turned to the right side at this time. Recommendations of Calazime cream or A & D ointment. recommendations of Xeroform gauze and a foam applied to right plantar foot with Rooke boots. Pt on P500 bed. No other wounds noted on full skin inspection. patients brief changed at this time, as patient incontinent of urine. WC will continue to follow for possible changes. bed alarm on. n
--- NOTE | 2019-05-05 15:36 | NUR ---
ELIOT following pt. SW spoke with pt about transferring to SNF today. Pt appears confused today and having visual hallucination about things that are not in his room. ELIOT left pt's son 2 VM's requesting a call back. [facility] will not admit pt until they hear from pt's son as pt is not able to consent for admission. ELIOT will continue to follow.
--- NOTE | 2019-05-05 17:06 | PATHOLOGY ---
[facility] Accession Number: [id number] . 01 Material submitted: . heel - HEEL ULCER RIGHT FOOT. Modifiers: right . 01 Clinical history: . Heel ulcer . 02 Diagnosis: Segments of skin, right foot heel ulcer debridement: - Extensive coagulative necrosis with acute inflammation. (JPM/db; 05/05/2019) LBQ 05/05/2019 1545 Local . 02 Electronically signed: . Caesy Carvalho MD, Pathologist NPI- [id number] . 01 Gross description: . The specimen is received in formalin, labeled "Can Sepulveda, heel ulcer right foot", consist of multiple irregular christianson to dark brown segments of skin measuring 4.0 x 3.0 x 1.0 cm in aggregate. Representatively submitted in A1. ([facility]; 05/04/2019) [facility] 05/04/2019 1946 Local . 02 Pathologist provided ICD-10: I96, L98.9, L97.419 . 02 CPT . 197034 Specimen Comment: A courtesy copy of this report has been sent to Specimen Comment: [phone], , . Specimen Comment: Report sent to ,DR BURGESS / DR VERDUZCO Performed at: 01 [facility] [address], [place] [id number] MD Sergio Keller MD Phone: [phone] Performed at: 02 [facility] [address] [place], [place] [id number] MD Casey Carvalho MD Phone: [phone]
[2019-05-05 19:36] VITALS: BP 146/94
[2019-05-05] MEDS: ZOLPIDEM 5 MG TABLET. PO PRN (21:16)
[2019-05-05 23:00] VITALS: BP 144/92
[2019-05-06 03:43] VITALS: BP 144/92
[2019-05-06] MEDS: IV NORMAL SALINE 1000ML BAG 1,000 ML IV SCH (05:38)
[2019-05-06] MEDS: CEFEPIME HCL IV Push 1 GM VIAL. IVP SCH (06:13)
[2019-05-06 07:45] VITALS: BP 113/71
--- NOTE | 2019-05-06 09:37 | NUR ---
ELIOT recieved a phone call from pt's son, Julio and requested he speak with [facility] admission team so we can work on discharging pt today. Pt's son agreeable and also reports pt has been approved for Medicaid. ELIOT informed pt's son, pt is not safe to go home and will need placement as family is not providing 24/7care. Pt's son agreeable with plans. Discussed with Fabrizio at [facility] and also with Physician.
--- NOTE | 2019-05-06 09:40 | PDOC ---
PROGRESS NOTES Subjective Subjective anxious and nervous Objective Objective Vital Signs Date Time Temp Pulse Resp B/P (MAP) Pulse Ox O2 Delivery O2 Flow Rate FiO2 05/06/19 07:45 100.3 109 18 113/71 (85) 96 Room Air 100.3 Intake and Output 05/06/19 07:00 Intake Total 240 ml Balance 240 ml Intake Oral 240 ml # Voids 2 Physical Exam Abdomen: Soft, No tenderness Heart: Regular rate, Normal S1, Normal S2 Extremities: Other (reviewed wound care pictures with ulcers on sacrum and heels) General: Alert, Oriented X3, Cooperative, No acute distress HEENT: Atraumatic Lungs: Normal air movement MUSCULOSKELETAL: No swelling, Other Psych/Mental Status: Mental status NL, Mood NL Skin: Other (dressings in place) Diagnosis Problem List Problems Medical Problems: (1) AMS (altered mental status) Status: Acute (2) Pressure ulcer Status: Acute (3) UTI (urinary tract infection) Status: Acute Assessment Assessment Problems Medical Problems: (1) AMS (altered mental status) Status: Acute (2) Pressure ulcer Status: Acute (3) UTI (urinary tract infection) Status: Acute FINAL IMPRESSION: 1. Generalized weakness. encephalopathy. 2. Urinary tract infection. 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 3. Encephalopathy at admission secondary to urinary tract infection. 4. Pressure ulcer, stage 3 sacral present on admission. 5. Spinal stenosis with contractures. 6. Chronic obstructive pulmonary disease. 7. Diabetes. 8. General debility and decline. 9. severe Protein-calorie malnutrition. PLAN:SNU screen./ waiting for bed wbc 8 on cefipime, change to oral vantin at dischargex 7 days 05/04/19 Pt had surgery, debridement of wounds foot urine c/s showed Pseudomonas aeruginosa, s/s Vantin wound care consult/surgical consult appreciated labs reviewed speciality bed for pressure relief. pt/ot Plan Plan of Care Problems Medical Problems: (1) AMS (altered mental status) Status: Acute (2) Pressure ulcer Status: Acute (3) UTI (urinary tract infection) Status: Acute Comment Review of Relevant I have reviewed the following items aleksandar (where applicable) has been applied. Labs Laboratory Tests Test 05/05/19 11:10 05/05/19 12:11 05/05/19 16:55 05/05/19 22:03 White Blood Count 8.6 x10^3/uL (4.0-11.0) Red Blood Count 2.56 x10^6/uL (4.30-5.70) Hemoglobin 7.6 g/dL (13.0-17.5) Hematocrit 23.0 % (39.0-53.0) Mean Corpuscular Volume 90 fL (79-100) Mean Corpuscular Hemoglobin 30 pg (25-35) Mean Corpuscular Hemoglobin Concent 33 g/dL (31-37) Red Cell Distribution Width 14.2 % (11.5-14.5) Platelet Count 387 x10^3/uL (140-400) Neutrophils (%) (Auto) 67 % (31-73) Lymphocytes (%) (Auto) 21 % (24-48) Monocytes (%) (Auto) 10 % (0-9) Eosinophils (%) (Auto) 1 % (0-3) Basophils (%) (Auto) 1 % (0-3) Neutrophils # (Auto) 5.8 x10^3/uL (1.8-7.7) Lymphocytes # (Auto) 1.8 x10^3/uL (1.0-4.8) Monocytes # (Auto) 0.8 x10^3/uL (0.0-1.1) Eosinophils # (Auto) 0.1 x10^3/uL (0.0-0.7) Basophils # (Auto) 0.1 x10^3/uL (0.0-0.2) Glucose (Fingerstick) 75 mg/dL (70-99) 66 mg/dL (70-99) 59 mg/dL (70-99) Test 05/05/19 23:26 05/06/19 07:26 05/06/19 08:11 Glucose (Fingerstick) 76 mg/dL (70-99) 64 mg/dL (70-99) 74 mg/dL (70-99) Microbiology 04/30/19 Blood Culture - Final, Complete NO GROWTH AFTER 5 DAYS 04/30/19 Urine Culture - Final, Complete 04/30/19 Urine Culture Result 1 (FLAVIO) - Final, Complete 04/30/19 Antimicrobic Susceptibility - Final, Complete Vitals/I & O Vital Sign - Last 24 Hours 05/05/19 05/05/19 05/05/1919 11:00 15:00 19:36 20:11 Temp 99.3 98.2 98.3 99.3 98.2 98.3 Pulse 97 108 97 Resp 20 20 20 B/P (MAP) 147/70 (95) 141/87 (105) 146/94 (111) Pulse Ox 96 99 97 O2 Delivery Room Air Room Air Room Air Room Air 05/05/19 05/06/19 05/06/19 23:00 03:43 07:45 Temp 98.3 98.3 100.3 98.3 98.3 100.3 Pulse 100 100 109 Resp 18 18 18 B/P (MAP) 144/92 (109) 144/92 (109) 113/71 (85) Pulse Ox 97 97 96 O2 Delivery Room Air Room Air Room Air Intake and Output 05/05/19 05/05/19 05/06/19 15:00 23:00 07:00 Intake Total 240 ml Balance 240 ml Nutrition Consultation Dietary Evaluation: Recommendations by RD: Increase Calorie Intake, Protein supplementation Comments: glucerna tid magic cup bid Expected Outcomes/Goals: to meet > 75% est nutr needs- not met, goal ongoing Malnutrition Findings: Food and Nutrition Intake (Mod: <75% est energy req 7days Weight Status: Appropriate SPRING BURGESS MD May 06, 2019 09:40
[2019-05-06] MEDS: CYCLOBENZAPRINE 10 MG TABLET. PO SCH ×2 (10:04→14:17)
[2019-05-06] MEDS: TAMSULOSIN 0.4 MG CAP.ER.24H. PO SCH (10:04)
[2019-05-06] MEDS: GABAPENTIN 300 MG CAPSULE. PO SCH ×2 (10:04→14:18)
[2019-05-06] MEDS: MULTIVITAMIN with MINERAL TABLET. PO SCH (10:05)
[2019-05-06] MEDS: PANTOPRAZOLE 40 MG TABLET.DR. PO SCH (10:05)
[2019-05-06] MEDS: ASCORBIC ACID 500 MG TABLET PO SCH (10:06)
[2019-05-06] MEDS: LACTOBACILLUS RHAMNOSUS GG 1 CAPSULE. PO SCH (10:06)
[2019-05-06] MEDS: DICLOFENAC SODIUM 1% TOPICAL GEL 100GM TUBE. TP SCH ×2 (10:07→14:24)
[2019-05-06] MEDS: LISINOPRIL 10 MG TABLET PO SCH (10:10)
[2019-05-06] MEDS: ASPIRIN CHEWABLE 81 MG TABLET. PO SCH (10:12)
--- NOTE | 2019-05-06 11:10 | PDOC ---
SURGICAL PROGRESS NOTE Subjective Pt poor historian but appears comfortable Vital Signs Vital Signs Date Time Temp Pulse Resp B/P (MAP) Pulse Ox O2 Delivery O2 Flow Rate FiO2 05/06/19 10:10 109 113/71 05/06/19 07:45 100.3 18 96 Room Air 100.3 I&O Intake and Output 05/06/19 07:00 Intake Total 240 ml Balance 240 ml Intake Oral 240 ml # Voids 2 General: Alert, No acute distress Extremities: Other (rook boots on) Labs Laboratory Tests Test 05/04/19 12:41 05/04/19 16:42 05/04/19 18:50 05/04/19 21:10 Glucose (Fingerstick) 73 mg/dL (70-99) 88 mg/dL (70-99) 87 mg/dL (70-99) Lactic Acid Level 0.7 mmol/L (0.4-2.0) Test 05/05/19 07:50 05/05/19 11:10 05/05/19 12:11 05/05/19 16:55 Glucose (Fingerstick) 63 mg/dL (70-99) 75 mg/dL (70-99) 66 mg/dL (70-99) White Blood Count 8.6 x10^3/uL (4.0-11.0) Red Blood Count 2.56 x10^6/uL (4.30-5.70) Hemoglobin 7.6 g/dL (13.0-17.5) Hematocrit 23.0 % (39.0-53.0) Mean Corpuscular Volume 90 fL (79-100) Mean Corpuscular Hemoglobin 30 pg (25-35) Mean Corpuscular Hemoglobin Concent 33 g/dL (31-37) Red Cell Distribution Width 14.2 % (11.5-14.5) Platelet Count 387 x10^3/uL (140-400) Neutrophils (%) (Auto) 67 % (31-73) Lymphocytes (%) (Auto) 21 % (24-48) Monocytes (%) (Auto) 10 % (0-9) Eosinophils (%) (Auto) 1 % (0-3) Basophils (%) (Auto) 1 % (0-3) Neutrophils # (Auto) 5.8 x10^3/uL (1.8-7.7) Lymphocytes # (Auto) 1.8 x10^3/uL (1.0-4.8) Monocytes # (Auto) 0.8 x10^3/uL (0.0-1.1) Eosinophils # (Auto) 0.1 x10^3/uL (0.0-0.7) Basophils # (Auto) 0.1 x10^3/uL (0.0-0.2) Test 05/05/19 22:03 05/05/19 23:26 05/06/19 07:26 05/06/19 08:11 Glucose (Fingerstick) 59 mg/dL (70-99) 76 mg/dL (70-99) 64 mg/dL (70-99) 74 mg/dL (70-99) Laboratory Tests Test 05/05/19 11:10 05/05/19 12:11 05/05/19 16:55 05/05/19 22:03 White Blood Count 8.6 x10^3/uL (4.0-11.0) Red Blood Count 2.56 x10^6/uL (4.30-5.70) Hemoglobin 7.6 g/dL (13.0-17.5) Hematocrit 23.0 % (39.0-53.0) Mean Corpuscular Volume 90 fL (79-100) Mean Corpuscular Hemoglobin 30 pg (25-35) Mean Corpuscular Hemoglobin Concent 33 g/dL (31-37) Red Cell Distribution Width 14.2 % (11.5-14.5) Platelet Count 387 x10^3/uL (140-400) Neutrophils (%) (Auto) 67 % (31-73) Lymphocytes (%) (Auto) 21 % (24-48) Monocytes (%) (Auto) 10 % (0-9) Eosinophils (%) (Auto) 1 % (0-3) Basophils (%) (Auto) 1 % (0-3) Neutrophils # (Auto) 5.8 x10^3/uL (1.8-7.7) Lymphocytes # (Auto) 1.8 x10^3/uL (1.0-4.8) Monocytes # (Auto) 0.8 x10^3/uL (0.0-1.1) Eosinophils # (Auto) 0.1 x10^3/uL (0.0-0.7) Basophils # (Auto) 0.1 x10^3/uL (0.0-0.2) Glucose (Fingerstick) 75 mg/dL (70-99) 66 mg/dL (70-99) 59 mg/dL (70-99) Test 05/05/19 23:26 05/06/19 07:26 05/06/19 08:11 Glucose (Fingerstick) 76 mg/dL (70-99) 64 mg/dL (70-99) 74 mg/dL (70-99) Problem List Problems Medical Problems: (1) AMS (altered mental status) Status: Acute (2) Pressure ulcer Status: Acute (3) UTI (urinary tract infection) Status: Acute Assessment/Plan s/p right heel debridement cont wound care and d/c planning. CARMELLA PAREDES MD May 06, 2019 11:10
[2019-05-06 11:26] VITALS: BP 128/81
--- NOTE | 2019-05-06 13:52 | NUR ---
ELIOT following pt. [facility] has accepted pt. Insurance had approved SNU yesterday. Pt to dc to [facility] and possibly transition to [facility]. Pt will transport via facility arranged stretcher at 1730. Packet on chart and discussed with RN. ELIOT left a message to pt's son regarding address and phone numbers for [facility].
[2019-05-06 15:40] VITALS: BP 132/61
[2019-05-06] MEDS: oxyCODONE/APAP 10/325 1 TAB TABLET PO PRN (16:28)
--- NOTE | 2019-05-06 19:14 | NUR ---
[facility] Report called to nurse at [facility]. Discharge packet given to transportation. IV discontinued. All belongings with patient. Patient assisted to stretcher and wheeled out by transport at 1800.
== END 2019-05-06 18:00 | DRG 299 ==
LOC: ER 15:14 → 6 SOUTH 18:08
PROVIDERS: ADMIT Internal Medicine; ATTEND Internal Medicine
PROC: 0HBNXZZ Excision of Left Foot Skin, External Approach (ICD-10-PCS; principal; 2019-05-04 09:30)
DX: I96 Gangrene, not elsewhere classified (principal); E43 Unspecified severe protein-calorie malnutrition; L89.153 Pressure ulcer of sacral region, stage 3; N39.0 Urinary tract infection, site not specified; G93.49 Other encephalopathy; L89.622 Pressure ulcer of left heel, stage 2; E11.52 Type 2 diabetes mellitus with diabetic peripheral angiopathy with gangrene; I10 Essential (primary) hypertension; J44.9 Chronic obstructive pulmonary disease, unspecified; M20.099 Other deformity of finger(s), unspecified finger(s); R62.7 Adult failure to thrive; M48.00 Spinal stenosis, site unspecified; Z96.653 Presence of artificial knee joint, bilateral; M19.90 Unspecified osteoarthritis, unspecified site; E03.9 Hypothyroidism, unspecified; B96.5 Pseudomonas (aeruginosa) (mallei) (pseudomallei) as the cause of diseases classified elsewhere; E11.42 Type 2 diabetes mellitus with diabetic polyneuropathy; K21.9 Gastro-esophageal reflux disease without esophagitis; G89.29 Other chronic pain; Z96.643 Presence of artificial hip joint, bilateral; Z87.440 Personal history of urinary (tract) infections; Z88.1 Allergy status to other antibiotic agents; Z88.8 Allergy status to other drugs, medicaments and biological substances; Z68.24 Body mass index [BMI] 24.0-24.9, adult; Z85.46 Personal history of malignant neoplasm of prostate; Z87.01 Personal history of pneumonia (recurrent); Z82.49 Family history of ischemic heart disease and other diseases of the circulatory system; Z83.3 Family history of diabetes mellitus
CPT/HCPCS: 36415; 70450; 71045; 76770; 80048; 80053; 80307; 81001; 82962; 83605; 84484; 85025; 85610; 87040; 87086; 87186; 88304; 90471; 90686; 93005; 96374; 96376; A7015; J0692; J0696; J1100; J2001; J2405; J2704; J2710; J3010; J3490; J7030; J7120; Q0163; 99285-25; A4461; G0378